=== PATIENT | male | born 1965 | race Caucasian/White ===

== ENCOUNTER 2016-05-10 03:57 | Observation (INO) | payer MEDICARE ==
--- NOTE | 2016-05-10 04:35 | ERPHSYRPT ---
- History of Present Illness Source: patient Exam Limitations: no limitations Patient Subjective Stated Complaint: pt was brought in by police after he called the ed stating he was drinking etoh and having thought of suicide and killing a lilli that has a history of harrassing him -he has a history of being hospitalized in [facility] 1 yr ago for anxiety and depression but has not been taking his meds recently -he cant sleep he is weak and tired depreased appetite recently -states a friend brought him alcohol to drink tonight Triage Nursing Assessment: pt is awaken and alert and able to answer questions - he is talking and talking but able to maintain his thoughts and is clear and consise Hx Tetanus, Diphtheria Vaccination/Date Given: Yes Hx Influenza Vaccination/Date Given: No Hx Pneumococcal Vaccination/Date Given: No <PATRICIA GALVAN - Last Filed: 05/10/16 07:05> <CASSIDY BARNES - Last Filed: 05/10/16 08:30> - History of Present Illness Time Seen by Provider: 05/10/16 04:18 Physician History: FOR THE PAST 6 MONTHS PT HAS BEEN ANXIOUS, HOMICIDAL TOWARD A PERSON WHO HAS BEEN HARASSING HIM AND HAD INSOMNIA; FOR THE PAST 3 MONTHS PT HAS HAD SUICIDAL THOUGHTS AND HAS A SUICIDAL PLAN HE WILL NOT DISCUSS WITH ME. PT ALSO STATES HE HAS HAD MIGRAINE HEADACHES FOR THE PAST YEAR, HAS DECREASED APPETITE AND HAS BEEN HEARING VOICES HIS WHOLE LIFE INTERMITTENTLY. (PATRICIA GALVAN) Allergies/Adverse Reactions: carisoprodol [From Soma] Allergy (Verified 02/10/16 06:28) Hives diphenhydramine [From Benadryl] Allergy (Verified 02/10/16 06:28) Hives quetiapine [From Seroquel] Allergy (Verified 05/10/16 06:10) Home Medications: Acetaminophen 325 mg [Tylenol 325 mg] 500 mg PO DAILY 02/07/16 [History] Meloxicam [Mobic] 15 mg PO DAILY 02/07/16 [History] - Past Medical History Pertinent Past Medical History: Yes Neurological History: Migraines ENT History: Other Cardiac History: No Pertinent History Respiratory History: Asthma Endocrine Medical History: No Pertinent History Musculoskeletal History: Arthritis, Other GI Medical History: Other History: Other Psycho-Social History: Anxiety Male Reproductive Disorders: Other Other Medical History: seasonal allegies, blood in stools, change in bowel habits, abdominal pain, urgency w. difficulty emptying bladder, pt states he has bone spurs, states hx anxiety but no problems with it for a while, pt states uretha entrance on bottom side of penis. - Past Surgical History Past Surgical History: No Neuro Surgical History: No Pertinent History Cardiac: No Pertinent History Respiratory: No Pertinent History Gastrointestinal: No Pertinent History Genitourinary: No Pertinent History Musculoskeletal: No Pertinent History Male Surgical History: No Pertinent History - Social History Smoking Status: Current every day smoker How long have you smoked: 35 years Exposure to second hand smoke: Yes Drug Use: marijuana Patient Lives Alone: No (girlfriend) <PATRICIA GALVAN - Last Filed: 05/10/16 07:05> - Review of Systems Constitutional: No Fever Respiratory: No Dyspnea Cardiac: No Chest Pain Abdominal/Gastrointestinal: Appetite Changes (DECREASED) Neurological: Headache Psychological: Anxiety, Suicidal Ideations, Homicidal Ideations, Other (INSOMNIA ) All Other Systems: Reviewed and Negative <PATRICIA GALVAN - Last Filed: 05/10/16 07:05> - Physical Exam General Appearance: alert, anxiety Eyes, Ears, Nose, Throat Exam: pharynx normal, other (CERUMEN OCCLUSION OF BOTH EARS.) Neck Exam: normal inspection Respiratory Exam: lungs clear Cardiovascular Exam: normal heart sounds Gastrointestinal/Abdominal Exam: soft, normal bowel sounds Extremities Exam: normal inspection, No edema Peripheral Pulses: dorsalis-pedis (R): 2+, dorsalis-pedis (L): 2+ Current Suicidality: has suicide plan Neurological Exam: alert, anxious, depressed affect Behavior/Eye Contact/Speech: alert & cooperative Skin Exam: warm, dry SpO2 Interpretation: normal SpO2: 95 Oxygen Delivery: Room Air <PATRICIA GALVAN - Last Filed: 05/10/16 07:05> <CASSIDY BARNES - Last Filed: 05/10/16 08:30> - Nursing Vital Signs Nursing Vital Signs: Initial Vital Signs Temperature 98 F Temperature Source Oral Pulse Rate 80 Respiratory Rate 16 Blood Pressure [Left Arm] 130/76 Pain Intensity 0 - Course Nursing assessment & vital signs reviewed: Yes <PATRICIA GALVAN - Last Filed: 05/10/16 07:05> <PATRICIA GALVAN - Last Filed: 05/10/16 07:05> - Progress Progress: unchanged Discussed with : Wily Will see patient in: hospital (observation) Counseled pt/family regarding: lab results, diagnosis, rad results <CASSIDY BARNES - Last Filed: 05/10/16 08:30> - Progress Progress Note: 05/10/16 07:35 waiting for psych inpatient placement (CASSIDY BARNES) <PATRICIA GALVAN - Last Filed: 05/10/16 07:05> - Departure Time of Disposition: 08:30 Departure Disposition: Observation Critical Care Time: Yes Critical Care Time(excluding separately billable procedures): 30-74 minutes <CASSIDY BARNES - Last Filed: 05/10/16 08:30> - Departure Clinical Impression: Psycho organic syndrome Condition: Fair Referrals: DOCTOR,NO FAMILY [Primary Care Provider] - Instructions: Bipolar Disorder
[2016-05-10 04:41] LABS: BASOPHIL % 0.3 % (0.0-0.4); Eosinophil % 2.5 % (0.00-5.0); Granulocytes % 46.8 % (36.0-66.0); Lymphocytes % 44.2 % (24.0-44.0); Mean Cell Volume 98.1 fl (78-100); Mean Corpuscular Hemoglobin 33.8 pg (26-32); Mean Platelet Volume 10.8 fl (6-9.5); Monocytes % 6.2 % (0.0-12.0); Platelet Count 223 K/mm3 (150-450); Red Blood Count 5.21 M/mm3 (4.1-5.6); Red Cell Distribution Width 13.2 % (11.5-14.0); White Blood Count 7.2 K/mm3 (4.0-10.5)
[2016-05-10 04:43] LABS: COMPLETE URINE MICROSCOPIC? NO; Collection Type CLEAN CATCH; Ph 6.5 (5-6)
[2016-05-10 04:55] LABS: ALBUMIN 4.2 g/dL (3.4-5.0); ALKALINE PHOSPHATASE 89 U/L (46-116); ANION GAP 13.6 MEQ/L (5-15); BILIRUBIN,TOTAL 0.4 mg/dL (0.2-1.0); BLOOD UREA NITROGEN 8 mg/dL (9-20); CHLORIDE 103 mEq/L (98-107); Carbon Dioxide 27.4 mEq/L (21-32); Glucose 109 MG/DL (70-110); Potassium 3.7 mEq/L (3.5-5.1); SGOT/AST 3 U/L (15-37); SGPT/ALT 18 U/L (12-78); SODIUM 140 mEq/L (136-145); Total Protein 7.7 gm/dL (6.4-8.2)
[2016-05-10 04:56] LABS: ACETAMINOPHEN < 2.0 ug/ml (10-30)
[2016-05-10] MEDS ORDERED: TYLENOL 325 MG PO STA (06:32)
[2016-05-10] MEDS ORDERED: TYLENOL 325 MG ONE (06:33)
[2016-05-10] MEDS ORDERED: Sodium Chloride 0.9% 1000 ML 1,000 ML IV SCH (09:29)
[2016-05-10] MEDS ORDERED: Ativan 2 MG/1 ML VIAL IV PRN (09:29)
[2016-05-10] MEDS ORDERED: Tums EX 750 MG PO PRN (21:52)
[2016-05-10] MEDS ORDERED: TUMS EX TABLETS PO ONE (21:55)
[2016-05-10] MEDS: TYLENOL 325 MG PO PRN (22:02)
--- NOTE | 2016-05-11 08:06 | PCM.HP ---
History of Present Illness - Chief Complaint Chief Complaint: acute psychosis, alcohol intoxication History of Present Illness: is a 50 year old male who was brought to the ER by law enforcement, apparently he had been making suicidal and homicidal comments to his family, he had also been drinking before arrival. He states he has been hospitalized approximately a year ago at [facility] for a similar incident. He was following at the [facility] in [place] but never got things arranged to be seen in the [place] office since he moved locally. Initially he was uncooperative with any intervention with our staff, he explains to me that he wanted to be left alone. He is well oriented, coopeartive and appropriate with me today. He regrets making comments to his family and states that he wasn't serious about harming himself or anyone else. He thinks drinking alcohol played a role in this, he also has not been sleeping well, apparently has not been on any medications for several months. - Review of Systems Constitutional: No Fever, No Chills Respiratory: No Cough, No Short Of Breath Cardiac: No Chest Pain, No Edema, No Syncope Abdominal/Gastrointestinal: No Abdominal Pain, No Nausea, No Vomiting, No Diarrhea Skin: No Rash Psychological: Alcohol Abuse, No Drug Abuse, No Suicidal Ideations, No Homicidal Ideations Medications & Allergies Home Medications: Home Medication List No Reportable Medications [No Reported Medications] 05/10/16 [History Confirmed 05/10/16] Allergies/Adverse Reactions: Allergies Allergy/AdvReac Type Severity Reaction Status Date / Time quetiapine [From Seroquel] Allergy Severe Verified 05/10/16 09:47 carisoprodol [From Soma] Allergy Hives Verified 02/10/16 06:28 diphenhydramine Allergy Hives Verified 02/10/16 06:28 [From Benadryl] - Past Medical History Past Medical History: Yes Neurological History: Migraines ENT History: Other Cardiac History: No Pertinent History Respiratory History: Asthma Endocrine Medical History: No Pertinent History Musculoskelatal History: Arthritis, Other GI Medical History: Other History: Other Pyscho-Social History: Anxiety Male Reproductive Disorders: Other Comment: prior suicide attempts by over dose. Cutting, anxiety, schizophrenia. Insomnia. Bendge drinking. - Past Surgical History Past Surgical History: No Neuro Surgical History: No Pertinent History Cardiac History: No Pertinent History Respiratory Surgery: No Pertinent History GI Surgical History: No Pertinent History Genitourinary Surgical Hx: No Pertinent History Musculskeletal Surgical Hx: No Pertinent History Male Surgical History: No Pertinent History - Social History Smoking Status: Current every day smoker How long have you smoked: 35 years Exposure to second hand smoke: Yes Alcohol: Weekly Drug Use: marijuana - Physical Exam Vital Signs: Vital Signs - 24 hr Temp Pulse Resp BP Pulse Ox 05/11/16 04:00 18 05/11/16 00:00 18 05/10/16 16:00 16 05/10/16 12:00 16 05/10/16 10:00 98 F 91 H 16 131/72 96 General Appearance: no apparent distress, alert Eye Exam: PERRL/EOMI, eyes nml inspection Respiratory Exam: normal breath sounds, lungs clear, No respiratory distress Cardiovascular Exam: regular rate/rhythm, normal heart sounds, normal peripheral pulses Gastrointestinal/Abdomen Exam: soft, normal bowel sounds, No tenderness, No mass Extremity Exam: normal inspection, normal range of motion, pelvis stable Skin Exam: normal color, warm, dry, No rash Assessment/Plan (1) Acute psychosis Current Visit: Yes Status: Acute Assessment & Plan: patient is stable at this time, he is appropriate and well oriented. will repeat urine alcohol this am, when negative will pursue telemental evaluation. patient is cooperative and I explained to his the process and he is agreeable, if nothing else will certainly need outpatient followup arranged with the local [facility] office. he feels safe, denies any homicidal or suicidal thoughts and wants to go home, discussed need to clear him with psych evaluation first and he agrees. Code(s): F23 - BRIEF PSYCHOTIC DISORDER (2) Alcohol intoxication Current Visit: Yes Status: Acute
[2016-05-11] MEDS: TYLENOL 325 MG PO PRN (08:24)
[2016-05-11 08:56] VITALS: O2SAT 98
[2016-05-11 15:06] VITALS: PULSE 94
[2016-05-11 15:41] VITALS: BP 120/78
--- NOTE | 2016-05-11 16:44 | PCM.DS ---
Discharge Summary Date of Admission: 05/10/16 09:23 Admitting Physician: HERNANDEZ HEBERT Primary Care Provider: NO FAMILY DOCTOR Allergies Allergies quetiapine [From Seroquel] Allergy (Severe, Verified 05/10/16 09:47) seizures carisoprodol [From Soma] Allergy (Verified 02/10/16 06:28) Hives diphenhydramine [From Benadryl] Allergy (Verified 02/10/16 06:28) [facility] Summary - Hospital Course Hospital Course: patient had telemental evaluation and was recommended outpatient f/u - Vitals & Intake/Output Vital Signs: Vital Signs Temperature 98.2 F 05/11/16 15:39 Pulse Rate 94 H 05/11/16 15:39 Respiratory Rate 18 05/11/16 15:39 Blood Pressure 120/78 05/11/16 15:39 O2 Sat by Pulse Oximetry 98 05/11/16 12:00 Intake & Output: Intake & Output 05/09/16 05/10/16 05/11/16 05/12/16 11:59 11:59 11:59 11:59 Intake Total 540 Balance 540 Weight 72.575 kg - Lab Result Diagrams: 05/10/16 04:35 05/10/16 04:35 Lab Results-Last 24 Hrs: Lab Results-Last 24 Hours 05/11/16 Range/Units 08:40 Urine pH 6.0 (3-8.5) Urine Ethyl Alcohol 1 (0.00-20) mg/dl - Procedures and Test Procedures and Tests throughout Hospitalization: Therapy Orders & Screens 05/10/16 11:00 Smoking Cessation Education ONCE Comment: Diagnosis: acute psychosis, alcohol intoxication Smoking Status: Current every day smoker How long have you smoked: 35 years Have you smoked in the past 12 months: Yes Approximately how many cigarettes per day: 2PPD cigars Do you dip or chew tobacco: No Discharge Exam General Appearance: no apparent distress, alert Respiratory Exam: normal breath sounds, lungs clear, No respiratory distress Cardiovascular Exam: regular rate/rhythm, normal heart sounds Gastrointestinal/Abdomen Exam: soft, No tenderness, No mass Extremity Exam: normal inspection, normal range of motion Final Diagnosis/Problem List - Final Discharge Diagnosis/Problem (1) Acute psychosis Current Visit: Yes Status: Acute (2) Alcohol intoxication Current Visit: Yes Status: Acute - Discharge Disposition: Home, Self-Care Condition: Stable Prescriptions: No Action No Reportable Medications [No Reported Medications] Instructions: Bipolar Disorder Follow up with: CELIA LONG [ACTIVE STAFF] - 1 Week
== END 2016-05-11 18:30 | disposition home or self-care (01) ==
LOC: ED 03:57 → ICU 09:23
PROVIDERS: ADMIT Family Medicine; ATTEND Family Medicine
DX: F23 Brief psychotic disorder (principal); F10.129 Alcohol abuse with intoxication, unspecified; J45.909 Unspecified asthma, uncomplicated; F41.9 Anxiety disorder, unspecified; M19.90 Unspecified osteoarthritis, unspecified site; Z72.0 Tobacco use; Z79.899 Other long term (current) drug therapy
CPT/HCPCS: 99284; 81002; 36415; 80307; 80320 ×2; 83986 ×2; 85025; 80053; G0479; G0481; 90791; G0378; Q3014

== ENCOUNTER 2017-02-24 23:33 | Observation (INO) | payer MEDICARE ==
[2017-02-25] MEDS ORDERED: Sodium Chloride 0.9% 1000 ML 1,000 ML IV STA (00:02)
[2017-02-25] MEDS ORDERED: THIAMINE 200 MG/2 ML IV ONE (00:02)
[2017-02-25] MEDS ORDERED: THIAMINE 200 MG/2 ML ONE (00:07)
[2017-02-25] MEDS ORDERED: Sodium Chloride 0.9% 1000 ML 1,000 ML ONE (00:07)
--- NOTE | 2017-02-25 00:09 | ERPHSYRPT ---
- History of Present Illness Time Seen by Provider: 02/25/17 00:04 Source: patient Exam Limitations: no limitations Patient Subjective Stated Complaint: pt states he has been depressed and was going to take heroin tonight. states he wants to kill himself. Triage Nursing Assessment: pt alert and oriented. speech slurred. cooperative. strong smell of etoh from pt. pt sttes he has been haivng thoughts of harming himself. Physician History: This is a 51-year-old white male with history of migraines, asthma, arthritis, anxiety Patient is brought by the police patient states that he has been hearing voices in his head for 2 weeks he states he's been drinking vodka he has been considering taking insulin to harm himself. 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 Patient states he has a history of schizophrenia Social history includes tobacco use alcohol use Timing/Duration: week(s) (hearing voices for 2 weeks, tells police he wants to harm himself tonight) Severity: moderate Modifying Factors: Improves With: nothing Allergies/Adverse Reactions: quetiapine [From Seroquel] Allergy (Severe, Verified 02/25/17 00:03) seizures carisoprodol [From Soma] Allergy (Verified 02/25/17 00:03) Hives diphenhydramine [From Benadryl] Allergy (Verified 02/25/17 00:03) Hives Home Medications: No Reportable Medications [No Reported Medications] 05/10/16 [History] Hx Tetanus, Diphtheria Vaccination/Date Given: Yes Hx Influenza Vaccination/Date Given: No Hx Pneumococcal Vaccination/Date Given: No Immunizations Up to Date: Yes - Review of Systems Constitutional: No Fever, No Chills Eyes: No Symptoms Ears, Nose, & Throat: No Symptoms Respiratory: No Cough, No Dyspnea Cardiac: No Chest Pain, No Edema, No Syncope Abdominal/Gastrointestinal: No Abdominal Pain, No Nausea, No Vomiting, No Diarrhea Genitourinary Symptoms: No Dysuria Musculoskeletal: No Back Pain, No Neck Pain Skin: No Rash Neurological: No Dizziness, No Focal Weakness, No Sensory Changes Psychological: Alcohol Abuse, Suicidal Ideations Endocrine: No Symptoms All Other Systems: Reviewed and Negative - Past Medical History Pertinent Past Medical History: Yes Neurological History: Migraines ENT History: Other Cardiac History: No Pertinent History Respiratory History: Asthma Endocrine Medical History: No Pertinent History Musculoskeletal History: Arthritis, Other GI Medical History: Other History: Other Psycho-Social History: Anxiety Male Reproductive Disorders: Other Other Medical History: prior suicide attempts by over dose. Cutting, anxiety, schizophrenia. Insomnia. Binge drinking. - Past Surgical History Past Surgical History: No Neuro Surgical History: No Pertinent History Cardiac: No Pertinent History Respiratory: No Pertinent History Gastrointestinal: No Pertinent History Genitourinary: No Pertinent History Musculoskeletal: No Pertinent History Male Surgical History: No Pertinent History - Social History Smoking Status: Current every day smoker How long have you smoked: 35 years Exposure to second hand smoke: Yes Drug Use: marijuana Patient Lives Alone: No - Nursing Vital Signs Nursing Vital Signs: Initial Vital Signs Temperature 97.6 F 02/24/17 23:45 Pulse Rate 100 H 02/24/17 23:45 Respiratory Rate 18 02/24/17 23:45 Blood Pressure 117/95 02/24/17 23:45 O2 Sat by Pulse Oximetry 97 02/24/17 23:45 - Physical Exam General Appearance: other (well-developed white male, slurry speech, oriented to person and place) Eye Exam: PERRL/EOMI, eyes nml inspection Ears, Nose, Throat Exam: normal ENT inspection, TMs normal, pharynx normal, moist mucous membranes Neck Exam: normal inspection, non-tender, supple, full range of motion Respiratory Exam: normal breath sounds, lungs clear, No respiratory distress Cardiovascular Exam: regular rate/rhythm, normal heart sounds, normal peripheral pulses Gastrointestinal/Abdomen Exam: soft, normal bowel sounds, No tenderness, No mass Back Exam: normal inspection, normal range of motion, No CVA tenderness, No vertebral tenderness Extremity Exam: normal inspection, normal range of motion, pelvis stable Neurologic Exam: alert, oriented x 3, cooperative, normal mood/affect, nml cerebellar function, nml station & gait, sensation nml, No motor deficits Skin Exam: normal color, warm, dry, No rash Lymphatic Exam: No adenopathy SpO2 Interpretation: normal (97%) SpO2: 97 Oxygen Delivery: Room Air - Course Nursing assessment & vital signs reviewed: Yes EKG Interpreted by Me: RATE (96 bpm), Sinus Rhythm, NORMAL AXIS, Other (EKG sinus bpm normal axis no acute ST or T wave changes noted) Ordered Tests: Active Orders 24 hr Category Date Time Status Bedrest with BRP/BSC ROUTINE Activity 02/25/17 03:13 Active Accucheck STAT Care 02/25/17 00:02 Completed Admission/Status Order ROUTINE Care 02/25/17 03:13 Active Call Admit Doctor for Orders ON ADMISSION Care 02/25/17 03:13 Active Code Status Order ROUTINE Care 02/25/17 03:13 Active EKG-ER Only STAT Care 02/25/17 00:02 Completed Muniz [Catheter-Susan Muniz] STAT Care 02/25/17 02:27 Inactive IV Care Q6H Care 02/25/17 03:13 Active IV Insertion STAT Care 02/25/17 00:02 Completed Clear Liquid Diet 02/25/17 Breakfast Active ACETAMINOPHEN AM.LAB Lab 02/25/17 04:00 Ordered ACETAMINOPHEN Stat Lab 02/25/17 00:13 Completed AMYLASE Stat Lab 02/25/17 00:13 Completed CBC W DIFF Stat Lab 02/25/17 00:13 Completed CBC W DIFF Urgent Lab 02/25/17 03:13 Ordered CMP AM.LAB Lab 02/25/17 04:00 Ordered CMP Stat Lab 02/25/17 00:13 Completed ETHYL ALCOHOL AM.LAB Lab 02/25/17 04:00 Ordered ETHYL ALCOHOL Stat Lab 02/25/17 00:13 Completed SALICYLATE Stat Lab 02/25/17 00:13 Completed UA W/RFX UR CULTURE Stat Lab 02/25/17 00:13 Completed Urine Triage Profile Stat Lab 02/25/17 00:13 Completed Transfer Order Routine Transfer 02/25/17 Completed Medication Summary Generic Name Dose Route Start Last Admin Trade Name Freq PRN Reason Stop Dose Admin Sodium Chloride 1,000 mls @ 100 mls/hr 02/25/17 03:13 Sodium Chloride 0.9% 1000 Ml IV 03/27/17 03:12 .Q10H ZENON Lorazepam 1 mg 02/25/17 03:13 02/25/17 03:20 Ativan 2 Mg/1 Ml Vial IV 03/27/17 03:12 1 mg PRN PRN Administration CIWA SCORE Thiamine HCl 100 mg 02/25/17 10:00 Vitamin B-1 100 Mg PO 03/27/17 09:59 DAILY ZENON Discontinued Medications Generic Name Dose Route Start Last Admin Trade Name Maxx PRN Reason Stop Dose Admin Sodium Chloride 1,000 mls @ 999 mls/hr 02/25/17 00:02 02/25/17 00:11 Sodium Chloride 0.9% 1000 Ml IV 02/25/17 01:02 999 mls/hr .Q1H1M STA Administration Sodium Chloride Confirm 02/25/17 00:07 Sodium Chloride 0.9% 1000 Ml Administered 02/25/17 00:08 Dose 1,000 mls @ ud .ROUTE .STK-MED ONE Thiamine HCl 100 mg 02/25/17 00:02 02/25/17 00:11 Thiamine 200 Mg/2 Ml IV 02/25/17 00:03 100 mg STAT ONE Administration Thiamine HCl Confirm 02/25/17 00:07 Thiamine 200 Mg/2 Ml Administered 02/25/17 00:08 Dose 200 mg .ROUTE .STK-MED ONE Lab/Rad Data: Laboratory Result Diagrams 02/25/17 00:13 02/25/17 00:13 Laboratory Results 02/25/17 02/25/17 02/25/17 Range/Units 00:13 00:13 00:13 WBC 10.0 (4.0-10.5) K/mm3 RBC 5.00 (4.1-5.6) M/mm3 Hgb 16.6 (12.5-18.0) gm/dl Hct 48.0 (42-50) % MCV 96.0 (78-100) fl MCH 33.2 H (26-32) pg MCHC 34.6 (32-36) g/dl RDW 13.3 (11.5-14.0) % Plt Count 226 (150-450) K/mm3 MPV 11.0 H (6-9.5) fl Gran % 51.3 (36.0-66.0) % Lymphocytes % 38.2 (24.0-44.0) % Monocytes % 7.7 (0.0-12.0) % Eosinophils % 2.7 (0.00-5.0) % Basophils % 0.1 (0.0-0.4) % Basophils # 0.01 (0-0.4) Sodium 142 (136-145) mEq/L Potassium 3.7 (3.5-5.1) mEq/L Chloride 105 (98-107) mEq/L Carbon Dioxide 25.8 (21-32) mEq/L Anion Gap 14.5 (5-15) MEQ/L BUN 9 (9-20) mg/dL Creatinine 0.87 (0.55-1.30) mg/dl Estimated GFR > 60 ML/MIN Glucose 109 (70-110) MG/DL Calcium 9.1 (8.5-10.1) mg/dL Total Bilirubin 0.30 (0.2-1.0) mg/dL AST 21 (15-37) U/L ALT 27 (12-78) U/L Alkaline Phosphatase 81 (46-116) U/L Serum Total Protein 7.4 (6.4-8.2) gm/dL Albumin 3.9 (3.4-5.0) g/dL Amylase 47 (25-115) U/L Ur Collection Type Urine Color (YELLOW) Urine Appearance (CLEAR) Urine pH (5-6) Ur Specific Parsons (1.005-1.025) Urine Protein (Negative) Urine Ketones (NEGATIVE) Urine Blood (0-5) Andrei/ul Urine Nitrite (NEGATIVE) Urine Bilirubin (NEGATIVE) Urine Urobilinogen (0-1) mg/dL Ur Leukocyte Esterase (NEGATIVE) Urine Culture Reflexed (NO) Urine Glucose (NEGATIVE) mg/dL Salicylates 9.0 (2.8-20.0) mg/dl Urine Opiates Level NEG. (NEGATIVE) Ur Methadone NEG. (NEGATIVE) Acetaminophen < 2.0 L (10-30) ug/ml Urine Barbiturates NEG. (NEGATIVE) Ur Phencyclidine (PCP) NEG. (NEGATIVE) Urine Amphetamine NEG. (NEGATIVE) U Benzodiazepine Level NEG. (NEGATIVE) Urine Cocaine NEG. (NEGATIVE) Urine Marijuana (THC) NEG. (NEGATIVE) Ethyl Alcohol 0.258 H* (0.00-0.01) % Specimen Received 02/25/17 Range/Units 00:13 WBC (4.0-10.5) K/mm3 RBC (4.1-5.6) M/mm3 Hgb (12.5-18.0) gm/dl Hct (42-50) % MCV (78-100) fl MCH (26-32) pg MCHC (32-36) g/dl RDW (11.5-14.0) % Plt Count (150-450) K/mm3 MPV (6-9.5) fl Gran % (36.0-66.0) % Lymphocytes % (24.0-44.0) % Monocytes % (0.0-12.0) % Eosinophils % (0.00-5.0) % Basophils % (0.0-0.4) % Basophils # (0-0.4) Sodium (136-145) mEq/L Potassium (3.5-5.1) mEq/L Chloride (98-107) mEq/L Carbon Dioxide (21-32) mEq/L Anion Gap (5-15) MEQ/L BUN (9-20) mg/dL Creatinine (0.55-1.30) mg/dl Estimated GFR ML/MIN Glucose (70-110) MG/DL Calcium (8.5-10.1) mg/dL Total Bilirubin (0.2-1.0) mg/dL AST (15-37) U/L ALT (12-78) U/L Alkaline Phosphatase (46-116) U/L Serum Total Protein (6.4-8.2) gm/dL Albumin (3.4-5.0) g/dL Amylase (25-115) U/L Ur Collection Type VOID Urine Color LT.YELLOW (YELLOW) Urine Appearance CLEAR (CLEAR) Urine pH 7.0 (5-6) Ur Specific Parsons 1.005 (1.005-1.025) Urine Protein NEGATIVE (Negative) Urine Ketones NEGATIVE (NEGATIVE) Urine Blood NEGATIVE (0-5) Andrei/ul Urine Nitrite NEGATIVE (NEGATIVE) Urine Bilirubin NEGATIVE (NEGATIVE) Urine Urobilinogen NORMAL (0-1) mg/dL Ur Leukocyte Esterase NEGATIVE (NEGATIVE) Urine Culture Reflexed NO (NO) Urine Glucose NEGATIVE (NEGATIVE) mg/dL Salicylates (2.8-20.0) mg/dl Urine Opiates Level (NEGATIVE) Ur Methadone (NEGATIVE) Acetaminophen (10-30) ug/ml Urine Barbiturates (NEGATIVE) Ur Phencyclidine (PCP) (NEGATIVE) Urine Amphetamine (NEGATIVE) U Benzodiazepine Level (NEGATIVE) Urine Cocaine (NEGATIVE) Urine Marijuana (THC) (NEGATIVE) Ethyl Alcohol (0.00-0.01) % Specimen Received 02/25/17 0015 - Progress Progress: improved Progress Note: 02/25/17 00:08 51-year-old white male who is brought in by the police he complains of hearing voices for 2 weeks he really does not elaborate what these are saying he states he has been drinking vodka today. He told the police that he wanted to harm himself by injecting insulin however the patient has a history of borderline diabetes and is unsure whether he has insulin available. Patient does state he has a history of schizophrenia. Will go ahead and provide IV fluids thiamine obtain appropriate laboratory studies. 02/25/17 01:27 Patient's blood alcohol level is 0.258 patient is somewhat obstinate with the nurses and seems to enjoy doing this. I have discussed the case with Dr. Lewis Eugene who is talent acquisition partner for Dr. Chauhan. Will place patient on observation. Diagnosis alcohol intoxication. Suicidal ideation - Departure Time of Disposition: 03:30 Departure Disposition: Observation Clinical Impression: Suicidal ideation Alcohol intoxication Qualifiers: Complication of substance-induced condition: uncomplicated Qualified Code(s): F10.920 - Alcohol use, unspecified with intoxication, uncomplicated Condition: Fair Critical Care Time: No
[2017-02-25 00:18] LABS: ADD URINE CULTURE? NO (NO); Bilirubin NEGATIVE (NEGATIVE); Blood NEGATIVE Ery/ul (0-5); COMPLETE URINE MICROSCOPIC? NO; Collection Type VOID; Glucose NEGATIVE (NEGATIVE); Leukocyte Esterase NEGATIVE (NEGATIVE)
[2017-02-25 00:19] LABS: BASOPHIL % 0.1 % (0.0-0.4); Eosinophil % 2.7 % (0.00-5.0); Granulocytes % 51.3 % (36.0-66.0); Lymphocytes % 38.2 % (24.0-44.0); Mean Corpuscular Hemoglobin 33.2 pg (26-32); Monocytes % 7.7 % (0.0-12.0); Platelet Count 226 K/mm3 (150-450); Red Cell Distribution Width 13.3 % (11.5-14.0)
[2017-02-25 00:37] LABS: ALBUMIN 3.9 g/dL (3.4-5.0); ALKALINE PHOSPHATASE 81 U/L (46-116); ANION GAP 14.5 MEQ/L (5-15); BLOOD UREA NITROGEN 9 mg/dL (9-20); CHLORIDE 105 mEq/L (98-107); Carbon Dioxide 25.8 mEq/L (21-32); ETHYL ALCOHOL 0.258 % (0.00-0.01); Glucose 109 MG/DL (70-110); Potassium 3.7 mEq/L (3.5-5.1); SGPT/ALT 27 U/L (12-78); SODIUM 142 mEq/L (136-145); Total Protein 7.4 gm/dL (6.4-8.2)
[2017-02-25 00:50] LABS: SGOT/AST 21 U/L (15-37)
[2017-02-25 00:52] LABS: ACETAMINOPHEN < 2.0 ug/ml (10-30)
[2017-02-25] MEDS ORDERED: Sodium Chloride 0.9% 1000 ML 1,000 ML IV SCH (03:13)
[2017-02-25] MEDS ORDERED: Ativan 2 MG/1 ML VIAL IV PRN (03:13)
[2017-02-25 05:57] LABS: BASOPHIL % 0.1 % (0.0-0.4); Eosinophil % 3.4 % (0.00-5.0); Granulocytes % 43.7 % (36.0-66.0); Lymphocytes % 45.6 % (24.0-44.0); Mean Corpuscular Hemoglobin 32.7 pg (26-32); Mean Platelet Volume 11.2 fl (6-9.5); Monocytes % 7.2 % (0.0-12.0); Platelet Count 215 K/mm3 (150-450); Red Blood Count 5.08 M/mm3 (4.1-5.6); Red Cell Distribution Width 13.4 % (11.5-14.0); White Blood Count 8.3 K/mm3 (4.0-10.5)
[2017-02-25 06:24] LABS: ALBUMIN 3.7 g/dL (3.4-5.0); ALKALINE PHOSPHATASE 77 U/L (46-116); ANION GAP 12.3 MEQ/L (5-15); BLOOD UREA NITROGEN 9 mg/dL (9-20); CHLORIDE 108 mEq/L (98-107); Carbon Dioxide 27.1 mEq/L (21-32); ETHYL ALCOHOL 0.191 % (0.00-0.01); Glucose 94 MG/DL (70-110); Potassium 3.8 mEq/L (3.5-5.1); SGOT/AST 18 U/L (15-37); SGPT/ALT 24 U/L (12-78); SODIUM 144 mEq/L (136-145); Total Protein 7.2 gm/dL (6.4-8.2)
[2017-02-25 06:31] LABS: ACETAMINOPHEN < 2.0 ug/ml (10-30)
--- NOTE | 2017-02-25 09:15 | SSS ---
DISCHARGE DIAGNOSES: 1) SUICIDAL IDEATION. 2) INTOXICATION. 3) BIPOLAR DISORDER. HISTORY: The patient is a 51 year-old white male patient who reports that last evening he was chugging alcohol just as hard and as quick as he could. He was having arguments with his girlfriend and just wanted to get away from the house. He reported to the authorities that he wanted to kill himself. He was brought to the emergency room for further evaluation and management. PAST MEDICAL/SURGICAL HISTORY: Significant for bipolar and schizophrenia. He has a long history of treatments at mental health facilities. This is a patient that I am not familiar with otherwise and do not believe I have ever seen in the office. The patient's medical history otherwise is essentially remarkable for arthritis, chronic obstructive pulmonary disease, migraines. He is unsure about his medications presently except he reports that he does take Seroquel and Klonopin. He is unsure about any other medications presently. HOME MEDICATIONS: ALLERGIES: SOMA, BENADRYL. PHYSICAL EXAMINATION: He is a disheveled 51 year-old white male patient who is edentulous and mumbling somewhat and asking for his dentures. HEENT: Normocephalic, atraumatic. Pupils equal round reactive to light. Extraocular movements intact. NECK: Supple without lymphadenopathy, thyromegaly or JVD. CHEST: Clear to auscultation with good air movement bilaterally. HEART: Regular rate and rhythm without murmurs, rubs or gallops. ABDOMEN: Soft, nontender, nondistended without hepatosplenomegaly or masses. EXTREMITIES: Without clubbing, cyanosis or edema. NEUROLOGIC: The patient is alert and oriented x3. No focal deficits were noted. LAB DATA AND TESTS: Revealed urine drug screen which was negative. UA showed specific gravity 1.005 and was otherwise normal. CBC normal. Hemoglobin 16.6, white blood cell count 10,000. PLT count 226,000. His metabolic panel was normal as well. Acetaminophen less than 2. Salicylate 9.0. ETOH was initially 0.258 and is now down to 0.191. HOSPITAL COURSE: The patient this morning after hospitalization and waking up reports he does not feel like harming himself. He just wanted to scare his girlfriend. He is currently under a 24 hour hold but currently medically stable for discharge to whatever facility that the [facility] suggests versus home with outpatient follow up. The patient reports that he has tried to get into [facility] for the past three months but their appointments are three to four months out for evaluation and he got tired of waiting. The patient otherwise is cleared for discharge from the medical standpoint.
[2017-02-25] MEDS ORDERED: VITAMIN B-1 100 MG PO SCH (10:00)
[2017-02-25 16:27] VITALS: BP 106/78; PULSE 98; O2SAT 95
== END 2017-02-25 20:00 | disposition home or self-care (01) ==
LOC: ED 23:33 → EEVIPCON 23:33 → ICU 02-25 03:12
PROVIDERS: ADMIT Family Medicine; ATTEND Family Medicine
DX: R45.851 Suicidal ideations (principal); F10.129 Alcohol abuse with intoxication, unspecified; F31.9 Bipolar disorder, unspecified; F20.9 Schizophrenia, unspecified; J44.9 Chronic obstructive pulmonary disease, unspecified; M19.90 Unspecified osteoarthritis, unspecified site
CPT/HCPCS: 90791; 99285; 36000; 82962; 96360; 93005; 82150; 81002; 36415; 80307 ×2; 85025; 80053; P9612; G0481 ×2; 96374; G0378; J2060; Q3014; A9270-GY

== ENCOUNTER 2017-06-23 20:31 | Emergency (ER) | payer MEDICARE ==
--- NOTE | 2017-06-23 20:40 | ERPHSYRPT ---
- History of Present Illness Time Seen by Provider: 06/23/17 20:31 Source: patient Exam Limitations: no limitations Physician History: ABOUT 2 HOURS AGO PT TOOK AN UNKNOWN QUANTITY OF VARIOUS MEDICATIONS IN A SUICIDE ATTEMPT. PT STATES HE HAS HAD SUICIDAL THOUGHTS FOR THE PAST 6 MONTHS AND HAS A THERAPIST NAMED YAMILA AT [facility]. PT ALSO C/O URINARY HESITATION FOR OVER 1 YEAR, INTERMITTENT DIARRHEA FOR THE PAST 6 MONTHS, COUGH FOR YEARS AND 3 DAYS AGO VOMITING X1 WITHOUT BLOOD WITH DECREASED APPETITE. Allergies/Adverse Reactions: quetiapine [From Seroquel] Allergy (Severe, Verified 02/25/17 00:03) seizures carisoprodol [From Soma] Allergy (Verified 02/25/17 00:03) Hives diphenhydramine [From Benadryl] Allergy (Verified 02/25/17 00:03) Hives Home Medications: Meloxicam 1 tab PO DAILY 02/25/17 [History] Hx Tetanus, Diphtheria Vaccination/Date Given: Yes Hx Influenza Vaccination/Date Given: No Hx Pneumococcal Vaccination/Date Given: No - Review of Systems Constitutional: No Fever Respiratory: Cough Cardiac: No Chest Pain Abdominal/Gastrointestinal: Vomiting, Diarrhea, Appetite Changes (DECREASED APPETITE), No Abdominal Pain Genitourinary Symptoms: Hesitancy Neurological: Headache (MIGRAINES) Psychological: Suicidal Ideations All Other Systems: Reviewed and Negative - Past Medical History Pertinent Past Medical History: Yes Neurological History: Migraines ENT History: Other Cardiac History: No Pertinent History Respiratory History: Asthma Endocrine Medical History: No Pertinent History Musculoskeletal History: Arthritis, Other GI Medical History: Other History: Other Psycho-Social History: Anxiety Male Reproductive Disorders: Other Other Medical History: prior suicide attempts by over dose. Cutting, anxiety, schizophrenia. Insomnia. Binge drinking. - Past Surgical History Past Surgical History: No Neuro Surgical History: No Pertinent History Cardiac: No Pertinent History Respiratory: No Pertinent History Gastrointestinal: No Pertinent History Genitourinary: No Pertinent History Musculoskeletal: No Pertinent History Male Surgical History: No Pertinent History - Social History Smoking Status: Current every day smoker How long have you smoked: 35 years Exposure to second hand smoke: Yes Drug Use: marijuana Patient Lives Alone: No - Nursing Vital Signs Nursing Vital Signs: Initial Vital Signs Pulse Rate 68 06/23/17 20:32 Respiratory Rate 14 06/23/17 20:32 Blood Pressure 103/75 06/23/17 20:32 O2 Sat by Pulse Oximetry 97 06/23/17 20:32 Pain Scale Pain Intensity 0 - Physical Exam General Appearance: alert Eye Exam: PERRL/EOMI Ears, Nose, Throat Exam: pharynx normal, moist mucous membranes Neck Exam: normal inspection Respiratory Exam: wheezing (MINIMAL EXPIRATORY WHEEZING) Cardiovascular Exam: normal heart sounds Gastrointestinal/Abdomen Exam: soft, normal bowel sounds Back Exam: normal range of motion Extremity Exam: normal inspection, No pedal edema Neurologic Exam: alert, cooperative, depressed mood/affect Skin Exam: warm, dry - Course Nursing assessment & vital signs reviewed: Yes EKG Interpreted by Me: RATE ([id number]), Sinus Rhythm, NORMAL AXIS, NORMAL INTERVALS - Radiology Exams Chest X-ray Interpretation: Interpreted by me, No Pneumonia Ordered Tests: Active Orders 24 hr Category Date Time Status Accucheck STAT Care 06/23/17 20:32 Active Chief Yeoman STAT Care 06/23/17 20:33 Active Clean Catch Urine Specimen STAT Care 06/23/17 20:32 Active EKG-ER Only STAT Care 06/23/17 20:32 Active IV Insertion STAT Care 06/23/17 20:32 Active Psychiatric Evaluation STAT Care 06/23/17 20:32 Active Pulse Oximetry (ED) STAT Care 06/23/17 20:32 Active CHEST 1 VIEW (PORTABLE) Stat Exams 06/23/17 20:33 Taken ACETAMINOPHEN Stat Lab 06/23/17 21:00 Completed CBC W DIFF Stat Lab 06/23/17 21:00 Completed CMP Stat Lab 06/23/17 21:00 Completed ETHYL ALCOHOL Stat Lab 06/23/17 21:00 Completed MAGNESIUM Stat Lab 06/23/17 21:00 Completed PROTIME WITH INR Stat Lab 06/23/17 21:00 Completed PTT Stat Lab 06/23/17 21:00 Completed SALICYLATE Stat Lab 06/23/17 21:00 Completed TROPONIN Q3H Lab 06/23/17 21:00 Completed TROPONIN Q3H Lab 06/23/17 23:45 Completed UA W/ MICROSCOPIC Stat Lab 06/23/17 23:14 Completed Urine Triage Profile Stat Lab 06/23/17 23:14 Completed Respiratory Nebulizer STAT RT 06/23/17 20:45 Completed Medication Summary Generic Name Dose Route Start Last Admin Trade Name Freq PRN Reason Stop Dose Admin Sodium Chloride 1,000 mls @ 100 mls/hr 06/23/17 20:45 06/23/17 20:58 Sodium Chloride 0.9% 1000 Ml IV 07/23/17 20:44 100 mls/hr .Q10H ZENON Administration Discontinued Medications Generic Name Dose Route Start Last Admin Trade Name Maxx PRN Reason Stop Dose Admin Albuterol Sulfate 2.5 mg 06/23/17 20:45 06/23/17 21:01 Proventil 2.5 Mg/3 Ml Neb IH 06/23/17 20:46 2.5 mg STAT ONE Administration Albuterol Sulfate Confirm 06/23/17 20:59 Proventil 2.5 Mg/3 Ml Neb Administered 06/23/17 21:00 Dose 2.5 mg IH .STK-MED ONE Albuterol/Ipratropium Confirm 06/23/17 20:58 Duoneb 0.5-3 Mg/3 Ml Neb Administered 06/23/17 20:59 Dose 3 ml IH .STK-MED ONE Sodium Chloride Confirm 06/23/17 20:58 Sodium Chloride 0.9% 1000 Ml Administered 06/23/17 20:59 Dose 1,000 mls @ ud .ROUTE .STK-MED ONE Lab/Rad Data: Laboratory Result Diagrams 06/23/17 21:00 06/23/17 21:00 Laboratory Results 06/23/17 06/23/17 06/23/17 Range/Units 23:45 23:14 23:14 WBC (4.0-10.5) K/mm3 RBC (4.1-5.6) M/mm3 Hgb (12.5-18.0) gm/dl Hct (42-50) % MCV (78-100) fl MCH (26-32) pg MCHC (32-36) g/dl RDW (11.5-14.0) % Plt Count (150-450) K/mm3 MPV (6-9.5) fl Gran % (36.0-66.0) % Lymphocytes % (24.0-44.0) % Monocytes % (0.0-12.0) % Eosinophils % (0.00-5.0) % Basophils % (0.0-0.4) % Basophils # (0-0.4) INR (0.8-3.0) APTT (24.1-36.1) SECONDS Sodium (137-145) mmol/L Potassium (3.5-5.1) mmol/L Chloride (98-107) mEq/L Carbon Dioxide (22-30) mmol/L Anion Gap (5-15) MEQ/L BUN (9-20) mg/dl Creatinine (0.66-1.25) mg/dl Estimated GFR ML/MIN Glucose (74-106) mg/dL Calcium (8.4-10.2) mg/dL Magnesium (1.6-2.3) mg/dL Total Bilirubin (0.2-1.3) mg/d? AST (17-59) U/L ALT (0-50) U/L Alkaline Phosphatase (38-126) U/L Troponin I < 0.012 (0.000-0.034) ng/ml Serum Total Protein (6.3-8.2) mg/dl Albumin (3.5-5.0) g/dl Ur Collection Type CCMS Urine Color YELLOW (YELLOW) Urine Appearance CLEAR (CLEAR) Urine pH 7.0 (5-6) Ur Specific [place] 1.010 (1.005-1.025) Urine Protein NEGATIVE (Negative) Urine Ketones NEGATIVE (NEGATIVE) Urine Blood NEGATIVE (0-5) Andrei/ul Urine Nitrite NEGATIVE (NEGATIVE) Urine Bilirubin NEGATIVE (NEGATIVE) Urine Urobilinogen NORMAL (0-1) mg/dL Ur Leukocyte Esterase TRACE (NEGATIVE) Urine Microscopic WBC 2-5 (0-5) /HPF Hyaline Casts 2-5 (0-2) /LPF Urine Mucus SLIGHT (NEGATIVE) /HPF Urine Culture Reflexed NO (NO) Urine Glucose NEGATIVE (NEGATIVE) mg/dL Salicylates (2-20) mg/dL Urine Opiates Level NEGATIVE (NEGATIVE) Ur Methadone NEGATIVE (NEGATIVE) Acetaminophen (10-30) ug/ml Urine Barbiturates NEGATIVE (NEGATIVE) Ur Phencyclidine (PCP) NEGATIVE (NEGATIVE) Urine Amphetamine NEGATIVE (NEGATIVE) U Benzodiazepine Level NEGATIVE (NEGATIVE) Urine Cocaine NEGATIVE (NEGATIVE) Urine Marijuana (THC) NEGATIVE (NEGATIVE) Ethyl Alcohol (10-50) MG/DL Specimen Received 06-23-17 [id number] 06/23/17 06/23/17 06/23/17 Range/Units 21:00 21:00 21:00 WBC (4.0-10.5) K/mm3 RBC (4.1-5.6) M/mm3 Hgb (12.5-18.0) gm/dl Hct (42-50) % MCV (78-100) fl MCH (26-32) pg MCHC (32-36) g/dl RDW (11.5-14.0) % Plt Count (150-450) K/mm3 MPV (6-9.5) fl Gran % (36.0-66.0) % Lymphocytes % (24.0-44.0) % Monocytes % (0.0-12.0) % Eosinophils % (0.00-5.0) % Basophils % (0.0-0.4) % Basophils # (0-0.4) INR 0.96 (0.8-3.0) APTT 31.1 (24.1-36.1) SECONDS Sodium (137-145) mmol/L Potassium (3.5-5.1) mmol/L Chloride (98-107) mEq/L Carbon Dioxide (22-30) mmol/L Anion Gap (5-15) MEQ/L BUN (9-20) mg/dl Creatinine (0.66-1.25) mg/dl Estimated GFR ML/MIN Glucose (74-106) mg/dL Calcium (8.4-10.2) mg/dL Magnesium 2.0 (1.6-2.3) mg/dL Total Bilirubin (0.2-1.3) mg/d? AST (17-59) U/L ALT (0-50) U/L Alkaline Phosphatase (38-126) U/L Troponin I < 0.012 (0.000-0.034) ng/ml Serum Total Protein (6.3-8.2) mg/dl Albumin (3.5-5.0) g/dl Ur Collection Type Urine Color (YELLOW) Urine Appearance (CLEAR) Urine pH (5-6) Ur Specific [place] (1.005-1.025) Urine Protein (Negative) Urine Ketones (NEGATIVE) Urine Blood (0-5) Andrei/ul Urine Nitrite (NEGATIVE) Urine Bilirubin (NEGATIVE) Urine Urobilinogen (0-1) mg/dL Ur Leukocyte Esterase (NEGATIVE) Urine Microscopic WBC (0-5) /HPF Hyaline Casts (0-2) /LPF Urine Mucus (NEGATIVE) /HPF Urine Culture Reflexed (NO) Urine Glucose (NEGATIVE) mg/dL Salicylates (2-20) mg/dL Urine Opiates Level (NEGATIVE) Ur Methadone (NEGATIVE) Acetaminophen (10-30) ug/ml Urine Barbiturates (NEGATIVE) Ur Phencyclidine (PCP) (NEGATIVE) Urine Amphetamine (NEGATIVE) U Benzodiazepine Level (NEGATIVE) Urine Cocaine (NEGATIVE) Urine Marijuana (THC) (NEGATIVE) Ethyl Alcohol (10-50) MG/DL Specimen Received 06/23/17 06/23/17 Range/Units 21:00 21:00 WBC 9.2 (4.0-10.5) K/mm3 RBC 4.90 (4.1-5.6) M/mm3 Hgb 16.1 (12.5-18.0) gm/dl Hct 45.9 (42-50) % MCV 93.7 (78-100) fl MCH 32.9 H (26-32) pg MCHC 35.1 (32-36) g/dl RDW 13.0 (11.5-14.0) % Plt Count 226 (150-450) K/mm3 MPV 10.6 H (6-9.5) fl Gran % 63.9 (36.0-66.0) % Lymphocytes % 26.6 (24.0-44.0) % Monocytes % 7.1 (0.0-12.0) % Eosinophils % 2.3 (0.00-5.0) % Basophils % 0.1 (0.0-0.4) % Basophils # 0.01 (0-0.4) INR (0.8-3.0) APTT (24.1-36.1) SECONDS Sodium 140 (137-145) mmol/L Potassium 3.7 (3.5-5.1) mmol/L Chloride 106 (98-107) mEq/L Carbon Dioxide 21 L (22-30) mmol/L Anion Gap 16.7 H (5-15) MEQ/L BUN 10 (9-20) mg/dl Creatinine 0.87 (0.66-1.25) mg/dl Estimated GFR > 60 ML/MIN Glucose 121 H (74-106) mg/dL Calcium 9.5 (8.4-10.2) mg/dL Magnesium (1.6-2.3) mg/dL Total Bilirubin 1.00 (0.2-1.3) mg/d? AST 32 (17-59) U/L ALT 36 (0-50) U/L Alkaline Phosphatase 70 (38-126) U/L Troponin I (0.000-0.034) ng/ml Serum Total Protein 7.4 (6.3-8.2) mg/dl Albumin 4.4 (3.5-5.0) g/dl Ur Collection Type Urine Color (YELLOW) Urine Appearance (CLEAR) Urine pH (5-6) Ur Specific [place] (1.005-1.025) Urine Protein (Negative) Urine Ketones (NEGATIVE) Urine Blood (0-5) Andrei/ul Urine Nitrite (NEGATIVE) Urine Bilirubin (NEGATIVE) Urine Urobilinogen (0-1) mg/dL Ur Leukocyte Esterase (NEGATIVE) Urine Microscopic WBC (0-5) /HPF Hyaline Casts (0-2) /LPF Urine Mucus (NEGATIVE) /HPF Urine Culture Reflexed (NO) Urine Glucose (NEGATIVE) mg/dL Salicylates 3.3 (2-20) mg/dL Urine Opiates Level (NEGATIVE) Ur Methadone (NEGATIVE) Acetaminophen < 10 L (10-30) ug/ml Urine Barbiturates (NEGATIVE) Ur Phencyclidine (PCP) (NEGATIVE) Urine Amphetamine (NEGATIVE) U Benzodiazepine Level (NEGATIVE) Urine Cocaine (NEGATIVE) Urine Marijuana (THC) (NEGATIVE) Ethyl Alcohol 69 H (10-50) MG/DL Specimen Received - Progress Discussed with : Other (PT ACCEPTED FOR ADMISSION TO [facility] BY DR GOMEZ( PSYCHIATRIST)([id number]).) - Departure Time of Disposition: 06:46 Departure Disposition: Transfer ([facility]) Clinical Impression: SUICIDE ATTEMPT Condition: Stable Critical Care Time: No Referrals: CELIA LONG [Primary Care Provider] -
[2017-06-23] MEDS ORDERED: PROVENTIL 2.5 MG/3 ML NEB IH ONE ×2 (20:45→20:59)
[2017-06-23] MEDS ORDERED: Sodium Chloride 0.9% 1000 ML 1,000 ML IV SCH (20:45)
[2017-06-23] MEDS ORDERED: DUONEB 0.5-3 MG/3 ml Neb IH ONE (20:58)
[2017-06-23] MEDS ORDERED: Sodium Chloride 0.9% 1000 ML 1,000 ML ONE (20:58)
[2017-06-23 21:06] LABS: BASOPHIL % 0.1 % (0.0-0.4); Basophil (Absolute #) 0.01 (0-0.4); Eosinophil % 2.3 % (0.00-5.0); Eosinophil (Absolute #) 0.21 (0-0.5); Granulocyte Absolute (ANC) 5.86 (1.4-6.9); Granulocytes % 63.9 % (36.0-66.0); Hematocrit 45.9 % (42-50); Hemoglobin 16.1 gm/dl (12.5-18.0); Lymphocyte (Absolute #) 2.44 (1.0-4.6); Lymphocytes % 26.6 % (24.0-44.0); Mean Cell Volume 93.7 fl (78-100); Mean Corpuscular Hemoglobin 32.9 pg (26-32); Mean Corpuscular Hgb Concent. 35.1 g/dl (32-36); Mean Platelet Volume 10.6 fl (6-9.5); Monocyte (Absolute #) 0.65 (0.0-1.3); Monocytes % 7.1 % (0.0-12.0); Platelet Count 226 K/mm3 (150-450); White Blood Count 9.2 K/mm3 (4.0-10.5)
[2017-06-23 21:26] LABS: INR 0.96 (0.8-3.0)
[2017-06-23 21:29] LABS: PTT 31.1 SECONDS (24.1-36.1)
[2017-06-23 21:34] LABS: SALICYLATE 3.3 mg/dL (2-20)
[2017-06-23 21:36] LABS: ALBUMIN 4.4 g/dl (3.5-5.0); ALKALINE PHOSPHATASE 70 U/L (38-126); ANION GAP 16.7 MEQ/L (5-15); BLOOD UREA NITROGEN 10 mg/dl (9-20); CHLORIDE 106 mEq/L (98-107); Calcium 9.5 mg/dL (8.4-10.2); Carbon Dioxide 21 mmol/L (22-30); Creatinine 1 0.87 mg/dl (0.66-1.25); Glucose 121 mg/dL (74-106); Potassium 3.7 mmol/L (3.5-5.1); SGOT/AST 32 U/L (17-59); SGPT/ALT 36 U/L (0-50); SODIUM 140 mmol/L (137-145); Total Protein 7.4 mg/dl (6.3-8.2)
[2017-06-23 21:50] LABS: ACETAMINOPHEN < 10 ug/ml (10-30)
[2017-06-23 21:54] LABS: ETHYL ALCOHOL 69 MG/DL (10-50)
[2017-06-23 23:36] LABS: Amphetamine,Urine NEGATIVE (NEGATIVE); Barbiturate,Urine NEGATIVE (NEGATIVE); Benzodiazepine,Urine NEGATIVE (NEGATIVE); Cocaine,Urine NEGATIVE (NEGATIVE); Methadone,Urine NEGATIVE (NEGATIVE); Opiate,Urine NEGATIVE (NEGATIVE); PCP,Urine NEGATIVE (NEGATIVE); THC,Urine NEGATIVE (NEGATIVE)
[2017-06-24 00:03] LABS: Appearance CLEAR (CLEAR); Bilirubin NEGATIVE (NEGATIVE); Blood NEGATIVE Ery/ul (0-5); Glucose NEGATIVE (NEGATIVE); Ketones NEGATIVE (NEGATIVE); Leukocyte Esterase TRACE (NEGATIVE); Mucus SLIGHT /HPF (NEGATIVE); Nitrite NEGATIVE (NEGATIVE); Protein,Urine Dip NEGATIVE (Negative); Urobilinogen NORMAL mg/dL (0-1)
[2017-06-24 06:34] VITALS: BP 108/80; PULSE 65; O2SAT 95
--- NOTE | 2017-06-24 08:37 | XRAY ---
Indication: Wheezing. Comparison: None Portable chest is clear. Heart and mediastinal structures within normal limits. Bony thorax intact with minimal scoliosis. Impression: Nonacute chest.
== END 2017-06-24 06:46 | disposition short-term general hospital (02) ==
LOC: ED 20:31
DX: T50.902A Poisoning by unspecified drugs, medicaments and biological substances, intentional self-harm, initial encounter (principal)
CPT/HCPCS: 93041; 99285; 82962; 93005; 81000; 85610; 85730; 36415; 83735; 80307 ×2; 85025; 80053; 84484; 71045; 94640; G0480; G0481; 81002; A9270-GY

== ENCOUNTER 2017-10-15 10:04 | Emergency (ER) | payer MEDICARE ==
[2017-10-15 10:16] VITALS: BP 113/93; PULSE 112; O2SAT 96
[2017-10-15] MEDS ORDERED: Adacel Vial IM ONE ×2 (10:23→10:36)
[2017-10-15] MEDS ORDERED: BACIGUENT PACKET TP ONE (10:23)
--- NOTE | 2017-10-15 10:29 | ERPHSYRPT ---
- History of Present Illness Time Seen by Provider: 10/15/17 10:19 Source: patient Exam Limitations: no limitations Patient Subjective Stated Complaint: fell 2 days ago and states put hes hands out and landed on concrete, has abrasion 4x2 cm in length and abrasion to left side of face Triage Nursing Assessment: pt alert, resp easy, walked in, pt has large round abrasion to palm of left hand,and scabed abrasion to left cheeck Physician History: 51-year-old white male arrives with complaint abrasion to his left hand volar surface symptoms for 2 days. Patient states that he fell 2 days ago he scraped the left side of his face, also received an abrasion to his left home. He denies any loss of consciousness he has no neck pain he does have a rather large approximately 3 cm circular area which resembles eschar on the base of his left home just distal to his wrist at the ulnar aspect volar surface. He has full range of motion to all extremities he is alert oriented 3 he denies any other complaints. Patient states he does need a tetanus shot. Past medical history includes migraines, asthma, arthritis, anxiety, prior suicide attempt by overdose, history of cutting behavior, anxiety, schizophrenia , insomnia, binge drinking. Timing/Duration: day(s) (2 days ago) Severity: moderate Modifying Factors: Improves With: nothing Associated Symptoms: other (abrasion left palm), No nausea, No vomiting, No abdominal pain, No shortness of breath, No heartburn, No diaphoresis, No cough, No chills, No chest pain, No fever, No headaches, No loss of appetite, No malaise, No rash, No syncope, No seizure, No weakness Allergies/Adverse Reactions: quetiapine [From Seroquel] Allergy (Severe, Verified 10/15/17 10:15) seizures carisoprodol [From Soma] Allergy (Verified 10/15/17 10:15) Hives diphenhydramine [From Benadryl] Allergy (Verified 10/15/17 10:15) Hives Home Medications: Aripiprazole Lauroxil [Aristada] 1 ea DAILY 10/15/17 [History] Aripiprazole Lauroxil [Aristada] 1 ea UD 10/15/17 [History] Benazepril HCl 10 mg [Lotensin 10 MG] 10 mg DAILY 10/15/17 [History] Clonazepam 1 ea DAILY 10/15/17 [History] Divalproex Sodium 250 mg DAILY 10/15/17 [History] Gabapentin 400 mg TID 10/15/17 [History] Simvastatin 40 mg DAILY 10/15/17 [History] Hx Tetanus, Diphtheria Vaccination/Date Given: No Hx Influenza Vaccination/Date Given: No Hx Pneumococcal Vaccination/Date Given: No Immunizations Up to Date: Yes - Review of Systems Constitutional: No Fever, No Chills Eyes: No Symptoms Ears, Nose, & Throat: No Symptoms Respiratory: No Cough, No Dyspnea Cardiac: No Chest Pain, No Edema, No Syncope Abdominal/Gastrointestinal: No Abdominal Pain, No Nausea, No Vomiting, No Diarrhea Genitourinary Symptoms: No Dysuria Musculoskeletal: Other (abrasion left palm) Skin: Other (Abrasion left palm 3 cm, 1.5 cm abrasion left cheek) Neurological: No Dizziness, No Focal Weakness, No Sensory Changes Psychological: No Symptoms Endocrine: No Symptoms All Other Systems: Reviewed and Negative - Past Medical History Pertinent Past Medical History: No Neurological History: Migraines ENT History: Other Cardiac History: No Pertinent History Respiratory History: Asthma Endocrine Medical History: No Pertinent History Musculoskeletal History: Arthritis, Other GI Medical History: Other History: Other Psycho-Social History: Anxiety Male Reproductive Disorders: Other Other Medical History: prior suicide attempts by over dose. Cutting, anxiety, schizophrenia. Insomnia. Binge drinking. - Past Surgical History Past Surgical History: No Neuro Surgical History: No Pertinent History Cardiac: No Pertinent History Respiratory: No Pertinent History Gastrointestinal: No Pertinent History Genitourinary: No Pertinent History Musculoskeletal: No Pertinent History Male Surgical History: No Pertinent History - Social History Smoking Status: Current every day smoker How long have you smoked: 35 years Exposure to second hand smoke: Yes Drug Use: none Patient Lives Alone: No - Nursing Vital Signs Nursing Vital Signs: Initial Vital Signs Temperature 98.1 F 10/15/17 10:09 Pulse Rate 112 H 10/15/17 10:09 Respiratory Rate 16 10/15/17 10:09 Blood Pressure 113/93 10/15/17 10:09 O2 Sat by Pulse Oximetry 96 10/15/17 10:09 Pain Scale Pain Intensity 9 - Physical Exam General Appearance: no apparent distress, alert Eye Exam: PERRL/EOMI, eyes nml inspection Ears, Nose, Throat Exam: normal ENT inspection, TMs normal, pharynx normal, moist mucous membranes Neck Exam: normal inspection, non-tender, supple, full range of motion Respiratory Exam: normal breath sounds, lungs clear, No respiratory distress Cardiovascular Exam: regular rate/rhythm, normal heart sounds, normal peripheral pulses Gastrointestinal/Abdomen Exam: soft, normal bowel sounds, No tenderness, No mass Back Exam: normal inspection, normal range of motion, No CVA tenderness, No vertebral tenderness Extremity Exam: other (3 cm abrasion left palm just distal to wrist volar aspec ulnar side, full rom all fingers sensation intact to all extremities.) Neurologic Exam: alert, oriented x 3, cooperative, normal mood/affect, nml cerebellar function, nml station & gait, sensation nml, No motor deficits Skin Exam: other (3 cm what appears to be eschcar left hand volar surface just distal to wrist ulnar side. 1.5 cm eschar left cheek) Lymphatic Exam: No adenopathy SpO2 Interpretation: normal (96%) SpO2: 96 Oxygen Delivery: Room Air - Course Nursing assessment & vital signs reviewed: Yes Ordered Tests: Active Orders 24 hr Category Date Time Status Wound Care STAT Care 10/15/17 10:23 Ordered - Progress Progress: improved Progress Note: 10/15/17 10:29 This is a 51-year-old white male with history of migraines, asthma, arthritis, anxiety, prior suicide attempt, history of cutting, anxiety and schizophrenia He states he fell approximately 2 days ago landing on outstretched palm he also struck the left side of his face he has a 3 cm area of abrasion which appears to be eschar overlying the left hand volar surface just distal to the wrist and on the ulnar side. He also has a small 1.5 cm eschar on his left cheek. On exam patient left zygoma is intact. HEENT otherwise negative Jaws stable neck is nontender. Patient's left hand is remarkable for a 3 cm what appears to be eschar. Volar surface. 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 Patient does need a tetanus shot. Will have nurse is soak the patient's left hand and Hibiclens. Apply bacitracin also apply bacitracin to the patient's left cheek. Patient can take Tylenol for pain. - Departure Time of Disposition: 10:31 Departure Disposition: Home Clinical Impression: Contusion of left hand Accidental fall Qualifiers: Encounter type: initial encounter Qualified Code(s): W19.XXXA - Unspecified fall, initial encounter Abrasion of face Qualifiers: Encounter type: initial encounter Qualified Code(s): S00.81XA - Abrasion of other part of head, initial encounter Abrasion of left hand Qualifiers: Encounter type: initial encounter Qualified Code(s): S60.512A - Abrasion of left hand, initial encounter Condition: Fair Critical Care Time: No Referrals: CELIA LONG [Primary Care Provider] - Additional Instructions: Return home. Clean abrasions and apply bacitracin several times daily. Tylenol every 4 hours as needed for pain. Follow-up with your family Dr. symptoms are worse, no better in 48 hours, or persist longer than one week. Return for acute distress or for severe symptoms.
[2017-10-15] MEDS ORDERED: BACIGUENT PACKET ONE (10:37)
== END 2017-10-15 10:56 | disposition home or self-care (01) ==
LOC: ED 10:04
DX: S60.222A Contusion of left hand, initial encounter (principal); S00.81XA Abrasion of other part of head, initial encounter; W18.30XA Fall on same level, unspecified, initial encounter; Z79.899 Other long term (current) drug therapy
CPT/HCPCS: 90471; 90715; 99283; A9270-GY

== ENCOUNTER 2017-11-16 10:08 | Observation (INO) | payer MEDICARE ==
[2017-11-16] MEDS ORDERED: Sodium Chloride 0.9% 1000 ML 1,000 ML IV STA (10:12)
[2017-11-16] MEDS ORDERED: THIAMINE 200 MG/2 ML IV ONE (10:14)
--- NOTE | 2017-11-16 10:24 | ERPHSYRPT ---
- History of Present Illness Time Seen by Provider: 11/16/17 10:15 Source: patient Exam Limitations: no limitations Physician History: 52-year-old white male with history of migraines, asthma, arthritis, anxiety, suicide attempt by overdose, cutting behavior, schizophrenia Patient brought by medics with complaint that the patient became unresponsive at home. Medics state that the patient had told them that he had taken some methamphetamine at home and passed out he apparently hit his head. Patient tells the nurse that he was not taking any drugs When I talk to the patient he states he was taking some drugs with his breakfast Patient is alert he has somewhat strange speech he thinks he is 31 years old. Past medical history includes migraines, asthma, anxiety, arthritis, suicide attempt with an overdose, cutting behavior, anxiety, schizophrenia Past surgical history is negative Timing/Duration: today (this prior to arrival) Severity: moderate Modifying Factors: Improves With: other (possibly taking methamphamines) Associated Symptoms: other (Syncope at home), No nausea, No vomiting, No abdominal pain, No shortness of breath, No heartburn, No diaphoresis, No cough, No chills, No chest pain, No fever, No headaches, No loss of appetite, No malaise, No rash, No syncope, No seizure, No weakness Allergies/Adverse Reactions: quetiapine [From Seroquel] Allergy (Severe, Verified 10/15/17 10:15) seizures carisoprodol [From Soma] Allergy (Verified 10/15/17 10:15) Hives diphenhydramine [From Benadryl] Allergy (Verified 10/15/17 10:15) Hives Home Medications: Aripiprazole Lauroxil [Aristada] 15 mg PO DAILY 10/15/17 [History] Aripiprazole Lauroxil [Aristada] 662 mg IM UD 10/15/17 [History] Benazepril HCl 10 mg [Lotensin 10 MG] 10 mg DAILY 10/15/17 [History] Clonazepam 1 mg PO DAILY 10/15/17 [History] Divalproex Sodium 500 mg PO DAILY 10/15/17 [History] Gabapentin 400 mg PO QID 10/15/17 [History] Simvastatin 10 mg PO HS 10/15/17 [History] Amitriptyline HCl 150 mg PO HS 11/16/17 [History] Buspirone HCl [Buspar] 10 mg PO QID 11/16/17 [History] Divalproex Sodium [Depakote] 1,000 mg PO 11/16/17 [History] Ergocalciferol (Vitamin D2) [Vitamin D] 50,000 unit PO UD 11/16/17 [History] Meloxicam 15 mg [Meloxicam 15 MG] 15 mg PO DAILY 11/16/17 [History] Tamsulosin HCl 0.4 mg [Flomax 0.4 MG] 0.4 mg PO HS 11/16/17 [History] Trazodone HCl [Desyrel] 100 mg PO 11/16/17 [History] Hx Tetanus, Diphtheria Vaccination/Date Given: No Hx Influenza Vaccination/Date Given: No Hx Pneumococcal Vaccination/Date Given: No - Review of Systems Constitutional: No Fever, No Chills Eyes: No Symptoms Ears, Nose, & Throat: No Symptoms Respiratory: No Cough, No Dyspnea Cardiac: No Chest Pain, No Edema, No Syncope Abdominal/Gastrointestinal: No Abdominal Pain, No Nausea, No Vomiting, No Diarrhea Genitourinary Symptoms: No Dysuria Musculoskeletal: No Back Pain, No Neck Pain Skin: Other (patient with abrasions right side of head) Neurological: No Dizziness, No Focal Weakness, No Sensory Changes Psychological: No Symptoms Endocrine: No Symptoms All Other Systems: Reviewed and Negative - Past Medical History Pertinent Past Medical History: No Neurological History: Migraines ENT History: Other Cardiac History: No Pertinent History Respiratory History: Asthma Endocrine Medical History: No Pertinent History Musculoskeletal History: Arthritis, Other GI Medical History: Other History: Other Psycho-Social History: Anxiety Male Reproductive Disorders: Other Other Medical History: prior suicide attempts by over dose. Cutting, anxiety, schizophrenia. Insomnia. Binge drinking. - Past Surgical History Past Surgical History: No Neuro Surgical History: No Pertinent History Cardiac: No Pertinent History Respiratory: No Pertinent History Gastrointestinal: No Pertinent History Genitourinary: No Pertinent History Musculoskeletal: No Pertinent History Male Surgical History: No Pertinent History - Social History Smoking Status: Current every day smoker How long have you smoked: 35 years Exposure to second hand smoke: Yes Drug Use: none Patient Lives Alone: No - Nursing Vital Signs Nursing Vital Signs: Initial Vital Signs Pulse Rate 101 H 07/31/18 10:18 Respiratory Rate 18 11/16/17 10:18 Blood Pressure 124/82 11/16/17 10:18 O2 Sat by Pulse Oximetry 98 11/16/17 10:18 Pain Scale Pain Intensity 0 - Physical Exam General Appearance: other (well-developed white male oriented to person and place several small abrasions right scalp) Eye Exam: PERRL/EOMI, other (defect in the right cornea chronic, fundi are unremarkable) Ears, Nose, Throat Exam: normal ENT inspection, TMs normal, pharynx normal, moist mucous membranes Neck Exam: normal inspection, non-tender, supple, full range of motion Respiratory Exam: normal breath sounds, lungs clear, No respiratory distress Cardiovascular Exam: regular rate/rhythm, normal heart sounds, normal peripheral pulses Gastrointestinal/Abdomen Exam: soft, normal bowel sounds, No tenderness, No mass Back Exam: normal inspection, normal range of motion, No CVA tenderness, No vertebral tenderness Extremity Exam: normal inspection, normal range of motion, pelvis stable Neurologic Exam: alert, cooperative, 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, normal mood/ affect, nml cerebellar function, nml station & gait, sensation nml, No oriented x 3 (oriented to person and place), No motor deficits Skin Exam: normal color, warm, dry, No rash SpO2 Interpretation: normal (98%) - Course Nursing assessment & vital signs reviewed: Yes EKG Interpreted by Me: RATE (114 bpm), Sinus Tach, NORMAL AXIS, Other (EKG sinus tachycardia 114 beats per minute normal axis complete right bundle branch block no acute ST or T wave changes noted) - Radiology Exams Chest X-ray Interpretation: Discussed w/ radiologist (cxr normal heart and lungs , mild degenerative changes bony thorax with minimal scoliosis, no new/ acute findings) - CT Exams Head CT Interpretation: Discussed w/radiologist (normal head ct) Ordered Tests: Active Orders 24 hr Category Date Time Status Bedrest with BRP/BSC ROUTINE Activity 11/16/17 11:57 Active Up With Assistance ROUTINE Activity 11/16/17 11:57 Active Accucheck STAT Care 11/16/17 10:12 Completed Call Admit Doctor for Orders ON ADMISSION Care 11/16/17 11:57 Active Pneumatic Tool Repairer STAT Care 11/16/17 10:13 Completed Code Status Order ROUTINE Care 11/16/17 11:57 Active EKG-ER Only STAT Care 11/16/17 10:12 Completed IV Care Q6H Care 11/16/17 11:57 Active IV Insertion STAT Care 11/16/17 10:12 Completed Neuro Checks Q4H Care 11/16/17 11:[address] in Observation ROUTINE Care 11/16/17 11:57 Active Pulse Oximetry (ED) STAT Care 11/16/17 10:12 Completed Seizure Precautions -SCCHED STAT Care 11/16/17 11:57 Active Telemetry ROUTINE Care 11/16/17 11:57 Active Clear Liquid Diet 11/16/17 Dinner Active CHEST 1 VIEW (PORTABLE) Stat Exams 11/16/17 10:30 Completed HEAD WITHOUT CONTRAST [CT] Stat Exams 11/16/17 10:18 Completed ACETAMINOPHEN Stat Lab 11/16/17 10:25 Completed CBC W DIFF AM.LAB Lab 11/17/17 04:00 Ordered CBC W DIFF Stat Lab 11/16/17 10:25 Completed CMP AM.LAB Lab 11/17/17 04:00 Ordered CMP Stat Lab 11/16/17 10:25 Completed ETHYL ALCOHOL Stat Lab 11/16/17 10:25 Completed SALICYLATE Stat Lab 11/16/17 10:25 Completed TROPONIN Q3H Lab 11/16/17 10:25 Completed TROPONIN Q3H Lab 11/16/17 13:15 Ordered TROPONIN Q3H Lab 11/16/17 16:15 Ordered TROPONIN Q3H Lab 11/16/17 19:15 Ordered TROPONIN Q3H Lab 11/16/17 22:15 Ordered UA W/RFX UR CULTURE Stat Lab 11/16/17 10:13 Uncollected Urine Triage Profile Stat Lab 11/16/17 10:13 Uncollected Pulse Oximetry CONTINUOUS RT 11/16/17 11:57 Active Transfer Order Routine Transfer 11/16/17 Completed Medication Summary Generic Name Dose Route Start Last Admin Trade Name Freq PRN Reason Stop Dose Admin Sodium Chloride 1,000 mls @ 100 mls/hr 11/16/17 11:57 Sodium Chloride 0.9% 1000 Ml IV 12/16/17 11:56 .Q10H ZENON Discontinued Medications Generic Name Dose Route Start Last Admin Trade Name Freq PRN Reason Stop Dose Admin Sodium Chloride 1,000 mls @ 999 mls/hr 11/16/17 10:12 11/16/17 10:36 Sodium Chloride 0.9% 1000 Ml IV 11/16/17 11:12 999 mls/hr .Q1H1M STA Administration Sodium Chloride Confirm 11/16/17 10:35 Sodium Chloride 0.9% 1000 Ml Administered 11/16/17 10:36 Dose 1,000 mls @ ud .ROUTE .STK-MED ONE Thiamine HCl 100 mg 11/16/17 10:14 11/16/17 10:37 Thiamine 200 Mg/2 Ml IV 11/16/17 10:15 100 mg STAT ONE Administration Thiamine HCl Confirm 11/16/17 10:35 Thiamine 200 Mg/2 Ml Administered 11/16/17 10:36 Dose 200 mg .ROUTE .STK-MED ONE Lab/Rad Data: Laboratory Result Diagrams 11/16/17 10:25 11/16/17 10:25 Laboratory Results 11/16/17 11/16/17 11/16/17 Range/Units 10:45 10:25 10:25 WBC (4.0-10.5) K/mm3 RBC (4.1-5.6) M/mm3 Hgb (12.5-18.0) gm/dl Hct (42-50) % MCV (78-100) fl MCH (26-32) pg MCHC (32-36) g/dl RDW (11.5-14.0) % Plt Count (150-450) K/mm3 MPV (6-9.5) fl Gran % (36.0-66.0) % Eos # (Auto) (0-0.5) Absolute Lymphs (auto) (1.0-4.6) Absolute Monos (auto) (0.0-1.3) Lymphocytes % (24.0-44.0) % Monocytes % (0.0-12.0) % Eosinophils % (0.00-5.0) % Basophils % (0.0-0.4) % Absolute Granulocytes (1.4-6.9) Basophils # (0-0.4) Sodium 141 (137-145) mmol/L Potassium 4.4 (3.5-5.1) mmol/L Chloride 102 (98-107) mmol/L Carbon Dioxide 26 (22-30) mmol/L Anion Gap 17.8 H (5-15) MEQ/L BUN 14 (9-20) mg/dL Creatinine 0.86 (0.66-1.25) mg/dL Estimated GFR > 60.0 ML/MIN Glucose 106 (74-106) mg/dL Calcium 10.4 H (8.4-10.2) mg/dL Total Bilirubin 0.60 (0.2-1.3) mg/dL AST 18 (17-59) U/L ALT 22 (0-50) U/L Alkaline Phosphatase 75 (38-126) U/L Troponin I < 0.012 (0.000-0.034) ng/mL Serum Total Protein 7.4 (6.3-8.2) g/dL Albumin 4.5 (3.5-5.0) g/dL Salicylates < 1.0 L (2-20) mg/dL Acetaminophen < 10 L (10-30) ug/ml Valproic Acid 72.4 (50-100) ug/mL Ethyl Alcohol < 10 (0-10) mg/dL 11/16/17 Range/Units 10:25 WBC 13.3 H (4.0-10.5) K/mm3 RBC 4.99 (4.1-5.6) M/mm3 Hgb 15.9 (12.5-18.0) gm/dl Hct 48.0 (42-50) % MCV 96.2 (78-100) fl MCH 31.9 (26-32) pg MCHC 33.1 (32-36) g/dl RDW 15.0 H (11.5-14.0) % Plt Count 259 (150-450) K/mm3 MPV 11.2 H (6-9.5) fl Gran % 77.4 H (36.0-66.0) % Eos # (Auto) 0.13 (0-0.5) Absolute Lymphs (auto) 1.96 (1.0-4.6) Absolute Monos (auto) 0.91 (0.0-1.3) Lymphocytes % 14.7 L (24.0-44.0) % Monocytes % 6.8 (0.0-12.0) % Eosinophils % 1.0 (0.00-5.0) % Basophils % 0.1 (0.0-0.4) % Absolute Granulocytes 10.32 H (1.4-6.9) Basophils # 0.01 (0-0.4) Sodium (137-145) mmol/L Potassium (3.5-5.1) mmol/L Chloride (98-107) mmol/L Carbon Dioxide (22-30) mmol/L Anion Gap (5-15) MEQ/L BUN (9-20) mg/dL Creatinine (0.66-1.25) mg/dL Estimated GFR ML/MIN Glucose (74-106) mg/dL Calcium (8.4-10.2) mg/dL Total Bilirubin (0.2-1.3) mg/dL AST (17-59) U/L ALT (0-50) U/L Alkaline Phosphatase (38-126) U/L Troponin I (0.000-0.034) ng/mL Serum Total Protein (6.3-8.2) g/dL Albumin (3.5-5.0) g/dL Salicylates (2-20) mg/dL Acetaminophen (10-30) ug/ml Valproic Acid (50-100) ug/mL Ethyl Alcohol (0-10) mg/dL - Progress Progress: improved Progress Note: 11/16/17 11:16 52-year-old white male with history of migraines, asthma, arthritis, anxiety, schizophrenia He is brought by medics with complaint that the patient became unresponsive at home. Upon arrival of the medics patient was answering questions patient arrives here he is answering questions he does have a very strange affect. He believes that he is 31 years old. He is able to state his name he also is able to recount history pertaining to his past medical history. He apparently had told the medics that he had done methamphetamines before he has is a syncopal episode however he told the nurse he did not take any illicit substances. When I asked him if he is taking any drugs he states he took them with breakfast. Patient is afebrile head CT is unremarkable EKG remarkable for right bundle branch block no acute ST or T wave changes 1 14 bpm. Patient's white count is elevated at 13.3 hemoglobin 15.9 hematocrit 48.0. Chemistry is essentially normal with the exception of an anion gap of 17.8. Troponin is within normal limits Salicylate less than 1.0 acetaminophen level less than 10 alcohol less than 10. Patient has not provided a urine yet. Patient has been given 1 L of normal saline also thiamine 100 mg IV. I discussed the case with Dr. Chauhan will place patient on observation telemetry. Place patient on seizure Precautions, obtain serial troponins. And neuro checks. - Departure Time of Disposition: 11:19 Departure Disposition: Observation Clinical Impression: Syncope Qualifiers: Syncope type: unspecified Qualified Code(s): R55 - Syncope and collapse Change in mental status Qualifiers: Altered mental status type: unspecified Qualified Code(s): R41.82 - Altered mental status, unspecified Condition: Fair Critical Care Time: No
[2017-11-16 10:34] LABS: BASOPHIL % 0.1 % (0.0-0.4); Basophil (Absolute #) 0.01 (0-0.4); Eosinophil (Absolute #) 0.13 (0-0.5); Granulocyte Absolute (ANC) 10.32 (1.4-6.9); Granulocytes % 77.4 % (36.0-66.0); Hemoglobin 15.9 gm/dl (12.5-18.0); Lymphocyte (Absolute #) 1.96 (1.0-4.6); Lymphocytes % 14.7 % (24.0-44.0); Mean Cell Volume 96.2 fl (78-100); Mean Corpuscular Hemoglobin 31.9 pg (26-32); Mean Corpuscular Hgb Concent. 33.1 g/dl (32-36); Mean Platelet Volume 11.2 fl (6-9.5); Monocyte (Absolute #) 0.91 (0.0-1.3); Monocytes % 6.8 % (0.0-12.0); Platelet Count 259 K/mm3 (150-450); Red Blood Count 4.99 M/mm3 (4.1-5.6); White Blood Count 13.3 K/mm3 (4.0-10.5)
[2017-11-16] MEDS ORDERED: Sodium Chloride 0.9% 1000 ML 1,000 ML ONE (10:35)
[2017-11-16] MEDS ORDERED: THIAMINE 200 MG/2 ML ONE (10:35)
--- NOTE | 2017-11-16 10:51 | XRAY ---
Indication: Chest pain. Comparison: July 27, 2017. Portable chest again demonstrates normal heart and lungs. Bony thorax intact again with mild degenerative changes, minimal scoliosis, and old right 9 rib fracture. No new/acute findings.
[2017-11-16 10:52] LABS: ALBUMIN 4.5 g/dL (3.5-5.0); ALKALINE PHOSPHATASE 75 U/L (38-126); ANION GAP 17.8 MEQ/L (5-15); BLOOD UREA NITROGEN 14 mg/dL (9-20); CHLORIDE 102 mmol/L (98-107); Calcium 10.4 mg/dL (8.4-10.2); Carbon Dioxide 26 mmol/L (22-30); Creatinine 1 0.86 mg/dL (0.66-1.25); Glucose 106 mg/dL (74-106); Potassium 4.4 mmol/L (3.5-5.1); SGOT/AST 18 U/L (17-59); SGPT/ALT 22 U/L (0-50); SODIUM 141 mmol/L (137-145); Total Protein 7.4 g/dL (6.3-8.2)
[2017-11-16 10:55] LABS: ACETAMINOPHEN < 10 ug/ml (10-30); ETHYL ALCOHOL < 10 mg/dL (0-10); SALICYLATE < 1.0 mg/dL (2-20)
--- NOTE | 2017-11-16 11:07 | XRAY ---
Indication: Superior head injury following syncope. Multiple contiguous axial images obtained through the head without contrast. Comparison: None Normal appearing brain parenchyma, ventricles, and bony calvarium. Visualized paranasal sinuses and mastoid air cells are clear. Impression: Normal CT head without contrast exam. CTDI 50.38
[2017-11-16] MEDS ORDERED: Sodium Chloride 0.9% 1000 ML 1,000 ML IV SCH (11:57)
[2017-11-16 12:33] LABS: Appearance CLEAR (CLEAR); Bilirubin NEGATIVE (NEGATIVE); Blood NEGATIVE Ery/ul (0-5); Glucose NEGATIVE (NEGATIVE); Ketones NEGATIVE (NEGATIVE); Leukocyte Esterase NEGATIVE (NEGATIVE); Nitrite NEGATIVE (NEGATIVE); Protein,Urine Dip NEGATIVE (Negative); Specific Gravity 1.005 (1.005-1.025); Urobilinogen NORMAL mg/dL (0-1)
[2017-11-16 12:46] LABS: Amphetamine,Urine NEGATIVE (NEGATIVE); Barbiturate,Urine NEGATIVE (NEGATIVE); Benzodiazepine,Urine NEGATIVE (NEGATIVE); Cocaine,Urine NEGATIVE (NEGATIVE); Methadone,Urine NEGATIVE (NEGATIVE); Opiate,Urine NEGATIVE (NEGATIVE); PCP,Urine NEGATIVE (NEGATIVE); THC,Urine NEGATIVE (NEGATIVE)
[2017-11-16] MEDS: Neurontin 400 MG PO SCH ×2 (16:53→21:28)
[2017-11-16] MEDS: Sodium Chloride 0.9% 10 ML FLUSH Syringe IV SCH (21:28)
[2017-11-16] MEDS ORDERED: NON-FORMULARY ITEM (Divalproex Sodium [Depakote] 1,000 MG) PO SCH (22:00)
[2017-11-16] MEDS ORDERED: Flomax 0.4 MG PO SCH (22:00)
[2017-11-17 05:59] LABS: ALKALINE PHOSPHATASE 66 U/L (38-126); ANION GAP 13.9 MEQ/L (5-15); BLOOD UREA NITROGEN 12 mg/dL (9-20); CHLORIDE 104 mmol/L (98-107); Calcium 9.4 mg/dL (8.4-10.2); Carbon Dioxide 27 mmol/L (22-30); Creatinine 1 0.81 mg/dL (0.66-1.25); Glucose 130 mg/dL (74-106); Potassium 3.9 mmol/L (3.5-5.1); SGOT/AST 18 U/L (17-59); SGPT/ALT 19 U/L (0-50); SODIUM 141 mmol/L (137-145); Total Protein 6.9 g/dL (6.3-8.2)
[2017-11-17 06:02] LABS: BASOPHIL % 0.1 % (0.0-0.4); Basophil (Absolute #) 0.01 (0-0.4); Eosinophil (Absolute #) 0.18 (0-0.5); Granulocyte Absolute (ANC) 5.16 (1.4-6.9); Granulocytes % 58.4 % (36.0-66.0); Lymphocyte (Absolute #) 2.87 (1.0-4.6); Lymphocytes % 32.5 % (24.0-44.0); Mean Cell Volume 98.7 fl (78-100); Mean Corpuscular Hemoglobin 32.2 pg (26-32); Mean Corpuscular Hgb Concent. 32.6 g/dl (32-36); Mean Platelet Volume 11.7 fl (6-9.5); Monocyte (Absolute #) 0.62 (0.0-1.3); Platelet Count 251 K/mm3 (150-450); Red Blood Count 4.66 M/mm3 (4.1-5.6); Red Cell Distribution Width 15.2 % (11.5-14.0); White Blood Count 8.8 K/mm3 (4.0-10.5)
[2017-11-17 07:04] VITALS: O2SAT 93
--- NOTE | 2017-11-17 07:53 | HP ---
CHIEF COMPLAINT: Syncopal episode. HISTORY OF PRESENT ILLNESS: The patient is a 52 year-old white male patient who apparently was found down at home. EMS was summoned and the patient was brought to the emergency room for evaluation and management. The nurse tells me that apparently the patient's girlfriend has been arrested and taken off to penitentiary. The patient denies having use of any drugs specifically denying the use of methamphetamine. The patient does have a previous history of schizophrenia and seizure disorder. PAST MEDICAL/SURGICAL HISTORY: HOME MEDICATIONS: Currently include aripiprazole 15 mg daily and injectable 662 mg monthly. He is on Benazepril 10 mg daily, clonazepam 1 mg daily, divalproex 500 mg daily, gabapentin 400 mg four times a day, Simvastatin 10 mg a day, amitriptyline 150 mg at night, Buspar 10 mg four times a day, Depakote 1,000 mg at night, Meloxicam 15 mg a day, Flomax 0.4 mg a day, trazodone 100 mg at night. ALLERGIES: SEROQUEL, SOMA, BENADRYL. PHYSICAL EXAMINATION: Revealed a somewhat thin, 52 year-old white male patient currently in no obvious distress. He is laying in bed, awoken from sleep laying in a padded bed. Upon awakening he awakened easily to verbal stimuli and apparently he is now conversant but appears to be somewhat confused about the day's events. VITAL SIGNS: Revealed a pulse 101, respiratory rate 18, blood pressure 124/82. O2 saturation was noted to be 98%. HEENT: Normocephalic, atraumatic. Pupils equal round reactive to light. Extraocular movements intact. Oropharynx is pink and moist. NECK: Supple without lymphadenopathy, thyromegaly or JVD. CHEST: Clear to auscultation. HEART: Regular rate and rhythm. ABDOMEN: Soft. No palpable masses were felt. EXTREMITIES: Without clubbing, cyanosis or edema. NEUROLOGIC: The patient is somewhat confused and, I believe, confabulating about the history. He is otherwise oriented to person, place and time. No focal deficits were noted on examination. LAB DATA AND TESTS: Showed an EKG that shows sinus tachycardia with a right bundle branch block pattern. Chest x-ray showed no acute findings. CT scan of the head likewise revealed no acute findings. He had a troponin of less than 0.012. Urine drug screen was entirely negative. UA was normal. Valproic acid level was therapeutic at 72.4. He had a metabolic panel which showed a normal glucose at 106, BUN 14, creatinine 0.86. Electrolytes are normal. His liver enzymes are normal. Acetaminophen, salicylate and ETOH where all essentially negative. His white blood cell count was slightly elevated at 13,300. His hemoglobin was 15.9, PLT count 259,000. ASSESSMENT: A patient with a syncopal episode of unclear etiology possibly secondary to seizure. The patient will have an EEG performed and tele-neurology consult. We will continue to monitor him on telemetry as well. We will allow him to get up with ambulation only with assist. The patient has received thiamine and IV fluids from the emergency room. The patient will be kept on seizure precautions with railings up and padded while evaluation is in process.
[2017-11-17] MEDS ORDERED: Lotensin 10 MG PO SCH (10:00)
[2017-11-17] MEDS: Sodium Chloride 0.9% 10 ML FLUSH Syringe IV SCH ×2 (10:15→14:12)
[2017-11-17] MEDS: Neurontin 400 MG PO SCH ×2 (10:15→12:19)
[2017-11-17 11:39] VITALS: BP 134/52; PULSE 96
--- NOTE | 2017-11-19 09:25 | DS ---
DISCHARGE DIAGNOSES: 1) CHANGE IN LEVEL OF CONSCIOUSNESS. 2) HISTORY OF SCHIZOPHRENIA. 3) HISTORY OF SEIZURE DISORDER. HOSPITAL COURSE: The patient is a 52 year-old white male patient who presented to the emergency room after having had some decreased level of consciousness at home. He apparently was unable to be aroused by his girlfriend. He was brought to the emergency room by EMS. There is some confusion about the turn of events. His girlfriend was not available for evaluation during the patient's stay as apparently, according to the nurses, she had been incarcerated for some unknown problem possibly intoxication versus possible domestic abuse. The patient when he first came in was quite confused and unable to follow a logical train of thought. He was confused to his age and his history. The patient by the next morning was doing much better. At that time he appeared to be more back to his baseline status. Upon questioning him on the morning of 11/17/2017, he felt that it was likely that he had taken an extra dose of Seroquel and was drowsy. He denied any use of illicit drugs and his urine drug screen was negative. He was negative on ETOH, aspirin and acetaminophen. The patient had EEG performed which was essentially normal. He had CT scans which were normal. We did a tele-neurology consult which thought the patient did not require any additional work up at this time. He appeared to be back to his usual baseline. The patient was discharged home on the afternoon of 11/17/2017 with instructions to follow up in the office in one week. He is to call if he has any further problems in the interim. He will continue to take his usual home medications. He will have follow up with home visiting nurses to keep an eye on him in the home situation.
== END 2017-11-17 15:30 | disposition home or self-care (01) ==
LOC: ED 10:08 → MED SURG 11:44
PROVIDERS: ADMIT Family Medicine; ATTEND Family Medicine
DX: R41.82 Altered mental status, unspecified (principal); R55 Syncope and collapse; F20.9 Schizophrenia, unspecified; G40.909 Epilepsy, unspecified, not intractable, without status epilepticus; R41.0 Disorientation, unspecified
CPT/HCPCS: 36415; 70450; 71045; 80053; 80164; 80307; 81002; 82962; 84484; 85025; 93005; 93041; 93268; 94762; 95812; 96374; 99285; G0481; Q3014; A9270-GY; G0378; G0480

== ENCOUNTER 2018-11-10 11:25 | Emergency (ER) | payer MEDICARE ==
[2018-11-10] MEDS ORDERED: ANTIVERT 25 MG PO ONE (12:07)
--- NOTE | 2018-11-10 12:07 | ERPHSYRPT ---
- History of Present Illness Time Seen by Provider: 11/10/18 11:50 Source: patient Exam Limitations: clinical condition Patient Subjective Stated Complaint: dizziness for two months. Triage Nursing Assessment: ambulated to room per self. steady gait. skin w/d, color normal, resp easy. jo ann. a/o times four. Physician History: PATIENT WITH A HISTORY OF BIPOLAR DISORDER, METHAMPHETAMINE ABUSE COMPLAINS OF CHRONIC DIZZINESS X 2-3 MONTHS, PROGRESSIVELY WORSE. ON OCCASION HAS UNSTEADY GAIT. DENIES HEADACHE, BLURRED VISION, NAUSEA OR EMESIS. Timing/Duration: week(s) (12) Severity: moderate Character of Deficits: impaired speech Deficits: off balance Baseline/Normal Cognition: alert oriented x 3 Current Cognition: alert oriented x 3 Baseline Gait: walks w/o assistance Associated Symptoms: other (UNSTEADY GAIT ON OCCASION) Allergies/Adverse Reactions: quetiapine [From Seroquel] Allergy (Severe, Verified 11/10/18 11:55) seizures carisoprodol [From Soma] Allergy (Verified 11/10/18 11:55) Hives diphenhydramine [From Benadryl] Allergy (Verified 11/10/18 11:55) Hives Home Medications: Aripiprazole Lauroxil [Aristada] 15 mg PO DAILY 10/15/17 [History] Aripiprazole Lauroxil [Aristada] 662 mg IM UD 10/15/17 [History] Benazepril HCl 10 mg [Lotensin 10 MG] 10 mg DAILY 10/15/17 [History] Divalproex Sodium 500 mg PO DAILY 10/15/17 [History] Gabapentin 400 mg PO QID 10/15/17 [History] Amitriptyline HCl 150 mg PO HS 11/16/17 [History] Buspirone HCl [Buspar] 10 mg PO QID 11/16/17 [History] Divalproex Sodium [Depakote] 1,000 mg PO HS 11/16/17 [History] Tamsulosin HCl 0.4 mg [Flomax 0.4 MG] 0.4 mg PO HS 11/16/17 [History] clonazePAM [Klonopin] 1 tab PO HS 11/16/17 [History] Hx Tetanus, Diphtheria Vaccination/Date Given: No Hx Influenza Vaccination/Date Given: No Hx Pneumococcal Vaccination/Date Given: No - Review of Systems Constitutional: No Fever, No Chills Eyes: No Symptoms Ears, Nose, & Throat: No Symptoms Respiratory: No Symptoms, No Cough, No Dyspnea Cardiac: No Symptoms, No Chest Pain, No Edema, No Syncope Abdominal/Gastrointestinal: No Symptoms, No Abdominal Pain, No Nausea, No Vomiting, No Diarrhea Genitourinary Symptoms: Penile Discharge, No Dysuria Musculoskeletal: No Back Pain, No Neck Pain Skin: No Symptoms, No Rash Neurological: Dizziness, No Focal Weakness, No Sensory Changes Psychological: No Symptoms Endocrine: No Symptoms All Other Systems: Reviewed and Negative - Past Medical History Pertinent Past Medical History: Yes Neurological History: Migraines ENT History: Other Cardiac History: High Cholesterol, Hypertension Respiratory History: Asthma Endocrine Medical History: No Pertinent History Musculoskeletal History: Arthritis, Other GI Medical History: Other History: Other Psycho-Social History: Anxiety, Bipolar, Depression Male Reproductive Disorders: Other Other Medical History: prior suicide attempts by over dose. Cutting, anxiety, schizophrenia. Insomnia. Binge drinking. - Past Surgical History Past Surgical History: No Neuro Surgical History: No Pertinent History Cardiac: No Pertinent History Respiratory: No Pertinent History Gastrointestinal: No Pertinent History Genitourinary: No Pertinent History Musculoskeletal: No Pertinent History Male Surgical History: No Pertinent History - Social History Smoking Status: Current every day smoker How long have you smoked: 35 years Exposure to second hand smoke: No Drug Use: marijuana, methamphetamines Patient Lives Alone: No - Nursing Vital Signs Nursing Vital Signs: Initial Vital Signs Temperature 98.6 F 11/10/18 11:30 Pulse Rate 85 11/10/18 11:30 Respiratory Rate 16 11/10/18 11:30 Blood Pressure 134/90 11/10/18 11:30 O2 Sat by Pulse Oximetry 97 11/10/18 11:30 Pain Scale Pain Intensity 0 - Physical Exam General Appearance: no apparent distress, alert Eye Exam: bilateral eye: normal inspection, PERRL, EOMI Ears, Nose, Throat Exam: normal ENT inspection, moist mucous membranes Neck Exam: normal inspection, non-tender, supple Respiratory: normal breath sounds, lungs clear, airway intact, No respiratory distress Cardiovascular: regular rate/rhythm, No edema Gastrointestinal: soft, No tenderness, No distention Back Exam: normal inspection Extremity Exam: normal inspection, No pedal edema Peripheral Pulses: carotid (R): 2+, carotid (L): 2+, femoral (R): 2+, femoral (L ): 2+, dorsalis-pedis (R): 2+, dorsalis-pedis (L): 2+ 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, 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: normal hearing, tongue midline Coordination/Gait: normal finger to nose, normal gait DTR: bicep (R): 2+, bicep (L): 2+, tricep (R): 2+, tricep (L): 2+, knee (R): 2+ , knee (L): 2+, ankle (R): 2+, ankle (L): 2+ Skin Exam: normal color, warm, dry, No rash SpO2 Interpretation: normal SpO2: 97 O2 Delivery: Room Air - CT Exams Head CT Interpretation: Discussed w/radiologist, No/Intracranial Hemorrhag Ordered Tests: Active Orders 24 hr Category Date Time Status HEAD WITHOUT CONTRAST [CT] Stat Exams 11/10/18 12:08 Completed BMP Stat Lab 11/10/18 12:30 Completed CBC W DIFF Stat Lab 11/10/18 12:30 Completed MAGNESIUM Stat Lab 11/10/18 12:30 Completed UA W/RFX UR CULTURE Stat Lab 11/10/18 12:08 Completed Urine Triage Profile Stat Lab 11/10/18 12:08 Completed Medication Summary Discontinued Medications Generic Name Dose Route Start Last Admin Trade Name Maxx PRN Reason Stop Dose Admin Meclizine HCl 25 mg 11/10/18 12:07 11/10/18 12:25 Antivert 25 Mg PO 11/10/18 12:08 25 mg STAT ONE Administration Meclizine HCl Confirm 11/10/18 12:16 Antivert 25 Mg Administered 11/10/18 12:17 Dose 25 mg .ROUTE .STK-MED ONE Lab/Rad Data: Laboratory Result Diagrams 11/10/18 12:30 11/10/18 12:30 Laboratory Results 11/10/18 11/10/18 11/10/18 Range/Units 12:30 12:30 12:08 WBC 6.9 (4.0-10.5) K/mm3 RBC 4.73 (4.1-5.6) M/mm3 Hgb 16.0 (12.5-18.0) gm/dl Hct 47.2 (42-50) % MCV 99.8 (78-100) fl MCH 33.8 H (26-32) pg MCHC 33.9 (32-36) g/dl RDW 13.1 (11.5-14.0) % Plt Count 176 (150-450) K/mm3 MPV 11.2 H (6-9.5) fl Gran % 54.9 (36.0-66.0) % Eos # (Auto) 0.09 (0-0.5) Absolute Lymphs (auto) 2.47 (1.0-4.6) Absolute Monos (auto) 0.53 (0.0-1.3) Lymphocytes % 35.8 (24.0-44.0) % Monocytes % 7.7 (0.0-12.0) % Eosinophils % 1.3 (0.00-5.0) % Basophils % 0.3 (0.0-0.4) % Absolute Granulocytes 3.79 (1.4-6.9) Basophils # 0.02 (0-0.4) Sodium 141 (137-145) mmol/L Potassium 4.1 (3.5-5.1) mmol/L Chloride 106 (98-107) mmol/L Carbon Dioxide 27 (22-30) mmol/L Anion Gap 12.2 (5-15) MEQ/L BUN 5 L (9-20) mg/dL Creatinine 0.70 (0.66-1.25) mg/dL Estimated GFR > 60.0 ML/MIN Glucose 91 (74-106) mg/dL Calcium 10.1 (8.4-10.2) mg/dL Magnesium 2.1 (1.6-2.3) mg/dL Urine Color (YELLOW) Urine Appearance (CLEAR) Urine pH (5-6) Ur Specific [place] (1.005-1.025) Urine Protein (Negative) Urine Ketones (NEGATIVE) Urine Blood (0-5) Andrei/ul Urine Nitrite (NEGATIVE) Urine Bilirubin (NEGATIVE) Urine Urobilinogen (0-1) mg/dL Ur Leukocyte Esterase (NEGATIVE) Urine WBC (Auto) (0-5) /HPF Urine RBC (Auto) (0-2) /HPF U Epithel Cells (Auto) (FEW) /HPF Urine Bacteria (Auto) (NEGATIVE) /HPF Urine Mucus (Auto) (NEGATIVE) /HPF Urine Culture Reflexed (NO) Urine Glucose (NEGATIVE) mg/dL Urine Opiates Level NEGATIVE (NEGATIVE) Ur Methadone NEGATIVE (NEGATIVE) Urine Barbiturates NEGATIVE (NEGATIVE) Ur Phencyclidine (PCP) NEGATIVE (NEGATIVE) Urine Amphetamine NEGATIVE (NEGATIVE) U Benzodiazepine Level NEGATIVE (NEGATIVE) Urine Cocaine NEGATIVE (NEGATIVE) Urine Marijuana (THC) POSITIVE (NEGATIVE) 11/10/18 Range/Units 12:08 WBC (4.0-10.5) K/mm3 RBC (4.1-5.6) M/mm3 Hgb (12.5-18.0) gm/dl Hct (42-50) % MCV (78-100) fl MCH (26-32) pg MCHC (32-36) g/dl RDW (11.5-14.0) % Plt Count (150-450) K/mm3 MPV (6-9.5) fl Gran % (36.0-66.0) % Eos # (Auto) (0-0.5) Absolute Lymphs (auto) (1.0-4.6) Absolute Monos (auto) (0.0-1.3) Lymphocytes % (24.0-44.0) % Monocytes % (0.0-12.0) % Eosinophils % (0.00-5.0) % Basophils % (0.0-0.4) % Absolute Granulocytes (1.4-6.9) Basophils # (0-0.4) Sodium (137-145) mmol/L Potassium (3.5-5.1) mmol/L Chloride (98-107) mmol/L Carbon Dioxide (22-30) mmol/L Anion Gap (5-15) MEQ/L BUN (9-20) mg/dL Creatinine (0.66-1.25) mg/dL Estimated GFR ML/MIN Glucose (74-106) mg/dL Calcium (8.4-10.2) mg/dL Magnesium (1.6-2.3) mg/dL Urine Color STRAW (YELLOW) Urine Appearance CLEAR (CLEAR) Urine pH 7.0 (5-6) Ur Specific [place] 1.003 (1.005-1.025) Urine Protein NEGATIVE (Negative) Urine Ketones NEGATIVE (NEGATIVE) Urine Blood NEGATIVE (0-5) Andrei/ul Urine Nitrite NEGATIVE (NEGATIVE) Urine Bilirubin NEGATIVE (NEGATIVE) Urine Urobilinogen NEGATIVE (0-1) mg/dL Ur Leukocyte Esterase NEGATIVE (NEGATIVE) Urine WBC (Auto) NONE (0-5) /HPF Urine RBC (Auto) NONE (0-2) /HPF U Epithel Cells (Auto) NONE (FEW) /HPF Urine Bacteria (Auto) NONE (NEGATIVE) /HPF Urine Mucus (Auto) SLIGHT (NEGATIVE) /HPF Urine Culture Reflexed NO (NO) Urine Glucose NEGATIVE (NEGATIVE) mg/dL Urine Opiates Level (NEGATIVE) Ur Methadone (NEGATIVE) Urine Barbiturates (NEGATIVE) Ur Phencyclidine (PCP) (NEGATIVE) Urine Amphetamine (NEGATIVE) U Benzodiazepine Level (NEGATIVE) Urine Cocaine (NEGATIVE) Urine Marijuana (THC) (NEGATIVE) - Progress Progress Note: 11/10/18 13:45 ADMINISTERED ANTIVERT 25MG ORALLY Counseled pt/family regarding: diagnosis, need for follow-up, rad results - Departure Departure Disposition: Home Clinical Impression: CHRONIC VERTIGO Condition: Stable Critical Care Time: No Referrals: DANITA MONTAGUE NP [Primary Care Provider] - Additional Instructions: FOLLOWUP WITH A PRIMARY CARE PROVIDER FOR REFERRAL TO A NEUROLOGIST. ANTIVERT 25MG EVERY 8 HOURS FOR 7 DAYS. Prescriptions: Meclizine HCl 25 mg [Antivert 25 mg] 25 mg PO TID PRN #20 tablet
[2018-11-10] MEDS ORDERED: ANTIVERT 25 MG ONE (12:16)
[2018-11-10 12:34] LABS: BASOPHIL % 0.3 % (0.0-0.4); Basophil (Absolute #) 0.02 (0-0.4); Eosinophil % 1.3 % (0.00-5.0); Eosinophil (Absolute #) 0.09 (0-0.5); Granulocyte Absolute (ANC) 3.79 (1.4-6.9); Granulocytes % 54.9 % (36.0-66.0); Hematocrit 47.2 % (42-50); Lymphocyte (Absolute #) 2.47 (1.0-4.6); Lymphocytes % 35.8 % (24.0-44.0); Mean Cell Volume 99.8 fl (78-100); Mean Corpuscular Hemoglobin 33.8 pg (26-32); Mean Corpuscular Hgb Concent. 33.9 g/dl (32-36); Mean Platelet Volume 11.2 fl (6-9.5); Monocyte (Absolute #) 0.53 (0.0-1.3); Monocytes % 7.7 % (0.0-12.0); Platelet Count 176 K/mm3 (150-450); Red Blood Count 4.73 M/mm3 (4.1-5.6); Red Cell Distribution Width 13.1 % (11.5-14.0); White Blood Count 6.9 K/mm3 (4.0-10.5)
[2018-11-10 12:45] LABS: ANION GAP 12.2 MEQ/L (5-15); BLOOD UREA NITROGEN 5 mg/dL (9-20); CHLORIDE 106 mmol/L (98-107); Calcium 10.1 mg/dL (8.4-10.2); Carbon Dioxide 27 mmol/L (22-30); Glucose 91 mg/dL (74-106); MAGNESIUM 2.1 mg/dL (1.6-2.3); Potassium 4.1 mmol/L (3.5-5.1); SODIUM 141 mmol/L (137-145)
--- NOTE | 2018-11-10 12:55 | XRAY ---
Indication: Dizziness. Multiple contiguous axial images obtained through the head without contrast. Comparison: November 16, 2017. Again normal appearing brain parenchyma, ventricles, and bony calvarium. Visualized paranasal sinuses and mastoid air cells are clear. Impression: Continued normal CT head without contrast exam. CTDI 69.11
[2018-11-10 12:59] LABS: Appearance CLEAR (CLEAR); Bilirubin NEGATIVE (NEGATIVE); Blood NEGATIVE Ery/ul (0-5); Glucose NEGATIVE (NEGATIVE); Ketones NEGATIVE (NEGATIVE); Leukocyte Esterase NEGATIVE (NEGATIVE); Mucus SLIGHT /HPF (NEGATIVE); Nitrite NEGATIVE (NEGATIVE); Protein,Urine Dip NEGATIVE (Negative); Specific Gravity 1.003 (1.005-1.025); Urobilinogen NEGATIVE mg/dL (0-1)
[2018-11-10 13:13] LABS: Amphetamine,Urine NEGATIVE (NEGATIVE); Barbiturate,Urine NEGATIVE (NEGATIVE); Benzodiazepine,Urine NEGATIVE (NEGATIVE); Cocaine,Urine NEGATIVE (NEGATIVE); Methadone,Urine NEGATIVE (NEGATIVE); Opiate,Urine NEGATIVE (NEGATIVE); PCP,Urine NEGATIVE (NEGATIVE); THC,Urine POSITIVE (NEGATIVE)
[2018-11-10 13:37] VITALS: BP 127/89; PULSE 62
[2018-11-10 13:48] VITALS: O2SAT 97
== END 2018-11-10 14:10 | disposition home or self-care (01) ==
LOC: ED 11:25
DX: R42 Dizziness and giddiness (principal)
CPT/HCPCS: 36415; 70450; 80048; 80307; 81001; 83735; 85025; 99284; A9270-GY

== ENCOUNTER 2020-04-27 17:30 | Emergency (ER) | payer MEDICARE ==
--- NOTE | 2020-04-27 18:11 | ERPHSYRPT ---
- History of Present Illness Source: patient, police Exam Limitations: no limitations Patient Subjective Stated Complaint: Pt brought to the ER by law enforcement due to Gisel from [facility] calling police to go check on him, pt had been talking to her and states that he has been confused and thinks that his ammonia is elevated due to he was told that his liver is messed up but was never told anything else about it, pt had texted Gisel and asked if it would be bad if he killed himself Triage Nursing Assessment: Pt brought to the ER by law enforcement, pt is in good spirits and laughing and answering questions, hypertensive, unable to answer what year it is, pulses normal, denies pain, talks to a therapist at [facility], Gisel, pt states that he is not suicidal and does not want to hurt anyone, pt states that he has been feeling confused for about 3 days Timing/Duration: today Severity of Symptoms-Max: moderate Severity of Symptoms-Current: moderate Context related to: living circumstances Suicidal thoughts: other (Discussion of suicidal issues with a counselor today) Associated Symptoms: depressed, suicidal ideation Previous symptoms: same symptoms as today Hx Tetanus, Diphtheria Vaccination/Date Given: No Hx Influenza Vaccination/Date Given: No Hx Pneumococcal Vaccination/Date Given: No - History of Present Illness Time Seen by Provider: 04/27/20 17:45 Physician History: This is a 54-year-old white male who has a history of schizophrenia and is noncompliant with his medications. He has had other psychiatric issues including psychoorganic syndrome, acute psychosis, alcohol intoxication and suicidal ideation in the past. Today, he was texting with a counselor at [facility] and and asked the question if killing himself would be a bad thing. The counselor then tried to call the patient back several times but it was unable to do so. She then called the police who then secured the patient and brought him to the emergency department for evaluation and work-up. Patient also has a history of hypertension. Patient states that he has a history of liver issues and is concerned that possibly his ammonia is elevated because he is confused. He denies chest pain. He denies abdominal pain. He did admit to drinking a few beers today. Patient arrives to the emergency department denying suicidal ideation. Patient currently is being very cooperative. Patient does take Depakote medication but is noncompliant. (OLIVER GONZALEZ) Allergies/Adverse Reactions: quetiapine [From Seroquel] Allergy (Severe, Verified 04/27/20 17:45) seizures carisoprodol [From Soma] Allergy (Verified 04/27/20 17:45) Hives diphenhydramine [From Benadryl] Allergy (Verified 04/27/20 17:45) Hives Home Medications: Aripiprazole Lauroxil [Aristada] 15 mg PO DAILY 10/15/17 [History] Aripiprazole Lauroxil [Aristada] 662 mg IM UD 10/15/17 [History] Benazepril HCl 10 mg [Lotensin 10 MG] 10 mg DAILY 10/15/17 [History] Divalproex Sodium 500 mg PO DAILY 10/15/17 [History] Gabapentin 400 mg PO QID 10/15/17 [History] Amitriptyline HCl 150 mg PO HS 11/16/17 [History] Buspirone HCl [Buspar] 10 mg PO QID 11/16/17 [History] Divalproex Sodium [Depakote] 1,000 mg PO HS 11/16/17 [History] Tamsulosin HCl 0.4 mg [Flomax 0.4 MG] 0.4 mg PO HS 11/16/17 [History] clonazePAM [Klonopin] 1 tab PO HS 11/16/17 [History] Travel Risk - International Travel Have you traveled outside of the country in past 3 weeks: No - Coronavirus Screening Are you exhibiting any of the following symptoms?: No Close contact with a COVID-19 positive Pt in past 14-21 Days: No - Past Medical History Pertinent Past Medical History: Yes Neurological History: Migraines ENT History: Other Cardiac History: High Cholesterol, Hypertension Respiratory History: Asthma Endocrine Medical History: No Pertinent History Musculoskeletal History: Arthritis, Other GI Medical History: Other History: Other Psycho-Social History: Anxiety, Bipolar, Depression Male Reproductive Disorders: Other Other Medical History: prior suicide attempts by over dose. Cutting, anxiety, schizophrenia. Insomnia. Binge drinking. - Past Surgical History Past Surgical History: No Neuro Surgical History: No Pertinent History Cardiac: No Pertinent History Respiratory: No Pertinent History Gastrointestinal: No Pertinent History Genitourinary: No Pertinent History Musculoskeletal: No Pertinent History Male Surgical History: No Pertinent History - Social History Smoking Status: Current every day smoker How long have you smoked: 35 years Exposure to second hand smoke: Yes Drug Use: marijuana, methamphetamines, narcotics Patient Lives Alone: Yes - Review of Systems Constitutional: No Symptoms Eyes: No Symptoms Ears, Nose, & Throat: No Symptoms Respiratory: No Symptoms Cardiac: No Symptoms Abdominal/Gastrointestinal: No Symptoms Genitourinary Symptoms: No Symptoms Musculoskeletal: No Symptoms Skin: No Symptoms Neurological: Headache Psychological: Anxiety, Depression, Suicidal Ideations Endocrine: No Symptoms Hematologic/Lymphatic: No Symptoms Immunological/Allergic: No Symptoms All Other Systems: Reviewed and Negative - Physical Exam General Appearance: no apparent distress, alert, anxiety Eyes, Ears, Nose, Throat Exam: normal ENT inspection, moist mucous membranes Neck Exam: normal inspection, non-tender, supple, full range of motion Respiratory Exam: normal breath sounds, lungs clear, airway intact, No chest tenderness, No respiratory distress Cardiovascular Exam: regular rate/rhythm, normal heart sounds, normal peripheral pulses Gastrointestinal/Abdominal Exam: soft, normal bowel sounds, No tenderness Extremities Exam: normal inspection, normal range of motion, No evidence of injury Current Suicidality: denies suicide plan Neurological Exam: alert, normal mood/affect, calm, aspnet developer II-XII nml as tested, oriented x 3, anxious, depressed affect Appearance: appropriate appearance, appropriate insight Behavior/Eye Contact/Speech: alert & cooperative, cooperative, good eye contact, normal speech Thoughts/Hallucinations: normal thought pattern, no apparent hallucination Skin Exam: normal color, warm, dry SpO2 Interpretation: normal SpO2: 99 O2 Delivery: Room Air - Nursing Vital Signs Nursing Vital Signs: Initial Vital Signs Temperature 97.7 F 04/27/20 17:31 Pulse Rate 82 04/27/20 17:31 Respiratory Rate 18 04/27/20 17:31 Blood Pressure 171/91 04/27/20 17:31 O2 Sat by Pulse Oximetry 99 04/27/20 17:31 Pain Scale Pain Intensity 0 - Course Nursing assessment & vital signs reviewed: Yes EKG Interpreted by Me: RATE (82), Sinus Rhythm, NORMAL AXIS, NORMAL INTERVALS, NORMAL QRS, NORMAL ST-T, Other (There are no acute ischemic changes on today's EKG. There are no changes from the EKG that is dated) Ordered Tests: Active Orders 24 hr Category Date Time Status Clean Catch Urine Specimen STAT Care 04/27/20 18:13 Active EKG-ER Only STAT Care 04/27/20 18:13 Active Psychiatric Consult STAT Cons 04/27/20 18:13 Active HEAD WITHOUT CONTRAST [CT] Stat Exams 04/27/20 18:14 Completed CBC W DIFF Stat Lab 04/27/20 18:17 Completed CMP Stat Lab 04/27/20 18:17 Completed ETHYL ALCOHOL Stat Lab 04/27/20 18:17 Completed SALICYLATE Stat Lab 04/27/20 18:17 Completed UA W/RFX UR CULTURE Stat Lab 04/27/20 18:16 Completed Urine Triage Profile Stat Lab 04/27/20 18:16 Completed Lab/Rad Data: Laboratory Result Diagrams 04/27/20 18:17 04/27/20 18:17 Laboratory Results 04/27/20 04/27/20 04/27/20 Range/Units 18:17 18:17 18:17 WBC (4.0-10.5) K/mm3 RBC (4.1-5.6) M/mm3 Hgb (12.5-18.0) gm/dl Hct (42-50) % MCV (78-100) fl MCH (26-32) pg MCHC (32-36) g/dl RDW (11.5-14.0) % Plt Count (150-450) K/mm3 MPV (7.5-11.0) fl Gran % (36.0-66.0) % Eos # (Auto) (0-0.5) Absolute Lymphs (auto) (1.0-4.6) Absolute Monos (auto) (0.0-1.3) Lymphocytes % (24.0-44.0) % Monocytes % (0.0-12.0) % Eosinophils % (0.00-5.0) % Basophils % (0.0-0.4) % Absolute Granulocytes (1.4-6.9) Basophils # (0-0.4) Sodium 141 (137-145) mmol/L Potassium 4.5 (3.5-5.1) mmol/L Chloride 106 (98-107) mmol/L Carbon Dioxide 28 (22-30) mmol/L Anion Gap 11.9 (5-15) MEQ/L BUN 8 L (9-20) mg/dL Creatinine 0.82 (0.66-1.25) mg/dL Estimated GFR > 60.0 ML/MIN Glucose 89 (74-106) mg/dL Calcium 10.0 (8.4-10.2) mg/dL Total Bilirubin 0.60 (0.2-1.3) mg/dL AST 28 (17-59) U/L ALT 17 (0-50) U/L Alkaline Phosphatase 70 (38-126) U/L Ammonia < 9 L (9-30) umol/L Serum Total Protein 8.5 H (6.3-8.2) g/dL Albumin 5.0 (3.5-5.0) g/dL Urine Color (YELLOW) Urine Appearance (CLEAR) Urine pH (5-6) Ur Specific [place] (1.005-1.025) Urine Protein (Negative) Urine Ketones (NEGATIVE) Urine Blood (0-5) Andrei/ul Urine Nitrite (NEGATIVE) Urine Bilirubin (NEGATIVE) Urine Urobilinogen (0-1) mg/dL Ur Leukocyte Esterase (NEGATIVE) Urine WBC (Auto) (0-5) /HPF Urine RBC (Auto) (0-2) /HPF U Epithel Cells (Auto) (FEW) /HPF Urine Bacteria (Auto) (NEGATIVE) /HPF Urine Culture Reflexed (NO) Urine Glucose (NEGATIVE) mg/dL Salicylates < 1.0 L (2-20) mg/dL Urine Opiates Level (NEGATIVE) Ur Methadone (NEGATIVE) Urine Barbiturates (NEGATIVE) Valproic Acid < 10.0 L (50-100) ug/mL Ur Phencyclidine (PCP) (NEGATIVE) Urine Amphetamine (NEGATIVE) U Benzodiazepine Level (NEGATIVE) Urine Cocaine (NEGATIVE) Urine Marijuana (THC) (NEGATIVE) Ethyl Alcohol 135 H (0-10) mg/dL 04/27/20 04/27/20 04/27/20 Range/Units 18:17 18:16 18:16 WBC 8.7 (4.0-10.5) K/mm3 RBC 5.28 (4.1-5.6) M/mm3 Hgb 17.9 (12.5-18.0) gm/dl Hct 52.4 H (42-50) % MCV 99.2 (78-100) fl MCH 33.9 H (26-32) pg MCHC 34.2 (32-36) g/dl RDW 13.1 (11.5-14.0) % Plt Count 224 (150-450) K/mm3 MPV 11.2 H (7.5-11.0) fl Gran % 52.4 (36.0-66.0) % Eos # (Auto) 0.28 (0-0.5) Absolute Lymphs (auto) 3.17 (1.0-4.6) Absolute Monos (auto) 0.68 (0.0-1.3) Lymphocytes % 36.5 (24.0-44.0) % Monocytes % 7.8 (0.0-12.0) % Eosinophils % 3.2 (0.00-5.0) % Basophils % 0.1 (0.0-0.4) % Absolute Granulocytes 4.54 (1.4-6.9) Basophils # 0.01 (0-0.4) Sodium (137-145) mmol/L Potassium (3.5-5.1) mmol/L Chloride (98-107) mmol/L Carbon Dioxide (22-30) mmol/L Anion Gap (5-15) MEQ/L BUN (9-20) mg/dL Creatinine (0.66-1.25) mg/dL Estimated GFR ML/MIN Glucose (74-106) mg/dL Calcium (8.4-10.2) mg/dL Total Bilirubin (0.2-1.3) mg/dL AST (17-59) U/L ALT (0-50) U/L Alkaline Phosphatase (38-126) U/L Ammonia (9-30) umol/L Serum Total Protein (6.3-8.2) g/dL Albumin (3.5-5.0) g/dL Urine Color STRAW (YELLOW) Urine Appearance CLEAR (CLEAR) Urine pH 6.0 (5-6) Ur Specific [place] 1.002 (1.005-1.025) Urine Protein NEGATIVE (Negative) Urine Ketones NEGATIVE (NEGATIVE) Urine Blood SMALL (0-5) Andrei/ul Urine Nitrite NEGATIVE (NEGATIVE) Urine Bilirubin NEGATIVE (NEGATIVE) Urine Urobilinogen NEGATIVE (0-1) mg/dL Ur Leukocyte Esterase NEGATIVE (NEGATIVE) Urine WBC (Auto) NONE (0-5) /HPF Urine RBC (Auto) NONE (0-2) /HPF U Epithel Cells (Auto) NONE (FEW) /HPF Urine Bacteria (Auto) NONE SEEN (NEGATIVE) /HPF Urine Culture Reflexed NO (NO) Urine Glucose NEGATIVE (NEGATIVE) mg/dL Salicylates (2-20) mg/dL Urine Opiates Level NEGATIVE (NEGATIVE) Ur Methadone NEGATIVE (NEGATIVE) Urine Barbiturates NEGATIVE (NEGATIVE) Valproic Acid (50-100) ug/mL Ur Phencyclidine (PCP) NEGATIVE (NEGATIVE) Urine Amphetamine NEGATIVE (NEGATIVE) U Benzodiazepine Level NEGATIVE (NEGATIVE) Urine Cocaine NEGATIVE (NEGATIVE) Urine Marijuana (THC) NEGATIVE (NEGATIVE) Ethyl Alcohol (0-10) mg/dL - Progress Counseled pt/family regarding: lab results, diagnosis - Progress Progress Note: 04/27/20 18:57 Transfer of care to Dr. Jeronimo at shift change. I reviewed the pending test to be followed up on. He accepts the patient and assumes care of this patient and will make final disposition. (OLIVER GONZALEZ) 04/27/20 19:05 Patient care was transitioned to tn by Dr. Gonzalez pending laboratory work-up completion and transfer to a psychiatric facility for suicidal ideations. Labs are reviewed and relatively benign and it appears his Depakote level is nondetectable meaning he has not taken his medication as prescribed. His ethanol level is 135 and will need to be below 80 before his case can be staffed with the [facility]. At this time, the patient will be transferred to a inpatient psychiatric facility on a voluntary basis for suicidal ideations. If he does to try to leave he will require a pyschiatric hold per Dr. Gonzalez's instructions. (LAY JERONIMO) - Departure Departure Disposition: Transfer Critical Care Time: No - Departure Clinical Impression: Suicidal ideation, Confusion Condition: Stable Referrals: DANITA MONTAGUE NP [Primary Care Provider] -
[2020-04-27 18:21] LABS: Absolute Neutrophil Ct (ANC) 4.54 (1.4-6.9); BASOPHIL % 0.1 % (0.0-0.4); Basophil (Absolute #) 0.01 (0-0.4); Eosinophil % 3.2 % (0.00-5.0); Eosinophil (Absolute #) 0.28 (0-0.5); Hematocrit 52.4 % (42-50); Hemoglobin 17.9 gm/dl (12.5-18.0); Lymphocyte (Absolute #) 3.17 (1.0-4.6); Lymphocytes % 36.5 % (24.0-44.0); Mean Cell Volume 99.2 fl (78-100); Mean Corpuscular Hemoglobin 33.9 pg (26-32); Mean Corpuscular Hgb Concent. 34.2 g/dl (32-36); Mean Platelet Volume 11.2 fl (7.5-11.0); Monocyte (Absolute #) 0.68 (0.0-1.3); Monocytes % 7.8 % (0.0-12.0); Neutrophil % 52.4 % (36.0-66.0); Platelet Count 224 K/mm3 (150-450); Red Blood Count 5.28 M/mm3 (4.1-5.6); Red Cell Distribution Width 13.1 % (11.5-14.0); White Blood Count 8.7 K/mm3 (4.0-10.5)
[2020-04-27 18:25] LABS: Appearance CLEAR (CLEAR); Bilirubin NEGATIVE (NEGATIVE); Blood SMALL Ery/ul (0-5); Glucose NEGATIVE (NEGATIVE); Ketones NEGATIVE (NEGATIVE); Leukocyte Esterase NEGATIVE (NEGATIVE); Nitrite NEGATIVE (NEGATIVE); Protein,Urine Dip NEGATIVE (Negative); Specific Gravity 1.002 (1.005-1.025); Urobilinogen NEGATIVE mg/dL (0-1)
[2020-04-27 18:27] LABS: ALKALINE PHOSPHATASE 70 U/L (38-126); ANION GAP 11.9 MEQ/L (5-15); BLOOD UREA NITROGEN 8 mg/dL (9-20); CHLORIDE 106 mmol/L (98-107); Carbon Dioxide 28 mmol/L (22-30); Creatinine 1 0.82 mg/dL (0.66-1.25); EST GLOMERULAR FILTRATION RATE > 60.0 ML/MIN; ETHYL ALCOHOL 135 mg/dL (0-10); Glucose 89 mg/dL (74-106); Potassium 4.5 mmol/L (3.5-5.1); SALICYLATE < 1.0 mg/dL (2-20); SGOT/AST 28 U/L (17-59); SGPT/ALT 17 U/L (0-50); SODIUM 141 mmol/L (137-145); Total Protein 8.5 g/dL (6.3-8.2)
[2020-04-27 18:33] LABS: Bacteria NONE SEEN /HPF (NEGATIVE)
[2020-04-27 18:39] LABS: Amphetamine,Urine NEGATIVE (NEGATIVE); Barbiturate,Urine NEGATIVE (NEGATIVE); Benzodiazepine,Urine NEGATIVE (NEGATIVE); Cocaine,Urine NEGATIVE (NEGATIVE); Methadone,Urine NEGATIVE (NEGATIVE); Opiate,Urine NEGATIVE (NEGATIVE); PCP,Urine NEGATIVE (NEGATIVE); THC,Urine NEGATIVE (NEGATIVE)
--- NOTE | 2020-04-27 19:17 | XRAY ---
Indication: Confusion. Multiple contiguous axial images obtained through the head without contrast. Comparison: November 10, 2018. Normal appearing brain parenchyma, ventricles, and bony calvarium. Visualized paranasal sinuses and mastoid air cells are clear. Impression: Continued normal CT head without contrast exam. Comment: Preliminary interpretation was made by [facility]. No critical discrepancy.
[2020-04-28 04:17] VITALS: BP 132/82; PULSE 97; O2SAT 99
== END 2020-04-28 04:50 | disposition home or self-care (01) ==
LOC: ED 17:30
DX: R45.851 Suicidal ideations (principal); R41.0 Disorientation, unspecified; I10 Essential (primary) hypertension; E78.00 Pure hypercholesterolemia, unspecified; Z79.899 Other long term (current) drug therapy
CPT/HCPCS: 36415; 70450; 80053; 80164; 80307; 81001; 82140; 85025; 90791; 93005; 99284; G0480; Q3014

== ENCOUNTER 2020-08-19 14:14 | Observation (INO) | payer MEDICARE ==
[2020-08-19 16:50] LABS: Amphetamine,Urine NEGATIVE (NEGATIVE); Barbiturate,Urine NEGATIVE (NEGATIVE); Benzodiazepine,Urine NEGATIVE (NEGATIVE); Cocaine,Urine NEGATIVE (NEGATIVE); Methadone,Urine NEGATIVE (NEGATIVE); Opiate,Urine NEGATIVE (NEGATIVE); PCP,Urine NEGATIVE (NEGATIVE); THC,Urine NEGATIVE (NEGATIVE)
[2020-08-19 16:53] LABS: Absolute Neutrophil Ct (ANC) 6.98 (1.4-6.9); BASOPHIL % 0.1 % (0.0-0.4); Basophil (Absolute #) 0.01 (0-0.4); Eosinophil % 0.3 % (0.00-5.0); Eosinophil (Absolute #) 0.03 (0-0.5); Hematocrit 45.5 % (42-50); Hemoglobin 14.8 gm/dl (12.5-18.0); Lymphocyte (Absolute #) 1.31 (1.0-4.6); Lymphocytes % 13.6 % (24.0-44.0); Mean Cell Volume 104.1 fl (78-100); Mean Corpuscular Hemoglobin 33.9 pg (26-32); Mean Corpuscular Hgb Concent. 32.5 g/dl (32-36); Mean Platelet Volume 11.6 fl (7.5-11.0); Monocyte (Absolute #) 1.28 (0.0-1.3); Monocytes % 13.3 % (0.0-12.0); Neutrophil % 72.7 % (36.0-66.0); Platelet Count 174 K/mm3 (150-450); Red Blood Count 4.37 M/mm3 (4.1-5.6); Red Cell Distribution Width 13.4 % (11.5-14.0); White Blood Count 9.6 K/mm3 (4.0-10.5)
[2020-08-19 17:01] LABS: ALBUMIN 4.3 g/dL (3.5-5.0); ALKALINE PHOSPHATASE 64 U/L (38-126); ANION GAP 9.5 MEQ/L (5-15); BLOOD UREA NITROGEN 8 mg/dL (9-20); CHLORIDE 102 mmol/L (98-107); Calcium 9.7 mg/dL (8.4-10.2); Carbon Dioxide 28 mmol/L (22-30); Creatinine 1 0.65 mg/dL (0.66-1.25); EST GLOMERULAR FILTRATION RATE > 60.0 ML/MIN; ETHYL ALCOHOL < 10 mg/dL (0-10); Glucose 96 mg/dL (74-106); MAGNESIUM 2.4 mg/dL (1.6-2.3); Potassium 4.1 mmol/L (3.5-5.1); SGOT/AST 24 U/L (17-59); SGPT/ALT 21 U/L (0-50); SODIUM 136 mmol/L (137-145)
--- NOTE | 2020-08-19 19:02 | ERPHSYRPT ---
- History of Present Illness Time Seen by Provider: 08/19/20 14:30 Source: patient Exam Limitations: no limitations Patient Subjective Stated Complaint: " I just feel very confused lately, my bipolar is up and down and I take medications but then I feel better so I quit taking them. I start to drink some but then sometimes I'll go a couple days without drinking ". Triage Nursing Assessment: Pt presents to ER with complaints of confusion for 3-4 days. Pt states his bipolar has been up and down. Pt is alert and oriented but sometimes slower to respond. Pt has history of bipolar depression and schizophernia. Pt denies dizziness, headache, nausea, vomiting, or any other complaints other than intermittent confusion. Pupils are PERRL. Denies any recent changes other than non-compliance with at home psych meds. Pt states his appetite comes and goes too. On occasion, he doesn't eat much. States he drinks often but sometimes takes a couple days off of drinking when he feels okay. Pt lives at home alone and states unsure why he "feels like this". Physician History: Patient is a 54-year-old male presents to our ED with complaints of confusion. Symptoms started approximately 3 to 4 days ago. Patient thinks that his confusion may be related to his medication administration. Patient states he has a history of bipolar schizophrenia and depression. Patient states he takes his medication feels better then stop taking this medication. He also admits that he has a history of alcohol use. Patient denies focal or lateralizing symptoms. No head trauma. No fever. No neck pain. No photophobia. Symptoms are constant. Symptoms are mild to moderate in intensity. No specific worsening improving factors. Patient otherwise voices no other complaints or concerns at this time. Patient denies associated chest pain shortness of breath. Timing/Duration: day(s) (3 days ago.) Severity: moderate Modifying Factors: Improves With: nothing Associated Symptoms: denies symptoms Allergies/Adverse Reactions: quetiapine [From Seroquel] Allergy (Severe, Verified 08/19/20 14:21) seizures carisoprodol [From Soma] Allergy (Verified 08/19/20 14:21) Hives diphenhydramine [From Benadryl] Allergy (Verified 08/19/20 14:21) Hives Hx Tetanus, Diphtheria Vaccination/Date Given: Yes Hx Influenza Vaccination/Date Given: Yes Hx Pneumococcal Vaccination/Date Given: No Immunizations Up to Date: Yes Travel Risk - International Travel Have you traveled outside of the country in past 3 weeks: No - Coronavirus Screening Are you exhibiting any of the following symptoms?: No Close contact with a COVID-19 positive Pt in past 14-21 Days: No - Vaccine Status Have you recieved a Covid-19 vaccination: Yes 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 - Vaccination Dates Date of 2cond Vaccination (if applicable): not done yet Dates if Unknown: unknown - Review of Systems Constitutional: No Symptoms, No Fever, No Chills Eyes: No Symptoms Ears, Nose, & Throat: No Symptoms Respiratory: No Symptoms, No Cough, No Dyspnea Cardiac: No Symptoms, No Chest Pain, No Edema, No Syncope Abdominal/Gastrointestinal: No Symptoms, No Abdominal Pain, No Nausea, No Vomiting, No Diarrhea Genitourinary Symptoms: No Symptoms, No Dysuria Musculoskeletal: No Symptoms, No Back Pain, No Neck Pain Skin: No Symptoms, No Rash Neurological: No Symptoms, No Dizziness, No Focal Weakness, No Sensory Changes Psychological: No Symptoms Endocrine: No Symptoms Hematologic/Lymphatic: No Symptoms Immunological/Allergic: No Symptoms All Other Systems: Reviewed and Negative - Past Medical History Pertinent Past Medical History: Yes Neurological History: Migraines ENT History: Other Cardiac History: High Cholesterol, Hypertension Respiratory History: Asthma Endocrine Medical History: No Pertinent History Musculoskeletal History: Arthritis, Other GI Medical History: Other History: Other Psycho-Social History: Anxiety, Bipolar, Depression Male Reproductive Disorders: Other Other Medical History: prior suicide attempts by over dose. Cutting, anxiety, schizophrenia. Insomnia. Binge drinking. - Past Surgical History Past Surgical History: No Neuro Surgical History: No Pertinent History Cardiac: No Pertinent History Respiratory: No Pertinent History Gastrointestinal: No Pertinent History Genitourinary: No Pertinent History Musculoskeletal: No Pertinent History Male Surgical History: No Pertinent History - Social History Smoking Status: Current every day smoker How long have you smoked: 35 years Exposure to second hand smoke: No Drug Use: none Patient Lives Alone: Yes - Nursing Vital Signs Nursing Vital Signs: Initial Vital Signs Temperature 98.5 F 08/19/20 14:16 Pulse Rate 97 H 08/19/20 14:16 Respiratory Rate 16 08/19/20 14:16 Blood Pressure 134/61 08/19/20 14:16 O2 Sat by Pulse Oximetry 94 L 08/19/20 14:16 Pain Scale Pain Intensity 0 - Physical Exam General Appearance: no apparent distress, alert Eye Exam: PERRL/EOMI, eyes nml inspection Ears, Nose, Throat Exam: normal ENT inspection, TMs normal, pharynx normal, moist mucous membranes Neck Exam: normal inspection, non-tender, supple, full range of motion Respiratory Exam: normal breath sounds, lungs clear, No respiratory distress Cardiovascular Exam: regular rate/rhythm, normal heart sounds, normal peripheral pulses Gastrointestinal/Abdomen Exam: soft, normal bowel sounds, No tenderness, No mass Back Exam: normal inspection, normal range of motion, No CVA tenderness, No vertebral tenderness Extremity Exam: normal inspection, normal range of motion, pelvis stable Neurologic Exam: alert, oriented x 3, cooperative, normal mood/affect, nml cerebellar function, sensation nml, No motor deficits Skin Exam: normal color, warm, dry, No rash Lymphatic Exam: No adenopathy SpO2 Interpretation: normal SpO2: 98 O2 Delivery: Room Air - Course Nursing assessment & vital signs reviewed: Yes EKG Interpreted by Me: RATE (74), Sinus Rhythm, NORMAL AXIS, NORMAL INTERVALS - CT Exams Head CT Interpretation: Tele-radiologist Report (New left occipital lobe cortical subcortical hypoattenuation concerning for acute ischemia. MRI may yield further information. No acute intracranial hemorrhage or mass-effect. Pansinusitis.) Ordered Tests: Medication Summary Discontinued Medications Generic Name Dose Route Start Last Admin Trade Name Freq PRN Reason Stop Dose Admin Aspirin 324 mg 08/19/20 21:01 08/19/20 21:22 Baby Aspirin 81 Mg Chew PO 08/19/20 21:02 324 mg STAT ONE Administration Aspirin Confirm 08/19/20 21:19 Baby Aspirin 81 Mg Chew Administered 08/19/20 21:20 Dose 324 mg .ROUTE .STK-MED ONE Aspirin 81 mg 08/20/20 11:00 08/21/20 09:54 Ecotrin 81 Mg PO 09/19/20 10:59 81 mg DAILY ZENON Administration Sodium Chloride 1,000 mls @ 75 mls/hr 08/19/20 21:15 08/19/20 21:22 Sodium Chloride 0.9% 1000 Ml IV 09/18/20 21:14 75 mls/hr .[id number] ZENON Administration Sodium Chloride Confirm 08/19/20 21:19 Sodium Chloride 0.9% 1000 Ml Administered 08/19/20 21:20 Dose 1,000 mls @ ud .ROUTE .STK-MED ONE Sodium Chloride 1,000 mls @ 75 mls/hr 08/19/20 21:40 08/20/20 22:46 Sodium Chloride 0.9% 1000 Ml IV 09/18/20 21:39 75 mls/hr .[id number] ZENON Administration Lorazepam 0 mg 08/20/20 10:43 Ativan 2 Mg/1 Ml Vial IV 09/19/20 10:42 Q2H PRN PRN CIWA SCORE Protocol Morphine Sulfate 2 mg 08/19/20 21:40 Morphine Sulfate 2 Mg Inj IV 08/24/20 21:39 Q4H PRN PRN PAIN Ondansetron HCl 4 mg 08/19/20 21:40 Zofran 4 Mg/2 Ml Vial IV 09/18/20 21:39 Q6H PRN PRN NAUSEA/VOMITING Thiamine HCl 100 mg 08/20/20 11:00 08/21/20 09:54 Vitamin B-1 100 Mg PO 09/19/20 10:59 100 mg DAILY ZENON Administration Lab/Rad Data: Laboratory Result Diagrams 08/19/20 16:30 08/19/20 16:30 Laboratory Results 08/19/20 08/19/20 08/19/20 Range/Units 19:38 19:25 16:40 WBC (4.0-10.5) K/mm3 RBC (4.1-5.6) M/mm3 Hgb (12.5-18.0) gm/dl Hct (42-50) % MCV (78-100) fl MCH (26-32) pg MCHC (32-36) g/dl RDW (11.5-14.0) % Plt Count (150-450) K/mm3 MPV (7.5-11.0) fl Gran % (36.0-66.0) % Eos # (Auto) (0-0.5) Absolute Lymphs (auto) (1.0-4.6) Absolute Monos (auto) (0.0-1.3) Lymphocytes % (24.0-44.0) % Monocytes % (0.0-12.0) % Eosinophils % (0.00-5.0) % Basophils % (0.0-0.4) % Absolute Granulocytes (1.4-6.9) Basophils # (0-0.4) Sodium (137-145) mmol/L Potassium (3.5-5.1) mmol/L Chloride (98-107) mmol/L Carbon Dioxide (22-30) mmol/L Anion Gap (5-15) MEQ/L BUN (9-20) mg/dL Creatinine (0.66-1.25) mg/dL Estimated GFR ML/MIN Glucose (74-106) mg/dL Calcium (8.4-10.2) mg/dL Magnesium (1.6-2.3) mg/dL Total Bilirubin (0.2-1.3) mg/dL AST (17-59) U/L ALT (0-50) U/L Alkaline Phosphatase (38-126) U/L Troponin I < 0.012 (0.000-0.034) ng/mL Serum Total Protein (6.3-8.2) g/dL Albumin (3.5-5.0) g/dL Urine Opiates Level NEGATIVE (NEGATIVE) Ur Methadone NEGATIVE (NEGATIVE) Urine Barbiturates NEGATIVE (NEGATIVE) Ur Phencyclidine (PCP) NEGATIVE (NEGATIVE) Urine Amphetamine NEGATIVE (NEGATIVE) U Benzodiazepine Level NEGATIVE (NEGATIVE) Urine Cocaine NEGATIVE (NEGATIVE) Urine Marijuana (THC) NEGATIVE (NEGATIVE) Ethyl Alcohol (0-10) mg/dL Influenza Type A Ag NEGATIVE (NEGATIVE) Influenza Type B Ag NEGATIVE (NEGATIVE) RSV (PCR) NEGATIVE (Negative) SARS-CoV-2 (PCR) NEGATIVE (NEGATIVE) 08/19/20 08/19/20 08/19/20 Range/Units 16:30 16:30 16:30 WBC 9.6 (4.0-10.5) K/mm3 RBC 4.37 (4.1-5.6) M/mm3 Hgb 14.8 (12.5-18.0) gm/dl Hct 45.5 (42-50) % MCV 104.1 H (78-100) fl MCH 33.9 H (26-32) pg MCHC 32.5 (32-36) g/dl RDW 13.4 (11.5-14.0) % Plt Count 174 (150-450) K/mm3 MPV 11.6 H (7.5-11.0) fl Gran % 72.7 H (36.0-66.0) % Eos # (Auto) 0.03 (0-0.5) Absolute Lymphs (auto) 1.31 (1.0-4.6) Absolute Monos (auto) 1.28 (0.0-1.3) Lymphocytes % 13.6 L (24.0-44.0) % Monocytes % 13.3 H (0.0-12.0) % Eosinophils % 0.3 (0.00-5.0) % Basophils % 0.1 (0.0-0.4) % Absolute Granulocytes 6.98 H (1.4-6.9) Basophils # 0.01 (0-0.4) Sodium 136 L (137-145) mmol/L Potassium 4.1 (3.5-5.1) mmol/L Chloride 102 (98-107) mmol/L Carbon Dioxide 28 (22-30) mmol/L Anion Gap 9.5 (5-15) MEQ/L BUN 8 L (9-20) mg/dL Creatinine 0.65 L (0.66-1.25) mg/dL Estimated GFR > 60.0 ML/MIN Glucose 96 (74-106) mg/dL Calcium 9.7 (8.4-10.2) mg/dL Magnesium 2.4 H (1.6-2.3) mg/dL Total Bilirubin 0.50 (0.2-1.3) mg/dL AST 24 (17-59) U/L ALT 21 (0-50) U/L Alkaline Phosphatase 64 (38-126) U/L Troponin I < 0.012 (0.000-0.034) ng/mL Serum Total Protein 7.0 (6.3-8.2) g/dL Albumin 4.3 (3.5-5.0) g/dL Urine Opiates Level (NEGATIVE) Ur Methadone (NEGATIVE) Urine Barbiturates (NEGATIVE) Ur Phencyclidine (PCP) (NEGATIVE) Urine Amphetamine (NEGATIVE) U Benzodiazepine Level (NEGATIVE) Urine Cocaine (NEGATIVE) Urine Marijuana (THC) (NEGATIVE) Ethyl Alcohol < 10 (0-10) mg/dL Influenza Type A Ag (NEGATIVE) Influenza Type B Ag (NEGATIVE) RSV (PCR) (Negative) SARS-CoV-2 (PCR) (NEGATIVE) - Progress Progress: improved Progress Note: 08/19/20 20:57 Patient is a 54-year-old male presents to our ED with complaints of confusion. CT head shows an area of ischemia. NIH score was 0. Teleneuro consulted. Teleneuro recommendations include MRI/MRA brain MRA neck, coagulation profile lipid profile CBC and chemistry profile hemoglobin A1c, cardiac telemetry, echocardiogram with bubble study, 30-day continuous cardiac monitoring for loop recorder. Admit to stroke unit. Antiplatelet therapy p.o. or [place] if unable to take p.o. Statins per [place] [employer] guidelines. Target LDL was 70-100. Blood pressure target 1 40-1 80 for 24 to 48 hours unless other contraindicating factors, DVT prophylaxis per attending physician preference, glycemic management target fasting blood sugar under 110, sliding scale if needed. Maintain normothermia smoking cessation. In-house neurology and physical therapy if available. TPA not given as patient was on the outside of therapeutic window. Discussed with Dr.: Carla Will see patient in: hospital (observation) Counseled pt/family regarding: lab results, diagnosis, rad results - Departure Departure Disposition: Observation Clinical Impression: Stroke, Pansinusitis Condition: Stable Critical Care Time: No
[2020-08-19 20:16] LABS: INFLUENZA A NEGATIVE (NEGATIVE); INFLUENZA B NEGATIVE (NEGATIVE); RESPIRATORY SYNCTIAL VIRUS NEGATIVE (Negative)
[2020-08-19] MEDS ORDERED: BABY ASPIRIN 81 MG CHEW PO ONE (21:01)
[2020-08-19] MEDS ORDERED: Sodium Chloride 0.9% 1000 ML 1,000 ML IV SCH (21:15)
[2020-08-19] MEDS ORDERED: BABY ASPIRIN 81 MG CHEW ONE (21:19)
[2020-08-19] MEDS ORDERED: Sodium Chloride 0.9% 1000 ML 1,000 ML ONE (21:19)
[2020-08-19] MEDS ORDERED: Zofran 4 MG/2 ML VIAL IV PRN (21:40)
[2020-08-19] MEDS ORDERED: MORPHINE SULFATE 2 MG INJ IV PRN (21:40)
[2020-08-20 04:09] LABS: Absolute Neutrophil Ct (ANC) 5.08 (1.4-6.9); BASOPHIL % 0.2 % (0.0-0.4); Basophil (Absolute #) 0.02 (0-0.4); Eosinophil (Absolute #) 0.08 (0-0.5); Hematocrit 43.7 % (42-50); Hemoglobin 15.1 gm/dl (12.5-18.0); Lymphocyte (Absolute #) 1.81 (1.0-4.6); Lymphocytes % 22.4 % (24.0-44.0); Mean Cell Volume 101.2 fl (78-100); Mean Corpuscular Hgb Concent. 34.6 g/dl (32-36); Mean Platelet Volume 11.3 fl (7.5-11.0); Monocytes % 13.6 % (0.0-12.0); Neutrophil % 62.8 % (36.0-66.0); Platelet Count 189 K/mm3 (150-450); Red Blood Count 4.32 M/mm3 (4.1-5.6); Red Cell Distribution Width 13.3 % (11.5-14.0); White Blood Count 8.1 K/mm3 (4.0-10.5)
[2020-08-20 04:23] LABS: ALKALINE PHOSPHATASE 50 U/L (38-126); ANION GAP 9.4 MEQ/L (5-15); BLOOD UREA NITROGEN 9 mg/dL (9-20); CHLORIDE 103 mmol/L (98-107); Calcium 9.4 mg/dL (8.4-10.2); Carbon Dioxide 26 mmol/L (22-30); Creatinine 1 0.57 mg/dL (0.66-1.25); EST GLOMERULAR FILTRATION RATE > 60.0 ML/MIN; Glucose 100 mg/dL (74-106); Potassium 4.1 mmol/L (3.5-5.1); SGOT/AST 19 U/L (17-59); SGPT/ALT 18 U/L (0-50); SODIUM 135 mmol/L (137-145); Total Protein 6.7 g/dL (6.3-8.2)
[2020-08-20] MEDS: Sodium Chloride 0.9% 1000 ML 1,000 ML IV SCH ×3 (09:21→22:46)
--- NOTE | 2020-08-20 10:40 | PCM.HP ---
History of Present Illness - Chief Complaint Chief Complaint: CVA History of Present Illness: is a 54 year old male who reported to the ER yesterday with complaints of feeling "fuzzy", states he has been unable to get things done or remember things for the past several days, also complains of some trouble speaking and finding words, no numbness or weakness in arms or legs, no trouble walking. feels hot in his extremities. he lives alone, has no transportation and does not drive. states he has bipolar and schizophrenia, has been seen by [facility] and given meds but admits he has not taken any meds or followed up, he does report someone recently came from the [facility] and took him out for a walk. - Review of Systems Constitutional: No Fever, No Chills Respiratory: No Cough, No Short Of Breath Cardiac: No Chest Pain, No Edema, No Syncope Abdominal/Gastrointestinal: No Abdominal Pain, No Nausea, No Vomiting, No Diarrhea Genitourinary Symptoms: No Dysuria Neurological: No Focal Weakness, No Headache Psychological: Memory Loss, No Suicidal Ideations All Other Systems: Reviewed and Negative Medications & Allergies Home Medications: Home Medication List No Reportable Medications [No Reported Medications] 08/13/20 [History Confirmed 08/19/20] Allergies/Adverse Reactions: Allergies Allergy/AdvReac Type Severity Reaction Status Date / Time quetiapine [From Seroquel] Allergy Severe Verified 08/19/20 14:21 carisoprodol [From Soma] Allergy Hives Verified 08/19/20 14:21 diphenhydramine Allergy Hives Verified 08/19/20 14:21 [From Benadryl] - Past Medical History Past Medical History: Yes Neurological History: Migraines ENT History: Other Cardiac History: High Cholesterol, Hypertension Respiratory History: Asthma Endocrine Medical History: No Pertinent History Musculoskelatal History: Arthritis, Other GI Medical History: No Pertinent History, Other History: Other Pyscho-Social History: Anxiety, Bipolar, Depression Male Reproductive Disorders: Other Comment: prior suicide attempts by over dose. Cutting, anxiety, schizophrenia. Insomnia. Binge drinking. - Past Surgical History Past Surgical History: No Neuro Surgical History: No Pertinent History Cardiac History: No Pertinent History Respiratory Surgery: No Pertinent History GI Surgical History: No Pertinent History Genitourinary Surgical Hx: No Pertinent History Musculskeletal Surgical Hx: No Pertinent History Male Surgical History: No Pertinent History - Social History Smoking Status: Current every day smoker How long have you smoked: 35 years Exposure to second hand smoke: No Alcohol: Weekly Drug Use: none - Physical Exam Vital Signs: Vital Signs - 24 hr Temp Pulse Resp BP Pulse Ox 08/20/20 07:26 98.1 F 68 20 140/70 96 08/20/20 04:00 98.2 F 64 17 118/63 96 08/19/20 23:09 97 08/19/20 22:55 97.6 F 65 16 136/74 98 08/19/20 21:01 98 08/19/20 21:00 62 18 140/68 95 08/19/20 20:00 65 18 122/61 96 08/19/20 19:00 64 18 139/81 95 08/19/20 18:51 98.2 F 68 20 136/68 98 08/19/20 17:27 98.2 F 68 20 120/60 98 08/19/20 16:40 74 18 128/66 94 L 08/19/20 15:37 98.4 F 96 H 20 130/48 98 08/19/20 14:16 98.5 F 97 H 16 134/61 94 L General Appearance: no apparent distress Neurologic Exam: alert, cooperative, 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, No motor deficits, No sensory deficit Respiratory Exam: normal breath sounds, lungs clear, No respiratory distress Cardiovascular Exam: regular rate/rhythm, normal heart sounds, normal peripheral pulses Gastrointestinal/Abdomen Exam: soft, normal bowel sounds, No tenderness, No mass Extremity Exam: normal inspection, normal range of motion, pelvis stable Skin Exam: normal color, warm, dry, No rash Results - Labs Lab/Micro Results: Lab Results-Last 24 Hours 08/19/20 08/19/20 08/19/20 Range/Units 16:30 16:30 16:30 WBC 9.6 (4.0-10.5) K/mm3 RBC 4.37 (4.1-5.6) M/mm3 Hgb 14.8 (12.5-18.0) gm/dl Hct 45.5 (42-50) % MCV 104.1 H (78-100) fl MCH 33.9 H (26-32) pg MCHC 32.5 (32-36) g/dl RDW 13.4 (11.5-14.0) % Plt Count 174 (150-450) K/mm3 MPV 11.6 H (7.5-11.0) fl Gran % 72.7 H (36.0-66.0) % Eos # (Auto) 0.03 (0-0.5) Absolute Lymphs (auto) 1.31 (1.0-4.6) Absolute Monos (auto) 1.28 (0.0-1.3) Lymphocytes % 13.6 L (24.0-44.0) % Monocytes % 13.3 H (0.0-12.0) % Eosinophils % 0.3 (0.00-5.0) % Basophils % 0.1 (0.0-0.4) % Absolute Granulocytes 6.98 H (1.4-6.9) Basophils # 0.01 (0-0.4) Sodium 136 L (137-145) mmol/L Potassium 4.1 (3.5-5.1) mmol/L Chloride 102 (98-107) mmol/L Carbon Dioxide 28 (22-30) mmol/L Anion Gap 9.5 (5-15) MEQ/L BUN 8 L (9-20) mg/dL Creatinine 0.65 L (0.66-1.25) mg/dL Estimated GFR > 60.0 ML/MIN Glucose 96 (74-106) mg/dL Calcium 9.7 (8.4-10.2) mg/dL Magnesium 2.4 H (1.6-2.3) mg/dL Total Bilirubin 0.50 (0.2-1.3) mg/dL AST 24 (17-59) U/L ALT 21 (0-50) U/L Alkaline Phosphatase 64 (38-126) U/L Troponin I < 0.012 (0.000-0.034) ng/mL Serum Total Protein 7.0 (6.3-8.2) g/dL Albumin 4.3 (3.5-5.0) g/dL Urine Opiates Level (NEGATIVE) Ur Methadone (NEGATIVE) Urine Barbiturates (NEGATIVE) Ur Phencyclidine (PCP) (NEGATIVE) Urine Amphetamine (NEGATIVE) U Benzodiazepine Level (NEGATIVE) Urine Cocaine (NEGATIVE) Urine Marijuana (THC) (NEGATIVE) Ethyl Alcohol < 10 (0-10) mg/dL Influenza Type A Ag (NEGATIVE) Influenza Type B Ag (NEGATIVE) RSV (PCR) (Negative) SARS-CoV-2 (PCR) (NEGATIVE) 08/19/20 08/19/20 08/19/20 Range/Units 16:40 19:25 19:38 WBC (4.0-10.5) K/mm3 RBC (4.1-5.6) M/mm3 Hgb (12.5-18.0) gm/dl Hct (42-50) % MCV (78-100) fl MCH (26-32) pg MCHC (32-36) g/dl RDW (11.5-14.0) % Plt Count (150-450) K/mm3 MPV (7.5-11.0) fl Gran % (36.0-66.0) % Eos # (Auto) (0-0.5) Absolute Lymphs (auto) (1.0-4.6) Absolute Monos (auto) (0.0-1.3) Lymphocytes % (24.0-44.0) % Monocytes % (0.0-12.0) % Eosinophils % (0.00-5.0) % Basophils % (0.0-0.4) % Absolute Granulocytes (1.4-6.9) Basophils # (0-0.4) Sodium (137-145) mmol/L Potassium (3.5-5.1) mmol/L Chloride (98-107) mmol/L Carbon Dioxide (22-30) mmol/L Anion Gap (5-15) MEQ/L BUN (9-20) mg/dL Creatinine (0.66-1.25) mg/dL Estimated GFR ML/MIN Glucose (74-106) mg/dL Calcium (8.4-10.2) mg/dL Magnesium (1.6-2.3) mg/dL Total Bilirubin (0.2-1.3) mg/dL AST (17-59) U/L ALT (0-50) U/L Alkaline Phosphatase (38-126) U/L Troponin I < 0.012 (0.000-0.034) ng/mL Serum Total Protein (6.3-8.2) g/dL Albumin (3.5-5.0) g/dL Urine Opiates Level NEGATIVE (NEGATIVE) Ur Methadone NEGATIVE (NEGATIVE) Urine Barbiturates NEGATIVE (NEGATIVE) Ur Phencyclidine (PCP) NEGATIVE (NEGATIVE) Urine Amphetamine NEGATIVE (NEGATIVE) U Benzodiazepine Level NEGATIVE (NEGATIVE) Urine Cocaine NEGATIVE (NEGATIVE) Urine Marijuana (THC) NEGATIVE (NEGATIVE) Ethyl Alcohol (0-10) mg/dL Influenza Type A Ag NEGATIVE (NEGATIVE) Influenza Type B Ag NEGATIVE (NEGATIVE) RSV (PCR) NEGATIVE (Negative) SARS-CoV-2 (PCR) NEGATIVE (NEGATIVE) 08/19/20 08/20/20 08/20/20 Range/Units 22:15 01:55 04:00 WBC (4.0-10.5) K/mm3 RBC (4.1-5.6) M/mm3 Hgb (12.5-18.0) gm/dl Hct (42-50) % MCV (78-100) fl MCH (26-32) pg MCHC (32-36) g/dl RDW (11.5-14.0) % Plt Count (150-450) K/mm3 MPV (7.5-11.0) fl Gran % (36.0-66.0) % Eos # (Auto) (0-0.5) Absolute Lymphs (auto) (1.0-4.6) Absolute Monos (auto) (0.0-1.3) Lymphocytes % (24.0-44.0) % Monocytes % (0.0-12.0) % Eosinophils % (0.00-5.0) % Basophils % (0.0-0.4) % Absolute Granulocytes (1.4-6.9) Basophils # (0-0.4) Sodium (137-145) mmol/L Potassium (3.5-5.1) mmol/L Chloride (98-107) mmol/L Carbon Dioxide (22-30) mmol/L Anion Gap (5-15) MEQ/L BUN (9-20) mg/dL Creatinine (0.66-1.25) mg/dL Estimated GFR ML/MIN Glucose (74-106) mg/dL Calcium (8.4-10.2) mg/dL Magnesium (1.6-2.3) mg/dL Total Bilirubin (0.2-1.3) mg/dL AST (17-59) U/L ALT (0-50) U/L Alkaline Phosphatase (38-126) U/L Troponin I < 0.012 < 0.012 < 0.012 (0.000-0.034) ng/mL Serum Total Protein (6.3-8.2) g/dL Albumin (3.5-5.0) g/dL Urine Opiates Level (NEGATIVE) Ur Methadone (NEGATIVE) Urine Barbiturates (NEGATIVE) Ur Phencyclidine (PCP) (NEGATIVE) Urine Amphetamine (NEGATIVE) U Benzodiazepine Level (NEGATIVE) Urine Cocaine (NEGATIVE) Urine Marijuana (THC) (NEGATIVE) Ethyl Alcohol (0-10) mg/dL Influenza Type A Ag (NEGATIVE) Influenza Type B Ag (NEGATIVE) RSV (PCR) (Negative) SARS-CoV-2 (PCR) (NEGATIVE) 08/20/20 08/20/20 Range/Units 04:00 04:00 WBC 8.1 (4.0-10.5) K/mm3 RBC 4.32 (4.1-5.6) M/mm3 Hgb 15.1 (12.5-18.0) gm/dl Hct 43.7 (42-50) % MCV 101.2 H (78-100) fl MCH 35.0 H (26-32) pg MCHC 34.6 (32-36) g/dl RDW 13.3 (11.5-14.0) % Plt Count 189 (150-450) K/mm3 MPV 11.3 H (7.5-11.0) fl Gran % 62.8 (36.0-66.0) % Eos # (Auto) 0.08 (0-0.5) Absolute Lymphs (auto) 1.81 (1.0-4.6) Absolute Monos (auto) 1.10 (0.0-1.3) Lymphocytes % 22.4 L (24.0-44.0) % Monocytes % 13.6 H (0.0-12.0) % Eosinophils % 1.0 (0.00-5.0) % Basophils % 0.2 (0.0-0.4) % Absolute Granulocytes 5.08 (1.4-6.9) Basophils # 0.02 (0-0.4) Sodium 135 L (137-145) mmol/L Potassium 4.1 (3.5-5.1) mmol/L Chloride 103 (98-107) mmol/L Carbon Dioxide 26 (22-30) mmol/L Anion Gap 9.4 (5-15) MEQ/L BUN 9 (9-20) mg/dL Creatinine 0.57 L (0.66-1.25) mg/dL Estimated GFR > 60.0 ML/MIN Glucose 100 (74-106) mg/dL Calcium 9.4 (8.4-10.2) mg/dL Magnesium (1.6-2.3) mg/dL Total Bilirubin 0.60 (0.2-1.3) mg/dL AST 19 (17-59) U/L ALT 18 (0-50) U/L Alkaline Phosphatase 50 (38-126) U/L Troponin I (0.000-0.034) ng/mL Serum Total Protein 6.7 (6.3-8.2) g/dL Albumin 4.0 (3.5-5.0) g/dL Urine Opiates Level (NEGATIVE) Ur Methadone (NEGATIVE) Urine Barbiturates (NEGATIVE) Ur Phencyclidine (PCP) (NEGATIVE) Urine Amphetamine (NEGATIVE) U Benzodiazepine Level (NEGATIVE) Urine Cocaine (NEGATIVE) Urine Marijuana (THC) (NEGATIVE) Ethyl Alcohol (0-10) mg/dL Influenza Type A Ag (NEGATIVE) Influenza Type B Ag (NEGATIVE) RSV (PCR) (Negative) SARS-CoV-2 (PCR) (NEGATIVE) - Radiology Impressions Radiology Exams & Impressions: Radiology Procedures Category Date Time Status ECHO W/2D AND DOPPLER [US] Routine Exams 08/20/20 Ordered HEAD WITHOUT CONTRAST [CT] Stat Exams 08/19/20 15:54 Taken MRA BRAIN WITH CONTRAST [MRI] Routine Exams 08/20/20 10:32 Ordered MRA NECK WITH CONTRAST [MRI] Routine Exams 08/20/20 10:32 Ordered Assessment/Plan (1) Stroke Current Visit: Yes Status: Acute Assessment & Plan: I believe this is an incidental finding on CT scan, will pursue MRA brain and neck to r/o stenosis and obtain echo, start on aspirin 81mg therapy. I believe his presenting symptoms are related to his psychiatric diagnoses that are currently not being managed, question his ability to live independently and care for his meds and f/u. will consult psych and geriatric social worker regarding resources and f/u Code(s): I63.9 - CEREBRAL INFARCTION, UNSPECIFIED (2) Bipolar disorder Current Visit: Yes Status: Acute Code(s): F31.9 - BIPOLAR DISORDER, UNSPECIFIED (3) Schizophrenia Current Visit: Yes Status: Acute Code(s): F20.9 - SCHIZOPHRENIA, UNSPECIFIED (4) Change in mental status Current Visit: No Status: Acute Code(s): R41.82 - ALTERED MENTAL STATUS, UNSPECIFIED
[2020-08-20] MEDS ORDERED: Ativan 2 MG/1 ML VIAL IV PRN (10:43)
[2020-08-20] MEDS: ECOTRIN 81 MG PO SCH (10:44)
--- NOTE | 2020-08-20 11:24 | XRAY ---
Indication: Confusion. Multiple contiguous axial images obtained through the head without contrast. Comparison: April 27, 2020 Age-appropriate global atrophy. Medial left occipital lobe demonstrates new moderate sized focus of cortical/subcortical hypoattenuation, possible acute ischemia in the right clinical setting. No acute intracranial hemorrhage, abnormal extra-axial fluid collection, or mass effect. Fourth ventricle is midline without hydrocephalus. Bony calvarium intact. There is mild/moderate mucosal thickening of all paranasal sinuses bilaterally, greatest involving ethmoid sinuses. Moderate fluid level in both maxillary sinuses. Mastoid air cells are clear. Impression: 1. New left occipital lobe cortical/subcortical hypoattenuation concerning for acute ischemia. MRI may yield further information. 2. No acute intracranial hemorrhage or mass effect. 3. New pansinusitis. Comment: Telephone report given to Dr. Logan in the ER at 1725 hrs on August 19, 2020.
[2020-08-20] MEDS: VITAMIN B-1 100 MG PO SCH (11:52)
[2020-08-20 12:29] LABS: Folate (Folic Acid) 11.8 ng/mL (2.76 - >20)
--- NOTE | 2020-08-20 16:33 | XRAY ---
Indication: Confusion and headache. Possible CVA. Conventional contrast enhanced CTA neck performed using 100 cc Isovue 370 contrast. Two-dimensional sagittal and coronal reformatted images obtained. Additional 3-dimensional reformatted images obtained using a separate workstation. Comparison: None Visualized left and right carotid circulation demonstrates widely patent common carotid artery, carotid bulb, internal carotid, and external carotid arteries. Vertebral arteries are bilaterally symmetric without critical stenosis, obstruction, or AV malformation. Visualized soft tissues demonstrates a few centimeter/subcentimeter cervical and submandibular lymph nodes bilaterally. No pathologic lymphadenopathy. Parotid and submandibular glands are bilaterally symmetric. Thyroid gland enhances homogeneously. Supra and infraglottic airway widely patent. Normal epiglottis. Patient is edentulous. Cervical spine intact with mild/moderate C4-C7 degenerative endplate spurring. Lung apices are unremarkable. CT and CTA head reported separately. Impression: 1. Negative CTA neck. 2. Incidental C4-C7 degenerative changes.
--- NOTE | 2020-08-20 16:39 | XRAY ---
Indication: Confusion and headache. Possible CVA. Conventional contrast enhanced CTA head performed using 100 cc Isovue 370 contrast. Two-dimensional sagittal and coronal reformatted images obtained. Additional 3-dimensional reformatted images obtained using a separate workstation. Comparison: None CT head and CTA neck reported separately. Distal internal carotid arteries are bilaterally symmetric with very minimal arteriosclerotic calcifications involving the parasellar segments bilaterally. No critical stenosis, obstruction, or AV malformation. Normal carotid terminus with normal branching A1 and M1 segments bilaterally. More distal anterior cerebral, middle cerebral, anterior communicating, and posterior communicating arteries are normal in CTA appearance bilaterally. Basilar artery is normal in course and caliber. Normal branching posterior cerebral and superior cerebellar arteries bilaterally. Venous drainage/sinuses are unremarkable. There is no abnormal enhancing intra or extra-axial mass. Impression: 1. Very minimal arteriosclerotic calcifications involving both parasellar internal carotid arteries without critical stenosis/obstruction. 2. Remaining CTA head is negative.
[2020-08-21 06:10] LABS: ALBUMIN 3.9 g/dL (3.5-5.0); ALKALINE PHOSPHATASE 53 U/L (38-126); ANION GAP 10.5 MEQ/L (5-15); BLOOD UREA NITROGEN 7 mg/dL (9-20); CHLORIDE 104 mmol/L (98-107); Calcium 9.5 mg/dL (8.4-10.2); Carbon Dioxide 26 mmol/L (22-30); Creatinine 1 0.56 mg/dL (0.66-1.25); EST GLOMERULAR FILTRATION RATE > 60.0 ML/MIN; Glucose 96 mg/dL (74-106); Potassium 3.9 mmol/L (3.5-5.1); SGOT/AST 17 U/L (17-59); SGPT/ALT 17 U/L (0-50); SODIUM 137 mmol/L (137-145); Total Protein 6.6 g/dL (6.3-8.2)
--- NOTE | 2020-08-21 09:20 | PCM.DS ---
Discharge Summary Date of Admission: 08/19/20 21:30 Admitting Physician: HERNANDEZ HEBERT Consults: Consults on Case 08/20/20 10:33 Consult,Shelley [Psychiatric Consult] STAT Primary Care Provider: NO FAMILY DOCTOR Allergies Allergies quetiapine [From Seroquel] Allergy (Severe, Verified 08/19/20 14:21) seizures carisoprodol [From Soma] Allergy (Verified 08/19/20 14:21) Hives diphenhydramine [From Benadryl] Allergy (Verified 08/19/20 14:21) [facility] Summary - Hospital Course Hospital Course: patient arrived c/o altered mental status and confusion, hx of bipolar and schizophrenia but noncompliant with meds. he follows with [facility], they consulted and recommend outpatient f/u and comp field case manager will help him with transportation. he has a new left occipital lobe infarct on ct, cta showed no significant stenosis, echo is pending. he has a nonfocal neuro exam. no complaints and would like to return to home - Vitals & Intake/Output Vital Signs: Vital Signs Temperature 97.9 F 08/21/20 07:52 Pulse Rate 60 08/21/20 07:52 Respiratory Rate 20 08/21/20 07:52 Blood Pressure 150/74 08/21/20 07:52 O2 Sat by Pulse Oximetry 94 L 08/21/20 07:52 Intake & Output: Intake & Output 08/18/20 08/19/20 08/20/20 08/21/20 11:59 11:59 11:59 11:59 Intake Total 1233 2326 Output Total 300 400 Balance 933 1926 Weight 68.9 kg - Lab Result Diagrams: 08/20/20 04:00 08/21/20 04:40 Lab Results-Last 24 Hrs: Lab Results-Last 24 Hours 08/20/20 08/21/20 Range/Units 05:30 04:40 Sodium 137 (137-145) mmol/L Potassium 3.9 (3.5-5.1) mmol/L Chloride 104 (98-107) mmol/L Carbon Dioxide 26 (22-30) mmol/L Anion Gap 10.5 (5-15) MEQ/L BUN 7 L (9-20) mg/dL Creatinine 0.56 L (0.66-1.25) mg/dL Estimated GFR > 60.0 ML/MIN Glucose 96 (74-106) mg/dL Calcium 9.5 (8.4-10.2) mg/dL Total Bilirubin 0.60 (0.2-1.3) mg/dL AST 17 (17-59) U/L ALT 17 (0-50) U/L Alkaline Phosphatase 53 (38-126) U/L Serum Total Protein 6.6 (6.3-8.2) g/dL Albumin 3.9 (3.5-5.0) g/dL Vitamin B12 414 (239-931) pg/mL Folic Acid 11.8 (2.76 - >20) ng/mL - Radiology Exams Ordered Rad Exams-Entire Visit: Radiology Procedures Category Date Time Status CT ANGIOGRAPHY NECK [CT] Routine Exams 08/20/20 14:06 Completed CTA HEAD W AND/OR WO CONTRAST [CT] Routine Exams 08/20/20 14:19 Completed ECHO W/2D AND DOPPLER [US] Routine Exams 08/20/20 12:02 Taken HEAD WITHOUT CONTRAST [CT] Stat Exams 08/19/20 15:54 Completed - Procedures and Test Procedures and Tests throughout Hospitalization: Therapy Orders & Screens 08/19/20 23:09 Smoking Cessation Education ONCE Comment: Diagnosis: CVA Smoking Status: Current every day smoker How long have you smoked: 35 years Have you smoked in the past 12 months: Yes Approximately how many cigarettes per day: 35 Do you dip or chew tobacco: No ST Screen per Nursing Assess ONCE Comment: Protocol Order Physician Instructions: Greater than [address] Admission Screening Reason For Exam: Triggered on Admission Diagnosis: CVA CVA/Dyshpagia/Aphasia: Yes Cognitive Deficits: Yes Dehydration/Nutrition Deficit: No Reflux: No Oral-Motor Difficulties: No Pneumonia: No Senior Care Resident: No Total Points: 8 Discharge Exam General Appearance: no apparent distress, alert Neurologic Exam: alert, oriented x 3, cooperative, 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 will f/u in office Code(s): I63.9 - CEREBRAL INFARCTION, UNSPECIFIED (2) Bipolar disorder Current Visit: Yes Status: Acute Assessment & Plan: advised to see [facility] as outpatient per their recommendation from consult. Code(s): F31.9 - BIPOLAR DISORDER, UNSPECIFIED (3) Schizophrenia Current Visit: Yes Status: Acute Code(s): F20.9 - SCHIZOPHRENIA, UNSPECIFIED (4) Change in mental status Current Visit: No Status: Acute Code(s): R41.82 - ALTERED MENTAL STATUS, UNSPECIFIED - Discharge Disposition: Home, Self-Care Condition: Stable Prescriptions: New Aspirin EC 81 mg [Ecotrin 81 mg] 81 mg PO DAILY #30 tablet.ec Clopidogrel Bisulfate 75 mg [PLAVIX 75 MG Tablet] 75 mg PO DAILY #30 tablet Simvastatin 20Mg [Zocor 20Mg] 20 mg PO DAILY #30 tablet Additional Instructions: f/u with [facility] in 1 week, take meds as directed. Follow up with: HERNANDEZ HEBERT MD [ACTIVE STAFF] - 1 Week
[2020-08-21] MEDS: ECOTRIN 81 MG PO SCH (09:54)
[2020-08-21] MEDS: VITAMIN B-1 100 MG PO SCH (09:54)
[2020-08-21 11:48] VITALS: BP 120/71; PULSE 76
[2020-08-21 12:19] LABS: Absolute Neutrophil Ct (ANC) 4.74 (1.4-6.9); BASOPHIL % 0.1 % (0.0-0.4); Basophil (Absolute #) 0.01 (0-0.4); Eosinophil % 1.3 % (0.00-5.0); Hematocrit 44.9 % (42-50); Lymphocyte (Absolute #) 2.08 (1.0-4.6); Lymphocytes % 27.4 % (24.0-44.0); Mean Corpuscular Hemoglobin 34.4 pg (26-32); Mean Corpuscular Hgb Concent. 33.4 g/dl (32-36); Mean Platelet Volume 12.5 fl (7.5-11.0); Monocyte (Absolute #) 0.66 (0.0-1.3); Monocytes % 8.7 % (0.0-12.0); Neutrophil % 62.5 % (36.0-66.0); Platelet Count 201 K/mm3 (150-450); Red Blood Count 4.36 M/mm3 (4.1-5.6); Red Cell Distribution Width 13.3 % (11.5-14.0); White Blood Count 7.6 K/mm3 (4.0-10.5)
[2020-08-22 07:03] VITALS: O2SAT 98
--- NOTE | 2020-08-23 15:26 | ECHO ---
DATE OF PROCEDURE: 08/20/2020 CLINICAL INFORMATION: CVA. The M-mode 2D, and Doppler echocardiogram including color flow Doppler shows the left ventricle is normal in size at 5.0 cm. There is no thrombus present. The septal wall thickness is normal at 0.8 cm. The left ventricular posterior wall thickness is normal at 0.7 cm. The left ventricular systolic function is at the lower limits of normal. The ejection fraction is calculated to be 53%. The right ventricle is grossly normal. The left atrium is normal in size at 3.7 cm. The interatrial septum is intact. The right atrium is normal. The aortic valve opens well. It is trileaflet. There is no aortic regurgitation. There is mitral valve leaflet thickening but no stenosis or regurgitation. The tricuspid valve is normal. The pulmonic valve is not well visualized. The aortic root is normal at 3.0 cm. There is no pericardial effusion present. IMPRESSION: 1) LOW NORMAL LEFT VENTRICULAR SYSTOLIC FUNCTION. 2) NO LEFT ATRIAL THROMBUS IS NOTED.
== END 2020-08-21 13:25 | disposition home or self-care (01) ==
LOC: ED 14:14 → MED SURG 21:30
PROVIDERS: ADMIT Family Medicine; ATTEND Family Medicine
DX: I63.9 Cerebral infarction, unspecified (principal); R41.82 Altered mental status, unspecified; Z91.14 Patient's other noncompliance with medication regimen; F31.9 Bipolar disorder, unspecified; F20.9 Schizophrenia, unspecified; Z79.899 Other long term (current) drug therapy; I10 Essential (primary) hypertension; E78.00 Pure hypercholesterolemia, unspecified; Z20.828 Contact with and (suspected) exposure to other viral communicable diseases
CPT/HCPCS: 0241U; 36000; 36415; 70450; 70496; 70498; 80053; 80307; 82607; 82746; 83735; 83921; 84484; 85025; 93005; 93268; 93306; 94760; 94762; 99285; G0378; G0480; Q3014; A9270-GY

== ENCOUNTER 2020-12-09 09:49 | Emergency (ER) | payer MEDICARE ==
--- NOTE | 2020-12-09 09:54 | ERPHSYRPT ---
- History of Present Illness Time Seen by Provider: 12/09/20 09:54 Source: patient Exam Limitations: no limitations Physician History: This is a 55-year-old white male patient of Dr. Hebert who presents with worsening confusion and weakness per his report over the last several days. He has had similar evaluations in this emergency department in April 2020 and again in August 2020. Patient has been diagnosed in the past with schizophrenia, anxiety disorder, bipolar disorder, depression, noncompliance with medication, psycho organic disorder, acute psychosis, suicidal ideation with prior suicide attempts. Today he denies suicidal ideations or homicidal ideations. Patient states that the confusion weakness is been present over a year. Patient lives alone. Patient denies head trauma. Patient also states that he has liver disease. Patient denies chest pain. He denies shortness of breath. He denies abdominal pain. He denies fevers and chills. He said no nausea vomiting or diarrhea. Patient denies any new medications. Timing/Duration: day(s), worse (Symptoms over several days) Baseline/Normal Cognition: alert oriented x 3 Current Cognition: alert oriented x 3 Baseline Gait: walks w/o assistance Associated Symptoms: confusion, weakness, No fever, No chills, No nausea, No vomiting, No chest pain, No headache Allergies/Adverse Reactions: quetiapine [From Seroquel] Allergy (Severe, Verified 12/09/20 10:14) seizures carisoprodol [From Soma] Allergy (Verified 12/09/20 10:14) Hives diphenhydramine [From Benadryl] Allergy (Verified 12/09/20 10:14) Hives Home Medications: No Reportable Medications [No Reported Medications] 12/09/20 [History] Hx Tetanus, Diphtheria Vaccination/Date Given: Yes Hx Influenza Vaccination/Date Given: Yes Hx Pneumococcal Vaccination/Date Given: No Travel Risk - International Travel Have you traveled outside of the country in past 3 weeks: No - Coronavirus Screening Are you exhibiting any of the following symptoms?: No Close contact with a COVID-19 positive Pt in past 14-21 Days: No - Vaccine Status Have you recieved a Covid-19 vaccination: Yes 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 - Vaccination Dates Date of 2cond Vaccination (if applicable): not done yet Dates if Unknown: unknown - Review of Systems Constitutional: Weakness Eyes: No Symptoms Ears, Nose, & Throat: No Symptoms Respiratory: No Symptoms Cardiac: No Symptoms Abdominal/Gastrointestinal: No Symptoms Genitourinary Symptoms: No Symptoms Musculoskeletal: No Symptoms Skin: No Symptoms Neurological: Other (Worsening confusion) Psychological: No Symptoms Endocrine: No Symptoms Hematologic/Lymphatic: No Symptoms Immunological/Allergic: No Symptoms All Other Systems: Reviewed and Negative - Past Medical History Pertinent Past Medical History: Yes Neurological History: Migraines ENT History: Other Cardiac History: High Cholesterol, Hypertension Respiratory History: Asthma Endocrine Medical History: No Pertinent History Musculoskeletal History: Arthritis, Other GI Medical History: Other History: Other Psycho-Social History: Anxiety, Bipolar, Depression Male Reproductive Disorders: Other Other Medical History: prior suicide attempts by over dose. Cutting, anxiety, schizophrenia. Insomnia. Binge drinking. - Past Surgical History Past Surgical History: No Neuro Surgical History: No Pertinent History Cardiac: No Pertinent History Respiratory: No Pertinent History Gastrointestinal: No Pertinent History Genitourinary: No Pertinent History Musculoskeletal: No Pertinent History Male Surgical History: No Pertinent History - Social History Smoking Status: Current every day smoker How long have you smoked: 35 years Exposure to second hand smoke: No Drug Use: none Patient Lives Alone: Yes - Nursing Vital Signs Nursing Vital Signs: Initial Vital Signs Temperature 98.5 F 12/09/20 10:07 Pulse Rate 100 H 12/09/20 10:07 Respiratory Rate 18 12/09/20 10:07 Blood Pressure 138/95 12/09/20 10:07 O2 Sat by Pulse Oximetry 96 12/09/20 10:07 Pain Scale Pain Intensity 0 - Sharan Coma Scale Best Eye Response (Sharan): (4) open spontaneously Best Verbal Response ([place]): (5) oriented Best Motor Response ([place]): (6) obeys commands [place] Total: 15 - Physical Exam General Appearance: no apparent distress, alert, anxiety Eye Exam: bilateral eye: normal inspection, PERRL, EOMI Ears, Nose, Throat Exam: normal ENT inspection, pharynx normal, moist mucous membranes Neck Exam: normal inspection, non-tender, supple, full range of motion Respiratory: normal breath sounds, lungs clear, airway intact, No chest tenderness, No respiratory distress Cardiovascular: regular rate/rhythm, normal heart sounds, normal peripheral pulses Gastrointestinal: soft, normal bowel sounds, No tenderness Rectal Exam: not done Back Exam: normal inspection, normal range of motion, No CVA tenderness, No vert ebral tenderness Extremity Exam: normal inspection, normal range of motion, pelvis stable 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, oriented x 3, 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 There is no significant changes when compared to EKG dated 08/19/2020.) Ordered Tests: Active Orders 24 hr Category Date Time Status Clean Catch Urine Specimen STAT Care 12/09/20 10:43 Active EKG-ER Only STAT Care 12/09/20 10:43 Active IV Insertion STAT Care 12/09/20 10:43 Active NPO (ED) STAT Care 12/09/20 10:44 Active HEAD WITHOUT CONTRAST [CT] Stat Exams 12/09/20 10:44 Completed ACETAMINOPHEN Stat Lab 12/09/20 11:35 Completed CBC W DIFF Stat Lab 12/09/20 11:35 Completed CMP Stat Lab 12/09/20 11:35 Completed ETHYL ALCOHOL Stat Lab 12/09/20 11:35 Completed SALICYLATE Stat Lab 12/09/20 11:35 Completed T4 (Thyroxine) Stat Lab 12/09/20 11:35 Received TROPONIN Q3H Lab 12/09/20 12:00 Completed TROPONIN Q3H Lab 12/09/20 15:00 Ordered TROPONIN Q3H Lab 12/09/20 18:00 Ordered TROPONIN Q3H Lab 12/09/20 21:00 Ordered TSH, 3RD Generation Stat Lab 12/09/20 11:35 Received UA W/RFX UR CULTURE Stat Lab 12/09/20 11:22 Completed Urine Triage Profile Stat Lab 12/09/20 11:22 Completed Lab/Rad Data: Laboratory Result Diagrams 12/09/20 11:35 12/09/20 11:35 Laboratory Results 12/09/20 12/09/20 12/09/20 Range/Units 12:00 11:35 11:35 WBC (4.0-10.5) K/mm3 RBC (4.1-5.6) M/mm3 Hgb (12.5-18.0) gm/dl Hct (42-50) % MCV (78-100) fl MCH (26-32) pg MCHC (32-36) g/dl RDW (11.5-14.0) % Plt Count (150-450) K/mm3 MPV (7.5-11.0) fl Gran % (36.0-66.0) % Eos # (Auto) (0-0.5) Absolute Lymphs (auto) (1.0-4.6) Absolute Monos (auto) (0.0-1.3) Lymphocytes % (24.0-44.0) % Monocytes % (0.0-12.0) % Eosinophils % (0.00-5.0) % Basophils % (0.0-0.4) % Absolute Granulocytes (1.4-6.9) Basophils # (0-0.4) Sodium (137-145) mmol/L Potassium (3.5-5.1) mmol/L Chloride (98-107) mmol/L Carbon Dioxide (22-30) mmol/L Anion Gap (5-15) MEQ/L BUN (9-20) mg/dL Creatinine (0.66-1.25) mg/dL Estimated GFR ML/MIN Glucose (74-106) mg/dL Calcium (8.4-10.2) mg/dL Total Bilirubin (0.2-1.3) mg/dL AST (17-59) U/L ALT (0-50) U/L Alkaline Phosphatase (38-126) U/L Ammonia < 9 L (9-30) umol/L Troponin I < 0.012 (0.000-0.034) ng/mL Serum Total Protein (6.3-8.2) g/dL Albumin (3.5-5.0) g/dL Urine Color (YELLOW) Urine Appearance (CLEAR) Urine pH (5-6) Ur Specific [place] (1.005-1.025) Urine Protein (Negative) Urine Ketones (NEGATIVE) Urine Blood (0-5) Andrei/ul Urine Nitrite (NEGATIVE) Urine Bilirubin (NEGATIVE) Urine Urobilinogen (0-1) mg/dL Ur Leukocyte Esterase (NEGATIVE) Urine WBC (Auto) (0-5) /HPF Urine RBC (Auto) (0-2) /HPF U Epithel Cells (Auto) (FEW) /HPF Urine Bacteria (Auto) (NEGATIVE) /HPF Urine Mucus (Auto) (NEGATIVE) /HPF Urine Culture Reflexed (NO) Urine Glucose (NEGATIVE) mg/dL Salicylates (2-20) mg/dL Urine Opiates Level (NEGATIVE) Ur Methadone (NEGATIVE) Acetaminophen (10-30) ug/ml Urine Barbiturates (NEGATIVE) Valproic Acid < 10.0 L (50-100) ug/mL Ur Phencyclidine (PCP) (NEGATIVE) Urine Amphetamine (NEGATIVE) U Benzodiazepine Level (NEGATIVE) Urine Cocaine (NEGATIVE) Urine Marijuana (THC) (NEGATIVE) Ethyl Alcohol (0-10) mg/dL 12/09/20 12/09/20 12/09/20 Range/Units 11:35 11:35 11:22 WBC 7.6 (4.0-10.5) K/mm3 RBC 4.90 (4.1-5.6) M/mm3 Hgb 16.2 (12.5-18.0) gm/dl Hct 49.3 (42-50) % MCV 100.6 H (78-100) fl MCH 33.1 H (26-32) pg MCHC 32.9 (32-36) g/dl RDW 13.8 (11.5-14.0) % Plt Count 175 (150-450) K/mm3 MPV 12.4 H (7.5-11.0) fl Gran % 67.3 H (36.0-66.0) % Eos # (Auto) 0.05 (0-0.5) Absolute Lymphs (auto) 1.90 (1.0-4.6) Absolute Monos (auto) 0.52 (0.0-1.3) Lymphocytes % 24.9 (24.0-44.0) % Monocytes % 6.8 (0.0-12.0) % Eosinophils % 0.7 (0.00-5.0) % Basophils % 0.3 (0.0-0.4) % Absolute Granulocytes 5.13 (1.4-6.9) Basophils # 0.02 (0-0.4) Sodium 140 (137-145) mmol/L Potassium 3.9 (3.5-5.1) mmol/L Chloride 106 (98-107) mmol/L Carbon Dioxide 25 (22-30) mmol/L Anion Gap 13.0 (5-15) MEQ/L BUN 6 L (9-20) mg/dL Creatinine 0.86 (0.66-1.25) mg/dL Estimated GFR > 60.0 ML/MIN Glucose 89 (74-106) mg/dL Calcium 9.8 (8.4-10.2) mg/dL Total Bilirubin 0.90 (0.2-1.3) mg/dL AST 27 (17-59) U/L ALT 14 (0-50) U/L Alkaline Phosphatase 54 (38-126) U/L Ammonia (9-30) umol/L Troponin I (0.000-0.034) ng/mL Serum Total Protein 7.1 (6.3-8.2) g/dL Albumin 4.5 (3.5-5.0) g/dL Urine Color (YELLOW) Urine Appearance (CLEAR) Urine pH (5-6) Ur Specific [place] (1.005-1.025) Urine Protein (Negative) Urine Ketones (NEGATIVE) Urine Blood (0-5) Andrei/ul Urine Nitrite (NEGATIVE) Urine Bilirubin (NEGATIVE) Urine Urobilinogen (0-1) mg/dL Ur Leukocyte Esterase (NEGATIVE) Urine WBC (Auto) (0-5) /HPF Urine RBC (Auto) (0-2) /HPF U Epithel Cells (Auto) (FEW) /HPF Urine Bacteria (Auto) (NEGATIVE) /HPF Urine Mucus (Auto) (NEGATIVE) /HPF Urine Culture Reflexed (NO) Urine Glucose (NEGATIVE) mg/dL Salicylates < 1.0 L (2-20) mg/dL Urine Opiates Level NEGATIVE (NEGATIVE) Ur Methadone NEGATIVE (NEGATIVE) Acetaminophen < 10 L (10-30) ug/ml Urine Barbiturates NEGATIVE (NEGATIVE) Valproic Acid (50-100) ug/mL Ur Phencyclidine (PCP) NEGATIVE (NEGATIVE) Urine Amphetamine NEGATIVE (NEGATIVE) U Benzodiazepine Level NEGATIVE (NEGATIVE) Urine Cocaine NEGATIVE (NEGATIVE) Urine Marijuana (THC) NEGATIVE (NEGATIVE) Ethyl Alcohol < 10 (0-10) mg/dL 12/09/20 Range/Units 11:22 WBC (4.0-10.5) K/mm3 RBC (4.1-5.6) M/mm3 Hgb (12.5-18.0) gm/dl Hct (42-50) % MCV (78-100) fl MCH (26-32) pg MCHC (32-36) g/dl RDW (11.5-14.0) % Plt Count (150-450) K/mm3 MPV (7.5-11.0) fl Gran % (36.0-66.0) % Eos # (Auto) (0-0.5) Absolute Lymphs (auto) (1.0-4.6) Absolute Monos (auto) (0.0-1.3) Lymphocytes % (24.0-44.0) % Monocytes % (0.0-12.0) % Eosinophils % (0.00-5.0) % Basophils % (0.0-0.4) % Absolute Granulocytes (1.4-6.9) Basophils # (0-0.4) Sodium (137-145) mmol/L Potassium (3.5-5.1) mmol/L Chloride (98-107) mmol/L Carbon Dioxide (22-30) mmol/L Anion Gap (5-15) MEQ/L BUN (9-20) mg/dL Creatinine (0.66-1.25) mg/dL Estimated GFR ML/MIN Glucose (74-106) mg/dL Calcium (8.4-10.2) mg/dL Total Bilirubin (0.2-1.3) mg/dL AST (17-59) U/L ALT (0-50) U/L Alkaline Phosphatase (38-126) U/L Ammonia (9-30) umol/L Troponin I (0.000-0.034) ng/mL Serum Total Protein (6.3-8.2) g/dL Albumin (3.5-5.0) g/dL Urine Color YELLOW (YELLOW) Urine Appearance CLEAR (CLEAR) Urine pH 6.0 (5-6) Ur Specific [place] 1.009 (1.005-1.025) Urine Protein NEGATIVE (Negative) Urine Ketones TRACE (NEGATIVE) Urine Blood SMALL (0-5) Andrei/ul Urine Nitrite NEGATIVE (NEGATIVE) Urine Bilirubin NEGATIVE (NEGATIVE) Urine Urobilinogen NEGATIVE (0-1) mg/dL Ur Leukocyte Esterase NEGATIVE (NEGATIVE) Urine WBC (Auto) 0-2 (0-5) /HPF Urine RBC (Auto) 0-2 (0-2) /HPF U Epithel Cells (Auto) FEW (FEW) /HPF Urine Bacteria (Auto) FEW (NEGATIVE) /HPF Urine Mucus (Auto) SLIGHT (NEGATIVE) /HPF Urine Culture Reflexed NO (NO) Urine Glucose NEGATIVE (NEGATIVE) mg/dL Salicylates (2-20) mg/dL Urine Opiates Level (NEGATIVE) Ur Methadone (NEGATIVE) Acetaminophen (10-30) ug/ml Urine Barbiturates (NEGATIVE) Valproic Acid (50-100) ug/mL Ur Phencyclidine (PCP) (NEGATIVE) Urine Amphetamine (NEGATIVE) U Benzodiazepine Level (NEGATIVE) Urine Cocaine (NEGATIVE) Urine Marijuana (THC) (NEGATIVE) Ethyl Alcohol (0-10) mg/dL - Progress Progress: unchanged, re-examined Progress Note: 12/09/20 11:52 CAT scan of the head without contrast shows cerebral atrophy but no acute intracranial abnormality. Counseled pt/family regarding: lab results, diagnosis, need for follow-up, rad results - Departure Departure Disposition: Home Clinical Impression: Confusion, Weakness Condition: Stable Critical Care Time: No Referrals: HERNANDEZ HEBERT MD [Primary Care Provider] - Additional Instructions: Drink plenty of fluids. Take your medications as prescribed. Follow-up with your primary care physician for further management and to discuss possible assisted living situation.
--- NOTE | 2020-12-09 11:16 | XRAY ---
Indication: Worsening confusion and headache one year. Multiple contiguous axial images obtained through the head without contrast. Comparison: August 19, 2020. Again age-appropriate global atrophy. No acute intracranial hemorrhage, abnormal extra-axial fluid collection, or mass effect. Fourth ventricle is midline without hydrocephalus. Rios-white matter differentiation preserved. Bony calvarium intact. Visualized paranasal sinuses and mastoid air cells are clear. Impression: Atrophy within normal limits for patient's age. No new or acute intracranial abnormalities.
[2020-12-09 11:37] LABS: Absolute Neutrophil Ct (ANC) 5.13 (1.4-6.9); BASOPHIL % 0.3 % (0.0-0.4); Basophil (Absolute #) 0.02 (0-0.4); Eosinophil % 0.7 % (0.00-5.0); Eosinophil (Absolute #) 0.05 (0-0.5); Hematocrit 49.3 % (42-50); Hemoglobin 16.2 gm/dl (12.5-18.0); Lymphocytes % 24.9 % (24.0-44.0); Mean Cell Volume 100.6 fl (78-100); Mean Corpuscular Hemoglobin 33.1 pg (26-32); Mean Corpuscular Hgb Concent. 32.9 g/dl (32-36); Mean Platelet Volume 12.4 fl (7.5-11.0); Monocyte (Absolute #) 0.52 (0.0-1.3); Monocytes % 6.8 % (0.0-12.0); Neutrophil % 67.3 % (36.0-66.0); Platelet Count 175 K/mm3 (150-450); Red Cell Distribution Width 13.8 % (11.5-14.0); White Blood Count 7.6 K/mm3 (4.0-10.5)
[2020-12-09 11:42] LABS: Appearance CLEAR (CLEAR); Bilirubin NEGATIVE (NEGATIVE); Blood SMALL Ery/ul (0-5); Glucose NEGATIVE (NEGATIVE); Ketones TRACE (NEGATIVE); Leukocyte Esterase NEGATIVE (NEGATIVE); Mucus SLIGHT /HPF (NEGATIVE); Nitrite NEGATIVE (NEGATIVE); Protein,Urine Dip NEGATIVE (Negative); Specific Gravity 1.009 (1.005-1.025); Urobilinogen NEGATIVE mg/dL (0-1)
[2020-12-09 11:47] LABS: Bacteria FEW /HPF (NEGATIVE); Epithelial Cells FEW /HPF (FEW); RBC 0-2 /HPF (0-2); WBC 0-2 /HPF (0-5)
[2020-12-09 11:48] LABS: ACETAMINOPHEN < 10 ug/ml (10-30); ALBUMIN 4.5 g/dL (3.5-5.0); ALKALINE PHOSPHATASE 54 U/L (38-126); BLOOD UREA NITROGEN 6 mg/dL (9-20); CHLORIDE 106 mmol/L (98-107); Calcium 9.8 mg/dL (8.4-10.2); Carbon Dioxide 25 mmol/L (22-30); Creatinine 1 0.86 mg/dL (0.66-1.25); EST GLOMERULAR FILTRATION RATE > 60.0 ML/MIN; ETHYL ALCOHOL < 10 mg/dL (0-10); Glucose 89 mg/dL (74-106); Potassium 3.9 mmol/L (3.5-5.1); SALICYLATE < 1.0 mg/dL (2-20); SGOT/AST 27 U/L (17-59); SGPT/ALT 14 U/L (0-50); SODIUM 140 mmol/L (137-145); Total Protein 7.1 g/dL (6.3-8.2)
[2020-12-09 11:57] LABS: Amphetamine,Urine NEGATIVE (NEGATIVE); Barbiturate,Urine NEGATIVE (NEGATIVE); Benzodiazepine,Urine NEGATIVE (NEGATIVE); Cocaine,Urine NEGATIVE (NEGATIVE); Methadone,Urine NEGATIVE (NEGATIVE); Opiate,Urine NEGATIVE (NEGATIVE); PCP,Urine NEGATIVE (NEGATIVE); THC,Urine NEGATIVE (NEGATIVE)
[2020-12-09 12:10] VITALS: BP 122/82
[2020-12-09 12:24] LABS: T4 (Thyroxine) 10.7 ug/dL (5.53-10.96); TSH, 3RD Generation 1.71 mIU/L (0.47-4.68)
[2020-12-09 12:41] VITALS: PULSE 71; O2SAT 96
== END 2020-12-09 12:47 | disposition home or self-care (01) ==
LOC: ED 09:49
DX: R41.0 Disorientation, unspecified (principal); R53.1 Weakness
CPT/HCPCS: 36415; 70450; 80053; 80164; 80307; 81001; 82140; 84436; 84443; 84484; 85025; 93005; 99284; G0480

== ENCOUNTER 2021-03-31 06:29 | Emergency (ER) | payer MEDICARE ==
--- NOTE | 2021-03-31 07:31 | ERPHSYRPT ---
- History of Present Illness Source: patient Exam Limitations: other (Poor historian) Patient Subjective Stated Complaint: pt states "I think I am having a reaction to this new medication." Triage Nursing Assessment: pt came into the er via ambulance; pt is axo x4; c/o medication reaction; pt denies pain; pt states that he woke up on the floor; pt states "I think I passed out."; pt states that he has been dizzy and lightheaded after starting medication; pt states that he has intermitten confusion; pt states that he has increase in stuttering; new medication is aripiprazolem injection; pt states is stuttering when answering questions; pupils 2 mm and PERRL; strong nancy principal investigator; strong nancy pushes; clear heart tone; orthostatic are lying 149/85, sitting 154/88; standing 131/85; expiratory wheezes and crackles in nancy lower lobes; vitals wnl Physician History: 55 yo psychiatric pt brought in by EMS for increasing confusion for 1-2 months. Pt states that he has been waking up on his floor. He is a poor historian. Pt recently got his depot antipsychotic changed in Feb and stopped drinking several months ago. He denies focal weakness/fever/chest pain/N/V/D/dysuria/cough/coryza/melena/hematochezia. Timing/Duration: other (1-2 months) Severity: mild Character of Deficits: none Current Cognition: alert/disoriented to time Baseline Gait: walks w/o assistance Associated Symptoms: confusion, No fatigue, No fever, No chills, No loss of consciousness, No nausea, No vomiting, No weakness, No insomnia, No muscle spasms, No numbness/tingling in legs/feet, No paresthesia, No ringing in ears, N o seizures, No slurred speech, No trouble walking, No vision changes, No chest pain, No headache Allergies/Adverse Reactions: quetiapine [From Seroquel] Allergy (Severe, Verified 12/09/20 10:14) seizures carisoprodol [From Soma] Allergy (Verified 12/09/20 10:14) Hives diphenhydramine [From Benadryl] Allergy (Verified 12/09/20 10:14) Hives Home Medications: No Reportable Medications [No Reported Medications] 12/09/20 [History] Hx Tetanus, Diphtheria Vaccination/Date Given: No (unsure) Hx Influenza Vaccination/Date Given: Yes Hx Pneumococcal Vaccination/Date Given: No Travel Risk - International Travel Have you traveled outside of the country in past 3 weeks: No - Coronavirus Screening Are you exhibiting any of the following symptoms?: No Close contact with a COVID-19 positive Pt in past 14-21 Days: No - Vaccine Status Have you recieved a Covid-19 vaccination: Yes (unsure) Transverse Abdominal Muscle Nurse: Moderna - Vaccination Dates Date of 2cond Vaccination (if applicable): 08/22/20 - Review of Systems Constitutional: No Symptoms Eyes: No Symptoms Ears, Nose, & Throat: No Symptoms Respiratory: No Symptoms Cardiac: No Symptoms Abdominal/Gastrointestinal: No Symptoms Genitourinary Symptoms: No Symptoms Musculoskeletal: No Symptoms Skin: No Symptoms Neurological: No Symptoms, Headache Psychological: Alcohol Abuse Endocrine: No Symptoms Hematologic/Lymphatic: No Symptoms Immunological/Allergic: No Symptoms - Past Medical History Pertinent Past Medical History: Yes Neurological History: Migraines ENT History: Other Cardiac History: High Cholesterol, Hypertension Respiratory History: Asthma Endocrine Medical History: No Pertinent History Musculoskeletal History: Arthritis, Other GI Medical History: Other History: Other Psycho-Social History: Anxiety, Bipolar, Depression Male Reproductive Disorders: Other Other Medical History: prior suicide attempts by over dose. Cutting, anxiety, schizophrenia. Insomnia. Binge drinking. - Past Surgical History Past Surgical History: No Neuro Surgical History: No Pertinent History Cardiac: No Pertinent History Respiratory: No Pertinent History Gastrointestinal: No Pertinent History Genitourinary: No Pertinent History Musculoskeletal: No Pertinent History Male Surgical History: No Pertinent History - Social History Smoking Status: Current every day smoker How long have you smoked: 35 years Exposure to second hand smoke: No Drug Use: marijuana Patient Lives Alone: Yes Significant Family History: no pertinent family hx - Nursing Vital Signs Nursing Vital Signs: Initial Vital Signs Temperature 98.2 F 03/31/21 06:37 Pulse Rate 80 03/31/21 06:37 Respiratory Rate 16 03/31/21 06:37 Blood Pressure 141/90 03/31/21 06:37 O2 Sat by Pulse Oximetry 97 03/31/21 06:37 Pain Scale Pain Intensity 0 Hypertensive - [place] Coma Scale Best Eye Response ([place]): (4) open spontaneously Best Verbal Response ([place]aran): (5) oriented Best Motor Response ([place]): (6) obeys commands [place] Total: 15 - Physical Exam General Appearance: no apparent distress Eye Exam: bilateral eye: normal inspection, PERRL, EOMI Ears, Nose, Throat Exam: normal ENT inspection, TMs normal, pharynx normal, moist mucous membranes Neck Exam: normal inspection, non-tender, supple, full range of motion, No meningismus, No mass, No Brudzinski, No Kernig's, No carotid bruit Respiratory: lungs clear, airway intact, rhonchi (Occasional), wheezing (Occasional) Cardiovascular: regular rate/rhythm, normal heart sounds, normal peripheral puls es, No murmur Gastrointestinal: soft, normal bowel sounds, No tenderness Back Exam: normal inspection, normal range of motion, No CVA tenderness Extremity Exam: normal inspection, normal range of motion Peripheral Pulses: carotid (R): 2+, carotid (L): 2+ 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, cooperative, 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 Exam: normal hearing, normal speech, PERRL Coordination/Gait: normal finger to nose, normal gait, normal cerebellar function, negative Romberg's sign Motor/Sensory: no motor deficit, no sensory deficit, no pronator drift, negative Babinski's sign DTR: bicep (R): 2+, bicep (L): 2+ Skin Exam: normal color, warm, dry SpO2 Interpretation: normal SpO2: 97 O2 Delivery: Room Air - Course Nursing assessment & vital signs reviewed: Yes EKG Interpreted by Me: RATE (NSR/R82/Normal QT-QTc/No acute ST segment changes) - CT Exams Head CT Interpretation: Discussed w/radiologist (NAD) Ordered Tests: Active Orders 24 hr Category Date Time Status EKG-ER Only STAT Care 03/31/21 07:25 Active HEAD WITHOUT CONTRAST [CT] Stat Exams 03/31/21 07:23 Completed ACETAMINOPHEN Stat Lab 03/31/21 07:20 Completed CBC W DIFF Stat Lab 03/31/21 07:20 Completed CMP Stat Lab 03/31/21 07:20 Completed ETHYL ALCOHOL Stat Lab 03/31/21 07:20 Completed SALICYLATE Stat Lab 03/31/21 07:20 Completed TROPONIN Q3H Lab 03/31/21 07:20 Completed TROPONIN Q3H Lab 03/31/21 10:30 Ordered TROPONIN Q3H Lab 03/31/21 13:30 Ordered TROPONIN Q3H Lab 03/31/21 16:30 Ordered TROPONIN Q3H Lab 03/31/21 19:30 Ordered UA W/RFX UR CULTURE Stat Lab 03/31/21 07:31 Completed Urine Triage Profile Stat Lab 03/31/21 07:31 Completed Lab/Rad Data: Laboratory Result Diagrams 03/31/21 07:20 03/31/21 07:20 Laboratory Results 03/31/21 03/31/21 03/31/21 Range/Units 07:31 07:31 07:20 WBC (4.0-10.5) K/mm3 RBC (4.1-5.6) M/mm3 Hgb (12.5-18.0) gm/dl Hct (42-50) % MCV (78-100) fl MCH (26-32) pg MCHC (32-36) g/dl RDW (11.5-14.0) % Plt Count (150-450) K/mm3 MPV (7.5-11.0) fl Gran % (36.0-66.0) % Eos # (Auto) (0-0.5) Absolute Lymphs (auto) (1.0-4.6) Absolute Monos (auto) (0.0-1.3) Lymphocytes % (24.0-44.0) % Monocytes % (0.0-12.0) % Eosinophils % (0.00-5.0) % Basophils % (0.0-0.4) % Absolute Granulocytes (1.4-6.9) Basophils # (0-0.4) Sodium (137-145) mmol/L Potassium (3.5-5.1) mmol/L Chloride (98-107) mmol/L Carbon Dioxide (22-30) mmol/L Anion Gap (5-15) MEQ/L BUN (9-20) mg/dL Creatinine (0.66-1.25) mg/dL Estimated GFR ML/MIN Glucose (74-106) mg/dL Calcium (8.4-10.2) mg/dL Total Bilirubin (0.2-1.3) mg/dL AST (17-59) U/L ALT (0-50) U/L Alkaline Phosphatase (38-126) U/L Troponin I < 0.012 (0.000-0.034) ng/mL Serum Total Protein (6.3-8.2) g/dL Albumin (3.5-5.0) g/dL Urine Color YELLOW (YELLOW) Urine Appearance CLEAR (CLEAR) Urine pH 7.0 (5-6) Ur Specific [place] 1.005 (1.005-1.025) Urine Protein NEGATIVE (Negative) Urine Ketones NEGATIVE (NEGATIVE) Urine Blood NEGATIVE (0-5) Andrei/ul Urine Nitrite NEGATIVE (NEGATIVE) Urine Bilirubin NEGATIVE (NEGATIVE) Urine Urobilinogen NEGATIVE (0-1) mg/dL Ur Leukocyte Esterase NEGATIVE (NEGATIVE) Urine WBC (Auto) NONE (0-5) /HPF Urine RBC (Auto) 0-2 (0-2) /HPF U Epithel Cells (Auto) NONE (FEW) /HPF Urine Bacteria (Auto) NONE (NEGATIVE) /HPF Urine Culture Reflexed NO (NO) Urine Glucose NEGATIVE (NEGATIVE) mg/dL Salicylates (2-20) mg/dL Urine Opiates Level NEGATIVE (NEGATIVE) Ur Methadone NEGATIVE (NEGATIVE) Acetaminophen (10-30) ug/ml Urine Barbiturates NEGATIVE (NEGATIVE) Ur Phencyclidine (PCP) NEGATIVE (NEGATIVE) Urine Amphetamine NEGATIVE (NEGATIVE) U Benzodiazepine Level NEGATIVE (NEGATIVE) Urine Cocaine NEGATIVE (NEGATIVE) Urine Marijuana (THC) NEGATIVE (NEGATIVE) Ethyl Alcohol (0-10) mg/dL 03/31/21 03/31/21 Range/Units 07:20 07:20 WBC 7.8 (4.0-10.5) K/mm3 RBC 4.65 (4.1-5.6) M/mm3 Hgb 15.2 (12.5-18.0) gm/dl Hct 46.5 (42-50) % MCV 100.0 (78-100) fl MCH 32.7 H (26-32) pg MCHC 32.7 (32-36) g/dl RDW 13.1 (11.5-14.0) % Plt Count 203 (150-450) K/mm3 MPV 11.1 H (7.5-11.0) fl Gran % 65.9 (36.0-66.0) % Eos # (Auto) 0.15 (0-0.5) Absolute Lymphs (auto) 1.81 (1.0-4.6) Absolute Monos (auto) 0.70 (0.0-1.3) Lymphocytes % 23.1 L (24.0-44.0) % Monocytes % 9.0 (0.0-12.0) % Eosinophils % 1.9 (0.00-5.0) % Basophils % 0.1 (0.0-0.4) % Absolute Granulocytes 5.15 (1.4-6.9) Basophils # 0.01 (0-0.4) Sodium 134 L (137-145) mmol/L Potassium 4.0 (3.5-5.1) mmol/L Chloride 98 (98-107) mmol/L Carbon Dioxide 29 (22-30) mmol/L Anion Gap 10.5 (5-15) MEQ/L BUN 8 L (9-20) mg/dL Creatinine 0.83 (0.66-1.25) mg/dL Estimated GFR > 60.0 ML/MIN Glucose 97 (74-106) mg/dL Calcium 9.7 (8.4-10.2) mg/dL Total Bilirubin 0.70 (0.2-1.3) mg/dL AST 27 (17-59) U/L ALT 20 (0-50) U/L Alkaline Phosphatase 60 (38-126) U/L Troponin I (0.000-0.034) ng/mL Serum Total Protein 6.6 (6.3-8.2) g/dL Albumin 4.3 (3.5-5.0) g/dL Urine Color (YELLOW) Urine Appearance (CLEAR) Urine pH (5-6) Ur Specific [place] (1.005-1.025) Urine Protein (Negative) Urine Ketones (NEGATIVE) Urine Blood (0-5) Andrei/ul Urine Nitrite (NEGATIVE) Urine Bilirubin (NEGATIVE) Urine Urobilinogen (0-1) mg/dL Ur Leukocyte Esterase (NEGATIVE) Urine WBC (Auto) (0-5) /HPF Urine RBC (Auto) (0-2) /HPF U Epithel Cells (Auto) (FEW) /HPF Urine Bacteria (Auto) (NEGATIVE) /HPF Urine Culture Reflexed (NO) Urine Glucose (NEGATIVE) mg/dL Salicylates < 1.0 L (2-20) mg/dL Urine Opiates Level (NEGATIVE) Ur Methadone (NEGATIVE) Acetaminophen < 10 L (10-30) ug/ml Urine Barbiturates (NEGATIVE) Ur Phencyclidine (PCP) (NEGATIVE) Urine Amphetamine (NEGATIVE) U Benzodiazepine Level (NEGATIVE) Urine Cocaine (NEGATIVE) Urine Marijuana (THC) (NEGATIVE) Ethyl Alcohol < 10 (0-10) mg/dL - Progress Progress Note: 03/31/21 08:45 Confusion most likely due to meds or psychiatric disease. Pt wo focal weak ness/suicidal behavior in ER. Pt states that he does not know year but was alert and oriented x3 for nursing. He has a place to go, so will DC w [facility] follow up. Counseled pt/family regarding: lab results, diagnosis, need for follow-up, rad results - Departure Departure Disposition: Home Clinical Impression: Confusion Condition: Stable Critical Care Time: No Referrals: HERNANDEZ HEBERT MD [Primary Care Provider] - Follow up/PCP as directed Instructions: Adverse Drug Reactions, Adult (DC), Delirium (Confusion) (DC) Additional Instructions: Follow up with [facility] and/or family MD Return to ER as needed
[2021-03-31 07:36] LABS: Absolute Neutrophil Ct (ANC) 5.15 (1.4-6.9); BASOPHIL % 0.1 % (0.0-0.4); Basophil (Absolute #) 0.01 (0-0.4); Eosinophil % 1.9 % (0.00-5.0); Eosinophil (Absolute #) 0.15 (0-0.5); Hematocrit 46.5 % (42-50); Hemoglobin 15.2 gm/dl (12.5-18.0); Lymphocyte (Absolute #) 1.81 (1.0-4.6); Lymphocytes % 23.1 % (24.0-44.0); Mean Corpuscular Hemoglobin 32.7 pg (26-32); Mean Corpuscular Hgb Concent. 32.7 g/dl (32-36); Mean Platelet Volume 11.1 fl (7.5-11.0); Neutrophil % 65.9 % (36.0-66.0); Platelet Count 203 K/mm3 (150-450); Red Blood Count 4.65 M/mm3 (4.1-5.6); Red Cell Distribution Width 13.1 % (11.5-14.0); White Blood Count 7.8 K/mm3 (4.0-10.5)
[2021-03-31 07:39] LABS: Appearance CLEAR (CLEAR); Bilirubin NEGATIVE (NEGATIVE); Blood NEGATIVE Ery/ul (0-5); Glucose NEGATIVE (NEGATIVE); Ketones NEGATIVE (NEGATIVE); Leukocyte Esterase NEGATIVE (NEGATIVE); Nitrite NEGATIVE (NEGATIVE); Protein,Urine Dip NEGATIVE (Negative); RBC 0-2 /HPF (0-2); Specific Gravity 1.005 (1.005-1.025); Urobilinogen NEGATIVE mg/dL (0-1)
[2021-03-31 07:52] LABS: Amphetamine,Urine NEGATIVE (NEGATIVE); Barbiturate,Urine NEGATIVE (NEGATIVE); Benzodiazepine,Urine NEGATIVE (NEGATIVE); Cocaine,Urine NEGATIVE (NEGATIVE); Methadone,Urine NEGATIVE (NEGATIVE); Opiate,Urine NEGATIVE (NEGATIVE); PCP,Urine NEGATIVE (NEGATIVE)
[2021-03-31 07:54] LABS: ACETAMINOPHEN < 10 ug/ml (10-30); ALBUMIN 4.3 g/dL (3.5-5.0); ALKALINE PHOSPHATASE 60 U/L (38-126); ANION GAP 10.5 MEQ/L (5-15); BLOOD UREA NITROGEN 8 mg/dL (9-20); CHLORIDE 98 mmol/L (98-107); Calcium 9.7 mg/dL (8.4-10.2); Carbon Dioxide 29 mmol/L (22-30); Creatinine 1 0.83 mg/dL (0.66-1.25); EST GLOMERULAR FILTRATION RATE > 60.0 ML/MIN; ETHYL ALCOHOL < 10 mg/dL (0-10); Glucose 97 mg/dL (74-106); SALICYLATE < 1.0 mg/dL (2-20); SGOT/AST 27 U/L (17-59); SGPT/ALT 20 U/L (0-50); SODIUM 134 mmol/L (137-145); Total Protein 6.6 g/dL (6.3-8.2)
[2021-03-31 07:58] LABS: THC,Urine NEGATIVE (NEGATIVE)
[2021-03-31 08:12] VITALS: BP 140/81; PULSE 78
--- NOTE | 2021-03-31 08:44 | XRAY ---
Indication: Confusion. Multiple contiguous axial images obtained through the head without contrast. Comparison: December 09, 2020. Again age-appropriate global atrophy. No acute intracranial hemorrhage, abnormal extra-axial fluid collection, or mass effect. Fourth ventricle is midline without hydrocephalus. Rios-white matter differentiation preserved. Bony calvarium intact. Visualized paranasal sinuses and mastoid air cells are clear. Impression: Continued negative CT head without contrast exam.
[2021-03-31 08:51] VITALS: O2SAT 97
== END 2021-03-31 08:58 | disposition home or self-care (01) ==
LOC: ED 06:29
DX: R41.0 Disorientation, unspecified (principal); E78.5 Hyperlipidemia, unspecified; I10 Essential (primary) hypertension; F20.9 Schizophrenia, unspecified; Z72.0 Tobacco use
CPT/HCPCS: 36000; 36415; 70450; 80053; 80307; 81001; 84484; 85025; 93005; 99284; G0480

== ENCOUNTER 2021-06-26 07:38 | Emergency (ER) | payer MEDICARE ==
--- NOTE | 2021-06-26 07:42 | ERPHSYRPT ---
- History of Present Illness Time Seen by Provider: 06/26/21 07:42 Source: patient, EMS Exam Limitations: clinical condition Physician History: This is a 55-year-old white male patient of Dr. Hebert who was brought in to the emergency department by EMS services secondary to confusion. Patient arrives alert and oriented x3 but states at times he is confused and does not recall where he is. He states he does not know for certain but thinks he has been taking his medication as prescribed. Patient denies head injury. He denies headache. He denies chest pain. He denies abdominal pain. He denies shortness of breath. Patient has been seen in this emergency department several times for the same issue. He has a history of schizophrenia, bipolar disorder, depress ion, noncompliance with medication, psycho organic disorder, acute psychosis, suicidal ideations with suicide attempt in the past. He also has a history of migraine headaches, hypertension and elevated cholesterol. Other than his confusion, he has no other specific complaints. His symptoms have been intermittent for several years. Patient is not suicidal, he is not homicidal, he denies any visual or auditory hallucinations. Timing/Duration: intermittent, other (Intermittently present for several years) Severity: moderate Deficits: no difficulties Baseline/Normal Cognition: alert oriented x 3 Current Cognition: alert oriented x 3 Baseline Gait: walks w/o assistance Associated Symptoms: confusion Allergies/Adverse Reactions: quetiapine [From Seroquel] Allergy (Severe, Verified 06/26/21 08:13) seizures carisoprodol [From Soma] Allergy (Verified 06/26/21 08:13) Hives diphenhydramine [From Benadryl] Allergy (Verified 06/26/21 08:13) Hives Home Medications: Aspirin [Low Dose Aspirin EC] 81 mg PO DAILY 06/26/21 [History] Clopidogrel Bisulfate [Clopidogrel] 75 mg PO DAILY 06/26/21 [History] PANTOPRAZOLE 40 mg Tablet [Protonix 40MG Tablet] 40 mg PO DAILY 06/26/21 [History] Simvastatin 20Mg [Zocor 20Mg] 20 mg PO DAILY 06/26/21 [History] Hx Tetanus, Diphtheria Vaccination/Date Given: No (unsure) Hx Influenza Vaccination/Date Given: Yes Hx Pneumococcal Vaccination/Date Given: No Travel Risk - International Travel Have you traveled outside of the country in past 3 weeks: No - Coronavirus Screening Are you exhibiting any of the following symptoms?: No Close contact with a COVID-19 positive Pt in past 14-21 Days: No - Vaccine Status Have you recieved a Covid-19 vaccination: Yes (unsure) Master At Arms: Moderna - Vaccination Dates Date of 2cond Vaccination (if applicable): 08/22/20 - Review of Systems Constitutional: No Symptoms Eyes: No Symptoms Ears, Nose, & Throat: No Symptoms Respiratory: No Symptoms Cardiac: No Symptoms Abdominal/Gastrointestinal: No Symptoms Genitourinary Symptoms: No Symptoms Musculoskeletal: No Symptoms Skin: No Symptoms Neurological: Other (Confusion) Psychological: No Symptoms, No Suicidal Ideations, No Homicidal Ideations, No Hallucinations Endocrine: No Symptoms Hematologic/Lymphatic: No Symptoms Immunological/Allergic: No Symptoms All Other Systems: Reviewed and Negative - Past Medical History Pertinent Past Medical History: Yes Neurological History: Migraines ENT History: Other Cardiac History: High Cholesterol, Hypertension Respiratory History: Asthma Endocrine Medical History: No Pertinent History Musculoskeletal History: Arthritis, Other GI Medical History: Other History: Other Psycho-Social History: Anxiety, Bipolar, Depression Male Reproductive Disorders: Other Other Medical History: prior suicide attempts by over dose. Cutting, anxiety, schizophrenia. Insomnia. Binge drinking. - Past Surgical History Past Surgical History: No Neuro Surgical History: No Pertinent History Cardiac: No Pertinent History Respiratory: No Pertinent History Gastrointestinal: No Pertinent History Genitourinary: No Pertinent History Musculoskeletal: No Pertinent History Male Surgical History: No Pertinent History - Social History Smoking Status: Current every day smoker How long have you smoked: 35 years Exposure to second hand smoke: No Drug Use: marijuana Patient Lives Alone: Yes Significant Family History: no pertinent family hx - Nursing Vital Signs Nursing Vital Signs: Initial Vital Signs Temperature 98.4 F 06/26/21 07:40 Pulse Rate 90 06/26/21 07:40 Respiratory Rate 18 06/26/21 07:40 Blood Pressure 157/99 06/26/21 07:40 O2 Sat by Pulse Oximetry 96 06/26/21 07:40 Pain Scale Pain Intensity 0 - [place] Coma Scale Best Eye Response ([place]aran): (4) open spontaneously Best Verbal Response ([place]): (5) oriented Best Motor Response ([place]): (6) obeys commands [place] Total: 15 - Physical Exam General Appearance: no apparent distress, alert, anxiety Eye Exam: bilateral eye: normal inspection, PERRL, EOMI Ears, Nose, Throat Exam: normal ENT inspection, moist mucous membranes Neck Exam: normal inspection, non-tender, supple, full range of motion Respiratory: normal breath sounds, lungs clear, airway intact, No chest tenderness, No respiratory distress Cardiovascular: regular rate/rhythm, normal heart sounds, normal peripheral pulses Gastrointestinal: soft, normal bowel sounds, No tenderness Rectal Exam: not done Back Exam: normal inspection, normal range of motion, No CVA tenderness, No vertebral tenderness Extremity Exam: normal inspection, normal range of motion, pelvis stable 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, oriented x 3, 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 Exam: normal hearing, normal speech, PERRL, tongue midline Coordination/Gait: normal finger to nose, normal gait, normal cerebellar function Motor/Sensory: no motor deficit, no sensory deficit, no pronator drift Skin Exam: normal color, warm, dry SpO2 Interpretation: normal O2 Delivery: Room Air - Course Nursing assessment & vital signs reviewed: Yes Ordered Tests: Active Orders 24 hr Category Date Time Status Talent Acquisition Sourcer STAT Care 06/26/21 07:53 Active Clean Catch Urine Specimen STAT Care 06/26/21 07:52 Active EKG-ER Only STAT Care 06/26/21 07:52 Active IV Insertion STAT Care 06/26/21 07:52 Active HEAD WITHOUT CONTRAST [CT] Stat Exams 06/26/21 07:53 Completed ACETAMINOPHEN Stat Lab 06/26/21 07:58 Completed CBC W DIFF Stat Lab 06/26/21 07:58 Completed CMP Stat Lab 06/26/21 07:58 Completed COVID AG-BINAX NOW RAPID TEST Stat Lab 06/26/21 08:25 Completed ETHYL ALCOHOL Stat Lab 06/26/21 07:58 Completed SALICYLATE Stat Lab 06/26/21 07:58 Completed UA W/RFX UR CULTURE Stat Lab 06/26/21 08:41 Completed Urine Triage Profile Stat Lab 06/26/21 08:41 Ordered Lab/Rad Data: Laboratory Result Diagrams 06/26/21 07:58 06/26/21 07:58 Laboratory Results 06/26/21 06/26/21 06/26/21 Range/Units 08:41 08:25 07:58 WBC (4.0-10.5) K/mm3 RBC (4.1-5.6) M/mm3 Hgb (12.5-18.0) gm/dl Hct (42-50) % MCV (78-100) fl MCH (26-32) pg MCHC (32-36) g/dl RDW (11.5-14.0) % Plt Count (150-450) K/mm3 MPV (7.5-11.0) fl Gran % (36.0-66.0) % Eos # (Auto) (0-0.5) Absolute Lymphs (auto) (1.0-4.6) Absolute Monos (auto) (0.0-1.3) Lymphocytes % (24.0-44.0) % Monocytes % (0.0-12.0) % Eosinophils % (0.00-5.0) % Basophils % (0.0-0.4) % Absolute Granulocytes (1.4-6.9) Basophils # (0-0.4) Sodium 138 (137-145) mmol/L Potassium 3.9 (3.5-5.1) mmol/L Chloride 104 (98-107) mmol/L Carbon Dioxide 24 (22-30) mmol/L Anion Gap 14.3 (5-15) MEQ/L BUN 14 (9-20) mg/dL Creatinine 0.88 (0.66-1.25) mg/dL Estimated GFR > 60.0 ML/MIN Glucose 119 H (74-106) mg/dL Calcium 9.8 (8.4-10.2) mg/dL Total Bilirubin 0.90 (0.2-1.3) mg/dL AST 34 (17-59) U/L ALT 28 (0-50) U/L Alkaline Phosphatase 72 (38-126) U/L Serum Total Protein 7.8 (6.3-8.2) g/dL Albumin 4.8 (3.5-5.0) g/dL Urine Color YELLOW (YELLOW) Urine Appearance CLEAR (CLEAR) Urine pH 8.0 (5-6) Ur Specific [place] 1.006 (1.005-1.025) Urine Protein NEGATIVE (Negative) Urine Ketones NEGATIVE (NEGATIVE) Urine Blood NEGATIVE (0-5) Andrei/ul Urine Nitrite NEGATIVE (NEGATIVE) Urine Bilirubin NEGATIVE (NEGATIVE) Urine Urobilinogen NEGATIVE (0-1) mg/dL Ur Leukocyte Esterase NEGATIVE (NEGATIVE) Urine WBC (Auto) NONE (0-5) /HPF Urine RBC (Auto) 3-5 (0-2) /HPF Urine Bacteria (Auto) NONE (NEGATIVE) /HPF Urine Culture Reflexed NO (NO) Urine Glucose NEGATIVE (NEGATIVE) mg/dL Salicylates < 1.0 L (2-20) mg/dL Acetaminophen < 10 L (10-30) ug/ml Ethyl Alcohol < 10 (0-10) mg/dL SARS-CoV-2 Ag (Rapid) NEGATIVE (NEGATIVE) 06/26/21 Range/Units 07:58 WBC 9.9 (4.0-10.5) K/mm3 RBC 5.21 (4.1-5.6) M/mm3 Hgb 17.5 (12.5-18.0) gm/dl Hct 51.9 H (42-50) % MCV 99.6 (78-100) fl MCH 33.6 H (26-32) pg MCHC 33.7 (32-36) g/dl RDW 13.6 (11.5-14.0) % Plt Count 198 (150-450) K/mm3 MPV 12.1 H (7.5-11.0) fl Gran % 76.1 H (36.0-66.0) % Eos # (Auto) 0.11 (0-0.5) Absolute Lymphs (auto) 1.52 (1.0-4.6) Absolute Monos (auto) 0.72 (0.0-1.3) Lymphocytes % 15.4 L (24.0-44.0) % Monocytes % 7.3 (0.0-12.0) % Eosinophils % 1.1 (0.00-5.0) % Basophils % 0.1 (0.0-0.4) % Absolute Granulocytes 7.49 H (1.4-6.9) Basophils # 0.01 (0-0.4) Sodium (137-145) mmol/L Potassium (3.5-5.1) mmol/L Chloride (98-107) mmol/L Carbon Dioxide (22-30) mmol/L Anion Gap (5-15) MEQ/L BUN (9-20) mg/dL Creatinine (0.66-1.25) mg/dL Estimated GFR ML/MIN Glucose (74-106) mg/dL Calcium (8.4-10.2) mg/dL Total Bilirubin (0.2-1.3) mg/dL AST (17-59) U/L ALT (0-50) U/L Alkaline Phosphatase (38-126) U/L Serum Total Protein (6.3-8.2) g/dL Albumin (3.5-5.0) g/dL Urine Color (YELLOW) Urine Appearance (CLEAR) Urine pH (5-6) Ur Specific [place] (1.005-1.025) Urine Protein (Negative) Urine Ketones (NEGATIVE) Urine Blood (0-5) Andrei/ul Urine Nitrite (NEGATIVE) Urine Bilirubin (NEGATIVE) Urine Urobilinogen (0-1) mg/dL Ur Leukocyte Esterase (NEGATIVE) Urine WBC (Auto) (0-5) /HPF Urine RBC (Auto) (0-2) /HPF Urine Bacteria (Auto) (NEGATIVE) /HPF Urine Culture Reflexed (NO) Urine Glucose (NEGATIVE) mg/dL Salicylates (2-20) mg/dL Acetaminophen (10-30) ug/ml Ethyl Alcohol (0-10) mg/dL SARS-CoV-2 Ag (Rapid) (NEGATIVE) - Progress Progress: unchanged Progress Note: 06/26/21 09:02 CAT scan of the head without contrast is a normal study without evidence of any acute intracranial abnormality. 06/26/21 09:02 Medical decision making: This patient, every few months, appears in the emergency department with similar complaint of confusion. Patient has been seen by neurology and the patient has a care worker who keeps pretty close tabs on this patient. The neurologist told the case monitor that this patient's confusion issue is not a psychiatric 1 but more of an organic 1. This patient's case monitor says that the patient's presentation is similar to the other presentations to the emergency department. We will evaluate him for the medical standpoint. If he is stable medically, we will discharge him to home. She will follow up with him to determine placement in either a correction or assisted living environment. Counseled pt/family regarding: lab results, diagnosis, need for follow-up, rad results - Departure Departure Disposition: Home Clinical Impression: Chronic confusion, Anxiety Condition: Stable Critical Care Time: No Referrals: HERNANDEZ HEBERT MD [Primary Care Provider] - Follow up/PCP as directed Additional Instructions: Take all your medications as prescribed. Follow-up with your case monitor for further evaluation and arranging either placement in a correction or assisted living environment.
[2021-06-26 08:28] LABS: ACETAMINOPHEN < 10 ug/ml (10-30); ALBUMIN 4.8 g/dL (3.5-5.0); ALKALINE PHOSPHATASE 72 U/L (38-126); ANION GAP 14.3 MEQ/L (5-15); BLOOD UREA NITROGEN 14 mg/dL (9-20); CHLORIDE 104 mmol/L (98-107); Calcium 9.8 mg/dL (8.4-10.2); Carbon Dioxide 24 mmol/L (22-30); Creatinine 1 0.88 mg/dL (0.66-1.25); EST GLOMERULAR FILTRATION RATE > 60.0 ML/MIN; ETHYL ALCOHOL < 10 mg/dL (0-10); Glucose 119 mg/dL (74-106); Potassium 3.9 mmol/L (3.5-5.1); SALICYLATE < 1.0 mg/dL (2-20); SGOT/AST 34 U/L (17-59); SGPT/ALT 28 U/L (0-50); SODIUM 138 mmol/L (137-145); Total Protein 7.8 g/dL (6.3-8.2)
[2021-06-26 08:33] LABS: Absolute Neutrophil Ct (ANC) 7.49 (1.4-6.9); Basophil (Absolute #) 0.01 (0-0.4); Eosinophil % 1.1 % (0.00-5.0); Eosinophil (Absolute #) 0.11 (0-0.5); Hematocrit 51.9 % (42-50); Hemoglobin 17.5 gm/dl (12.5-18.0); Lymphocyte (Absolute #) 1.52 (1.0-4.6); Lymphocytes % 15.4 % (24.0-44.0); Mean Cell Volume 99.6 fl (78-100); Mean Corpuscular Hemoglobin 33.6 pg (26-32); Mean Corpuscular Hgb Concent. 33.7 g/dl (32-36); Mean Platelet Volume 12.1 fl (7.5-11.0); Monocyte (Absolute #) 0.72 (0.0-1.3); Monocytes % 7.3 % (0.0-12.0); Neutrophil % 76.1 % (36.0-66.0); Platelet Count 198 K/mm3 (150-450); Red Blood Count 5.21 M/mm3 (4.1-5.6); Red Cell Distribution Width 13.6 % (11.5-14.0); White Blood Count 9.9 K/mm3 (4.0-10.5)
--- NOTE | 2021-06-26 08:33 | XRAY ---
Indication: Confusion. Multiple contiguous axial images obtained through the head without contrast. Comparison: March 31, 2021. Normal appearing brain parenchyma, ventricles, and bony calvarium for patient's age. Visualized paranasal sinuses and mastoid air cells are clear. Impression: Continued normal CT head without contrast exam.
[2021-06-26 08:48] LABS: COVID AG -BINAX NOW RAPID TEST NEGATIVE (NEGATIVE)
[2021-06-26 09:57] LABS: Appearance CLEAR (CLEAR); Bilirubin NEGATIVE (NEGATIVE); Blood NEGATIVE Ery/ul (0-5); Glucose NEGATIVE (NEGATIVE); Ketones NEGATIVE (NEGATIVE); Leukocyte Esterase NEGATIVE (NEGATIVE); Nitrite NEGATIVE (NEGATIVE); Protein,Urine Dip NEGATIVE (Negative); Specific Gravity 1.006 (1.005-1.025); Urobilinogen NEGATIVE mg/dL (0-1)
[2021-06-26 10:20] LABS: Amphetamine,Urine NEGATIVE (NEGATIVE); Barbiturate,Urine NEGATIVE (NEGATIVE); Benzodiazepine,Urine NEGATIVE (NEGATIVE); Cocaine,Urine NEGATIVE (NEGATIVE); Methadone,Urine NEGATIVE (NEGATIVE); Opiate,Urine NEGATIVE (NEGATIVE); PCP,Urine NEGATIVE (NEGATIVE); THC,Urine POSITIVE (NEGATIVE)
[2021-06-26 11:25] VITALS: BP 138/88; PULSE 85; O2SAT 97
== END 2021-06-26 11:20 | disposition home or self-care (01) ==
LOC: ED 07:38
DX: R41.0 Disorientation, unspecified (principal); F41.9 Anxiety disorder, unspecified; E78.5 Hyperlipidemia, unspecified; I10 Essential (primary) hypertension; Z72.0 Tobacco use; Z79.899 Other long term (current) drug therapy
CPT/HCPCS: 36000; 36415; 70450; 80053; 80307; 81001; 85025; 93005; 93041; 99000; 99284; G0480

== ENCOUNTER 2021-12-08 13:43 | Emergency (ER) | payer MEDICARE ==
[2021-12-08 14:10] LABS: Absolute Neutrophil Ct (ANC) 5.63 x10^3/uL (1.4-6.9); Basophil (Absolute #) 0.04 x10^3/uL (0-0.4); Eosinophil % 1.8 % (0.00-5.0); Eosinophil (Absolute #) 0.17 x10^3/uL (0-0.5); Hematocrit 44.9 % (42-50); Hemoglobin 15.3 g/dL (12.5-18.0); Lymphocyte (Absolute #) 2.58 x10^3/uL (1.0-4.6); Lymphocytes % 27.8 % (24.0-44.0); Mean Cell Volume 96.8 fL (78-100); Mean Corpuscular Hgb Concent. 34.1 g/dL (32-36); Mean Platelet Volume 10.9 fL (7.5-11.0); Monocyte (Absolute #) 0.83 x10^3/uL (0.0-1.3); Monocytes % 8.9 % (0.0-12.0); Neutrophil % 60.8 % (36.0-66.0); Platelet Count 202 x10^3/uL (150-450); Red Blood Count 4.64 x10^6/uL (4.1-5.6); Red Cell Distribution Width 12.5 % (11.5-14.0); White Blood Count 9.3 x10^3/uL (4.0-10.5)
[2021-12-08 14:24] LABS: ANION GAP 11.4 MEQ/L (5-15); BLOOD UREA NITROGEN 9 mg/dL (9-20); CHLORIDE 105 mmol/L (98-107); Calcium 9.8 mg/dL (8.4-10.2); Carbon Dioxide 27 mmol/L (22-30); Creatinine 1 0.83 mg/dL (0.66-1.25); EST GLOMERULAR FILTRATION RATE > 60.0 ML/MIN; ETHYL ALCOHOL < 10 mg/dL (0-10); Glucose 103 mg/dL (74-106); SODIUM 139 mmol/L (137-145)
--- NOTE | 2021-12-08 14:38 | XRAY ---
Exam: CT of the head without IV contrast from 12/08/2021. CTDI: 53.92 mGy Comparison: CT of the head without IV contrast from 06/26/2021 Indication: 56-year-old male with confusion; disoriented; rule out stroke Technique: Non-IV contrast axial images were obtained through the brain. Reconstructed coronal and sagittal images were created and reviewed. Findings: The ventricles appear of normal size and configuration. No focal mass effect or midline shift is seen. No acute intracranial bleed or abnormal extra-axial fluid collection is seen. The periventricular and subcortical white matter appears within normal limits. No low attenuation infarct is evident. The cortical sulci appear unremarkable. The calvarium of the skull appears intact. The paranasal sinuses appear clear, except for a partially imaged retention cyst/polyp at the inferior posterior lateral aspect of left maxillary sinus on the first image only. The mastoid air cells are clear without effusion. The middle ear cavities appear unremarkable. There appears to be some cerumen within both external auditory canals. The orbits appear grossly unremarkable. Impression: 1. No acute intracranial bleed or other acute intracranial process is seen. A definite low attenuation infarct is not evident. I called this report to the emergency Department personnel at approximately 2:30 PM on 12/08/2021.
[2021-12-08 15:11] VITALS: O2SAT 98
--- NOTE | 2021-12-08 15:19 | ERPHSYRPT ---
- History of Present Illness Time Seen by Provider: 12/08/21 13:47 Source: patient Exam Limitations: no limitations Patient Subjective Stated Complaint: PT states "A couple of hours ago I was just fine and then all of a sudden I just got confused." Triage Nursing Assessment: Pt presented alert and oriented X 2. Pt knows who he is and knows where he is but does not know what month it is. PT in no apparent respiratory distress. pt resting comfortably on the bed. Physician History: This is a 56-year-old gentleman presenting with intermittent confusion ongoing for the past few days. -Patient is confused during history taking, he did inform me that he has been confused for the past 2 hours. -He states that now he feels fine, that he is able to think. -Denies any headache/changes in vision/dizziness/ h/o seizures -States that has not used alcohol for the past 8 months -Denies drug abuse -Patient has a history of migraine, hypertension, arthritis, bipolar, schizophrenia, binge drink and anxiety- reports compliance with psych meds although unable to name them. -Has been seen in the ED in June with similar symptoms. -Chart review shows prior episodes of confusion- when questioned pt. reported prior ED visits for confusion, reports he was supposed to f/u with neurrology for work up, but has not. Denies barriers to f/u with neurology, states that he will get to it soon. Timing/Duration: today Severity: mild Character of Deficits: none Deficits: no difficulties Baseline/Normal Cognition: alert oriented x 3 Current Cognition: alert oriented x 3 Baseline Gait: walks w/o assistance Associated Symptoms: confusion, No fatigue, No fever Allergies/Adverse Reactions: quetiapine [From Seroquel] Allergy (Severe, Verified 06/26/21 08:13) seizures carisoprodol [From Soma] Allergy (Verified 06/26/21 08:13) Hives diphenhydramine [From Benadryl] Allergy (Verified 06/26/21 08:13) Hives Home Medications: Aspirin [Low Dose Aspirin EC] 81 mg PO DAILY 06/26/21 [History] Clopidogrel Bisulfate [Clopidogrel] 75 mg PO DAILY 06/26/21 [History] PANTOPRAZOLE 40 mg Tablet [Protonix 40MG Tablet] 40 mg PO DAILY 06/26/21 [History] Simvastatin 20Mg [Zocor 20Mg] 20 mg PO DAILY 06/26/21 [History] Aripiprazole Lauroxil [Aristada] 1 tab PO DAILY 12/08/21 [History] Bupropion HCl 150 mg Sr [Wellbutrin SR 150 MG] 150 mg PO BID 12/08/21 [History] Temazepam 30 mg PO 12/08/21 [History] Hx Tetanus, Diphtheria Vaccination/Date Given: No (unsure) Hx Influenza Vaccination/Date Given: Yes Hx Pneumococcal Vaccination/Date Given: No Immunizations Up to Date: Yes Travel Risk - International Travel Have you traveled outside of the country in past 3 weeks: No - Coronavirus Screening Are you exhibiting any of the following symptoms?: No Close contact with a COVID-19 positive Pt in past 14-21 Days: No - Vaccine Status Have you recieved a Covid-19 vaccination: Yes (unsure) 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 - Vaccination Dates Date of 2cond Vaccination (if applicable): 08/22/20 - Review of Systems Constitutional: No Symptoms, No Fever, No Chills, No Fatigue, No Weakness Eyes: No Symptoms, No Eye Pain, No Vision Changes, No Double Vision Ears, Nose, & Throat: No Symptoms, No Ear Pain, No Hearing Changes, No Sinus Drainage, No Throat Pain Respiratory: No Symptoms, No Cough, No Dyspnea, No Dyspnea on Exertion (BARNARD) Cardiac: No Symptoms, No Chest Pain, No Edema, No Palpitations Abdominal/Gastrointestinal: No Symptoms, No Abdominal Pain, No Vomiting, No Dysphagia Genitourinary Symptoms: No Symptoms, No Frequency, No Urinary Retention Musculoskeletal: No Symptoms, No Arthralgias, No Back Pain Skin: No Symptoms, No Cellulitis, No Rash Neurological: No Symptoms, No Dizziness, No Focal Weakness, No Headache, No Paralysis, No Seizure, No Speech Changes, No Vertigo Psychological: No Symptoms, Anxiety, Depression, No Alcohol Abuse, No Drug Abuse Endocrine: No Symptoms Hematologic/Lymphatic: No Symptoms Immunological/Allergic: No Symptoms All Other Systems: Reviewed and Negative - Past Medical History Pertinent Past Medical History: Yes Neurological History: Migraines ENT History: Other Cardiac History: High Cholesterol, Hypertension Respiratory History: Asthma Endocrine Medical History: No Pertinent History Musculoskeletal History: Arthritis, Other GI Medical History: Other History: Other Psycho-Social History: Anxiety, Bipolar, Depression Male Reproductive Disorders: Other Other Medical History: prior suicide attempts by over dose. Cutting, anxiety, schizophrenia. Insomnia. Binge drinking. - Past Surgical History Past Surgical History: No Neuro Surgical History: No Pertinent History Cardiac: No Pertinent History Respiratory: No Pertinent History Gastrointestinal: No Pertinent History Genitourinary: No Pertinent History Musculoskeletal: No Pertinent History Male Surgical History: No Pertinent History - Social History Smoking Status: Current every day smoker How long have you smoked: 35 years Exposure to second hand smoke: No Drug Use: marijuana Patient Lives Alone: Yes Significant Family History: no pertinent family hx - Nursing Vital Signs Nursing Vital Signs: Initial Vital Signs Temperature 98.8 F 12/08/21 13:50 Pulse Rate 92 H 12/08/21 13:50 Respiratory Rate 20 12/08/21 13:50 Blood Pressure 162/94 12/08/21 13:50 O2 Sat by Pulse Oximetry 94 L 12/08/21 13:50 Pain Scale Pain Intensity 0 - Humble Coma Scale Best Eye Response (Humble): (4) open spontaneously Best Verbal Response (Sharan): (5) oriented Best Motor Response (Humble): (6) obeys commands Humble Total: 15 - Physical Exam General Appearance: no apparent distress Eye Exam: bilateral eye: normal inspection, PERRL, EOMI Ears, Nose, Throat Exam: normal ENT inspection, TMs normal, pharynx normal Neck Exam: normal inspection, non-tender, supple, full range of motion Respiratory: normal breath sounds, lungs clear, No chest tenderness, No respiratory distress Cardiovascular: regular rate/rhythm, normal heart sounds, normal peripheral pulses Gastrointestinal: soft, normal bowel sounds, No tenderness, No distention Rectal Exam: deferred Back Exam: normal inspection, No CVA tenderness Extremity Exam: normal inspection, normal range of motion Peripheral Pulses: carotid (R): 4+, carotid (L): 4+, femoral (R): 4+, femoral (L): 4+, dorsalis-pedis (R): 4+, dorsalis-pedis (L): 4+ 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, oriented x 3, 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 Exam: normal hearing, normal speech, PERRL, tongue midline, No abnormal speech, No facial asymmetry, No facial droop, No facial weakness Coordination/Gait: normal finger to nose, normal gait, normal cerebellar function, negative Romberg's sign, No abnormal gait Motor/Sensory: no motor deficit, no sensory deficit, no pronator drift DTR: bicep (R): 4+, bicep (L): 4+, tricep (R): 4+, tricep (L): 4+, knee (R): 4+, knee (L): 0, 4+, ankle (R): 4+, ankle (L): 4+ Skin Exam: normal color SpO2 Interpretation: normal SpO2: 98 O2 Delivery: Room Air Lab/Rad Data: Laboratory Result Diagrams 12/08/21 14:01 12/08/21 14:21 Laboratory Results 12/08/21 12/08/21 12/08/21 Range/Units 15:35 15:35 14:21 WBC (4.0-10.5) x10^3/uL RBC (4.1-5.6) x10^6/uL Hgb (12.5-18.0) g/dL Hct (42-50) % MCV (78-100) fL MCH (26-32) pg MCHC (32-36) g/dL RDW (11.5-14.0) % Plt Count (150-450) x10^3/uL MPV (7.5-11.0) fL Gran % (36.0-66.0) % Immature Gran % (Auto) (0.00-0.4) % Nucleat RBC Rel Count (0.00-0.1) % Eos # (Auto) (0-0.5) x10^3/uL Immature Gran # (Auto) (0.00-0.03) x10^3u/L Absolute Lymphs (auto) (1.0-4.6) x10^3/uL Absolute Monos (auto) (0.0-1.3) x10^3/uL Absolute Nucleated RBC (0.00-0.01) x10^3u/L Lymphocytes % (24.0-44.0) % Monocytes % (0.0-12.0) % Eosinophils % (0.00-5.0) % Basophils % (0.0-0.4) % Absolute Granulocytes (1.4-6.9) x10^3/uL Basophils # (0-0.4) x10^3/uL Sodium 139 (137-145) mmol/L Potassium 4.0 (3.5-5.1) mmol/L Chloride 105 (98-107) mmol/L Carbon Dioxide 27 (22-30) mmol/L Anion Gap 11.4 (5-15) MEQ/L BUN 9 (9-20) mg/dL Creatinine 0.83 (0.66-1.25) mg/dL Estimated GFR > 60.0 ML/MIN Glucose 103 (74-106) mg/dL Calcium 9.8 (8.4-10.2) mg/dL Urinalys Dipstick Clnc MAIN LAB Urine Color YELLOW (YELLOW) Urine Appearance CLEAR (CLEAR) Urine pH 6.5 (5-6) Ur Specific Guthrie 1.010 (1.005-1.025) POC Urine Protein Conf NEGATIVE (Negative) Urine Ketones NEGATIVE (NEGATIVE) Urine Nitrite NEGATIVE (NEGATIVE) Urine Bilirubin NEGATIVE (NEGATIVE) Urine Urobilinogen 0.2 (0-1) mg/dL Urine Leukocytes TRACE (NEGATIVE) Urine WBC (Auto) 3-5 (0-5) /HPF Urine RBC (Auto) 0-2 (0-2) /HPF U Epithel Cells (Auto) NONE (FEW) /HPF Urine Bacteria (Auto) RARE (NEGATIVE) /HPF Urine RBC TRACE-LYSED (0-5) Andrei/ul Urine Mucus (Auto) SLIGHT (NEGATIVE) /HPF Ur Culture Indicated? YES Urine Glucose NEGATIVE (NEGATIVE) mg/dL Urine Opiates Level POSITIVE (NEGATIVE) Ur Methadone NEGATIVE (NEGATIVE) Urine Barbiturates NEGATIVE (NEGATIVE) Ur Phencyclidine (PCP) NEGATIVE (NEGATIVE) Urine Amphetamine NEGATIVE (NEGATIVE) U Benzodiazepine Level NEGATIVE (NEGATIVE) Urine Cocaine NEGATIVE (NEGATIVE) Urine Marijuana (THC) POSITIVE (NEGATIVE) Ethyl Alcohol < 10 (0-10) mg/dL 12/08/21 Range/Units 14:01 WBC 9.3 (4.0-10.5) x10^3/uL RBC 4.64 (4.1-5.6) x10^6/uL Hgb 15.3 (12.5-18.0) g/dL Hct 44.9 (42-50) % MCV 96.8 (78-100) fL MCH 33.0 H (26-32) pg MCHC 34.1 (32-36) g/dL RDW 12.5 (11.5-14.0) % Plt Count 202 (150-450) x10^3/uL MPV 10.9 (7.5-11.0) fL Gran % 60.8 (36.0-66.0) % Immature Gran % (Auto) 0.3 (0.00-0.4) % Nucleat RBC Rel Count 0.0 (0.00-0.1) % Eos # (Auto) 0.17 (0-0.5) x10^3/uL Immature Gran # (Auto) 0.03 (0.00-0.03) x10^3u/L Absolute Lymphs (auto) 2.58 (1.0-4.6) x10^3/uL Absolute Monos (auto) 0.83 (0.0-1.3) x10^3/uL Absolute Nucleated RBC 0.00 (0.00-0.01) x10^3u/L Lymphocytes % 27.8 (24.0-44.0) % Monocytes % 8.9 (0.0-12.0) % Eosinophils % 1.8 (0.00-5.0) % Basophils % 0.4 (0.0-0.4) % Absolute Granulocytes 5.63 (1.4-6.9) x10^3/uL Basophils # 0.04 (0-0.4) x10^3/uL Sodium (137-145) mmol/L Potassium (3.5-5.1) mmol/L Chloride (98-107) mmol/L Carbon Dioxide (22-30) mmol/L Anion Gap (5-15) MEQ/L BUN (9-20) mg/dL Creatinine (0.66-1.25) mg/dL Estimated GFR ML/MIN Glucose (74-106) mg/dL Calcium (8.4-10.2) mg/dL Urinalys Dipstick Clnc Urine Color (YELLOW) Urine Appearance (CLEAR) Urine pH (5-6) Ur Specific Guthrie (1.005-1.025) POC Urine Protein Conf (Negative) Urine Ketones (NEGATIVE) Urine Nitrite (NEGATIVE) Urine Bilirubin (NEGATIVE) Urine Urobilinogen (0-1) mg/dL Urine Leukocytes (NEGATIVE) Urine WBC (Auto) (0-5) /HPF Urine RBC (Auto) (0-2) /HPF U Epithel Cells (Auto) (FEW) /HPF Urine Bacteria (Auto) (NEGATIVE) /HPF Urine RBC (0-5) Andrei/ul Urine Mucus (Auto) (NEGATIVE) /HPF Ur Culture Indicated? Urine Glucose (NEGATIVE) mg/dL Urine Opiates Level (NEGATIVE) Ur Methadone (NEGATIVE) Urine Barbiturates (NEGATIVE) Ur Phencyclidine (PCP) (NEGATIVE) Urine Amphetamine (NEGATIVE) U Benzodiazepine Level (NEGATIVE) Urine Cocaine (NEGATIVE) Urine Marijuana (THC) (NEGATIVE) Ethyl Alcohol (0-10) mg/dL - Progress Progress: improved, re-examined (pt. alert and oriented, wnats to go home) Progress Note: 12/08/21 15:21 . -This is a 56-year-old gentleman senting to the ED for evaluation of confusion ongoing x few days - Chart review shoes 4 prior ED visit with same complaint. CT head without contrast showed no acute abnormalities CBC, cmp, alcohol - WNL Chest x-ray shows no acute finding UDS + opiates - Unknown if pt. is having seizure given episodic periods of confusion, hence d/w neurologist at [facility] in [place]- who advised that as these s/s have been ongoing x 1 yr episodically pt. can have an MRI brain and EEG done as an outpatient, although she was agreeable to transfer if hospitalist agrees. Transfer center did say that pt. was seen by neurologist on 06/12/2021 as an outpatient in [place]. - Hospitalist , reviewed history, given pt's current normal mental status without confusiona nd s/s ongoing x 1 yr, there is no acute need for transfer of pt., he advised outpt. follow up. - Discussed all of above with pt, reports he or his buddies have not noticed any seizure like activity, states he will f/u with his neurologist in [place] whom he had seen in may of this year. - Advised f/u with pcp in am - - Pt. advised to return for any new or worsening s/s or any concern at all. - Has no further questions.. - - Departure Clinical Impression: Confusion, Change in mental status Condition: Stable Critical Care Time: No Referrals: HERNANDEZ HEBERT MD [Primary Care Provider] - Follow up/PCP as directed Instructions: Rib Fractures in Adults, Rib Fracture or Bruised Rib ED Additional Instructions: Discharge/Care Plan DIEGO MCLAIN was seen on 12/08/21 in the Emergency Room. The patient was counseled regarding Diagnosis,Lab results, Imaging studies, need for follow up and when to return to the Emergency Room. Prescriptions given: Discharge Note I have spoken with the patient and/or caregivers. I have explained the patient's condition, diagnosis and treatment plan based on the information available to me at this time. I have answered the patient's and/or caregiver's questions and addressed any concerns. The patient and/or caregivers have as good understanding of the patient's diagnosis, condition and treatment plan as can be expected at this point. The vital signs have been stable. The patient's condition is stable and appropriate for discharge from the emergency department. The patient will pursue further outpatient evaluation with the primary care physician or other designated or consulting physician as outlined in the discharge instructions. The patient and/or caregivers are agreeable to this plan of care and follow-up instructions have been explained in detail. The patient and/or caregivers have received these instruction. The patient/and or caregivers are aware that any significant change in condition or worsening of symptoms should prompt an immediate return to this or the closest emergency department or call 911.
--- NOTE | 2021-12-08 15:20 | XRAY ---
Exam: AP upright portable chest film from 12/08/2021. Comparison: Two-view chest series from 02/19/2021. Indication: 56-year-old male with confusion; disorientation. Findings: The heart size is normal. The sulema and mediastinal structures appear unremarkable. The lungs are adequately inflated. No air space infiltrates, vascular congestion, pneumothorax, or pleural fluid is seen. EKG leads are seen in place. There appears to be an old rib fracture deformity of a lower right rib laterally representing no change. Some lateral osteophyte formation is seen within the lower thoracic spine. Impression: 1. No acute cardiopulmonary disease is seen, no change from 02/19/2021.
[2021-12-08 15:46] LABS: Appearance CLEAR (CLEAR); Bacteria RARE /HPF (NEGATIVE); Bilirubin NEGATIVE (NEGATIVE); Dipstick done @ ? MAIN LAB; Glucose NEGATIVE (NEGATIVE); Ketones NEGATIVE (NEGATIVE); Mucus SLIGHT /HPF (NEGATIVE); Nitrite NEGATIVE (NEGATIVE); Ph 6.5 (5-6); Protein,Urine Dip NEGATIVE (Negative); RBC 0-2 /HPF (0-2); RBC TRACE-LYSED Ery/ul (0-5); Urobilinogen 0.2 mg/dL (0-1)
[2021-12-08 15:47] LABS: Urine Cultured Indicated? YES
[2021-12-08 15:57] LABS: Amphetamine,Urine NEGATIVE (NEGATIVE); Barbiturate,Urine NEGATIVE (NEGATIVE); Benzodiazepine,Urine NEGATIVE (NEGATIVE); Cocaine,Urine NEGATIVE (NEGATIVE); Methadone,Urine NEGATIVE (NEGATIVE); Opiate,Urine POSITIVE (NEGATIVE); PCP,Urine NEGATIVE (NEGATIVE); THC,Urine POSITIVE (NEGATIVE)
[2021-12-08 17:02] VITALS: PULSE 77
[2021-12-08 17:17] VITALS: BP 149/89
== END 2021-12-08 17:38 | disposition home or self-care (01) ==
LOC: ED 13:43
DX: R41.0 Disorientation, unspecified (principal); I10 Essential (primary) hypertension; E78.5 Hyperlipidemia, unspecified; Z72.0 Tobacco use; Z79.02 Long term (current) use of antithrombotics/antiplatelets; Z79.899 Other long term (current) drug therapy
CPT/HCPCS: 36000; 36415; 70450; 71045; 80048; 80307; 81015; 85025; 87086; 93005; 99284; G0480

== ENCOUNTER 2022-03-07 13:21 | Observation (INO) | payer MEDICARE ==
[2022-03-07] MEDS ORDERED: Sodium Chloride 0.9% 1000 ML 1,000 ML IV STA ×2 (13:37→15:14)
[2022-03-07] MEDS ORDERED: Keppra 500 MG/5 ML*** 1,000 MG in D5w 100ML Mini Bag 100 ML 100 ML IV ONE (13:39)
[2022-03-07] MEDS ORDERED: Sodium Chloride 0.9% 1000 ML 1,000 ML ONE ×2 (13:45→15:15)
[2022-03-07] MEDS ORDERED: Keppra 500 MG/5 ML ONE (13:50)
[2022-03-07] MEDS ORDERED: D5w 100ML Mini Bag 100 ML 100 ML IV ONE (13:50)
[2022-03-07 14:08] LABS: Absolute Neutrophil Ct (ANC) 5.18 x10^3/uL (1.4-6.9); Basophil (Absolute #) 0.02 x10^3/uL (0-0.4); Eosinophil % 0.8 % (0.00-5.0); Eosinophil (Absolute #) 0.06 x10^3/uL (0-0.5); Hematocrit 38.1 % (42-50); Hemoglobin 11.5 g/dL (12.5-18.0); Lymphocyte (Absolute #) 1.69 x10^3/uL (1.0-4.6); Lymphocytes % 22.8 % (24.0-44.0); Mean Cell Volume 89.9 fL (78-100); Mean Corpuscular Hemoglobin 27.1 pg (26-32); Mean Corpuscular Hgb Concent. 30.2 g/dL (32-36); Mean Platelet Volume 11.5 fL (7.5-11.0); Monocyte (Absolute #) 0.44 x10^3/uL (0.0-1.3); Monocytes % 5.9 % (0.0-12.0); Neutrophil % 69.9 % (36.0-66.0); Platelet Count 264 x10^3/uL (150-450); Red Blood Count 4.24 x10^6/uL (4.1-5.6); White Blood Count 7.4 x10^3/uL (4.0-10.5)
[2022-03-07 14:26] LABS: SGPT/ALT 32 U/L (0-50)
[2022-03-07 14:28] LABS: ALBUMIN 4.6 g/dL (3.5-5.0); ALKALINE PHOSPHATASE 58 U/L (38-126); ANION GAP 19.2 MEQ/L (5-15); BLOOD UREA NITROGEN 9 mg/dL (9-20); CHLORIDE 104 mmol/L (98-107); Calcium 9.3 mg/dL (8.4-10.2); Carbon Dioxide 18 mmol/L (22-30); Creatinine 1 0.98 mg/dL (0.66-1.25); EST GLOMERULAR FILTRATION RATE > 60.0 ML/MIN; ETHYL ALCOHOL < 10 mg/dL (0-10); Glucose 130 mg/dL (74-106); MAGNESIUM 2.2 mg/dL (1.6-2.3); NT PRO BNP 110 pg/mL (0-900); Potassium 4.1 mmol/L (3.5-5.1); SGOT/AST 41 U/L (17-59); SODIUM 137 mmol/L (137-145); Total Protein 7.7 g/dL (6.3-8.2)
[2022-03-07 15:24] LABS: INFLUENZA A NEGATIVE (NEGATIVE); INFLUENZA B NEGATIVE (NEGATIVE); RESPIRATORY SYNCTIAL VIRUS NEGATIVE (Negative); SARS-CoV-2 Xpert Express NEGATIVE (NEGATIVE)
[2022-03-07 15:43] LABS: Appearance CLEAR (CLEAR); Bilirubin NEGATIVE (NEGATIVE); Dipstick done @ ? MAIN LAB; Glucose NEGATIVE (NEGATIVE); Ketones NEGATIVE (NEGATIVE); Nitrite NEGATIVE (NEGATIVE); Ph 6.5 (5-6); Protein,Urine Dip 30 (Negative); RBC NEGATIVE Ery/ul (0-5); Specific Gravity >=1.030 (1.005-1.025); Urobilinogen 0.2 mg/dL (0-1)
--- NOTE | 2022-03-07 15:49 | ERPHSYRPT ---
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 pt neighbors called ED while pt was in route and stated pt was "convulsing on the ground, started breathing heavy and then just laid there." neighbor also states that pt has been having "mini strokes" lately but unsure if he was evaluated. EMS states pt was snoring respirations on their arrival. pt denies hx, but is only A&O to self at this time. 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 denies pain at this time. Physician History: 56-year-old male with a history of anxiety, depression, schizophrenia is brought in the ER with chief complaint of seizure. Patient has no history of seizure before. Apparently patient was seizing when neighbor saw him. On EMS arrival patient was postictal, confused on presentation in the ER, following most of the commands. Denies any alcohol or drug use. Moving all 4 extremities. No difficulty speech. Not a good historian and history is limited. Timing/Duration: hour(s) (0.5), resolved prior to arrival, improved Severity: moderate Character of Deficits: none Deficits: no difficulties Baseline/Normal Cognition: alert oriented x 3 Current Cognition: alert but confused Baseline Gait: walks w/o assistance Associated Symptoms: confusion, seizures Allergies/Adverse Reactions: quetiapine [From Seroquel] Allergy (Severe, Verified 03/07/22 13:24) seizures carisoprodol [From Soma] Allergy (Verified 03/07/22 13:24) Hives diphenhydramine [From Benadryl] Allergy (Verified 03/07/22 13:24) Hives Home Medications: Aspirin [Low Dose Aspirin EC] 81 mg PO DAILY 06/26/21 [History] Clopidogrel Bisulfate [Clopidogrel] 75 mg PO DAILY 06/26/21 [History] PANTOPRAZOLE 40 mg Tablet [Protonix 40MG Tablet] 40 mg PO DAILY 06/26/21 [History] Simvastatin 20Mg [Zocor 20Mg] 20 mg PO DAILY 06/26/21 [History] Aripiprazole Lauroxil [Aristada] 1 tab PO DAILY 08/22/22 [History] Bupropion HCl 150 mg Sr [Wellbutrin SR 150 MG] 150 mg PO BID 12/08/21 [History] Temazepam 30 mg PO DAILY 12/08/21 [History] Hx Tetanus, Diphtheria Vaccination/Date Given: No (unsure) Hx Influenza Vaccination/Date Given: Yes Hx Pneumococcal Vaccination/Date Given: No Travel Risk - International Travel Have you traveled outside of the country in past 3 weeks: No - Coronavirus Screening Are you exhibiting any of the following symptoms?: No Close contact with a COVID-19 positive Pt in past 14-21 Days: No - Vaccine Status Have you recieved a Covid-19 vaccination: Yes (unsure) 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 Cutting, anxiety, schizophrenia. Insomnia. Binge drinking. - Past Surgical History Past Surgical History: No Neuro Surgical History: No Pertinent History Cardiac: No Pertinent History Respiratory: No Pertinent History Gastrointestinal: No Pertinent History Genitourinary: No Pertinent History Musculoskeletal: No Pertinent History Male Surgical History: No Pertinent History - Social History Smoking Status: Current every day smoker How long have you smoked: 35 years Exposure to second hand smoke: No Drug Use: marijuana Patient Lives Alone: Yes Significant Family History: no pertinent family hx - Nursing Vital Signs Nursing Vital Signs: Initial Vital Signs Temperature 98.9 F 03/07/22 13:24 Pulse Rate 107 H 03/07/22 13:24 Respiratory Rate 20 03/07/22 13:24 Blood Pressure 129/84 03/07/22 13:24 O2 Sat by Pulse Oximetry 95 03/07/22 13:24 Pain Scale Pain Intensity 0 - Boston Coma Scale Best Eye Response (Boston): (4) open spontaneously Best Verbal Response (Sharan): (4) confused conversation Best Motor Response (Sharan): (6) obeys commands Sharan Total: 14 - Physical Exam General Appearance: no apparent distress, alert Eye Exam: right eye: normal inspection, PERRL, bilateral eye: EOMI Ears, Nose, Throat Exam: normal ENT inspection, TMs normal, pharynx normal, moist mucous membranes Neck Exam: normal inspection, non-tender, supple, full range of motion Respiratory: normal breath sounds, lungs clear Cardiovascular: regular rate/rhythm, normal heart sounds Gastrointestinal: soft, normal bowel sounds, No tenderness Back Exam: normal inspection, normal range of motion Extremity Exam: normal inspection, normal range of motion 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, 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, normal speech Coordination/Gait: normal finger to nose Motor/Sensory: no motor deficit, no sensory deficit, no pronator drift, negative Babinski's sign DTR: bicep (R): 2+, bicep (L): 2+, knee (R): 2+, knee (L): 2+ Skin Exam: normal color SpO2 Interpretation: normal SpO2: 96 O2 Delivery: Room Air - Course EKG Interpreted by Me: RATE ([id number]), Sinus Tach, NORMAL AXIS, NORMAL INTERVALS, NORMAL QRS Ordered Tests: Active Orders 24 hr Category Date Time Status Bedrest ROUTINE Activity 03/07/22 16:46 Active Up With Assistance ROUTINE Activity 03/07/22 16:46 Active Manager Practice STAT Care 03/07/22 13:38 Completed Code Status Order ROUTINE Care 03/07/22 16:46 Active EKG-ER Only STAT Care 03/07/22 13:37 Completed Fall Protocol ROUTINE Care 03/07/22 16:46 Active IV Care Q6H Care 03/07/22 16:46 Active IV Insertion STAT Care 03/07/22 13:41 Completed Neuro Checks Q2H Care 03/07/22 16:46 Active POCT Glucose Check STAT Care 03/07/22 13:[address] in Observation ROUTINE Care 03/07/22 16:46 Completed Erin Augustine ROUTINE Care 03/07/22 16:46 Active Weight,Daily 0600 Care 03/07/22 16:46 Active House Regular Diet Diet 03/08/22 Breakfast Active CERVICAL SPINE WO CONTRAST [CT] Stat Exams 03/07/22 13:38 Taken CHEST 1 VIEW (PORTABLE) Stat Exams 03/07/22 13:38 Taken HEAD WITHOUT CONTRAST [CT] Stat Exams 03/07/22 13:38 Taken BLOOD CULTURE Stat Lab 03/07/22 13:59 Received BMP AM.LAB Lab 03/08/22 04:00 Ordered CBC W DIFF AM.LAB Lab 03/08/22 04:00 Ordered CBC W DIFF Stat Lab 03/07/22 13:53 Completed CMP Stat Lab 03/07/22 13:53 Completed ETHYL ALCOHOL Stat Lab 03/07/22 13:53 Completed Lactic Acid Stat Lab 03/07/22 13:55 Completed Lactic Acid Stat Lab 03/07/22 16:04 Completed MAGNESIUM Stat Lab 03/07/22 13:53 Completed NT PRO BNP Stat Lab 03/07/22 13:53 Completed POCT GLUCOSE Stat Lab 03/07/22 13:44 Completed TROPONIN Q3H Lab 03/07/22 13:53 Completed TROPONIN Q3H Lab 03/07/22 16:21 Received TROPONIN Q3H Lab 03/07/22 19:45 Ordered TROPONIN Q3H Lab 03/07/22 22:45 Ordered TSH [TSH, 3RD Generation] Stat Lab 03/07/22 16:46 Ordered UA W/RFX CULTURE Stat Lab 03/07/22 15:26 Completed Urine Triage Profile Stat Lab 03/07/22 15:26 Completed Vitamin B12 Stat Lab 03/07/22 16:46 Ordered Transfer Order Routine Transfer 03/07/22 Completed Medication Summary Generic Name Dose Route Start Last Admin Trade Name Freq PRN Reason Stop Dose Admin Acetaminophen 650 mg 03/07/22 16:46 Acetaminophen 325 Mg Tablet PO 04/06/22 16:45 Q4H PRN PRN PAIN AND/OR FEVER Albuterol/Ipratropium 3 ml 03/07/22 16:46 Ipratropium/Albuterol Sulfate 3 Ml Ampul.Neb IH 04/06/22 16:45 Q4HPRN PRN SHORTNESS OF BREATH/WHEEZING Potassium Chloride/Sodium Chloride 1,000 mls @ 100 mls/hr 03/07/22 16:46 Sodium Chloride 0.9% W/ 20 Meq Kcl/Liter IV 04/06/22 16:45 .Q10H ZENON Pantoprazole Sodium 40 mg 03/08/22 10:00 Pantoprazole 40 Mg Vial IV 04/07/22 09:59 Q24H10 ZENON Discontinued Medications Generic Name Dose Route Start Last Admin Trade Name Freq PRN Reason Stop Dose Admin Sodium Chloride 1,000 mls @ 999 mls/hr 03/07/22 13:37 03/07/22 14:55 Sodium Chloride 0.9% 1000 Ml IV 03/07/22 14:37 Infused .Q1H1M STA Infusion Levetiracetam 1,000 mg/ 110 mls @ 220 mls/hr 03/07/22 13:39 03/07/22 13:54 Dextrose IV 03/07/22 14:08 220 mls/hr STAT ONE Administration Sodium Chloride Confirm 03/07/22 13:45 Sodium Chloride 0.9% 1000 Ml Administered 03/07/22 13:46 Dose 1,000 mls @ ud .ROUTE .STK-MED ONE Dextrose Confirm 03/07/22 13:50 D5w 100ml Mini Bag 100 Ml Administered 03/07/22 13:51 Dose 100 mls @ ud IV .STK-MED ONE Sodium Chloride 1,000 mls @ 999 mls/hr 03/07/22 15:14 03/07/22 16:17 Sodium Chloride 0.9% 1000 Ml IV 03/07/22 16:14 Infused .Q1H1M STA Infusion Sodium Chloride Confirm 03/07/22 15:15 Sodium Chloride 0.9% 1000 Ml Administered 03/07/22 15:16 Dose 1,000 mls @ ud .ROUTE .STK-MED ONE Levetiracetam Confirm 03/07/22 13:50 Levetiracetam 500 Mg/5 Ml Vial Administered 03/07/22 13:51 Dose 1,000 mg .ROUTE .STK-MED ONE Lab/Rad Data: Laboratory Result Diagrams 03/07/22 13:53 03/07/22 13:53 Laboratory Results 03/07/22 03/07/22 03/07/22 Range/Units 16:21 16:04 15:26 WBC (4.0-10.5) x10^3/uL RBC (4.1-5.6) x10^6/uL Hgb (12.5-18.0) g/dL Hct (42-50) % MCV (78-100) fL MCH (26-32) pg MCHC (32-36) g/dL RDW (11.5-14.0) % Plt Count (150-450) x10^3/uL MPV (7.5-11.0) fL Gran % (36.0-66.0) % Immature Gran % (Auto) (0.00-0.4) % Nucleat RBC Rel Count (0.00-0.1) % Eos # (Auto) (0-0.5) x10^3/uL Immature Gran # (Auto) (0.00-0.03) x10^3u/L Absolute Lymphs (auto) (1.0-4.6) x10^3/uL Absolute Monos (auto) (0.0-1.3) x10^3/uL Absolute Nucleated RBC (0.00-0.01) x10^3u/L Lymphocytes % (24.0-44.0) % Monocytes % (0.0-12.0) % Eosinophils % (0.00-5.0) % Basophils % (0.0-0.4) % Absolute Granulocytes (1.4-6.9) x10^3/uL Basophils # (0-0.4) x10^3/uL Sodium (137-145) mmol/L Potassium (3.5-5.1) mmol/L Chloride (98-107) mmol/L Carbon Dioxide (22-30) mmol/L Anion Gap (5-15) MEQ/L BUN (9-20) mg/dL Creatinine (0.66-1.25) mg/dL Estimated GFR ML/MIN Glucose (74-106) mg/dL POC Glucometer (74 to 106) mg/dL Lactic Acid 2.4 H (0.4-2.0) Calcium (8.4-10.2) mg/dL Magnesium (1.6-2.3) mg/dL Total Bilirubin (0.2-1.3) mg/dL AST (17-59) U/L ALT (0-50) U/L Alkaline Phosphatase (38-126) U/L Ammonia < 9 L (9-30) umol/L Troponin I (0.000-0.034) ng/mL NT-Pro-B Natriuret Pep (0-900) pg/mL Serum Total Protein (6.3-8.2) g/dL Albumin (3.5-5.0) g/dL Urinalys Dipstick Clnc MAIN LAB Urine Color YELLOW (YELLOW) Urine Appearance CLEAR (CLEAR) Urine pH 6.5 (5-6) Ur Specific Prue >=1.030 A (1.005-1.025) POC Urine Protein Conf 30 A (Negative) Urine Ketones NEGATIVE (NEGATIVE) Urine Nitrite NEGATIVE (NEGATIVE) Urine Bilirubin NEGATIVE (NEGATIVE) Urine Urobilinogen 0.2 (0-1) mg/dL Urine Leukocytes NEGATIVE (NEGATIVE) Urine WBC (Auto) 0-2 (0-5) /HPF Urine RBC (Auto) 3-5 A (0-2) /HPF U Epithel Cells (Auto) NONE (FEW) /HPF Urine Bacteria (Auto) NONE SEEN (NEGATIVE) /HPF Urine RBC NEGATIVE (0-5) Andrei/ul Urine Mucus (Auto) SLIGHT A (NEGATIVE) /HPF Ur Culture Indicated? NO Urine Glucose NEGATIVE (NEGATIVE) mg/dL Urine Opiates Level (NEGATIVE) Ur Methadone (NEGATIVE) Urine Barbiturates (NEGATIVE) Ur Phencyclidine (PCP) (NEGATIVE) Urine Amphetamine (NEGATIVE) U Benzodiazepine Level (NEGATIVE) Urine Cocaine (NEGATIVE) Urine Marijuana (THC) (NEGATIVE) Ethyl Alcohol (0-10) mg/dL Influenza Type A Ag (NEGATIVE) Influenza Type B Ag (NEGATIVE) RSV (PCR) (Negative) SARS-CoV-2 (PCR) (NEGATIVE) 03/07/22 03/07/22 03/07/22 Range/Units 15:26 14:43 13:55 WBC (4.0-10.5) x10^3/uL RBC (4.1-5.6) x10^6/uL Hgb (12.5-18.0) g/dL Hct (42-50) % MCV (78-100) fL MCH (26-32) pg MCHC (32-36) g/dL RDW (11.5-14.0) % Plt Count (150-450) x10^3/uL MPV (7.5-11.0) fL Gran % (36.0-66.0) % Immature Gran % (Auto) (0.00-0.4) % Nucleat RBC Rel Count (0.00-0.1) % Eos # (Auto) (0-0.5) x10^3/uL Immature Gran # (Auto) (0.00-0.03) x10^3u/L Absolute Lymphs (auto) (1.0-4.6) x10^3/uL Absolute Monos (auto) (0.0-1.3) x10^3/uL Absolute Nucleated RBC (0.00-0.01) x10^3u/L Lymphocytes % (24.0-44.0) % Monocytes % (0.0-12.0) % Eosinophils % (0.00-5.0) % Basophils % (0.0-0.4) % Absolute Granulocytes (1.4-6.9) x10^3/uL Basophils # (0-0.4) x10^3/uL Sodium (137-145) mmol/L Potassium (3.5-5.1) mmol/L Chloride (98-107) mmol/L Carbon Dioxide (22-30) mmol/L Anion Gap (5-15) MEQ/L BUN (9-20) mg/dL Creatinine (0.66-1.25) mg/dL Estimated GFR ML/MIN Glucose (74-106) mg/dL POC Glucometer (74 to 106) mg/dL Lactic Acid 7.8 H (0.4-2.0) Calcium (8.4-10.2) mg/dL Magnesium (1.6-2.3) mg/dL Total Bilirubin (0.2-1.3) mg/dL AST (17-59) U/L ALT (0-50) U/L Alkaline Phosphatase (38-126) U/L Ammonia (9-30) umol/L Troponin I (0.000-0.034) ng/mL NT-Pro-B Natriuret Pep (0-900) pg/mL Serum Total Protein (6.3-8.2) g/dL Albumin (3.5-5.0) g/dL Urinalys Dipstick Clnc Urine Color (YELLOW) Urine Appearance (CLEAR) Urine pH (5-6) Ur Specific Prue (1.005-1.025) POC Urine Protein Conf (Negative) Urine Ketones (NEGATIVE) Urine Nitrite (NEGATIVE) Urine Bilirubin (NEGATIVE) Urine Urobilinogen (0-1) mg/dL Urine Leukocytes (NEGATIVE) Urine WBC (Auto) (0-5) /HPF Urine RBC (Auto) (0-2) /HPF U Epithel Cells (Auto) (FEW) /HPF Urine Bacteria (Auto) (NEGATIVE) /HPF Urine RBC (0-5) Andrei/ul Urine Mucus (Auto) (NEGATIVE) /HPF Ur Culture Indicated? Urine Glucose (NEGATIVE) mg/dL Urine Opiates Level NEGATIVE (NEGATIVE) Ur Methadone NEGATIVE (NEGATIVE) Urine Barbiturates NEGATIVE (NEGATIVE) Ur Phencyclidine (PCP) NEGATIVE (NEGATIVE) Urine Amphetamine NEGATIVE (NEGATIVE) U Benzodiazepine Level NEGATIVE (NEGATIVE) Urine Cocaine NEGATIVE (NEGATIVE) Urine Marijuana (THC) POSITIVE (NEGATIVE) Ethyl Alcohol (0-10) mg/dL Influenza Type A Ag NEGATIVE (NEGATIVE) Influenza Type B Ag NEGATIVE (NEGATIVE) RSV (PCR) NEGATIVE (Negative) SARS-CoV-2 (PCR) NEGATIVE (NEGATIVE) 03/07/22 03/07/22 03/07/22 Range/Units 13:53 13:53 13:53 WBC 7.4 (4.0-10.5) x10^3/uL RBC 4.24 (4.1-5.6) x10^6/uL Hgb 11.5 L (12.5-18.0) g/dL Hct 38.1 L (42-50) % MCV 89.9 (78-100) fL MCH 27.1 (26-32) pg MCHC 30.2 L (32-36) g/dL RDW 15.0 H (11.5-14.0) % Plt Count 264 (150-450) x10^3/uL MPV 11.5 H (7.5-11.0) fL Gran % 69.9 H (36.0-66.0) % Immature Gran % (Auto) 0.3 (0.00-0.4) % Nucleat RBC Rel Count 0.0 (0.00-0.1) % Eos # (Auto) 0.06 (0-0.5) x10^3/uL Immature Gran # (Auto) 0.02 (0.00-0.03) x10^3u/L Absolute Lymphs (auto) 1.69 (1.0-4.6) x10^3/uL Absolute Monos (auto) 0.44 (0.0-1.3) x10^3/uL Absolute Nucleated RBC 0.00 (0.00-0.01) x10^3u/L Lymphocytes % 22.8 L (24.0-44.0) % Monocytes % 5.9 (0.0-12.0) % Eosinophils % 0.8 (0.00-5.0) % Basophils % 0.3 (0.0-0.4) % Absolute Granulocytes 5.18 (1.4-6.9) x10^3/uL Basophils # 0.02 (0-0.4) x10^3/uL Sodium 137 (137-145) mmol/L Potassium 4.1 (3.5-5.1) mmol/L Chloride 104 (98-107) mmol/L Carbon Dioxide 18 L (22-30) mmol/L Anion Gap 19.2 H (5-15) MEQ/L BUN 9 (9-20) mg/dL Creatinine 0.98 (0.66-1.25) mg/dL Estimated GFR > 60.0 ML/MIN Glucose 130 H (74-106) mg/dL POC Glucometer (74 to 106) mg/dL Lactic Acid (0.4-2.0) Calcium 9.3 (8.4-10.2) mg/dL Magnesium 2.2 (1.6-2.3) mg/dL Total Bilirubin 0.70 (0.2-1.3) mg/dL AST 41 (17-59) U/L ALT 32 (0-50) U/L Alkaline Phosphatase 58 (38-126) U/L Ammonia (9-30) umol/L Troponin I < 0.012 (0.000-0.034) ng/mL NT-Pro-B Natriuret Pep 110 (0-900) pg/mL Serum Total Protein 7.7 (6.3-8.2) g/dL Albumin 4.6 (3.5-5.0) g/dL Urinalys Dipstick Clnc Urine Color (YELLOW) Urine Appearance (CLEAR) Urine pH (5-6) Ur Specific Prue (1.005-1.025) POC Urine Protein Conf (Negative) Urine Ketones (NEGATIVE) Urine Nitrite (NEGATIVE) Urine Bilirubin (NEGATIVE) Urine Urobilinogen (0-1) mg/dL Urine Leukocytes (NEGATIVE) Urine WBC (Auto) (0-5) /HPF Urine RBC (Auto) (0-2) /HPF U Epithel Cells (Auto) (FEW) /HPF Urine Bacteria (Auto) (NEGATIVE) /HPF Urine RBC (0-5) Andrei/ul Urine Mucus (Auto) (NEGATIVE) /HPF Ur Culture Indicated? Urine Glucose (NEGATIVE) mg/dL Urine Opiates Level (NEGATIVE) Ur Methadone (NEGATIVE) Urine Barbiturates (NEGATIVE) Ur Phencyclidine (PCP) (NEGATIVE) Urine Amphetamine (NEGATIVE) U Benzodiazepine Level (NEGATIVE) Urine Cocaine (NEGATIVE) Urine Marijuana (THC) (NEGATIVE) Ethyl Alcohol < 10 (0-10) mg/dL Influenza Type A Ag (NEGATIVE) Influenza Type B Ag (NEGATIVE) RSV (PCR) (Negative) SARS-CoV-2 (PCR) (NEGATIVE) 03/07/22 Range/Units 13:44 WBC (4.0-10.5) x10^3/uL RBC (4.1-5.6) x10^6/uL Hgb (12.5-18.0) g/dL Hct (42-50) % MCV (78-100) fL MCH (26-32) pg MCHC (32-36) g/dL RDW (11.5-14.0) % Plt Count (150-450) x10^3/uL MPV (7.5-11.0) fL Gran % (36.0-66.0) % Immature Gran % (Auto) (0.00-0.4) % Nucleat RBC Rel Count (0.00-0.1) % Eos # (Auto) (0-0.5) x10^3/uL Immature Gran # (Auto) (0.00-0.03) x10^3u/L Absolute Lymphs (auto) (1.0-4.6) x10^3/uL Absolute Monos (auto) (0.0-1.3) x10^3/uL Absolute Nucleated RBC (0.00-0.01) x10^3u/L Lymphocytes % (24.0-44.0) % Monocytes % (0.0-12.0) % Eosinophils % (0.00-5.0) % Basophils % (0.0-0.4) % Absolute Granulocytes (1.4-6.9) x10^3/uL Basophils # (0-0.4) x10^3/uL Sodium (137-145) mmol/L Potassium (3.5-5.1) mmol/L Chloride (98-107) mmol/L Carbon Dioxide (22-30) mmol/L Anion Gap (5-15) MEQ/L BUN (9-20) mg/dL Creatinine (0.66-1.25) mg/dL Estimated GFR ML/MIN Glucose (74-106) mg/dL POC Glucometer 127 H (74 to 106) mg/dL Lactic Acid (0.4-2.0) Calcium (8.4-10.2) mg/dL Magnesium (1.6-2.3) mg/dL Total Bilirubin (0.2-1.3) mg/dL AST (17-59) U/L ALT (0-50) U/L Alkaline Phosphatase (38-126) U/L Ammonia (9-30) umol/L Troponin I (0.000-0.034) ng/mL NT-Pro-B Natriuret Pep (0-900) pg/mL Serum Total Protein (6.3-8.2) g/dL Albumin (3.5-5.0) g/dL Urinalys Dipstick Clnc Urine Color (YELLOW) Urine Appearance (CLEAR) Urine pH (5-6) Ur Specific Prue (1.005-1.025) POC Urine Protein Conf (Negative) Urine Ketones (NEGATIVE) Urine Nitrite (NEGATIVE) Urine Bilirubin (NEGATIVE) Urine Urobilinogen (0-1) mg/dL Urine Leukocytes (NEGATIVE) Urine WBC (Auto) (0-5) /HPF Urine RBC (Auto) (0-2) /HPF U Epithel Cells (Auto) (FEW) /HPF Urine Bacteria (Auto) (NEGATIVE) /HPF Urine RBC (0-5) Andrei/ul Urine Mucus (Auto) (NEGATIVE) /HPF Ur Culture Indicated? Urine Glucose (NEGATIVE) mg/dL Urine Opiates Level (NEGATIVE) Ur Methadone (NEGATIVE) Urine Barbiturates (NEGATIVE) Ur Phencyclidine (PCP) (NEGATIVE) Urine Amphetamine (NEGATIVE) U Benzodiazepine Level (NEGATIVE) Urine Cocaine (NEGATIVE) Urine Marijuana (THC) (NEGATIVE) Ethyl Alcohol (0-10) mg/dL Influenza Type A Ag (NEGATIVE) Influenza Type B Ag (NEGATIVE) RSV (PCR) (Negative) SARS-CoV-2 (PCR) (NEGATIVE) - Progress Progress: improved Progress Note: 03/07/22 16:56 56-year-old is evaluated for new onset seizure. Patient is postictal on presentation. Moving all 4 extremity and grossly neuro intact. Baseline work- up grossly unremarkable, lactate of 7.8 with no obvious focus of infection and I believe it is probably secondary to seizure. Given fluids. Will recheck lactate. CT head and cervical spine negative for any acute findings. Discussed with Dr. Martinez and neuro consult is obtained. Patient is still not back to baseline, he lives alone. Patient is being admitted for observation and further work-up as per neuro recommendations. Discussed with : Teodoro Will see patient in: hospital (observation) Counseled pt/family regarding: lab results, diagnosis, rad results - Departure Departure Disposition: Observation Clinical Impression: New onset seizure, Lactic acidosis Condition: Stable Critical Care Time: No
[2022-03-07 15:54] LABS: Mucus SLIGHT /HPF (NEGATIVE); WBC 0-2 /HPF (0-5)
[2022-03-07 15:59] LABS: Bacteria NONE SEEN /HPF (NEGATIVE); Urine Cultured Indicated? NO
[2022-03-07 16:05] LABS: Amphetamine,Urine NEGATIVE (NEGATIVE); Barbiturate,Urine NEGATIVE (NEGATIVE); Benzodiazepine,Urine NEGATIVE (NEGATIVE); Cocaine,Urine NEGATIVE (NEGATIVE); Methadone,Urine NEGATIVE (NEGATIVE); Opiate,Urine NEGATIVE (NEGATIVE); PCP,Urine NEGATIVE (NEGATIVE); THC,Urine POSITIVE (NEGATIVE)
[2022-03-07] MEDS ORDERED: TYLENOL 325 MG PO PRN (16:46)
[2022-03-07] MEDS ORDERED: DUONEB 0.5-3 MG/3 ml Neb IH PRN (16:46)
[2022-03-07 17:51] LABS: TSH, 3RD Generation 3.36 mIU/L (0.47-4.68)
[2022-03-07] MEDS: Sodium Chloride 0.9% W/ 20 mEq KCl/LITER 1,000 ML IV SCH (19:00)
--- NOTE | 2022-03-07 19:47 | XRAY ---
Indication: Seizure. Comparison: December 08, 2021 Portable chest again demonstrates normal heart and lungs. Bony thorax intact with mild degenerative changes. No new/acute findings.
--- NOTE | 2022-03-07 19:47 | XRAY ---
Indication: Seizure. Confusion. Multiple contiguous images obtained through the cervical spine. Sagittal and coronal reformatted images obtained. Comparison: None Axial images negative for acute fracture, suspicious bony lesions, or spinal canal stenosis. Mild/moderate C4-C7 degenerative endplate spurring and moderate multilevel bilateral degenerative facet hypertrophy. Sagittal and coronal reformatted images demonstrates lordotic straightening, positional versus paraspinal spasm. C5-C7 degenerative disc space loss. No acute compression fracture, subluxation, or jumped facet. Normal appearing craniocervical junction. Visualized noncontrasted soft tissues including lung apices are unremarkable. Impression: 1. Lordotic straightening, positional versus paraspinal spasm. 2. Negative acute fracture/subluxation. 3. Multilevel degenerative changes. Comment: Preliminary interpretation made by [facility]. No critical discrepancy.
--- NOTE | 2022-03-07 19:47 | XRAY ---
Indication: Seizure. Confusion. Multiple contiguous axial images obtained through the head without contrast. Comparison: December 08, 2021 Again age-appropriate global atrophy. No acute intracranial hemorrhage, abnormal extra-axial fluid collection, or mass effect. Fourth ventricle is midline without hydrocephalus. Rios-white matter differentiation preserved. Bony calvarium intact. Visualized paranasal sinuses and mastoid air cells are clear. Impression: Continued negative CT head without contrast exam. Comment: Preliminary interpretation made by [facility]. No critical discrepancy.
[2022-03-07] MEDS: Nicoderm CQ 21 MG TOP SCH (21:22)
[2022-03-07] MEDS ORDERED: Restoril 15 MG PO ONE (22:00)
[2022-03-07] MEDS ORDERED: DESYREL 50 MG PO ONE (22:00)
[2022-03-07] MEDS ORDERED: Protonix 40MG Tablet PO ONE (22:00)
[2022-03-08] MEDS ORDERED: Sodium Chloride 0.9% W/ 20 mEq KCl/LITER 1,000 ML IV ONE (04:51)
[2022-03-08] MEDS: Sodium Chloride 0.9% W/ 20 mEq KCl/LITER 1,000 ML IV SCH ×3 (04:51→23:42)
[2022-03-08 05:54] LABS: Absolute Neutrophil Ct (ANC) 3.51 x10^3/uL (1.4-6.9); Basophil (Absolute #) 0.02 x10^3/uL (0-0.4); Eosinophil % 3.4 % (0.00-5.0); Eosinophil (Absolute #) 0.22 x10^3/uL (0-0.5); Hemoglobin 9.7 g/dL (12.5-18.0); Lymphocyte (Absolute #) 2.18 x10^3/uL (1.0-4.6); Lymphocytes % 33.2 % (24.0-44.0); Mean Cell Volume 89.6 fL (78-100); Mean Corpuscular Hemoglobin 27.2 pg (26-32); Mean Corpuscular Hgb Concent. 30.3 g/dL (32-36); Mean Platelet Volume 11.1 fL (7.5-11.0); Monocyte (Absolute #) 0.62 x10^3/uL (0.0-1.3); Monocytes % 9.5 % (0.0-12.0); Neutrophil % 53.4 % (36.0-66.0); Platelet Count 183 x10^3/uL (150-450); Red Blood Count 3.57 x10^6/uL (4.1-5.6); Red Cell Distribution Width 15.1 % (11.5-14.0); White Blood Count 6.6 x10^3/uL (4.0-10.5)
[2022-03-08 06:20] LABS: ANION GAP 6.4 MEQ/L (5-15); BLOOD UREA NITROGEN 7 mg/dL (9-20); CHLORIDE 111 mmol/L (98-107); Calcium 8.2 mg/dL (8.4-10.2); Carbon Dioxide 24 mmol/L (22-30); Creatinine 1 0.81 mg/dL (0.66-1.25); EST GLOMERULAR FILTRATION RATE > 60.0 ML/MIN; Glucose 100 mg/dL (74-106); Potassium 3.8 mmol/L (3.5-5.1); SODIUM 138 mmol/L (137-145)
[2022-03-08] MEDS ORDERED: PROTONIX 40 MG IV IV SCH (10:00)
[2022-03-08] MEDS: Wellbutrin SR 150 MG PO SCH (11:15)
[2022-03-08] MEDS: PLAVIX Tablet PO SCH (11:15)
[2022-03-08] MEDS: ZOCOR 20MG PO SCH (11:15)
[2022-03-08] MEDS: ECOTRIN 81 MG PO SCH (11:15)
--- NOTE | 2022-03-08 15:17 | PCM.HP ---
History of Present Illness - Chief Complaint Chief Complaint: New onset seizure History of Present Illness: is a 56 year old male patient of Dr Julien who presented to ER with apparent seizure,found by his neighbor friend. . Medications & Allergies Home Medications: Home Medication List Aspirin [Low Dose Aspirin EC] 81 mg PO DAILY 06/26/21 [History Confirmed 03/07/22] Clopidogrel Bisulfate [Clopidogrel] 75 mg PO DAILY 06/26/21 [History Confirmed 03/07/22] PANTOPRAZOLE 40 mg Tablet [Protonix 40MG Tablet] 40 mg PO HS 06/26/21 [History Confirmed 03/07/22] Simvastatin 20Mg [Zocor 20Mg] 20 mg PO DAILY 06/26/21 [History Confirmed 03/07/22] Bupropion HCl 150 mg Sr [Wellbutrin SR 150 MG] 150 mg PO DAILY 12/08/21 [History Confirmed 03/07/22] Temazepam 30 mg PO HS 12/08/21 [History Confirmed 03/07/22] Aripiprazole Lauroxil [Aristada] 662 mg IJ UD 03/07/22 [History Confirmed 03/07/22] Trazodone HCl 100 mg PO HS 03/07/22 [History Confirmed 03/07/22] Allergies/Adverse Reactions: Allergies Allergy/AdvReac Type Severity Reaction Status Date / Time quetiapine [From Seroquel] Allergy Severe Verified 03/07/22 13:24 carisoprodol [From Soma] Allergy Hives Verified 03/07/22 13:24 diphenhydramine Allergy Hives Verified 03/07/22 13:24 [From Benadryl] - Past Medical History Past Medical History: Yes Neurological History: Migraines, Seizures, TIA ENT History: Other Cardiac History: High Cholesterol, Hypertension Respiratory History: Asthma Endocrine Medical History: No Pertinent History Musculoskelatal History: Arthritis, Other GI Medical History: Other History: Other Pyscho-Social History: Anxiety, Bipolar, Depression Male Reproductive Disorders: Other Comment: prior suicide attempts by over dose. Cutting, anxiety, schizophrenia. Insomnia. Binge drinking. - Past Surgical History Past Surgical History: No Neuro Surgical History: No Pertinent History Cardiac History: No Pertinent History Respiratory Surgery: No Pertinent History GI Surgical History: No Pertinent History Genitourinary Surgical Hx: No Pertinent History Musculskeletal Surgical Hx: No Pertinent History Male Surgical History: No Pertinent History - Social History Smoking Status: Current every day smoker How long have you smoked: 35 years Exposure to second hand smoke: Yes Alcohol: None Drug Use: marijuana Significant Family History: no pertinent family hx - Physical Exam Vital Signs: Vital Signs - 24 hr Temp Pulse Resp BP BP Pulse Ox 03/08/22 15:05 97.6 F 69 16 144/76 97 03/08/22 11:40 98.2 F 60 16 128/78 93 L 03/08/22 07:31 98.7 F 71 16 114/67 95 03/08/22 04:00 97.5 F 68 20 116/63 97 03/08/22 00:00 97.5 F 66 16 123/72 96 03/07/22 20:00 97.8 F 73 16 126/69 96 03/07/22 17:38 98.7 F 75 18 133/76 133/79 96 03/07/22 17:28 75 18 96 03/07/22 17:10 96 03/07/22 16:00 72 16 133/79 97 Results - Labs Lab/Micro Results: Lab Results-Last 24 Hours 03/07/22 03/07/22 03/07/22 Range/Units 00:23 14:43 15:26 WBC (4.0-10.5) x10^3/uL RBC (4.1-5.6) x10^6/uL Hgb (12.5-18.0) g/dL Hct (42-50) % MCV (78-100) fL MCH (26-32) pg MCHC (32-36) g/dL RDW (11.5-14.0) % Plt Count (150-450) x10^3/uL MPV (7.5-11.0) fL Gran % (36.0-66.0) % Immature Gran % (Auto) (0.00-0.4) % Nucleat RBC Rel Count (0.00-0.1) % Eos # (Auto) (0-0.5) x10^3/uL Immature Gran # (Auto) (0.00-0.03) x10^3u/L Absolute Lymphs (auto) (1.0-4.6) x10^3/uL Absolute Monos (auto) (0.0-1.3) x10^3/uL Absolute Nucleated RBC (0.00-0.01) x10^3u/L Lymphocytes % (24.0-44.0) % Monocytes % (0.0-12.0) % Eosinophils % (0.00-5.0) % Basophils % (0.0-0.4) % Absolute Granulocytes (1.4-6.9) x10^3/uL Basophils # (0-0.4) x10^3/uL Sodium (137-145) mmol/L Potassium (3.5-5.1) mmol/L Chloride (98-107) mmol/L Carbon Dioxide (22-30) mmol/L Anion Gap (5-15) MEQ/L BUN (9-20) mg/dL Creatinine (0.66-1.25) mg/dL Estimated GFR ML/MIN Glucose (74-106) mg/dL Lactic Acid (0.4-2.0) Calcium (8.4-10.2) mg/dL Ammonia (9-30) umol/L Troponin I < 0.012 (0.000-0.034) ng/mL Vitamin B12 (239-931) pg/mL TSH 3rd Generation (0.47-4.68) mIU/L Urinalys Dipstick Clnc Urine Color (YELLOW) Urine Appearance (CLEAR) Urine pH (5-6) Ur Specific [place] (1.005-1.025) POC Urine Protein Conf (Negative) Urine Ketones (NEGATIVE) Urine Nitrite (NEGATIVE) Urine Bilirubin (NEGATIVE) Urine Urobilinogen (0-1) mg/dL Urine Leukocytes (NEGATIVE) Urine WBC (Auto) (0-5) /HPF Urine RBC (Auto) (0-2) /HPF U Epithel Cells (Auto) (FEW) /HPF Urine Bacteria (Auto) (NEGATIVE) /HPF Urine RBC (0-5) Andrei/ul Urine Mucus (Auto) (NEGATIVE) /HPF Ur Culture Indicated? Urine Glucose (NEGATIVE) mg/dL Urine Opiates Level NEGATIVE (NEGATIVE) Ur Methadone NEGATIVE (NEGATIVE) Urine Barbiturates NEGATIVE (NEGATIVE) Ur Phencyclidine (PCP) NEGATIVE (NEGATIVE) Urine Amphetamine NEGATIVE (NEGATIVE) U Benzodiazepine Level NEGATIVE (NEGATIVE) Urine Cocaine NEGATIVE (NEGATIVE) Urine Marijuana (THC) POSITIVE (NEGATIVE) Influenza Type A Ag NEGATIVE (NEGATIVE) Influenza Type B Ag NEGATIVE (NEGATIVE) RSV (PCR) NEGATIVE (Negative) SARS-CoV-2 (PCR) NEGATIVE (NEGATIVE) 03/07/22 03/07/22 03/07/22 Range/Units 15:26 16:04 16:21 WBC (4.0-10.5) x10^3/uL RBC (4.1-5.6) x10^6/uL Hgb (12.5-18.0) g/dL Hct (42-50) % MCV (78-100) fL MCH (26-32) pg MCHC (32-36) g/dL RDW (11.5-14.0) % Plt Count (150-450) x10^3/uL MPV (7.5-11.0) fL Gran % (36.0-66.0) % Immature Gran % (Auto) (0.00-0.4) % Nucleat RBC Rel Count (0.00-0.1) % Eos # (Auto) (0-0.5) x10^3/uL Immature Gran # (Auto) (0.00-0.03) x10^3u/L Absolute Lymphs (auto) (1.0-4.6) x10^3/uL Absolute Monos (auto) (0.0-1.3) x10^3/uL Absolute Nucleated RBC (0.00-0.01) x10^3u/L Lymphocytes % (24.0-44.0) % Monocytes % (0.0-12.0) % Eosinophils % (0.00-5.0) % Basophils % (0.0-0.4) % Absolute Granulocytes (1.4-6.9) x10^3/uL Basophils # (0-0.4) x10^3/uL Sodium (137-145) mmol/L Potassium (3.5-5.1) mmol/L Chloride (98-107) mmol/L Carbon Dioxide (22-30) mmol/L Anion Gap (5-15) MEQ/L BUN (9-20) mg/dL Creatinine (0.66-1.25) mg/dL Estimated GFR ML/MIN Glucose (74-106) mg/dL Lactic Acid 2.4 H (0.4-2.0) Calcium (8.4-10.2) mg/dL Ammonia (9-30) umol/L Troponin I < 0.012 (0.000-0.034) ng/mL Vitamin B12 (239-931) pg/mL TSH 3rd Generation (0.47-4.68) mIU/L Urinalys Dipstick Clnc MAIN LAB Urine Color YELLOW (YELLOW) Urine Appearance CLEAR (CLEAR) Urine pH 6.5 (5-6) Ur Specific [place] >=1.030 A (1.005-1.025) POC Urine Protein Conf 30 A (Negative) Urine Ketones NEGATIVE (NEGATIVE) Urine Nitrite NEGATIVE (NEGATIVE) Urine Bilirubin NEGATIVE (NEGATIVE) Urine Urobilinogen 0.2 (0-1) mg/dL Urine Leukocytes NEGATIVE (NEGATIVE) Urine WBC (Auto) 0-2 (0-5) /HPF Urine RBC (Auto) 3-5 A (0-2) /HPF U Epithel Cells (Auto) NONE (FEW) /HPF Urine Bacteria (Auto) NONE SEEN (NEGATIVE) /HPF Urine RBC NEGATIVE (0-5) Andrei/ul Urine Mucus (Auto) SLIGHT A (NEGATIVE) /HPF Ur Culture Indicated? NO Urine Glucose NEGATIVE (NEGATIVE) mg/dL Urine Opiates Level (NEGATIVE) Ur Methadone (NEGATIVE) Urine Barbiturates (NEGATIVE) Ur Phencyclidine (PCP) (NEGATIVE) Urine Amphetamine (NEGATIVE) U Benzodiazepine Level (NEGATIVE) Urine Cocaine (NEGATIVE) Urine Marijuana (THC) (NEGATIVE) Influenza Type A Ag (NEGATIVE) Influenza Type B Ag (NEGATIVE) RSV (PCR) (Negative) SARS-CoV-2 (PCR) (NEGATIVE) 03/07/22 03/07/22 03/07/22 Range/Units 16:21 16:46 21:14 WBC (4.0-10.5) x10^3/uL RBC (4.1-5.6) x10^6/uL Hgb (12.5-18.0) g/dL Hct (42-50) % MCV (78-100) fL MCH (26-32) pg MCHC (32-36) g/dL RDW (11.5-14.0) % Plt Count (150-450) x10^3/uL MPV (7.5-11.0) fL Gran % (36.0-66.0) % Immature Gran % (Auto) (0.00-0.4) % Nucleat RBC Rel Count (0.00-0.1) % Eos # (Auto) (0-0.5) x10^3/uL Immature Gran # (Auto) (0.00-0.03) x10^3u/L Absolute Lymphs (auto) (1.0-4.6) x10^3/uL Absolute Monos (auto) (0.0-1.3) x10^3/uL Absolute Nucleated RBC (0.00-0.01) x10^3u/L Lymphocytes % (24.0-44.0) % Monocytes % (0.0-12.0) % Eosinophils % (0.00-5.0) % Basophils % (0.0-0.4) % Absolute Granulocytes (1.4-6.9) x10^3/uL Basophils # (0-0.4) x10^3/uL Sodium (137-145) mmol/L Potassium (3.5-5.1) mmol/L Chloride (98-107) mmol/L Carbon Dioxide (22-30) mmol/L Anion Gap (5-15) MEQ/L BUN (9-20) mg/dL Creatinine (0.66-1.25) mg/dL Estimated GFR ML/MIN Glucose (74-106) mg/dL Lactic Acid (0.4-2.0) Calcium (8.4-10.2) mg/dL Ammonia < 9 L (9-30) umol/L Troponin I < 0.012 (0.000-0.034) ng/mL Vitamin B12 427 (239-931) pg/mL TSH 3rd Generation 3.360 (0.47-4.68) mIU/L Urinalys Dipstick Clnc Urine Color (YELLOW) Urine Appearance (CLEAR) Urine pH (5-6) Ur Specific [place] (1.005-1.025) POC Urine Protein Conf (Negative) Urine Ketones (NEGATIVE) Urine Nitrite (NEGATIVE) Urine Bilirubin (NEGATIVE) Urine Urobilinogen (0-1) mg/dL Urine Leukocytes (NEGATIVE) Urine WBC (Auto) (0-5) /HPF Urine RBC (Auto) (0-2) /HPF U Epithel Cells (Auto) (FEW) /HPF Urine Bacteria (Auto) (NEGATIVE) /HPF Urine RBC (0-5) Andrei/ul Urine Mucus (Auto) (NEGATIVE) /HPF Ur Culture Indicated? Urine Glucose (NEGATIVE) mg/dL Urine Opiates Level (NEGATIVE) Ur Methadone (NEGATIVE) Urine Barbiturates (NEGATIVE) Ur Phencyclidine (PCP) (NEGATIVE) Urine Amphetamine (NEGATIVE) U Benzodiazepine Level (NEGATIVE) Urine Cocaine (NEGATIVE) Urine Marijuana (THC) (NEGATIVE) Influenza Type A Ag (NEGATIVE) Influenza Type B Ag (NEGATIVE) RSV (PCR) (Negative) SARS-CoV-2 (PCR) (NEGATIVE) 03/08/22 03/08/22 Range/Units 05:36 05:36 WBC 6.6 (4.0-10.5) x10^3/uL RBC 3.57 L (4.1-5.6) x10^6/uL Hgb 9.7 L (12.5-18.0) g/dL Hct 32.0 L (42-50) % MCV 89.6 (78-100) fL MCH 27.2 (26-32) pg MCHC 30.3 L (32-36) g/dL RDW 15.1 H (11.5-14.0) % Plt Count 183 (150-450) x10^3/uL MPV 11.1 H (7.5-11.0) fL Gran % 53.4 (36.0-66.0) % Immature Gran % (Auto) 0.2 (0.00-0.4) % Nucleat RBC Rel Count 0.0 (0.00-0.1) % Eos # (Auto) 0.22 (0-0.5) x10^3/uL Immature Gran # (Auto) 0.01 (0.00-0.03) x10^3u/L Absolute Lymphs (auto) 2.18 (1.0-4.6) x10^3/uL Absolute Monos (auto) 0.62 (0.0-1.3) x10^3/uL Absolute Nucleated RBC 0.00 (0.00-0.01) x10^3u/L Lymphocytes % 33.2 (24.0-44.0) % Monocytes % 9.5 (0.0-12.0) % Eosinophils % 3.4 (0.00-5.0) % Basophils % 0.3 (0.0-0.4) % Absolute Granulocytes 3.51 (1.4-6.9) x10^3/uL Basophils # 0.02 (0-0.4) x10^3/uL Sodium 138 (137-145) mmol/L Potassium 3.8 (3.5-5.1) mmol/L Chloride 111 H (98-107) mmol/L Carbon Dioxide 24 (22-30) mmol/L Anion Gap 6.4 (5-15) MEQ/L BUN 7 L (9-20) mg/dL Creatinine 0.81 (0.66-1.25) mg/dL Estimated GFR > 60.0 ML/MIN Glucose 100 (74-106) mg/dL Lactic Acid (0.4-2.0) Calcium 8.2 L (8.4-10.2) mg/dL Ammonia (9-30) umol/L Troponin I (0.000-0.034) ng/mL Vitamin B12 (239-931) pg/mL TSH 3rd Generation (0.47-4.68) mIU/L Urinalys Dipstick Clnc Urine Color (YELLOW) Urine Appearance (CLEAR) Urine pH (5-6) Ur Specific [place] (1.005-1.025) POC Urine Protein Conf (Negative) Urine Ketones (NEGATIVE) Urine Nitrite (NEGATIVE) Urine Bilirubin (NEGATIVE) Urine Urobilinogen (0-1) mg/dL Urine Leukocytes (NEGATIVE) Urine WBC (Auto) (0-5) /HPF Urine RBC (Auto) (0-2) /HPF U Epithel Cells (Auto) (FEW) /HPF Urine Bacteria (Auto) (NEGATIVE) /HPF Urine RBC (0-5) Andrei/ul Urine Mucus (Auto) (NEGATIVE) /HPF Ur Culture Indicated? Urine Glucose (NEGATIVE) mg/dL Urine Opiates Level (NEGATIVE) Ur Methadone (NEGATIVE) Urine Barbiturates (NEGATIVE) Ur Phencyclidine (PCP) (NEGATIVE) Urine Amphetamine (NEGATIVE) U Benzodiazepine Level (NEGATIVE) Urine Cocaine (NEGATIVE) Urine Marijuana (THC) (NEGATIVE) Influenza Type A Ag (NEGATIVE) Influenza Type B Ag (NEGATIVE) RSV (PCR) (Negative) SARS-CoV-2 (PCR) (NEGATIVE) - Radiology Impressions Radiology Exams & Impressions: Radiology Procedures Category Date Time Status CERVICAL SPINE WO CONTRAST [CT] Stat Exams 03/07/22 13:38 Completed CHEST 1 VIEW (PORTABLE) Stat Exams 03/07/22 13:38 Completed HEAD WITHOUT CONTRAST [CT] Stat Exams 03/07/22 13:38 Completed MRI BRAIN W & W/O CONTRAST [MRI] Routine Exams 03/08/22 14:14 Ordered - Other Procedures and Tests Respiratory Therapy 03/08/22 14:15 EEG 41-60 Minutes (Normal) ONCE
[2022-03-08] MEDS: Nicoderm CQ 21 MG TOP SCH (18:13)
[2022-03-08] MEDS ORDERED: DESYREL 50 MG PO SCH (22:00)
[2022-03-08] MEDS ORDERED: Protonix 40MG Tablet PO SCH (22:00)
[2022-03-08] MEDS ORDERED: NON-FORMULARY ITEM (Temazepam [Temazepam] 30 MG Capsule) PO SCH (22:00)
[2022-03-08] MEDS ORDERED: NON-FORMULARY ITEM (Trazodone Hcl [Trazodone Hcl] 100 MG Tablet) PO SCH (22:00)
[2022-03-08] MEDS ORDERED: Restoril 15 MG PO SCH (22:00)
[2022-03-09] MEDS: Wellbutrin SR 150 MG PO SCH (08:46)
[2022-03-09] MEDS: PLAVIX Tablet PO SCH (08:47)
[2022-03-09] MEDS: ZOCOR 20MG PO SCH (08:47)
[2022-03-09] MEDS: ECOTRIN 81 MG PO SCH (08:47)
[2022-03-09 11:44] VITALS: PULSE 65
[2022-03-09] MEDS ORDERED: Valium 5 MG PO ONE (13:00)
--- NOTE | 2022-03-09 15:26 | XRAY ---
Indication: New onset seizure. Sagittal, coronal, and axial MRI brain performed using pre and post T1, T2, FLAIR, diffusion, and ADC sequences. 15 cc Dotarem contrast used. Comparison: None Ventriculosulcal pattern appears symmetric. No acute intracranial hemorrhage, abnormal extra-axial fluid collection, or mass effect. Diffusion images are negative for restricted signal. Negative for mesial temporal sclerosis. Following gadolinium, there is no abnormal enhancing intra or extra-axial mass. Fourth ventricle is midline without hydrocephalus. 7/8 cranial nerve complex bilaterally symmetric. Normal flow void signal within the major intracerebral circulation. Normal appearing craniocervical junction and sella turcica. Paranasal sinuses are clear. Impression: Negative MRI brain with contrast exam.
[2022-03-09 16:25] LABS: Absolute Neutrophil Ct (ANC) 3.83 x10^3/uL (1.4-6.9); Basophil (Absolute #) 0.02 x10^3/uL (0-0.4); Eosinophil % 3.3 % (0.00-5.0); Eosinophil (Absolute #) 0.22 x10^3/uL (0-0.5); Hematocrit 35.3 % (42-50); Hemoglobin 10.8 g/dL (12.5-18.0); Lymphocyte (Absolute #) 2.05 x10^3/uL (1.0-4.6); Lymphocytes % 30.8 % (24.0-44.0); Mean Cell Volume 89.1 fL (78-100); Mean Corpuscular Hemoglobin 27.3 pg (26-32); Mean Corpuscular Hgb Concent. 30.6 g/dL (32-36); Mean Platelet Volume 11.2 fL (7.5-11.0); Monocyte (Absolute #) 0.53 x10^3/uL (0.0-1.3); Neutrophil % 57.4 % (36.0-66.0); Platelet Count 196 x10^3/uL (150-450); Red Blood Count 3.96 x10^6/uL (4.1-5.6); Red Cell Distribution Width 14.8 % (11.5-14.0); White Blood Count 6.7 x10^3/uL (4.0-10.5)
[2022-03-09] MEDS ORDERED: KEPPRA PO SCH (16:30)
[2022-03-09 16:56] VITALS: BP 139/74; O2SAT 98
[2022-03-09 16:57] LABS: ALBUMIN 4.1 g/dL (3.5-5.0); ALKALINE PHOSPHATASE 58 U/L (38-126); BLOOD UREA NITROGEN 7 mg/dL (9-20); CHLORIDE 107 mmol/L (98-107); Carbon Dioxide 28 mmol/L (22-30); Creatinine 1 0.82 mg/dL (0.66-1.25); EST GLOMERULAR FILTRATION RATE > 60.0 ML/MIN; Glucose 96 mg/dL (74-106); Potassium 3.9 mmol/L (3.5-5.1); SGOT/AST 31 U/L (17-59); SGPT/ALT 21 U/L (0-50); SODIUM 141 mmol/L (137-145); Total Protein 6.9 g/dL (6.3-8.2)
== END 2022-03-09 17:49 | disposition home or self-care (01) ==
LOC: ED 13:21 → MED SURG 16:45
PROVIDERS: ADMIT Family Medicine; ATTEND Family Medicine
DX: R56.9 Unspecified convulsions (principal); F20.9 Schizophrenia, unspecified; F32.A Depression, unspecified; Z72.0 Tobacco use; Z79.899 Other long term (current) drug therapy; Z20.828 Contact with and (suspected) exposure to other viral communicable diseases; Z86.73 Personal history of transient ischemic attack (TIA), and cerebral infarction without residual deficits; I10 Essential (primary) hypertension
CPT/HCPCS: 0241U; 36000; 36415; 70450; 70553; 71045; 72125; 80048; 80053; 80307; 81015; 82140; 82607; 82947; 83605; 83735; 83880; 84443; 84484; 85025; 87040; 93005; 93041; 93268; 94760; 95812; 96365; 99285; G0378; G0480; J1953; A9270-GY

== ENCOUNTER 2022-04-21 11:01 | Inpatient (IN) | payer MEDICARE ==
[2022-04-21] MEDS ORDERED: Sodium Chloride 0.9% 1000 ML 1,000 ML IV STA ×2 (11:19→14:13)
[2022-04-21 11:36] LABS: Absolute Neutrophil Ct (ANC) 3.91 x10^3/uL (1.4-6.9); Basophil (Absolute #) 0.02 x10^3/uL (0-0.4); Eosinophil % 1.6 % (0.00-5.0); Hematocrit 38.8 % (42-50); Hemoglobin 12.2 g/dL (12.5-18.0); Lymphocyte (Absolute #) 1.82 x10^3/uL (1.0-4.6); Mean Cell Volume 82.2 fL (78-100); Mean Corpuscular Hemoglobin 25.8 pg (26-32); Mean Corpuscular Hgb Concent. 31.4 g/dL (32-36); Monocyte (Absolute #) 0.42 x10^3/uL (0.0-1.3); Monocytes % 6.7 % (0.0-12.0); Neutrophil % 62.2 % (36.0-66.0); Platelet Count 225 x10^3/uL (150-450); Red Blood Count 4.72 x10^6/uL (4.1-5.6); Red Cell Distribution Width 17.9 % (11.5-14.0); White Blood Count 6.3 x10^3/uL (4.0-10.5)
[2022-04-21] MEDS ORDERED: Sodium Chloride 0.9% 1000 ML 1,000 ML ONE ×2 (11:44→14:12)
[2022-04-21 11:52] LABS: INR 1.05 (0.8-3.0); PROTIME 11.1 SECONDS (9.4-12.5); PTT 27.3 SECONDS (25.1-36.5)
--- NOTE | 2022-04-21 11:52 | XRAY ---
Indication: Right sided weakness, acute mental status change, difficulty communicating. Recent diagnosis seizures. Multiple contiguous axial images obtained through the head without contrast. Comparison: March 07, 2022 Again age-appropriate global atrophy. No acute intracranial hemorrhage, abnormal extra-axial fluid collection, or mass effect. Fourth ventricle is midline without hydrocephalus. Rios-white matter differentiation preserved. Bony calvarium intact. Visualized paranasal sinuses and mastoid air cells are clear. Impression: Continued negative CT head without contrast exam.
[2022-04-21 11:53] LABS: ALBUMIN 4.3 g/dL (3.5-5.0); ALKALINE PHOSPHATASE 59 U/L (38-126); ANION GAP 9.7 MEQ/L (5-15); BLOOD UREA NITROGEN 11 mg/dL (9-20); CHLORIDE 107 mmol/L (98-107); Calcium 9.1 mg/dL (8.4-10.2); Carbon Dioxide 26 mmol/L (22-30); Creatinine 1 0.81 mg/dL (0.66-1.25); EST GLOMERULAR FILTRATION RATE > 60.0 ML/MIN; Glucose 98 mg/dL (74-106); Potassium 3.8 mmol/L (3.5-5.1); SGOT/AST 33 U/L (17-59); SGPT/ALT 19 U/L (0-50); SODIUM 138 mmol/L (137-145); Total Protein 7.2 g/dL (6.3-8.2)
--- NOTE | 2022-04-21 11:53 | XRAY ---
Indication: Acute mental status change. Comparison: March 07, 2022 Portable chest again demonstrates normal heart and lungs. Bony thorax intact with mild degenerative changes. No new/acute findings.
[2022-04-21 15:08] LABS: INFLUENZA A NEGATIVE (NEGATIVE); INFLUENZA B NEGATIVE (NEGATIVE); RESPIRATORY SYNCTIAL VIRUS NEGATIVE (Negative); SARS-CoV-2 Xpert Express NEGATIVE (NEGATIVE)
--- NOTE | 2022-04-21 15:10 | ERPHSYRPT ---
- History of Present Illness Time Seen by Provider: 04/21/22 11:15 Source: patient, other ([facility] staff member Barbi) Exam Limitations: clinical condition Patient Subjective Stated Complaint: PT states "I am not sure what is going on, I am falling out.". [facility] staff stated "I work with him and something is wrong. He just started taking a seizure med in february and I am not sure if it is affecting his other meds or not. He also sometimes misses his meds." Triage Nursing Assessment: PT presented alert and confused. Pt eyes are fluttering, pt voice is quivering and he is difficult to understand. Pt in no apparent respiratory distress. Pt ambulates with no difficulty. Pt has intermittant cough. Physician History: Patient is a 56-year-old male who is followed by the [facility] who present s with a staff member with a complaint of being confused when and altered mentally. Staff member says that he has been on Keppra only for about 30 days and she wonders if this is not causing some of his confusion he also has concern constant blinking of the eyes. The staff member also says his speech is somewhat slurred. He knows where he is that he is in the hospital knows who he is but does not know the president and is confused otherwise. He was last known to be normal 2 weeks ago. Baseline/Normal Cognition: alert oriented x 3 Current Cognition: alert but confused Associated Symptoms: confusion Allergies/Adverse Reactions: quetiapine [From Seroquel] Allergy (Severe, Verified 03/07/22 13:24) seizures carisoprodol [From Soma] Allergy (Verified 03/07/22 13:24) Hives diphenhydramine [From Benadryl] Allergy (Verified 03/07/22 13:24) Hives Home Medications: Aspirin [Low Dose Aspirin EC] 81 mg PO DAILY 06/26/21 [History] Clopidogrel Bisulfate [Clopidogrel] 75 mg PO DAILY 06/26/21 [History] PANTOPRAZOLE 40 mg Tablet [Protonix 40MG Tablet] 40 mg PO HS 06/26/21 [History] Simvastatin 20Mg [Zocor 20Mg] 20 mg PO DAILY 06/26/21 [History] Bupropion HCl 150 mg Sr [Wellbutrin SR 150 MG] 150 mg PO DAILY 12/08/21 [History] Temazepam 30 mg PO HS 12/08/21 [History] Aripiprazole Lauroxil [Aristada] 662 mg IJ UD 03/07/22 [History] Trazodone HCl 100 mg PO HS 03/07/22 [History] Hx Tetanus, Diphtheria Vaccination/Date Given: No (unsure) Hx Influenza Vaccination/Date Given: Yes Hx Pneumococcal Vaccination/Date Given: No Travel Risk - International Travel Have you traveled outside of the country in past 3 weeks: No - Coronavirus Screening Are you exhibiting any of the following symptoms?: No Close contact with a COVID-19 positive Pt in past 14-21 Days: No - Vaccine Status Have you recieved a Covid-19 vaccination: Yes (unsure) [employer]: Moderna - Vaccination Dates Date of 2cond Vaccination (if applicable): 08/22/20 - Review of Systems All Other Systems: Unable due to condition - Past Medical History Pertinent Past Medical History: Yes Neurological History: Migraines, Seizures, TIA ENT History: Other Cardiac History: High Cholesterol, Hypertension Respiratory History: Asthma Endocrine Medical History: No Pertinent History Musculoskeletal History: Arthritis, Other GI Medical History: Other History: Other Psycho-Social History: Anxiety, Bipolar, Depression Male Reproductive Disorders: Other Other Medical History: prior suicide attempts by over dose. Cutting, anxiety, schizophrenia. Insomnia. Binge drinking. - Past Surgical History Past Surgical History: No Neuro Surgical History: No Pertinent History Cardiac: No Pertinent History Respiratory: No Pertinent History Gastrointestinal: No Pertinent History Genitourinary: No Pertinent History Musculoskeletal: No Pertinent History Male Surgical History: No Pertinent History - Social History Smoking Status: Current every day smoker How long have you smoked: 35 years Exposure to second hand smoke: Yes Drug Use: marijuana Patient Lives Alone: Yes Significant Family History: no pertinent family hx - Nursing Vital Signs Nursing Vital Signs: Initial Vital Signs Temperature 98.4 F 04/21/22 11:08 Pulse Rate 79 04/21/22 11:08 Respiratory Rate 20 04/21/22 11:08 Blood Pressure 163/84 04/21/22 11:08 O2 Sat by Pulse Oximetry 98 04/21/22 11:08 Pain Scale Pain Intensity 0 - Sharan Coma Scale Best Eye Response (Sharan): (4) open spontaneously Best Verbal Response ([place]): (4) confused conversation Best Motor Response (Sharan): (6) obeys commands [place] Total: 14 - Physical Exam Eye Exam: bilateral eye: other (But blinking of the eyes consistent with blepharospasm) Ears, Nose, Throat Exam: normal ENT inspection, moist mucous membranes Neck Exam: normal inspection, non-tender, supple Respiratory: normal breath sounds, lungs clear, airway intact, No respiratory distress Cardiovascular: regular rate/rhythm, No edema Gastrointestinal: soft, No tenderness, No distention Male Genitalia: other (Hypospadias) Back Exam: normal inspection, normal range of motion Extremity Exam: normal inspection, normal range of motion 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, 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 Exam: normal hearing, abnormal speech, tongue midline Coordination/Gait: normal gait Motor/Sensory: no motor deficit, no sensory deficit Skin Exam: normal color, warm, dry SpO2 Interpretation: normal SpO2: 96 O2 Delivery: Room Air - Course Nursing assessment & vital signs reviewed: Yes - Radiology Exams Chest X-ray Interpretation: Reviewed by me - CT Exams Head CT Interpretation: Negative Ordered Tests: Active Orders 24 hr Category Date Time Status EKG-ER Only STAT Care 04/21/22 11:19 Active NPO (ED) STAT Care 04/21/22 11:20 Active CHEST 1 VIEW (PORTABLE) Stat Exams 04/21/22 11:20 Completed HEAD WITHOUT CONTRAST [CT] Stat Exams 04/21/22 11:36 Completed CBC W DIFF Stat Lab 04/21/22 11:20 Completed CMP Stat Lab 04/21/22 11:20 Completed Lactic Acid Stat Lab 04/21/22 11:40 Completed PROTIME WITH INR Stat Lab 04/21/22 11:20 Completed PTT Stat Lab 04/21/22 11:20 Completed UA W/RFX CULTURE Stat Lab 04/21/22 Ordered Urine Triage Profile Stat Lab 04/21/22 Ordered Medication Summary Generic Name Dose Route Start Last Admin Trade Name Freq PRN Reason Stop Dose Admin Sodium Chloride 1,000 mls @ 999 mls/hr 04/21/22 14:13 04/21/22 14:14 Sodium Chloride 0.9% 1000 Ml IV 04/21/22 15:13 999 mls/hr .Q1H1M STA Administration Discontinued Medications Generic Name Dose Route Start Last Admin Trade Name Freq PRN Reason Stop Dose Admin Sodium Chloride 1,000 mls @ 999 mls/hr 04/21/22 11:19 04/21/22 12:47 Sodium Chloride 0.9% 1000 Ml IV 04/21/22 12:19 Infused .Q1H1M STA Infusion Sodium Chloride Confirm 04/21/22 11:44 Sodium Chloride 0.9% 1000 Ml Administered 04/21/22 11:45 Dose 1,000 mls @ ud .ROUTE .STK-MED ONE Sodium Chloride Confirm 04/21/22 14:12 Sodium Chloride 0.9% 1000 Ml Administered 04/21/22 14:13 Dose 1,000 mls @ ud .ROUTE .STK-MED ONE Lab/Rad Data: Laboratory Result Diagrams 04/21/22 11:20 04/21/22 11:20 Laboratory Results 04/21/22 04/21/22 04/21/22 Range/Units 11:40 11:20 11:20 WBC (4.0-10.5) x10^3/uL RBC (4.1-5.6) x10^6/uL Hgb (12.5-18.0) g/dL Hct (42-50) % MCV (78-100) fL MCH (26-32) pg MCHC (32-36) g/dL RDW (11.5-14.0) % Plt Count (150-450) x10^3/uL MPV (7.5-11.0) fL Gran % (36.0-66.0) % Immature Gran % (Auto) (0.00-0.4) % Nucleat RBC Rel Count (0.00-0.1) % Eos # (Auto) (0-0.5) x10^3/uL Immature Gran # (Auto) (0.00-0.03) x10^3u/L Absolute Lymphs (auto) (1.0-4.6) x10^3/uL Absolute Monos (auto) (0.0-1.3) x10^3/uL Absolute Nucleated RBC (0.00-0.01) x10^3u/L Lymphocytes % (24.0-44.0) % Monocytes % (0.0-12.0) % Eosinophils % (0.00-5.0) % Basophils % (0.0-0.4) % Absolute Granulocytes (1.4-6.9) x10^3/uL Basophils # (0-0.4) x10^3/uL PT 11.1 (9.4-12.5) SECONDS INR 1.05 (0.8-3.0) APTT 27.3 (25.1-36.5) SECONDS Sodium 138 (137-145) mmol/L Potassium 3.8 (3.5-5.1) mmol/L Chloride 107 (98-107) mmol/L Carbon Dioxide 26 (22-30) mmol/L Anion Gap 9.7 (5-15) MEQ/L BUN 11 (9-20) mg/dL Creatinine 0.81 (0.66-1.25) mg/dL Estimated GFR > 60.0 ML/MIN Glucose 98 (74-106) mg/dL Lactic Acid 0.9 (0.4-2.0) Calcium 9.1 (8.4-10.2) mg/dL Total Bilirubin 0.80 (0.2-1.3) mg/dL AST 33 (17-59) U/L ALT 19 (0-50) U/L Alkaline Phosphatase 59 (38-126) U/L Serum Total Protein 7.2 (6.3-8.2) g/dL Albumin 4.3 (3.5-5.0) g/dL 04/21/22 Range/Units 11:20 WBC 6.3 (4.0-10.5) x10^3/uL RBC 4.72 (4.1-5.6) x10^6/uL Hgb 12.2 L (12.5-18.0) g/dL Hct 38.8 L (42-50) % MCV 82.2 (78-100) fL MCH 25.8 L (26-32) pg MCHC 31.4 L (32-36) g/dL RDW 17.9 H (11.5-14.0) % Plt Count 225 (150-450) x10^3/uL MPV 11.0 (7.5-11.0) fL Gran % 62.2 (36.0-66.0) % Immature Gran % (Auto) 0.2 (0.00-0.4) % Nucleat RBC Rel Count 0.0 (0.00-0.1) % Eos # (Auto) 0.10 (0-0.5) x10^3/uL Immature Gran # (Auto) 0.01 (0.00-0.03) x10^3u/L Absolute Lymphs (auto) 1.82 (1.0-4.6) x10^3/uL Absolute Monos (auto) 0.42 (0.0-1.3) x10^3/uL Absolute Nucleated RBC 0.00 (0.00-0.01) x10^3u/L Lymphocytes % 29.0 (24.0-44.0) % Monocytes % 6.7 (0.0-12.0) % Eosinophils % 1.6 (0.00-5.0) % Basophils % 0.3 (0.0-0.4) % Absolute Granulocytes 3.91 (1.4-6.9) x10^3/uL Basophils # 0.02 (0-0.4) x10^3/uL PT (9.4-12.5) SECONDS INR (0.8-3.0) APTT (25.1-36.5) SECONDS Sodium (137-145) mmol/L Potassium (3.5-5.1) mmol/L Chloride (98-107) mmol/L Carbon Dioxide (22-30) mmol/L Anion Gap (5-15) MEQ/L BUN (9-20) mg/dL Creatinine (0.66-1.25) mg/dL Estimated GFR ML/MIN Glucose (74-106) mg/dL Lactic Acid (0.4-2.0) Calcium (8.4-10.2) mg/dL Total Bilirubin (0.2-1.3) mg/dL AST (17-59) U/L ALT (0-50) U/L Alkaline Phosphatase (38-126) U/L Serum Total Protein (6.3-8.2) g/dL Albumin (3.5-5.0) g/dL - Progress Progress: unchanged Discussed with : Heidi Will see patient in: hospital (observation) - Departure Departure Disposition: Home Clinical Impression: Altered mental status, Blepharospasm Condition: Fair Critical Care Time: No Referrals: HERNANDEZ HEBERT MD [Primary Care Provider] - Follow up/PCP as directed
[2022-04-21] MEDS ORDERED: Restoril 15 MG PO PRN ×2 (15:18→18:37)
[2022-04-21] MEDS: Sodium Chloride 0.9% 1000 ML 1,000 ML IV SCH (18:27)
[2022-04-21] MEDS ORDERED: KEPPRA PO ONE (22:00)
[2022-04-22] MEDS: Sodium Chloride 0.9% 1000 ML 1,000 ML IV SCH ×2 (03:08→21:03)
[2022-04-22 04:40] LABS: Hyaline Casts 0-2 /LPF (0-2); Mucus SLIGHT /HPF (NEGATIVE); RBC 0-2 /HPF (0-2); WBC 0-2 /HPF (0-5)
[2022-04-22 04:43] LABS: Appearance CLEAR (CLEAR); Bilirubin NEGATIVE (NEGATIVE); Dipstick done @ ? MAIN LAB; Glucose NEGATIVE (NEGATIVE); Ketones SMALL-15 (NEGATIVE); Nitrite NEGATIVE (NEGATIVE); Protein,Urine Dip NEGATIVE (Negative); RBC NEGATIVE Ery/ul (0-5); Specific Gravity >=1.030 (1.005-1.025); Urobilinogen 0.2 mg/dL (0-1)
[2022-04-22 04:55] LABS: Amphetamine,Urine NEGATIVE (NEGATIVE); Barbiturate,Urine NEGATIVE (NEGATIVE); Benzodiazepine,Urine NEGATIVE (NEGATIVE); Cocaine,Urine NEGATIVE (NEGATIVE); Methadone,Urine NEGATIVE (NEGATIVE); Opiate,Urine NEGATIVE (NEGATIVE); PCP,Urine NEGATIVE (NEGATIVE); THC,Urine POSITIVE (NEGATIVE); Urine Cultured Indicated? NO
[2022-04-22] MEDS: ECOTRIN 81 MG PO SCH (09:23)
[2022-04-22] MEDS: Wellbutrin SR 150 MG PO SCH (09:23)
[2022-04-22] MEDS: ZOCOR 20MG PO SCH (09:23)
[2022-04-22] MEDS: PLAVIX Tablet PO SCH (09:23)
[2022-04-22] MEDS: KEPPRA PO SCH ×2 (09:23→21:20)
[2022-04-22] MEDS ORDERED: ECOTRIN 81 MG PO SCH (10:00)
[2022-04-22] MEDS ORDERED: PROTONIX 40 MG IV IV SCH (10:00)
[2022-04-22] MEDS ORDERED: PLAVIX Tablet PO SCH (10:00)
--- NOTE | 2022-04-22 12:26 | PCM.HP ---
History of Present Illness - Chief Complaint Chief Complaint: confusion History of Present Illness: is a 56 year old male pt of Dr. Julien with PMHX migraine, sz, TIA, HLD, HTN, asthma, bipolar, depression, schizophrenia, insomnia, hx binge drinking, hx cutting, and hx prior ODs who was admitted through ER with AMS and blepherospasm. He does not remember coming in and cannot answer more than the most rudimentary question without embarking on a word salad type or at least very tangential remark. Apparently, per chart, [facility] staff found him to have AMS and continuously blinking eyes. Keppra is a relatively new med. His workup was basically negative. Lives alone, and last month was in hospital and per staff he was much more conversant last month. At his last admission, friend brought him in as he was unable to cut his food and having trouble with simple activities. A neighbor saw him having seizure like activity. Per friend last admission, pt is not good at taking his meds - skips some, but takes more than prescribed of other pills that he "likes." - Review of Systems All Other Systems: Unable due to condition Medications & Allergies Home Medications: Home Medication List Aspirin [Low Dose Aspirin EC] 81 mg PO DAILY 06/26/21 [History Confirmed 04/21/22] Clopidogrel Bisulfate [Clopidogrel] 75 mg PO DAILY 06/26/21 [History Confirmed 04/21/22] PANTOPRAZOLE 40 mg Tablet [Protonix 40MG Tablet] 40 mg PO HS 06/26/21 [History Confirmed 04/21/22] Simvastatin 20Mg [Zocor 20Mg] 20 mg PO DAILY 06/26/21 [History Confirmed 04/21/22] Bupropion HCl 150 mg Sr [Wellbutrin SR 150 MG] 150 mg PO DAILY 12/08/21 [History Confirmed 04/21/22] Temazepam 30 mg PO HS 12/08/21 [History Confirmed 04/21/22] Aripiprazole Lauroxil [Aristada] 662 mg IJ UD 03/07/22 [History Confirmed ] Trazodone HCl 100 mg PO HS 03/07/22 [History Confirmed 04/21/22] Levetiracetam [Keppra] 500 mg PO BID 30 Days #60 tablet 03/09/22 [Rx Confirmed 04/21/22] Allergies/Adverse Reactions: Allergies Allergy/AdvReac Type Severity Reaction Status Date / Time quetiapine [From Seroquel] Allergy Severe Verified 03/07/22 13:24 carisoprodol [From Soma] Allergy Hives Verified 03/07/22 13:24 diphenhydramine Allergy Hives Verified 03/07/22 13:24 [From Benadryl] - Past Medical History Past Medical History: Yes Neurological History: Migraines, Seizures, TIA ENT History: Other Cardiac History: High Cholesterol, Hypertension Respiratory History: Asthma Endocrine Medical History: No Pertinent History Musculoskelatal History: Arthritis, Other GI Medical History: Other History: Other Pyscho-Social History: Anxiety, Bipolar, Depression Male Reproductive Disorders: Other Comment: prior suicide attempts by over dose. Cutting, anxiety, schizophrenia. Insomnia. Binge drinking. - Past Surgical History Past Surgical History: No Neuro Surgical History: No Pertinent History Cardiac History: No Pertinent History Respiratory Surgery: No Pertinent History GI Surgical History: No Pertinent History Genitourinary Surgical Hx: No Pertinent History Musculskeletal Surgical Hx: No Pertinent History Male Surgical History: No Pertinent History - Social History Smoking Status: Current every day smoker How long have you smoked: 30 yrs Exposure to second hand smoke: Yes Alcohol: None Drug Use: marijuana Significant Family History: no pertinent family hx - Physical Exam Vital Signs: Vital Signs - 24 hr Temp Pulse Resp BP Pulse Ox 04/22/22 11:54 98.4 F 62 17 118/60 98 04/22/22 07:25 98.6 F 57 L 18 146/76 96 04/22/22 04:00 98.2 F 57 L 18 127/68 97 04/21/22 23:54 97.8 F 54 L 18 133/74 96 04/21/22 20:00 97.8 F 57 L 18 129/57 96 04/21/22 17:22 98.2 F 68 18 154/89 95 04/21/22 17:06 98.2 F 68 17 154/89 95 04/21/22 15:37 55 L 20 142/78 97 04/21/22 15:12 96 04/21/22 15:00 55 L 16 147/88 98 04/21/22 14:00 67 156/81 96 04/21/22 13:01 63 19 143/75 100 General Appearance: no apparent distress, alert (very pleasant) Neurologic Exam: cooperative (with simple commands), other (eyes blinking rapidly throughout interview.) Ears, Nose, Throat Exam: moist mucous membranes Neck Exam: normal inspection Respiratory Exam: normal breath sounds, lungs clear, No crackles/rales, No rhonchi, No wheezing Cardiovascular Exam: regular rate/rhythm, normal heart sounds, No murmur Gastrointestinal/Abdomen Exam: soft, normal bowel sounds, No tenderness, No distention, No mass, No guarding, No rebound Back Exam: normal inspection, No CVA tenderness, No rash Extremity Exam: normal inspection, No pedal edema, No swelling Skin Exam: normal color, warm, dry, No rash Results - Labs Lab/Micro Results: Lab Results-Last 24 Hours 04/21/22 04/21/22 04/21/22 Range/Units 04:37 04:37 11:20 WBC 5.6 6.3 (4.0-10.5) x10^3/uL RBC 4.27 4.72 (4.1-5.6) x10^6/uL Hgb 10.9 L 12.2 L (12.5-18.0) g/dL Hct 35.7 L 38.8 L (42-50) % MCV 83.6 82.2 (78-100) fL MCH 25.5 L 25.8 L (26-32) pg MCHC 30.5 L 31.4 L (32-36) g/dL RDW 17.4 H 17.9 H (11.5-14.0) % Plt Count 196 225 (150-450) x10^3/uL MPV 12.0 H 11.0 (7.5-11.0) fL Gran % 62.2 (36.0-66.0) % Immature Gran % (Auto) 0.2 (0.00-0.4) % Nucleat RBC Rel Count 0.0 (0.00-0.1) % Eos # (Auto) 0.10 (0-0.5) x10^3/uL Immature Gran # (Auto) 0.01 (0.00-0.03) x10^3u/L Absolute Lymphs (auto) 1.82 (1.0-4.6) x10^3/uL Absolute Monos (auto) 0.42 (0.0-1.3) x10^3/uL Absolute Nucleated RBC 0.00 (0.00-0.01) x10^3u/L Lymphocytes % 29.0 (24.0-44.0) % Monocytes % 6.7 (0.0-12.0) % Eosinophils % 1.6 (0.00-5.0) % Basophils % 0.3 (0.0-0.4) % Absolute Granulocytes 3.91 (1.4-6.9) x10^3/uL Basophils # 0.02 (0-0.4) x10^3/uL Sodium 137 (137-145) mmol/L Potassium 3.7 (3.5-5.1) mmol/L Chloride 110 H (98-107) mmol/L Carbon Dioxide 24 (22-30) mmol/L Anion Gap 6.3 (5-15) MEQ/L BUN 8 L (9-20) mg/dL Creatinine 0.69 (0.66-1.25) mg/dL Estimated GFR > 60.0 ML/MIN Glucose 84 (74-106) mg/dL Calcium 8.4 (8.4-10.2) mg/dL Total Bilirubin (0.2-1.3) mg/dL AST (17-59) U/L ALT (0-50) U/L Alkaline Phosphatase (38-126) U/L Serum Total Protein (6.3-8.2) g/dL Albumin (3.5-5.0) g/dL Prealbumin 16.43 L (17.6-36.0) mg/dL Urinalys Dipstick Clnc Urine Color (YELLOW) Urine Appearance (CLEAR) Urine pH (5-6) Ur Specific [place] (1.005-1.025) POC Urine Protein Conf (Negative) Urine Ketones (NEGATIVE) Urine Nitrite (NEGATIVE) Urine Bilirubin (NEGATIVE) Urine Urobilinogen (0-1) mg/dL Urine Leukocytes (NEGATIVE) Urine WBC (Auto) (0-5) /HPF Urine RBC (Auto) (0-2) /HPF U Hyaline Cast (Auto) (0-2) /LPF U Epithel Cells (Auto) (FEW) /HPF Urine Bacteria (Auto) (NEGATIVE) /HPF Urine RBC (0-5) Andrei/ul Urine Mucus (Auto) (NEGATIVE) /HPF Ur Culture Indicated? Urine Glucose (NEGATIVE) mg/dL Urine Opiates Level (NEGATIVE) Ur Methadone (NEGATIVE) Urine Barbiturates (NEGATIVE) Ur Phencyclidine (PCP) (NEGATIVE) Urine Amphetamine (NEGATIVE) U Benzodiazepine Level (NEGATIVE) Urine Cocaine (NEGATIVE) Urine Marijuana (THC) (NEGATIVE) Influenza Type A Ag (NEGATIVE) Influenza Type B Ag (NEGATIVE) RSV (PCR) (Negative) SARS-CoV-2 (PCR) (NEGATIVE) 04/21/22 04/21/22 04/22/22 Range/Units 11:20 14:30 04:17 WBC (4.0-10.5) x10^3/uL RBC (4.1-5.6) x10^6/uL Hgb (12.5-18.0) g/dL Hct (42-50) % MCV (78-100) fL MCH (26-32) pg MCHC (32-36) g/dL RDW (11.5-14.0) % Plt Count (150-450) x10^3/uL MPV (7.5-11.0) fL Gran % (36.0-66.0) % Immature Gran % (Auto) (0.00-0.4) % Nucleat RBC Rel Count (0.00-0.1) % Eos # (Auto) (0-0.5) x10^3/uL Immature Gran # (Auto) (0.00-0.03) x10^3u/L Absolute Lymphs (auto) (1.0-4.6) x10^3/uL Absolute Monos (auto) (0.0-1.3) x10^3/uL Absolute Nucleated RBC (0.00-0.01) x10^3u/L Lymphocytes % (24.0-44.0) % Monocytes % (0.0-12.0) % Eosinophils % (0.00-5.0) % Basophils % (0.0-0.4) % Absolute Granulocytes (1.4-6.9) x10^3/uL Basophils # (0-0.4) x10^3/uL Sodium 138 (137-145) mmol/L Potassium 3.8 (3.5-5.1) mmol/L Chloride 107 (98-107) mmol/L Carbon Dioxide 26 (22-30) mmol/L Anion Gap 9.7 (5-15) MEQ/L BUN 11 (9-20) mg/dL Creatinine 0.81 (0.66-1.25) mg/dL Estimated GFR > 60.0 ML/MIN Glucose 98 (74-106) mg/dL Calcium 9.1 (8.4-10.2) mg/dL Total Bilirubin 0.80 (0.2-1.3) mg/dL AST 33 (17-59) U/L ALT 19 (0-50) U/L Alkaline Phosphatase 59 (38-126) U/L Serum Total Protein 7.2 (6.3-8.2) g/dL Albumin 4.3 (3.5-5.0) g/dL Prealbumin (17.6-36.0) mg/dL Urinalys Dipstick Clnc MAIN LAB Urine Color YELLOW (YELLOW) Urine Appearance CLEAR (CLEAR) Urine pH 6.0 (5-6) Ur Specific [place] >=1.030 A (1.005-1.025) POC Urine Protein Conf NEGATIVE (Negative) Urine Ketones SMALL-15 A (NEGATIVE) Urine Nitrite NEGATIVE (NEGATIVE) Urine Bilirubin NEGATIVE (NEGATIVE) Urine Urobilinogen 0.2 (0-1) mg/dL Urine Leukocytes NEGATIVE (NEGATIVE) Urine WBC (Auto) 0-2 (0-5) /HPF Urine RBC (Auto) 0-2 (0-2) /HPF U Hyaline Cast (Auto) 0-2 (0-2) /LPF U Epithel Cells (Auto) NONE (FEW) /HPF Urine Bacteria (Auto) NONE (NEGATIVE) /HPF Urine RBC NEGATIVE (0-5) Andrei/ul Urine Mucus (Auto) SLIGHT A (NEGATIVE) /HPF Ur Culture Indicated? NO Urine Glucose NEGATIVE (NEGATIVE) mg/dL Urine Opiates Level (NEGATIVE) Ur Methadone (NEGATIVE) Urine Barbiturates (NEGATIVE) Ur Phencyclidine (PCP) (NEGATIVE) Urine Amphetamine (NEGATIVE) U Benzodiazepine Level (NEGATIVE) Urine Cocaine (NEGATIVE) Urine Marijuana (THC) (NEGATIVE) Influenza Type A Ag NEGATIVE (NEGATIVE) Influenza Type B Ag NEGATIVE (NEGATIVE) RSV (PCR) NEGATIVE (Negative) SARS-CoV-2 (PCR) NEGATIVE (NEGATIVE) 04/22/22 Range/Units 04:17 WBC (4.0-10.5) x10^3/uL RBC (4.1-5.6) x10^6/uL Hgb (12.5-18.0) g/dL Hct (42-50) % MCV (78-100) fL MCH (26-32) pg MCHC (32-36) g/dL RDW (11.5-14.0) % Plt Count (150-450) x10^3/uL MPV (7.5-11.0) fL Gran % (36.0-66.0) % Immature Gran % (Auto) (0.00-0.4) % Nucleat RBC Rel Count (0.00-0.1) % Eos # (Auto) (0-0.5) x10^3/uL Immature Gran # (Auto) (0.00-0.03) x10^3u/L Absolute Lymphs (auto) (1.0-4.6) x10^3/uL Absolute Monos (auto) (0.0-1.3) x10^3/uL Absolute Nucleated RBC (0.00-0.01) x10^3u/L Lymphocytes % (24.0-44.0) % Monocytes % (0.0-12.0) % Eosinophils % (0.00-5.0) % Basophils % (0.0-0.4) % Absolute Granulocytes (1.4-6.9) x10^3/uL Basophils # (0-0.4) x10^3/uL Sodium (137-145) mmol/L Potassium (3.5-5.1) mmol/L Chloride (98-107) mmol/L Carbon Dioxide (22-30) mmol/L Anion Gap (5-15) MEQ/L BUN (9-20) mg/dL Creatinine (0.66-1.25) mg/dL Estimated GFR ML/MIN Glucose (74-106) mg/dL Calcium (8.4-10.2) mg/dL Total Bilirubin (0.2-1.3) mg/dL AST (17-59) U/L ALT (0-50) U/L Alkaline Phosphatase (38-126) U/L Serum Total Protein (6.3-8.2) g/dL Albumin (3.5-5.0) g/dL Prealbumin (17.6-36.0) mg/dL Urinalys Dipstick Clnc Urine Color (YELLOW) Urine Appearance (CLEAR) Urine pH (5-6) Ur Specific [place] (1.005-1.025) POC Urine Protein Conf (Negative) Urine Ketones (NEGATIVE) Urine Nitrite (NEGATIVE) Urine Bilirubin (NEGATIVE) Urine Urobilinogen (0-1) mg/dL Urine Leukocytes (NEGATIVE) Urine WBC (Auto) (0-5) /HPF Urine RBC (Auto) (0-2) /HPF U Hyaline Cast (Auto) (0-2) /LPF U Epithel Cells (Auto) (FEW) /HPF Urine Bacteria (Auto) (NEGATIVE) /HPF Urine RBC (0-5) Andrei/ul Urine Mucus (Auto) (NEGATIVE) /HPF Ur Culture Indicated? Urine Glucose (NEGATIVE) mg/dL Urine Opiates Level NEGATIVE (NEGATIVE) Ur Methadone NEGATIVE (NEGATIVE) Urine Barbiturates NEGATIVE (NEGATIVE) Ur Phencyclidine (PCP) NEGATIVE (NEGATIVE) Urine Amphetamine NEGATIVE (NEGATIVE) U Benzodiazepine Level NEGATIVE (NEGATIVE) Urine Cocaine NEGATIVE (NEGATIVE) Urine Marijuana (THC) POSITIVE (NEGATIVE) Influenza Type A Ag (NEGATIVE) Influenza Type B Ag (NEGATIVE) RSV (PCR) (Negative) SARS-CoV-2 (PCR) (NEGATIVE) - Radiology Impressions Radiology Exams & Impressions: Radiology Procedures Category Date Time Status CHEST 1 VIEW (PORTABLE) Stat Exams 04/21/22 11:20 Completed HEAD WITHOUT CONTRAST [CT] Stat Exams 04/21/22 11:36 Completed MRI BRAIN W & W/O CONTRAST [MRI] Routine Exams 04/22/22 12:08 Ordered Assessment/Plan (1) Altered mental status Current Visit: Yes Status: Acute Qualifiers: Altered mental status type: disorientation Qualified Code(s): R41.0 - Disorientation, unspecified Assessment & Plan: Would like to do MRI brain but he will need to be sedated so want him to see teleneurology first. check ammonia, give banana bag. Code(s): R41.82 - ALTERED MENTAL STATUS, UNSPECIFIED (2) Seizure disorder Current Visit: Yes Status: Chronic Code(s): G40.909 - EPILEPSY, UNSP, NOT INTRACTABLE, WITHOUT STATUS EPILEPTICUS (3) Blepharospasm Current Visit: Yes Status: Acute Assessment & Plan: don't know etiology of this - consulting teleneurology. Code(s): G24.5 - BLEPHAROSPASM (4) HTN (hypertension) Current Visit: No Status: Chronic Code(s): I10 - ESSENTIAL (PRIMARY) HYPERTENSION (5) Schizophrenia Current Visit: No Status: Chronic Code(s): F20.9 - SCHIZOPHRENIA, UNSPECIFIED
[2022-04-22 12:57] LABS: ANION GAP 6.3 MEQ/L (5-15); BLOOD UREA NITROGEN 8 mg/dL (9-20); CHLORIDE 110 mmol/L (98-107); Calcium 8.4 mg/dL (8.4-10.2); Carbon Dioxide 24 mmol/L (22-30); Creatinine 1 0.69 mg/dL (0.66-1.25); EST GLOMERULAR FILTRATION RATE > 60.0 ML/MIN; Glucose 84 mg/dL (74-106); PREALBUMIN 16.43 mg/dL (17.6-36.0); Potassium 3.7 mmol/L (3.5-5.1); SODIUM 137 mmol/L (137-145)
[2022-04-22 13:02] LABS: Hematocrit 35.7 % (42-50); Hemoglobin 10.9 g/dL (12.5-18.0); Red Blood Count 4.27 x10^6/uL (4.1-5.6); White Blood Count 5.6 x10^3/uL (4.0-10.5)
[2022-04-22 13:03] LABS: Mean Cell Volume 83.6 fL (78-100); Mean Corpuscular Hemoglobin 25.5 pg (26-32); Mean Corpuscular Hgb Concent. 30.5 g/dL (32-36); Platelet Count 196 x10^3/uL (150-450); Red Cell Distribution Width 17.4 % (11.5-14.0)
[2022-04-22] MEDS ORDERED: THIAMINE 200 MG/2 ML*** 100 MG, Vitamins For Infusion 10 ML INJECTION*** 10 ML, FOLNATE... IV SCH ×8 (14:00)
[2022-04-22] MEDS: NICODERM CQ 14 MG TOP SCH (14:07)
[2022-04-22] MEDS: Protonix 40MG Tablet PO SCH (21:20)
[2022-04-22] MEDS ORDERED: NON-FORMULARY ITEM (Temazepam [Temazepam] 30 MG Capsule) PO SCH (22:00)
[2022-04-23] MEDS: Sodium Chloride 0.9% 1000 ML 1,000 ML IV SCH ×3 (00:30→20:53)
[2022-04-23 07:26] LABS: Absolute Neutrophil Ct (ANC) 4.17 x10^3/uL (1.4-6.9); Basophil (Absolute #) 0.02 x10^3/uL (0-0.4); Eosinophil (Absolute #) 0.12 x10^3/uL (0-0.5); Hemoglobin 11.3 g/dL (12.5-18.0); Lymphocytes % 22.8 % (24.0-44.0); Mean Cell Volume 84.5 fL (78-100); Mean Corpuscular Hemoglobin 25.8 pg (26-32); Mean Corpuscular Hgb Concent. 30.5 g/dL (32-36); Mean Platelet Volume 11.2 fL (7.5-11.0); Monocytes % 6.5 % (0.0-12.0); Neutrophil % 68.1 % (36.0-66.0); Platelet Count 191 x10^3/uL (150-450); Red Blood Count 4.38 x10^6/uL (4.1-5.6); Red Cell Distribution Width 17.5 % (11.5-14.0); White Blood Count 6.1 x10^3/uL (4.0-10.5)
[2022-04-23 08:25] LABS: ALBUMIN 3.6 g/dL (3.5-5.0); ALKALINE PHOSPHATASE 49 U/L (38-126); BLOOD UREA NITROGEN 7 mg/dL (9-20); CHLORIDE 111 mmol/L (98-107); Calcium 8.6 mg/dL (8.4-10.2); Carbon Dioxide 23 mmol/L (22-30); Creatinine 1 0.66 mg/dL (0.66-1.25); EST GLOMERULAR FILTRATION RATE > 60.0 ML/MIN; Glucose 94 mg/dL (74-106); Potassium 3.8 mmol/L (3.5-5.1); SGOT/AST 19 U/L (17-59); SGPT/ALT 13 U/L (0-50); SODIUM 137 mmol/L (137-145); Total Protein 6.2 g/dL (6.3-8.2)
[2022-04-23] MEDS: ZOCOR 20MG PO SCH (09:01)
[2022-04-23] MEDS: PLAVIX Tablet PO SCH (09:01)
[2022-04-23] MEDS: ECOTRIN 81 MG PO SCH (09:01)
[2022-04-23] MEDS: Wellbutrin SR 150 MG PO SCH (09:01)
[2022-04-23] MEDS: NICODERM CQ 14 MG TOP SCH ×2 (09:02→11:39)
[2022-04-23] MEDS: KEPPRA PO SCH ×2 (09:02→20:53)
[2022-04-23] MEDS: Ativan 0.5 MG PO SCH ×4 (09:13→20:53)
--- NOTE | 2022-04-23 11:18 | XRAY ---
Indication: Acute mental status change. Facial twitching. History seizures. Sagittal, coronal, and axial MRI brain performed using pre and post T1, T2, FLAIR, diffusion, and ADC sequences. 10 cc Dotarem contrast used. Comparison: March 09, 2022 Again age-appropriate global atrophy. Medial left temporal lobe demonstrates new moderate size focus of cortical/subcortical T2 signal spanning at least 5 x 3 cm in greatest axial dimension. No mass effect or abnormal enhancement.. In this patient with history of seizures, primary consideration is offered for status epilepticus versus mesial temporal sclerosis. Elsewhere no acute intracranial hemorrhage, abnormal extra-axial fluid collection, or mass effect. Diffusion images are negative for restricted signal. Following gadolinium, there is no abnormal enhancing intra-or extra-axial mass. Fourth ventricle is midline without hydrocephalus. 7/8 cranial nerve complex bilaterally symmetric. Normal flow void signal within the major intracerebral circulation. Normal appearing craniocervical junction and sella turcica. Visualized paranasal sinuses are clear. Impression: 1. New cortical/subcortical T2 signal in medial left temporal lobe as detailed. Given history of seizures, primary consideration is offered for status epilepticus versus mesial temporal sclerosis. 2. Remaining MRI brain with contrast exam is negative.
--- NOTE | 2022-04-23 11:51 | XRAY ---
Indication: Cough. Comparison: April 21, 2022 Portable chest continues to demonstrate normal heart and lungs. No new/acute findings.
--- NOTE | 2022-04-23 11:51 | XRAY ---
Indication: Pain. Comparison: None KUB nonacute and nonobstructed with mild diffuse scattered colonic fecal debris. Solid organs unremarkable. Osseous structures intact with moderate degenerative changes throughout the spine.
--- NOTE | 2022-04-23 13:22 | PCM.NOTE ---
Date and Time: 04/23/22 1318 Subjective Assessment: Pt had teleneuro consult yesterday, thank you. He is makoing more sense today. Spasms of face seem less in the dark or without stimulation. However today they are extending down toward R upper chest. Location is "[place]" and year is "2013." He can answer questions today. Says his stomach hurts some but not a lot. - Review of Systems Constitutional: No Fever Abdominal/Gastrointestinal: No Vomiting Objective Exam General Appearance: no apparent distress, alert Neurologic Exam: cooperative, disoriented Skin Exam: normal color, warm, dry, No rash Eye Exam: eyes nml inspection Ears, Nose, Throat Exam: moist mucous membranes Neck Exam: normal inspection Respiratory Exam: normal breath sounds, lungs clear, rhonchi (LLL), No crackles/rales, No wheezing Cardiovascular Exam: regular rate/rhythm, normal heart sounds, No murmur Gastrointestinal/Abdomen Exam: soft, normal bowel sounds, tenderness (mild diffuse ttp), No distention, No mass, No guarding, No rebound Extremity Exam: normal inspection, No pedal edema, No swelling OBJECTIVE DATA Vital Signs: Vital Signs - 24 hr Temp Pulse Resp BP Pulse Ox 04/23/22 11:44 96.6 F 67 18 127/72 96 04/23/22 07:05 97.6 F 63 18 126/72 98 04/23/22 04:00 98.2 F 78 20 126/73 97 04/22/22 23:38 98.0 F 65 19 152/76 98 04/22/22 20:00 98.2 F 68 18 114/61 97 04/22/22 16:00 99.5 F 66 18 129/74 96 Pain Assessment - Last Documented Pain Intensity 0 Intake and Output: Intake & Output 04/21/22 04/22/22 04/23/22 04/24/22 11:59 11:59 11:59 11:59 Intake Total 1715 3906 360 Output Total 400 1575 Balance 1315 2331 360 Weight 68.8 kg 67.6 kg Lab Results: Lab Results-Last 24 Hours 04/22/22 04/23/22 04/23/22 Range/Units 14:41 07:24 07:24 WBC 6.1 (4.0-10.5) x10^3/uL RBC 4.38 (4.1-5.6) x10^6/uL Hgb 11.3 L (12.5-18.0) g/dL Hct 37.0 L (42-50) % MCV 84.5 (78-100) fL MCH 25.8 L (26-32) pg MCHC 30.5 L (32-36) g/dL RDW 17.5 H (11.5-14.0) % Plt Count 191 (150-450) x10^3/uL MPV 11.2 H (7.5-11.0) fL Gran % 68.1 H (36.0-66.0) % Immature Gran % (Auto) 0.3 (0.00-0.4) % Nucleat RBC Rel Count 0.0 (0.00-0.1) % Eos # (Auto) 0.12 (0-0.5) x10^3/uL Immature Gran # (Auto) 0.02 (0.00-0.03) x10^3u/L Absolute Lymphs (auto) 1.40 (1.0-4.6) x10^3/uL Absolute Monos (auto) 0.40 (0.0-1.3) x10^3/uL Absolute Nucleated RBC 0.00 (0.00-0.01) x10^3u/L Lymphocytes % 22.8 L (24.0-44.0) % Monocytes % 6.5 (0.0-12.0) % Eosinophils % 2.0 (0.00-5.0) % Basophils % 0.3 (0.0-0.4) % Absolute Granulocytes 4.17 (1.4-6.9) x10^3/uL Basophils # 0.02 (0-0.4) x10^3/uL Sodium 137 (137-145) mmol/L Potassium 3.8 (3.5-5.1) mmol/L Chloride 111 H (98-107) mmol/L Carbon Dioxide 23 (22-30) mmol/L Anion Gap 7.0 (5-15) MEQ/L BUN 7 L (9-20) mg/dL Creatinine 0.66 (0.66-1.25) mg/dL Estimated GFR > 60.0 ML/MIN Glucose 94 (74-106) mg/dL Calcium 8.6 (8.4-10.2) mg/dL Phosphorus 3.3 (2.5-4.5) mg/dL Total Bilirubin 0.50 (0.2-1.3) mg/dL AST 19 (17-59) U/L ALT 13 (0-50) U/L Alkaline Phosphatase 49 (38-126) U/L Serum Total Protein 6.2 L (6.3-8.2) g/dL Albumin 3.6 (3.5-5.0) g/dL Radiology Exams: Radiology Procedures Category Date Time Status CHEST 1 VIEW (PORTABLE) Routine Exams 04/23/22 09:02 Completed KUB Routine Exams 04/23/22 09:02 Completed MRI BRAIN W & W/O CONTRAST [MRI] Routine Exams 04/23/22 12:08 Completed Multi-Disciplinary Progress Notes: Multi-Disciplinary Progress Notes 04/23/22 11:57 Case Management Note by Lazara Coker S/W PATIENT- PATIENT KNOWS HE IS IN [facility]. HE CANNOT TELL ME YEAR/SEASON IT IS OR WHAT HOLIDAY WE JUST HAD. HE DOES HOWEVER KNOW THAT HELENE IS HIS FRIEND AND THAT HE LIVES IN [place] IN AN APARTMENT. S/W PATIENT ABOUT A REHAB STAY- SHE WAS IMMEDIATELY AGREEABLE AND BUT STATED HE DIDN'T KNOW WHERE. HE STATED HE HAS NO PREFERENCE. S/W HIS FRIEND HELENE TO SEE IF PATIENT HAS ANY FAMILY TO CONTACT. HE REPORTS PATIENT HAS A SISTER BUT SHE HAS STOLEN FROM HIM. HE REPORTS HE TALKED TO PATIENT THIS AM AND HE SEEMED TO BE ABOUT HIS BASELINE. I NOTIFIED HIM THAT PATIENT CAN NOT TELL ME YEAR/DATE/SEASON. HE REPORTS THAT IS NORMAL FOR HIM. HE HAS VERY BAD SHORT TERM MEMORY FUNCTION. THEY WOULD LIKE PATIENT TO STAY IN TOWN IF ABLE TO. REACHED OUT TO [employer] TO SEE IF PATIENT HAS A GUARDIAN OR ANY FAMILY TO CONSULT IF NEEDED TO FOR DECISIONS- [facility] SENT AN EMAIL TO HAVE HER CALL ME Initialized on 04/23/22 11:57 - END OF NOTE Assessment/Plan (1) Altered mental status Current Visit: Yes Status: Acute Qualifiers: Altered mental status type: disorientation Qualified Code(s): R41.0 - Disorientation, unspecified Assessment & Plan: Somewhat improved today. Teleneuro thought may be related to schizophrenia. Advised restart keppra. Metabolic and infectious workup done. Code(s): R41.82 - ALTERED MENTAL STATUS, UNSPECIFIED (2) Rhonchi Current Visit: Yes Status: Acute Assessment & Plan: check CXR and KUB Code(s): R09.89 - OTH SYMPTOMS AND SIGNS INVOLVING THE CIRC AND RESP SYSTEMS (3) Seizure disorder Current Visit: Yes Status: Chronic Code(s): G40.909 - EPILEPSY, UNSP, NOT INTRACTABLE, WITHOUT STATUS EPILEPTICUS (4) Blepharospasm Current Visit: Yes Status: Acute Assessment & Plan: overall seems mildly improved today. Code(s): G24.5 - BLEPHAROSPASM (5) HTN (hypertension) Current Visit: No Status: Chronic Qualifiers: Hypertension type: primary hypertension Qualified Code(s): I10 - Essential (primary) hypertension Code(s): I10 - ESSENTIAL (PRIMARY) HYPERTENSION (6) Schizophrenia Current Visit: No Status: Chronic Qualifiers: Schizophrenia type: unspecified Qualified Code(s): F20.9 - Schizophrenia, unspecified Code(s): F20.9 - SCHIZOPHRENIA, UNSPECIFIED
[2022-04-23] MEDS: Protonix 40MG Tablet PO SCH (20:53)
[2022-04-24 06:11] LABS: Absolute Neutrophil Ct (ANC) 4.19 x10^3/uL (1.4-6.9); Basophil (Absolute #) 0.02 x10^3/uL (0-0.4); Eosinophil % 2.4 % (0.00-5.0); Eosinophil (Absolute #) 0.15 x10^3/uL (0-0.5); Hematocrit 35.6 % (42-50); Lymphocyte (Absolute #) 1.55 x10^3/uL (1.0-4.6); Lymphocytes % 24.4 % (24.0-44.0); Mean Cell Volume 83.2 fL (78-100); Mean Corpuscular Hemoglobin 25.7 pg (26-32); Mean Corpuscular Hgb Concent. 30.9 g/dL (32-36); Mean Platelet Volume 11.6 fL (7.5-11.0); Monocyte (Absolute #) 0.43 x10^3/uL (0.0-1.3); Monocytes % 6.8 % (0.0-12.0); Neutrophil % 65.9 % (36.0-66.0); Platelet Count 165 x10^3/uL (150-450); Red Blood Count 4.28 x10^6/uL (4.1-5.6); Red Cell Distribution Width 17.8 % (11.5-14.0); White Blood Count 6.4 x10^3/uL (4.0-10.5)
[2022-04-24 06:51] LABS: ALBUMIN 3.4 g/dL (3.5-5.0); ALKALINE PHOSPHATASE 50 U/L (38-126); ANION GAP 6.3 MEQ/L (5-15); BLOOD UREA NITROGEN 9 mg/dL (9-20); CHLORIDE 109 mmol/L (98-107); Calcium 8.6 mg/dL (8.4-10.2); Carbon Dioxide 25 mmol/L (22-30); Creatinine 1 0.69 mg/dL (0.66-1.25); EST GLOMERULAR FILTRATION RATE > 60.0 ML/MIN; Glucose 101 mg/dL (74-106); Potassium 3.9 mmol/L (3.5-5.1); SGOT/AST 21 U/L (17-59); SGPT/ALT 12 U/L (0-50); SODIUM 136 mmol/L (137-145)
[2022-04-24] MEDS: Sodium Chloride 0.9% 1000 ML 1,000 ML IV SCH ×4 (07:24→16:39)
[2022-04-24] MEDS: ZOCOR 20MG PO SCH (09:00)
[2022-04-24] MEDS: NICODERM CQ 14 MG TOP SCH (09:00)
[2022-04-24] MEDS: PLAVIX Tablet PO SCH (09:00)
[2022-04-24] MEDS: Ativan 0.5 MG PO SCH ×4 (09:00→21:26)
[2022-04-24] MEDS: ECOTRIN 81 MG PO SCH (09:00)
[2022-04-24] MEDS: Wellbutrin SR 150 MG PO SCH (09:00)
[2022-04-24] MEDS: KEPPRA PO SCH ×2 (09:00→21:26)
--- NOTE | 2022-04-24 15:34 | PCM.NOTE ---
Date and Time: 04/24/22 1529 Subjective Assessment: Pt was more oriented for me this morning, approx 0630. He knew he was in the hospital but did not know the date. He was able to answer questions (his belly hurts but not like it did yesterday). He wants to go home. - Review of Systems Constitutional: No Fever All Other Systems: Unable due to condition Objective Exam General Appearance: no apparent distress, alert Neurologic Exam: cooperative, disoriented Skin Exam: normal color, warm, dry, No rash Eye Exam: eyes nml inspection, other (blepharospasm after lights turn on; mild) Ears, Nose, Throat Exam: moist mucous membranes Neck Exam: normal inspection Respiratory Exam: normal breath sounds, lungs clear, No crackles/rales, No rhonchi, No wheezing Cardiovascular Exam: regular rate/rhythm, normal heart sounds, No murmur Gastrointestinal/Abdomen Exam: soft, normal bowel sounds Extremity Exam: normal inspection, No pedal edema, No swelling OBJECTIVE DATA Vital Signs: Vital Signs - 24 hr Temp Pulse Resp BP Pulse Ox 04/24/22 11:44 97.7 F 69 16 111/63 94 L 04/24/22 07:28 98.2 F 54 L 16 133/75 94 L 04/24/22 03:15 98.2 F 63 18 114/63 94 L 04/24/22 00:00 98.5 F 56 L 16 117/68 96 04/23/22 20:00 98.2 F 62 18 126/67 96 04/23/22 15:41 97.6 F 64 16 108/66 97 Pain Assessment - Last Documented Pain Intensity 0 Intake and Output: Intake & Output 04/22/22 04/23/22 04/24/22 04/25/22 11:59 11:59 11:59 11:59 Intake Total 1715 3906 3427 360 Output Total 400 1575 1250 Balance 1315 2331 2177 360 Weight 67.6 kg Lab Results: Lab Results-Last 24 Hours 04/24/22 04/24/22 Range/Units 05:30 05:30 WBC 6.4 (4.0-10.5) x10^3/uL RBC 4.28 (4.1-5.6) x10^6/uL Hgb 11.0 L (12.5-18.0) g/dL Hct 35.6 L (42-50) % MCV 83.2 (78-100) fL MCH 25.7 L (26-32) pg MCHC 30.9 L (32-36) g/dL RDW 17.8 H (11.5-14.0) % Plt Count 165 (150-450) x10^3/uL MPV 11.6 H (7.5-11.0) fL Gran % 65.9 (36.0-66.0) % Immature Gran % (Auto) 0.2 (0.00-0.4) % Nucleat RBC Rel Count 0.0 (0.00-0.1) % Eos # (Auto) 0.15 (0-0.5) x10^3/uL Immature Gran # (Auto) 0.01 (0.00-0.03) x10^3u/L Absolute Lymphs (auto) 1.55 (1.0-4.6) x10^3/uL Absolute Monos (auto) 0.43 (0.0-1.3) x10^3/uL Absolute Nucleated RBC 0.00 (0.00-0.01) x10^3u/L Lymphocytes % 24.4 (24.0-44.0) % Monocytes % 6.8 (0.0-12.0) % Eosinophils % 2.4 (0.00-5.0) % Basophils % 0.3 (0.0-0.4) % Absolute Granulocytes 4.19 (1.4-6.9) x10^3/uL Basophils # 0.02 (0-0.4) x10^3/uL Sodium 136 L (137-145) mmol/L Potassium 3.9 (3.5-5.1) mmol/L Chloride 109 H (98-107) mmol/L Carbon Dioxide 25 (22-30) mmol/L Anion Gap 6.3 (5-15) MEQ/L BUN 9 (9-20) mg/dL Creatinine 0.69 (0.66-1.25) mg/dL Estimated GFR > 60.0 ML/MIN Glucose 101 (74-106) mg/dL Calcium 8.6 (8.4-10.2) mg/dL Total Bilirubin 0.30 (0.2-1.3) mg/dL AST 21 (17-59) U/L ALT 12 (0-50) U/L Alkaline Phosphatase 50 (38-126) U/L Serum Total Protein 6.0 L (6.3-8.2) g/dL Albumin 3.4 L (3.5-5.0) g/dL Radiology Exams: Radiology Procedures Category Date Time Status CHEST 1 VIEW (PORTABLE) Routine Exams 04/23/22 09:02 Completed KUB Routine Exams 04/23/22 09:02 Completed MRI BRAIN W & W/O CONTRAST [MRI] Routine Exams 04/23/22 12:08 Completed Multi-Disciplinary Progress Notes: Multi-Disciplinary Progress Notes 04/24/22 14:37 Case Management Note by Lazara Coker [facility] UNABLE TO TAKE PATIENT. THEY DO NOT FEEL THEY CAN SKILL PATIENT AND CANNOT TAKE ANYMORE MEDICAID PENDINGS. REFERRAL FAXED TO [facility] Initialized on 04/24/22 14:37 - END OF NOTE 04/24/22 13:38 Case Management Note by Lazara Coker PATIENT STILL CONFUSED TODAY. HE KNOW HE IS IN [facility] BUT CAN NOT TELL ME WHAT TYPE OF PLACE HE IS IT. HE IS NOT OREINTED TO TIME. HE STATED HE LIVES IN [facility]( WHICH IS WRONG). NO FAMILY LISTED ON CHART, ONLY A NEIGHBOR. NEIGHBOR HELENE SAYS PATIENT HAS A SISTER IN [place] BUT THAT SHE IS "BAD FOR HIM" AND STOLE FROM HIM. CALLED [facility] MANUFACTURING TECH DAHIANA MORENO ([phone])- SHE REPORTS SHE RECENTLY GOT PATIENT INTO THE [facility] BY THE [facility]ERNAL AND THAT UNTIL THANKSGI HE WAS FUNCTIONING WELL AT HOME BY HIMSELF. SINCE ADMISSION HERE SHE HAS SINCE SENT A THRIVE REFERRAL SHE COULD TELL HE WOULD NEED HELP AT HOME. HE HAS AN APT IN [place]. DAHIANA IS UNAWARE OF ANY FAMILY OR NEXT OF KIN FOR PATIENT. CALLED [facility]PS PATIENT HAS NO NEXT OF KIN REACHABLE AND IS CONFUSED, UNABLE TO MAKE DECISIONS- S/W KENDRA AND EXPLAINED CURRENT SITUATION. SHE WAS GIVEN LILLY'S PHONE NUMBER AND GARY'S PHONE NUMBER. SHE STATED SHE WOULD TRY TO LOCATE THE NEXT OF KIN. SHE STATED UNTIL THEN IF PATIENT WAS ABLE TO BE PLACED IN A SNF FACILITY FOR CARE TO GO AHEAD AND PROCEED WITH PLACEMENT. SHE WILL NEED UPDATED TO WHERE PATIENT IS DCD TO SO SHE CAN FOLLOW UP Initialized on 04/24/22 13:38 - END OF NOTE Assessment/Plan (1) Altered mental status Current Visit: Yes Status: Acute Qualifiers: Altered mental status type: disorientation Qualified Code(s): R41.0 - Disorientation, unspecified Assessment & Plan: He is improved, but not likely to be able to go home by himself at this point. Discharge planning contacted me and will talk with APS. I spoke with the teleneurologist yesterday regarding his MRI result. He felt that there is nothing acute right now, although MRI should be repeated in 1 month to ensure there is no primary brain tumor. Code(s): R41.82 - ALTERED MENTAL STATUS, UNSPECIFIED (2) Rhonchi Current Visit: Yes Status: Resolved Code(s): R09.89 - OTH SYMPTOMS AND SIGNS INVOLVING THE CIRC AND RESP SYSTEMS (3) Seizure disorder Current Visit: Yes Status: Chronic Code(s): G40.909 - EPILEPSY, UNSP, NOT INTRACTABLE, WITHOUT STATUS EPILEPTICUS (4) Blepharospasm Current Visit: Yes Status: Acute Assessment & Plan: improving. Code(s): G24.5 - BLEPHAROSPASM (5) HTN (hypertension) Current Visit: No Status: Chronic Qualifiers: Hypertension type: primary hypertension Qualified Code(s): I10 - Essential (primary) hypertension Code(s): I10 - ESSENTIAL (PRIMARY) HYPERTENSION (6) Schizophrenia Current Visit: No Status: Chronic Qualifiers: Schizophrenia type: unspecified Qualified Code(s): F20.9 - Schizophrenia, unspecified Code(s): F20.9 - SCHIZOPHRENIA, UNSPECIFIED
[2022-04-24] MEDS: Protonix 40MG Tablet PO SCH (21:26)
[2022-04-25] MEDS: Sodium Chloride 0.9% 1000 ML 1,000 ML IV SCH (01:04)
[2022-04-25 06:02] LABS: Absolute Neutrophil Ct (ANC) 3.34 x10^3/uL (1.4-6.9); Basophil (Absolute #) 0.03 x10^3/uL (0-0.4); Eosinophil % 4.4 % (0.00-5.0); Eosinophil (Absolute #) 0.23 x10^3/uL (0-0.5); Hematocrit 38.1 % (42-50); Hemoglobin 11.4 g/dL (12.5-18.0); Lymphocyte (Absolute #) 1.35 x10^3/uL (1.0-4.6); Lymphocytes % 25.6 % (24.0-44.0); Mean Cell Volume 85.2 fL (78-100); Mean Corpuscular Hemoglobin 25.5 pg (26-32); Mean Corpuscular Hgb Concent. 29.9 g/dL (32-36); Mean Platelet Volume 12.1 fL (7.5-11.0); Monocyte (Absolute #) 0.31 x10^3/uL (0.0-1.3); Monocytes % 5.9 % (0.0-12.0); Neutrophil % 63.3 % (36.0-66.0); Platelet Count 190 x10^3/uL (150-450); Red Blood Count 4.47 x10^6/uL (4.1-5.6); Red Cell Distribution Width 17.8 % (11.5-14.0); White Blood Count 5.3 x10^3/uL (4.0-10.5)
[2022-04-25 06:45] LABS: ALBUMIN 3.5 g/dL (3.5-5.0); ALKALINE PHOSPHATASE 48 U/L (38-126); ANION GAP 6.9 MEQ/L (5-15); BLOOD UREA NITROGEN 8 mg/dL (9-20); CHLORIDE 110 mmol/L (98-107); Calcium 8.9 mg/dL (8.4-10.2); Carbon Dioxide 24 mmol/L (22-30); Creatinine 1 0.66 mg/dL (0.66-1.25); EST GLOMERULAR FILTRATION RATE > 60.0 ML/MIN; Glucose 92 mg/dL (74-106); Potassium 4.1 mmol/L (3.5-5.1); SGOT/AST 19 U/L (17-59); SGPT/ALT 13 U/L (0-50); SODIUM 136 mmol/L (137-145); Total Protein 5.9 g/dL (6.3-8.2)
[2022-04-25] MEDS: Wellbutrin SR 150 MG PO SCH (08:28)
[2022-04-25] MEDS: Ativan 0.5 MG PO SCH ×4 (08:28→21:10)
[2022-04-25] MEDS: NICODERM CQ 14 MG TOP SCH (08:28)
[2022-04-25] MEDS: ECOTRIN 81 MG PO SCH (08:28)
[2022-04-25] MEDS: ZOCOR 20MG PO SCH (08:28)
[2022-04-25] MEDS: KEPPRA PO SCH ×2 (08:28→21:10)
[2022-04-25] MEDS: PLAVIX Tablet PO SCH (08:29)
[2022-04-25] MEDS: Protonix 40MG Tablet PO SCH (21:10)
[2022-04-26 06:26] LABS: Absolute Neutrophil Ct (ANC) 4.19 x10^3/uL (1.4-6.9); Basophil (Absolute #) 0.02 x10^3/uL (0-0.4); Eosinophil % 3.1 % (0.00-5.0); Hemoglobin 12.3 g/dL (12.5-18.0); Lymphocyte (Absolute #) 1.64 x10^3/uL (1.0-4.6); Lymphocytes % 25.2 % (24.0-44.0); Mean Corpuscular Hemoglobin 25.8 pg (26-32); Mean Corpuscular Hgb Concent. 30.8 g/dL (32-36); Mean Platelet Volume 12.5 fL (7.5-11.0); Monocyte (Absolute #) 0.45 x10^3/uL (0.0-1.3); Monocytes % 6.9 % (0.0-12.0); Neutrophil % 64.2 % (36.0-66.0); Platelet Count 225 x10^3/uL (150-450); Red Blood Count 4.76 x10^6/uL (4.1-5.6); Red Cell Distribution Width 18.1 % (11.5-14.0); White Blood Count 6.5 x10^3/uL (4.0-10.5)
[2022-04-26 07:05] LABS: ALKALINE PHOSPHATASE 56 U/L (38-126); ANION GAP 9.4 MEQ/L (5-15); BLOOD UREA NITROGEN 8 mg/dL (9-20); CHLORIDE 106 mmol/L (98-107); Calcium 9.1 mg/dL (8.4-10.2); Carbon Dioxide 26 mmol/L (22-30); Creatinine 1 0.73 mg/dL (0.66-1.25); EST GLOMERULAR FILTRATION RATE > 60.0 ML/MIN; Glucose 96 mg/dL (74-106); Potassium 3.8 mmol/L (3.5-5.1); SGOT/AST 23 U/L (17-59); SGPT/ALT 16 U/L (0-50); SODIUM 137 mmol/L (137-145)
[2022-04-26] MEDS: Wellbutrin SR 150 MG PO SCH (08:26)
[2022-04-26] MEDS: ZOCOR 20MG PO SCH (08:26)
[2022-04-26] MEDS: Ativan 0.5 MG PO SCH ×4 (08:26→21:34)
[2022-04-26] MEDS: NICODERM CQ 14 MG TOP SCH (08:26)
[2022-04-26] MEDS: PLAVIX Tablet PO SCH (08:26)
[2022-04-26] MEDS: KEPPRA PO SCH ×2 (08:26→21:34)
[2022-04-26] MEDS: ECOTRIN 81 MG PO SCH (08:26)
[2022-04-26] MEDS: Protonix 40MG Tablet PO SCH (21:34)
[2022-04-27 05:36] LABS: Absolute Neutrophil Ct (ANC) 3.13 x10^3/uL (1.4-6.9); Basophil (Absolute #) 0.04 x10^3/uL (0-0.4); Eosinophil % 3.9 % (0.00-5.0); Eosinophil (Absolute #) 0.22 x10^3/uL (0-0.5); Hematocrit 36.4 % (42-50); Hemoglobin 11.5 g/dL (12.5-18.0); Lymphocyte (Absolute #) 1.76 x10^3/uL (1.0-4.6); Lymphocytes % 31.1 % (24.0-44.0); Mean Cell Volume 82.5 fL (78-100); Mean Corpuscular Hemoglobin 26.1 pg (26-32); Mean Corpuscular Hgb Concent. 31.6 g/dL (32-36); Mean Platelet Volume 12.3 fL (7.5-11.0); Monocyte (Absolute #) 0.49 x10^3/uL (0.0-1.3); Monocytes % 8.7 % (0.0-12.0); Neutrophil % 55.2 % (36.0-66.0); Platelet Count 211 x10^3/uL (150-450); Red Blood Count 4.41 x10^6/uL (4.1-5.6); Red Cell Distribution Width 18.4 % (11.5-14.0); White Blood Count 5.7 x10^3/uL (4.0-10.5)
[2022-04-27 06:11] LABS: ALBUMIN 3.6 g/dL (3.5-5.0); ALKALINE PHOSPHATASE 54 U/L (38-126); ANION GAP 6.9 MEQ/L (5-15); BLOOD UREA NITROGEN 12 mg/dL (9-20); CHLORIDE 106 mmol/L (98-107); Carbon Dioxide 28 mmol/L (22-30); Creatinine 1 0.82 mg/dL (0.66-1.25); EST GLOMERULAR FILTRATION RATE > 60.0 ML/MIN; Glucose 94 mg/dL (74-106); Potassium 4.3 mmol/L (3.5-5.1); SGOT/AST 23 U/L (17-59); SGPT/ALT 17 U/L (0-50); SODIUM 136 mmol/L (137-145); Total Protein 5.9 g/dL (6.3-8.2)
[2022-04-27] MEDS: Wellbutrin SR 150 MG PO SCH (09:30)
[2022-04-27] MEDS: ZOCOR 20MG PO SCH (09:31)
[2022-04-27] MEDS: Ativan 0.5 MG PO SCH ×3 (09:31→20:42)
[2022-04-27] MEDS: KEPPRA PO SCH ×2 (09:31→20:42)
[2022-04-27] MEDS: ECOTRIN 81 MG PO SCH (09:31)
[2022-04-27] MEDS: NICODERM CQ 14 MG TOP SCH (09:31)
[2022-04-27] MEDS: PLAVIX Tablet PO SCH (09:31)
--- NOTE | 2022-04-27 13:11 | PCM.NOTE ---
Date and Time: 04/27/22 1306 Subjective Assessment: Pt continues to be disoriented. This morning does not know where he is or the date, "I just don't know who I am." Hay po - eating biscuits and gravy this morning. - Review of Systems All Other Systems: Unable due to condition Objective Exam General Appearance: no apparent distress, alert Neurologic Exam: cooperative, disoriented, other (blepharospasm is mild, and is R>L) Skin Exam: normal color, warm, dry, No rash Ears, Nose, Throat Exam: moist mucous membranes Neck Exam: normal inspection Respiratory Exam: normal breath sounds, lungs clear, No crackles/rales, No rhonchi, No wheezing Cardiovascular Exam: regular rate/rhythm, normal heart sounds, No murmur Gastrointestinal/Abdomen Exam: soft, normal bowel sounds, No tenderness, No distention Extremity Exam: normal inspection, No pedal edema, No swelling Back Exam: normal inspection, No rash OBJECTIVE DATA Vital Signs: Vital Signs - 24 hr Temp Pulse Resp BP Pulse Ox 04/27/22 11:43 97.9 F 73 18 128/62 97 04/27/22 07:34 97.7 F 69 16 127/69 97 04/27/22 04:00 98.2 F 62 16 121/64 97 04/26/22 23:54 97.7 F 62 16 118/65 95 04/26/22 20:00 98.5 F 83 18 119/61 93 L 04/26/22 15:20 98.6 F 84 18 130/64 96 Pain Assessment - Last Documented Pain Intensity 0 Intake and Output: Intake & Output 04/25/22 04/26/22 04/27/22 04/28/22 11:59 11:59 11:59 11:59 Intake Total 4315 1940 2420 Output Total 1700 Balance 2615 1940 2420 Lab Results: Lab Results-Last 24 Hours 04/27/22 04/27/22 Range/Units 04:30 04:30 WBC 5.7 (4.0-10.5) x10^3/uL RBC 4.41 (4.1-5.6) x10^6/uL Hgb 11.5 L (12.5-18.0) g/dL Hct 36.4 L (42-50) % MCV 82.5 (78-100) fL MCH 26.1 (26-32) pg MCHC 31.6 L (32-36) g/dL RDW 18.4 H (11.5-14.0) % Plt Count 211 (150-450) x10^3/uL MPV 12.3 H (7.5-11.0) fL Gran % 55.2 (36.0-66.0) % Immature Gran % (Auto) 0.4 (0.00-0.4) % Nucleat RBC Rel Count 0.0 (0.00-0.1) % Eos # (Auto) 0.22 (0-0.5) x10^3/uL Immature Gran # (Auto) 0.02 (0.00-0.03) x10^3u/L Absolute Lymphs (auto) 1.76 (1.0-4.6) x10^3/uL Absolute Monos (auto) 0.49 (0.0-1.3) x10^3/uL Absolute Nucleated RBC 0.00 (0.00-0.01) x10^3u/L Lymphocytes % 31.1 (24.0-44.0) % Monocytes % 8.7 (0.0-12.0) % Eosinophils % 3.9 (0.00-5.0) % Basophils % 0.7 (0.0-0.4) % Absolute Granulocytes 3.13 (1.4-6.9) x10^3/uL Basophils # 0.04 (0-0.4) x10^3/uL Sodium 136 L (137-145) mmol/L Potassium 4.3 (3.5-5.1) mmol/L Chloride 106 (98-107) mmol/L Carbon Dioxide 28 (22-30) mmol/L Anion Gap 6.9 (5-15) MEQ/L BUN 12 (9-20) mg/dL Creatinine 0.82 (0.66-1.25) mg/dL Estimated GFR > 60.0 ML/MIN Glucose 94 (74-106) mg/dL Calcium 9.0 (8.4-10.2) mg/dL Total Bilirubin 0.50 (0.2-1.3) mg/dL AST 23 (17-59) U/L ALT 17 (0-50) U/L Alkaline Phosphatase 54 (38-126) U/L Serum Total Protein 5.9 L (6.3-8.2) g/dL Albumin 3.6 (3.5-5.0) g/dL Assessment/Plan (1) Altered mental status Current Visit: Yes Status: Acute Qualifiers: Altered mental status type: disorientation Qualified Code(s): R41.0 - Disorientation, unspecified Assessment & Plan: Persistent. Perhaps related to schizophrenia. Pt lives alone, so is waiting for placement. Code(s): R41.82 - ALTERED MENTAL STATUS, UNSPECIFIED (2) Seizure disorder Current Visit: Yes Status: Chronic Code(s): G40.909 - EPILEPSY, UNSP, NOT INTRACTABLE, WITHOUT STATUS EPILEPTICUS (3) Blepharospasm Current Visit: Yes Status: Acute Code(s): G24.5 - BLEPHAROSPASM (4) HTN (hypertension) Current Visit: No Status: Chronic Qualifiers: Hypertension type: primary hypertension Qualified Code(s): I10 - Essential (primary) hypertension Code(s): I10 - ESSENTIAL (PRIMARY) HYPERTENSION (5) Schizophrenia Current Visit: No Status: Chronic Qualifiers: Schizophrenia type: unspecified Qualified Code(s): F20.9 - Schizophrenia, unspecified Code(s): F20.9 - SCHIZOPHRENIA, UNSPECIFIED
[2022-04-27 15:20] LABS: Folate (Folic Acid) 4.57 ng/mL (2.76 - >20); TSH, 3RD Generation 3.07 mIU/L (0.47-4.68)
--- NOTE | 2022-04-27 17:03 | PCM.DS ---
Discharge Summary Date of Admission: 04/23/22 13:18 Admitting Physician: WILLY BRASWELL Consults: Consults on Case 04/22/22 12:05 Consult Tele-Health [Tele-Health Consult] ROUTINE 04/23/22 13:34 Tele-Health Consult ROUTINE Primary Care Provider: HERNANDEZ HEBERT Allergies Allergies quetiapine [From Seroquel] Allergy (Severe, Verified 03/07/22 13:24) seizures carisoprodol [From Soma] Allergy (Verified 03/07/22 13:24) Hives diphenhydramine [From Benadryl] Allergy (Verified 03/07/22 13:24) [facility] Summary - Hospital Course Hospital Course: is a 56 year old male pt of Dr. Hebert with PMHX migraine, sz, TIA, HLD, HTN, asthma, bipolar, depression, schizophrenia, insomnia, hx binge dri nking, hx cutting, and hx prior ODs who was admitted through ER with AMS and blepherospasm. He had MRI brain done which was felt by neurology to be nonacute (lesion L temporal lobe, new), although it will need rechecked in 1 mo to ensure there is no primary tumor. Pt's mental status has waxed and waned a bit but he has never been fully oriented. This appears to be a somewhat chronic state because he will be going home with his neighbors, who already take care of his checking account. Pt to go home with HHC, PT, OT, and his [facility] caseworke. - Vitals & Intake/Output Vital Signs: Vital Signs Temperature 97.9 F 04/27/22 11:43 Pulse Rate 73 04/27/22 11:43 Respiratory Rate 18 04/27/22 11:43 Blood Pressure 128/62 04/27/22 11:43 O2 Sat by Pulse Oximetry 97 04/27/22 11:43 Intake & Output: Intake & Output 04/25/22 04/26/22 04/27/22 04/28/22 11:59 11:59 11:59 11:59 Intake Total 4315 1940 2420 600 Output Total 1700 Balance 2615 1940 2420 600 Weight 67.6 kg - Lab Result Diagrams: 04/27/22 04:30 04/27/22 04:30 Lab Results-Last 24 Hrs: Lab Results-Last 24 Hours 04/27/22 04/27/22 04/27/22 Range/Units 04:30 04:30 04:30 WBC 5.7 (4.0-10.5) x10^3/uL RBC 4.41 (4.1-5.6) x10^6/uL Hgb 11.5 L (12.5-18.0) g/dL Hct 36.4 L (42-50) % MCV 82.5 (78-100) fL MCH 26.1 (26-32) pg MCHC 31.6 L (32-36) g/dL RDW 18.4 H (11.5-14.0) % Plt Count 211 (150-450) x10^3/uL MPV 12.3 H (7.5-11.0) fL Gran % 55.2 (36.0-66.0) % Immature Gran % (Auto) 0.4 (0.00-0.4) % Nucleat RBC Rel Count 0.0 (0.00-0.1) % Eos # (Auto) 0.22 (0-0.5) x10^3/uL Immature Gran # (Auto) 0.02 (0.00-0.03) x10^3u/L Absolute Lymphs (auto) 1.76 (1.0-4.6) x10^3/uL Absolute Monos (auto) 0.49 (0.0-1.3) x10^3/uL Absolute Nucleated RBC 0.00 (0.00-0.01) x10^3u/L Lymphocytes % 31.1 (24.0-44.0) % Monocytes % 8.7 (0.0-12.0) % Eosinophils % 3.9 (0.00-5.0) % Basophils % 0.7 (0.0-0.4) % Absolute Granulocytes 3.13 (1.4-6.9) x10^3/uL Basophils # 0.04 (0-0.4) x10^3/uL Sodium 136 L (137-145) mmol/L Potassium 4.3 (3.5-5.1) mmol/L Chloride 106 (98-107) mmol/L Carbon Dioxide 28 (22-30) mmol/L Anion Gap 6.9 (5-15) MEQ/L BUN 12 (9-20) mg/dL Creatinine 0.82 (0.66-1.25) mg/dL Estimated GFR > 60.0 ML/MIN Glucose 94 (74-106) mg/dL Calcium 9.0 (8.4-10.2) mg/dL Total Bilirubin 0.50 (0.2-1.3) mg/dL AST 23 (17-59) U/L ALT 17 (0-50) U/L Alkaline Phosphatase 54 (38-126) U/L Serum Total Protein 5.9 L (6.3-8.2) g/dL Albumin 3.6 (3.5-5.0) g/dL Vitamin B12 359 (239-931) pg/mL Folic Acid 4.57 (2.76 - >20) ng/mL TSH 3rd Generation 3.070 (0.47-4.68) mIU/L Micro Results-Entire Visit: Microbiology 04/22/22 18:20 Blood Culture Gram Stain - Final Blood Not Reportable Blood Culture - Final NO GROWTH 04/22/22 18:25 Blood Culture Gram Stain - Final Blood Not Reportable Blood Culture - Final NO GROWTH - Procedures and Test Procedures and Tests throughout Hospitalization: Therapy Orders & Screens 04/23/22 08:00 EEG 41-60 Minutes (Normal) ONCE Comment: Reason For Exam: Diagnosis: confusion Discharge Exam General Appearance: no apparent distress, alert Neurologic Exam: cooperative, disoriented Eye Exam: other (mild blepharospasm bilat) Ears, Nose, Throat Exam: moist mucous membranes Neck Exam: normal inspection Respiratory Exam: normal breath sounds, lungs clear, No crackles/rales, No rhonchi, No wheezing Cardiovascular Exam: regular rate/rhythm, normal heart sounds, No murmur Gastrointestinal/Abdomen Exam: soft, normal bowel sounds, No tenderness, No distention, No mass, No guarding, No rebound Back Exam: normal inspection, No rash Extremity Exam: normal inspection, No pedal edema, No swelling Skin Exam: normal color, warm, dry, No rash Final Diagnosis/Problem List - Final Discharge Diagnosis/Problem (1) Altered mental status Current Visit: Yes Status: Acute Assessment & Plan: persistent, likely related to schizophrenia and seizure disorder. APS had been contacted. Code(s): R41.82 - ALTERED MENTAL STATUS, UNSPECIFIED (2) Seizure disorder Current Visit: Yes Status: Chronic Code(s): G40.909 - EPILEPSY, UNSP, NOT INTRACTABLE, WITHOUT STATUS EPILEPTICUS (3) Blepharospasm Current Visit: Yes Status: Acute Assessment & Plan: improved since admission. Was not felt by teleneurol to be related to keppra, so he has been continued on that. Code(s): G24.5 - BLEPHAROSPASM (4) HTN (hypertension) Current Visit: No Status: Chronic Code(s): I10 - ESSENTIAL (PRIMARY) HYPERTENSION (5) Schizophrenia Current Visit: No Status: Chronic Code(s): F20.9 - SCHIZOPHRENIA, UNSPECIFIED - Discharge Disposition: Home, Self-Care Condition: Stable Prescriptions: New Nicotine 14 mg [Nicoderm Cq 14 mg] 14 mg TOP Q24H10 #30 patch Continue Simvastatin 20Mg [Zocor 20Mg] 20 mg PO DAILY PANTOPRAZOLE 40 mg Tablet [Protonix 40MG Tablet] 40 mg PO HS Clopidogrel Bisulfate [Clopidogrel] 75 mg PO DAILY Aspirin [Low Dose Aspirin EC] 81 mg PO DAILY Bupropion HCl 150 mg Sr [Wellbutrin SR 150 MG] 150 mg PO DAILY Temazepam 30 mg PO HS Aripiprazole Lauroxil [Aristada] 662 mg IJ UD Trazodone HCl 100 mg PO HS Levetiracetam [Keppra] 500 mg PO BID 30 Days #60 tablet Additional Instructions: [facility] PHONE NUMBER [phone]- [employer]PER[employer] -KENDRA DONNELLY [facility] HAS BEEN SET UP. THEY WILL CONTACT HELENE OR [facility] TO ARRANGE A VISIT. THEIR PHONE NUMBER IS [phone] Follow up with: HERNANDEZ HEBERT MD [Primary Care Provider] -
[2022-04-27 19:42] VITALS: BP 118/61; PULSE 61; O2SAT 97
[2022-04-27] MEDS: Protonix 40MG Tablet PO SCH (20:42)
[2022-04-28 12:44] LABS: RPR Non Reactive (Non Reactive)
== END 2022-04-27 21:00 | disposition home or self-care (01) | DRG 948 ==
LOC: ED 11:01 → MED SURG 17:00 → OBSVTOIN 04-23 13:18
PROVIDERS: ADMIT Family Medicine; ATTEND Family Medicine
DX: R41.82 Altered mental status, unspecified (principal); G40.909 Epilepsy, unspecified, not intractable, without status epilepticus; G24.5 Blepharospasm; I10 Essential (primary) hypertension; E78.5 Hyperlipidemia, unspecified; F20.9 Schizophrenia, unspecified; R09.89 Other specified symptoms and signs involving the circulatory and respiratory systems; Z79.899 Other long term (current) drug therapy; Z20.828 Contact with and (suspected) exposure to other viral communicable diseases; Z72.0 Tobacco use; Z86.73 Personal history of transient ischemic attack (TIA), and cerebral infarction without residual deficits
CPT/HCPCS: 0241U; 36415; 70450; 70553; 71045; 74018; 80048; 80053; 80307; 81015; 82140; 82607; 82746; 83605; 83735; 84100; 84134; 84443; 85025; 85027; 85610; 85730; 86592; 87040; 93005; 95812; 96360; 96361; 96374; 99285; G0378; Q3014; A9270-GY

== ENCOUNTER 2022-05-28 18:30 | Inpatient (IN) | payer MEDICARE ==
--- NOTE | 2022-05-28 19:13 | ERPHSYRPT ---
- History of Present Illness Time Seen by Provider: 05/28/22 19:12 Source: patient, EMS, old records Exam Limitations: clinical condition Patient Subjective Stated Complaint: Pt was listed as missing from family and was found from officers out walking around, pt is unable to answer questions and he states "I don't knwo what you're talking about" to a lot of simple questions Triage Nursing Assessment: Pt was brought to the ER by law enforcement, tachycardic, denies pain, being cooperative, knows that his brain doesn't work well and he doesn't know why, pt can answer some simple questions but unable to answer others, pt is unable to care for self and states that the people take his money, pt is dirty and smells and has small bites all over him which may be from bed bugs, pt can tell me where he is at but can not tell me what year it is, or what day, or how old he is, or what year he was born, or who the president is, or how to spell his last name, pt doesn't appear to be in any distress and is resting comfortably Physician History: 56yo M here for AMS after missing persons report called on the patient this afternoon. He was found wandering the streets. He was very confused and having difficulty understanding spoken words. He was seen earlier in the month for new onset seizures and was found to have a medial L temporal lobe enhancement on MRI. Hx is difficult to obtain to his condition. He is pleasantly confused, but most notably has issues w/ language comprehension. Timing/Duration: today Severity: severe Character of Deficits: other (speech comprehension) Baseline/Normal Cognition: alert oriented x 3 Current Cognition: alert but confused, alert/disoriented to time Associated Symptoms: denies symptoms Allergies/Adverse Reactions: quetiapine [From Seroquel] Allergy (Severe, Verified 05/28/22 18:59) seizures carisoprodol [From Soma] Allergy (Verified 05/28/22 18:59) Hives diphenhydramine [From Benadryl] Allergy (Verified 05/28/22 18:59) Hives Home Medications: Aspirin [Low Dose Aspirin EC] 81 mg PO DAILY 06/26/21 [History] Clopidogrel Bisulfate [Clopidogrel] 75 mg PO DAILY 06/26/21 [History] PANTOPRAZOLE 40 mg Tablet [Protonix 40MG Tablet] 40 mg PO HS 06/26/21 [History] Simvastatin 20Mg [Zocor 20Mg] 20 mg PO DAILY 06/26/21 [History] Bupropion HCl 150 mg Sr [Wellbutrin SR 150 MG] 150 mg PO DAILY 12/08/21 [History] Temazepam 30 mg PO HS 12/08/21 [History] Aripiprazole Lauroxil [Aristada] 662 mg IJ UD 03/07/22 [History] Trazodone HCl 100 mg PO HS 03/07/22 [History] Hx Tetanus, Diphtheria Vaccination/Date Given: No (unsure) Hx Influenza Vaccination/Date Given: Yes Hx Pneumococcal Vaccination/Date Given: No Travel Risk - International Travel Have you traveled outside of the country in past 3 weeks: No - Coronavirus Screening Are you exhibiting any of the following symptoms?: No Close contact with a COVID-19 positive Pt in past 14-21 Days: No - Vaccine Status Have you recieved a Covid-19 vaccination: Yes Plate Grainer: Unknown - Vaccination Dates Dates if Unknown: 2020 - Review of Systems All Other Systems: Unable due to condition - Past Medical History Pertinent Past Medical History: Yes Neurological History: Migraines, Seizures, TIA ENT History: Other Cardiac History: High Cholesterol, Hypertension Respiratory History: Asthma Endocrine Medical History: No Pertinent History Musculoskeletal History: Arthritis, Other GI Medical History: Other History: Other Psycho-Social History: Anxiety, Bipolar, Depression Male Reproductive Disorders: Other Other Medical History: prior suicide attempts by over dose. Cutting, anxiety, schizophrenia. Insomnia. Binge drinking. - Past Surgical History Past Surgical History: No Neuro Surgical History: No Pertinent History Cardiac: No Pertinent History Respiratory: No Pertinent History Gastrointestinal: No Pertinent History Genitourinary: No Pertinent History Musculoskeletal: No Pertinent History Male Surgical History: No Pertinent History - Social History Smoking Status: Current every day smoker How long have you smoked: 30 yrs Exposure to second hand smoke: Yes Drug Use: marijuana Patient Lives Alone: No Significant Family History: no pertinent family hx - Nursing Vital Signs Nursing Vital Signs: Initial Vital Signs Temperature 97.5 F 05/28/22 18:40 Pulse Rate 103 H 05/28/22 18:40 Blood Pressure 106/72 05/28/22 18:40 O2 Sat by Pulse Oximetry 96 05/28/22 18:40 Pain Scale Pain Intensity 0 - Sharan Coma Scale Best Eye Response (Gerber): (4) open spontaneously Best Verbal Response (Gerber): (4) confused conversation Best Motor Response (Sharan): (6) obeys commands Gerber Total: 14 - Physical Exam General Appearance: no apparent distress Eye Exam: right eye: abnormal pupil (non reactive, constricted, old injury), left eye: normal inspection, PERRL, EOMI Neck Exam: normal inspection, non-tender, supple, full range of motion, No Brudzinski, No Kernig's Respiratory: normal breath sounds, lungs clear, airway intact, No respiratory distress Cardiovascular: regular rate/rhythm, normal heart sounds Gastrointestinal: soft, normal bowel sounds, No tenderness 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, cooperative, disoriented to person, disoriented to place, 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 Exam: abnormal pupil position (non reactive R pupil, fixed constricted 2/2 accident in the past), abnormal speech, tongue midline, No facial droop, No facial weakness, No gaze palsy Coordination/Gait: normal finger to nose, No normal cerebellar function (Difficulty w/ heel to duque and dysdiadochokinesia) Motor/Sensory: no motor deficit, no sensory deficit, no pronator drift, negative Babinski's sign Skin Exam: normal color, warm, dry, No rash SpO2 Interpretation: normal SpO2: 96 O2 Delivery: Room Air - Course Nursing assessment & vital signs reviewed: Yes EKG Interpreted by Me: RATE (81), Sinus Rhythm, NORMAL AXIS, NORMAL INTERVALS, NORMAL QRS, NORMAL ST-T - CT Exams Head CT Interpretation: Negative, Other (See MRI from 04/23/22) Ordered Tests: Active Orders 24 hr Category Date Time Status Curtain Supervisor STAT Care 05/28/22 19:37 Active EKG-ER Only STAT Care 05/28/22 19:35 Active NPO (ED) STAT Care 05/28/22 19:35 Active Pulse Oximetry (ED) STAT Care 05/28/22 19:35 Active HEAD WITHOUT CONTRAST [CT] Stat Exams 05/28/22 19:48 Taken Alcohol [ETHYL ALCOHOL] Stat Lab 05/28/22 20:10 Completed CBC W DIFF Stat Lab 05/28/22 20:10 Completed CMP Stat Lab 05/28/22 20:10 Completed Lactic Acid Stat Lab 05/28/22 20:15 Completed UA W/RFX UR CULTURE Stat Lab 05/28/22 22:26 Completed Urine Triage Profile Stat Lab 05/28/22 22:23 Completed Transfer Order Routine Transfer 05/28/22 Ordered Medication Summary Generic Name Dose Route Start Last Admin Trade Name Maxx PRN Reason Stop Dose Admin Magnesium Sulfate/Dextrose 100 mls @ 100 mls/hr 05/28/22 20:00 05/28/22 21:05 Magnesium 1 Gm / 100 Ml D5w IV 05/28/22 21:59 100 mls/hr Q1H ZENON Administration Thiamine HCl 500 mg 05/28/22 20:00 05/28/22 20:29 Thiamine Hcl 200 Mg/2 Ml Vial IV 05/31/22 19:59 500 mg Q8H ZENON Administration Lab/Rad Data: Laboratory Result Diagrams 05/28/22 20:10 05/28/22 20:10 Laboratory Results 05/28/22 05/28/22 05/28/22 Range/Units 22:26 22:23 20:15 WBC (4.0-10.5) x10^3/uL RBC (4.1-5.6) x10^6/uL Hgb (12.5-18.0) g/dL Hct (42-50) % MCV (78-100) fL MCH (26-32) pg MCHC (32-36) g/dL RDW (11.5-14.0) % Plt Count (150-450) x10^3/uL MPV (7.5-11.0) fL Gran % (36.0-66.0) % Immature Gran % (Auto) (0.00-0.4) % Nucleat RBC Rel Count (0.00-0.1) % Eos # (Auto) (0-0.5) x10^3/uL Immature Gran # (Auto) (0.00-0.03) x10^3u/L Absolute Lymphs (auto) (1.0-4.6) x10^3/uL Absolute Monos (auto) (0.0-1.3) x10^3/uL Absolute Nucleated RBC (0.00-0.01) x10^3u/L Lymphocytes % (24.0-44.0) % Monocytes % (0.0-12.0) % Eosinophils % (0.00-5.0) % Basophils % (0.0-0.4) % Absolute Granulocytes (1.4-6.9) x10^3/uL Basophils # (0-0.4) x10^3/uL Sodium (137-145) mmol/L Potassium (3.5-5.1) mmol/L Chloride (98-107) mmol/L Carbon Dioxide (22-30) mmol/L Anion Gap (5-15) MEQ/L BUN (9-20) mg/dL Creatinine (0.66-1.25) mg/dL Estimated GFR ML/MIN Glucose (74-106) mg/dL Lactic Acid 1.3 (0.4-2.0) Calcium (8.4-10.2) mg/dL Total Bilirubin (0.2-1.3) mg/dL AST (17-59) U/L ALT (0-50) U/L Alkaline Phosphatase (38-126) U/L Serum Total Protein (6.3-8.2) g/dL Albumin (3.5-5.0) g/dL Urine Color Yellow (Yellow) Urine Appearance Clear (Clear) Urine pH 8.0 (4.6-8.0) Ur Specific [place] 1.015 (1.005-1.030) Urine Protein Negative (Negative) Urine Glucose (UA) Negative (Negative) mg/dL Urine Ketones Negative (Negative) Urine Blood Negative (Negative) Urine Nitrite Negative (Negative) Urine Bilirubin Negative (Negative) Urine Urobilinogen 1.0 A (0.2) mg/dL Ur Leukocyte Esterase Negative (Negative) U Hyaline Cast (Auto) NONE SEEN (0-2) /LPF Urine Microscopic RBC 3-5 (0-5) /HPF Urine Microscopic WBC 0-2 (0-5) /HPF Ur Epithelial Cells None Seen (None Seen) /HPF Urine Bacteria None Seen (None Seen) /HPF Urine Culture Reflexed NO (NO) Urine Opiates Level NEGATIVE (NEGATIVE) Ur Methadone NEGATIVE (NEGATIVE) Urine Barbiturates NEGATIVE (NEGATIVE) Ur Phencyclidine (PCP) NEGATIVE (NEGATIVE) Urine Amphetamine NEGATIVE (NEGATIVE) U Benzodiazepine Level NEGATIVE (NEGATIVE) Urine Cocaine NEGATIVE (NEGATIVE) Urine Marijuana (THC) NEGATIVE (NEGATIVE) Ethyl Alcohol (0-10) mg/dL Influenza Type A Ag (NEGATIVE) Influenza Type B Ag (NEGATIVE) RSV (PCR) (Negative) SARS-CoV-2 (PCR) (NEGATIVE) 05/28/22 05/28/22 05/28/22 Range/Units 20:10 20:10 20:10 WBC 12.0 H (4.0-10.5) x10^3/uL RBC 4.67 (4.1-5.6) x10^6/uL Hgb 12.3 L (12.5-18.0) g/dL Hct 39.2 L (42-50) % MCV 83.9 (78-100) fL MCH 26.3 (26-32) pg MCHC 31.4 L (32-36) g/dL RDW 19.5 H (11.5-14.0) % Plt Count 202 (150-450) x10^3/uL MPV 11.3 H (7.5-11.0) fL Gran % 79.4 H (36.0-66.0) % Immature Gran % (Auto) 0.2 (0.00-0.4) % Nucleat RBC Rel Count 0.0 (0.00-0.1) % Eos # (Auto) 0.15 (0-0.5) x10^3/uL Immature Gran # (Auto) 0.03 (0.00-0.03) x10^3u/L Absolute Lymphs (auto) 1.67 (1.0-4.6) x10^3/uL Absolute Monos (auto) 0.61 (0.0-1.3) x10^3/uL Absolute Nucleated RBC 0.00 (0.00-0.01) x10^3u/L Lymphocytes % 13.9 L (24.0-44.0) % Monocytes % 5.1 (0.0-12.0) % Eosinophils % 1.2 (0.00-5.0) % Basophils % 0.2 (0.0-0.4) % Absolute Granulocytes 9.52 H (1.4-6.9) x10^3/uL Basophils # 0.03 (0-0.4) x10^3/uL Sodium 138 (137-145) mmol/L Potassium 3.9 (3.5-5.1) mmol/L Chloride 107 (98-107) mmol/L Carbon Dioxide 26 (22-30) mmol/L Anion Gap 9.0 (5-15) MEQ/L BUN 10 (9-20) mg/dL Creatinine 0.93 (0.66-1.25) mg/dL Estimated GFR > 60.0 ML/MIN Glucose 96 (74-106) mg/dL Lactic Acid (0.4-2.0) Calcium 9.0 (8.4-10.2) mg/dL Total Bilirubin 0.50 (0.2-1.3) mg/dL AST 29 (17-59) U/L ALT 18 (0-50) U/L Alkaline Phosphatase 73 (38-126) U/L Serum Total Protein 6.9 (6.3-8.2) g/dL Albumin 4.3 (3.5-5.0) g/dL Urine Color (Yellow) Urine Appearance (Clear) Urine pH (4.6-8.0) Ur Specific [place] (1.005-1.030) Urine Protein (Negative) Urine Glucose (UA) (Negative) mg/dL Urine Ketones (Negative) Urine Blood (Negative) Urine Nitrite (Negative) Urine Bilirubin (Negative) Urine Urobilinogen (0.2) mg/dL Ur Leukocyte Esterase (Negative) U Hyaline Cast (Auto) (0-2) /LPF Urine Microscopic RBC (0-5) /HPF Urine Microscopic WBC (0-5) /HPF Ur Epithelial Cells (None Seen) /HPF Urine Bacteria (None Seen) /HPF Urine Culture Reflexed (NO) Urine Opiates Level (NEGATIVE) Ur Methadone (NEGATIVE) Urine Barbiturates (NEGATIVE) Ur Phencyclidine (PCP) (NEGATIVE) Urine Amphetamine (NEGATIVE) U Benzodiazepine Level (NEGATIVE) Urine Cocaine (NEGATIVE) Urine Marijuana (THC) (NEGATIVE) Ethyl Alcohol < 10 (0-10) mg/dL Influenza Type A Ag (NEGATIVE) Influenza Type B Ag (NEGATIVE) RSV (PCR) (Negative) SARS-CoV-2 (PCR) (NEGATIVE) 05/28/22 Range/Units 19:15 WBC (4.0-10.5) x10^3/uL RBC (4.1-5.6) x10^6/uL Hgb (12.5-18.0) g/dL Hct (42-50) % MCV (78-100) fL MCH (26-32) pg MCHC (32-36) g/dL RDW (11.5-14.0) % Plt Count (150-450) x10^3/uL MPV (7.5-11.0) fL Gran % (36.0-66.0) % Immature Gran % (Auto) (0.00-0.4) % Nucleat RBC Rel Count (0.00-0.1) % Eos # (Auto) (0-0.5) x10^3/uL Immature Gran # (Auto) (0.00-0.03) x10^3u/L Absolute Lymphs (auto) (1.0-4.6) x10^3/uL Absolute Monos (auto) (0.0-1.3) x10^3/uL Absolute Nucleated RBC (0.00-0.01) x10^3u/L Lymphocytes % (24.0-44.0) % Monocytes % (0.0-12.0) % Eosinophils % (0.00-5.0) % Basophils % (0.0-0.4) % Absolute Granulocytes (1.4-6.9) x10^3/uL Basophils # (0-0.4) x10^3/uL Sodium (137-145) mmol/L Potassium (3.5-5.1) mmol/L Chloride (98-107) mmol/L Carbon Dioxide (22-30) mmol/L Anion Gap (5-15) MEQ/L BUN (9-20) mg/dL Creatinine (0.66-1.25) mg/dL Estimated GFR ML/MIN Glucose (74-106) mg/dL Lactic Acid (0.4-2.0) Calcium (8.4-10.2) mg/dL Total Bilirubin (0.2-1.3) mg/dL AST (17-59) U/L ALT (0-50) U/L Alkaline Phosphatase (38-126) U/L Serum Total Protein (6.3-8.2) g/dL Albumin (3.5-5.0) g/dL Urine Color (Yellow) Urine Appearance (Clear) Urine pH (4.6-8.0) Ur Specific [place] (1.005-1.030) Urine Protein (Negative) Urine Glucose (UA) (Negative) mg/dL Urine Ketones (Negative) Urine Blood (Negative) Urine Nitrite (Negative) Urine Bilirubin (Negative) Urine Urobilinogen (0.2) mg/dL Ur Leukocyte Esterase (Negative) U Hyaline Cast (Auto) (0-2) /LPF Urine Microscopic RBC (0-5) /HPF Urine Microscopic WBC (0-5) /HPF Ur Epithelial Cells (None Seen) /HPF Urine Bacteria (None Seen) /HPF Urine Culture Reflexed (NO) Urine Opiates Level (NEGATIVE) Ur Methadone (NEGATIVE) Urine Barbiturates (NEGATIVE) Ur Phencyclidine (PCP) (NEGATIVE) Urine Amphetamine (NEGATIVE) U Benzodiazepine Level (NEGATIVE) Urine Cocaine (NEGATIVE) Urine Marijuana (THC) (NEGATIVE) Ethyl Alcohol (0-10) mg/dL Influenza Type A Ag NEGATIVE (NEGATIVE) Influenza Type B Ag NEGATIVE (NEGATIVE) RSV (PCR) NEGATIVE (Negative) SARS-CoV-2 (PCR) NEGATIVE (NEGATIVE) - Progress Progress: unchanged Progress Note: Given Thiamine 500mg IV Q8H, MgSO4 2g given. Patient remains pleasantly confused, difficulty understanding commands and speech is becoming for difficulty to understand. UDS, EtOH neg, WBC 12, Hb 12.3, CMP wnl, lactate neg, albumin wnl and CT head no acute change. Discussed case w/ Dr. Tomas who agrees to admit patient to the floor. Orders were placed by me. Will continue Thiamine and repeat MRI brain. Due to patients inability to give a reliable hx will also place patient on EtOH withdrawal protocol. 05/28/22 23:36 Discussed with : Raúl Will see patient in: hospital (observation) Counseled pt/family regarding: lab results, diagnosis, need for follow-up, rad results - Departure Departure Disposition: Observation Clinical Impression: AMS (altered mental status), Brain lesion, Difficulty comprehending speech, Confabulation Condition: Stable Critical Care Time: No Referrals: HERNANDEZ HEBERT MD [Primary Care Provider] - Follow up/PCP as directed Instructions: Delirium (Confusion) (DC)
[2022-05-28 19:51] LABS: INFLUENZA A NEGATIVE (NEGATIVE); INFLUENZA B NEGATIVE (NEGATIVE); RESPIRATORY SYNCTIAL VIRUS NEGATIVE (Negative); SARS-CoV-2 Xpert Express NEGATIVE (NEGATIVE)
[2022-05-28 20:16] LABS: Absolute Neutrophil Ct (ANC) 9.52 x10^3/uL (1.4-6.9); BASOPHIL % 0.2 % (0.0-0.4); Basophil (Absolute #) 0.03 x10^3/uL (0-0.4); Eosinophil % 1.2 % (0.00-5.0); Eosinophil (Absolute #) 0.15 x10^3/uL (0-0.5); Hematocrit 39.2 % (42-50); Hemoglobin 12.3 g/dL (12.5-18.0); IMMATURE GRAN # 0.03 x10^3u/L (0.00-0.03); IMMATURE GRAN % 0.2 % (0.00-0.4); Lymphocyte (Absolute #) 1.67 x10^3/uL (1.0-4.6); Lymphocytes % 13.9 % (24.0-44.0); Mean Cell Volume 83.9 fL (78-100); Mean Corpuscular Hemoglobin 26.3 pg (26-32); Mean Corpuscular Hgb Concent. 31.4 g/dL (32-36); Mean Platelet Volume 11.3 fL (7.5-11.0); Monocyte (Absolute #) 0.61 x10^3/uL (0.0-1.3); Monocytes % 5.1 % (0.0-12.0); Neutrophil % 79.4 % (36.0-66.0); Platelet Count 202 x10^3/uL (150-450); Red Blood Count 4.67 x10^6/uL (4.1-5.6); Red Cell Distribution Width 19.5 % (11.5-14.0)
[2022-05-28] MEDS ORDERED: Magnesium 1 Gm / 100 Ml D5W*** 200 ML IV ONE (20:24)
[2022-05-28 20:29] LABS: ALBUMIN 4.3 g/dL (3.5-5.0); ALKALINE PHOSPHATASE 73 U/L (38-126); BLOOD UREA NITROGEN 10 mg/dL (9-20); CHLORIDE 107 mmol/L (98-107); Carbon Dioxide 26 mmol/L (22-30); Creatinine 1 0.93 mg/dL (0.66-1.25); EST GLOMERULAR FILTRATION RATE > 60.0 ML/MIN; Glucose 96 mg/dL (74-106); Potassium 3.9 mmol/L (3.5-5.1); SGOT/AST 29 U/L (17-59); SGPT/ALT 18 U/L (0-50); SODIUM 138 mmol/L (137-145); Total Protein 6.9 g/dL (6.3-8.2)
[2022-05-28] MEDS: THIAMINE 200 MG/2 ML IV SCH (20:29)
[2022-05-28] MEDS: Magnesium 1 Gm / 100 Ml D5W*** 100 ML IV SCH ×2 (20:30→21:05)
[2022-05-28 22:34] LABS: Appearance Clear (Clear); Bacteria None Seen /HPF (None Seen); Bilirubin Negative (Negative); Blood Negative (Negative); Epithelial Cells None Seen /HPF (None Seen); Glucose, Urine Negative (Negative); Hyaline Casts NONE SEEN /LPF (0-2); Ketones Negative (Negative); Leukocyte Esterase Negative (Negative); Nitrite Negative (Negative); Protein,Urine Dip Negative (Negative); Specific Gravity 1.015 (1.005-1.030); WBC 0-2 /HPF (0-5)
[2022-05-28 22:47] LABS: Amphetamine,Urine NEGATIVE (NEGATIVE); Barbiturate,Urine NEGATIVE (NEGATIVE); Benzodiazepine,Urine NEGATIVE (NEGATIVE); Cocaine,Urine NEGATIVE (NEGATIVE); Methadone,Urine NEGATIVE (NEGATIVE); Opiate,Urine NEGATIVE (NEGATIVE); PCP,Urine NEGATIVE (NEGATIVE); THC,Urine NEGATIVE (NEGATIVE)
[2022-05-28 22:50] LABS: ADD URINE CULTURE? NO (NO)
[2022-05-29] MEDS ORDERED: Ativan 2 MG/1 ML VIAL IV PRN (01:07)
[2022-05-29] MEDS ORDERED: Zofran 4 MG/2 ML VIAL IV PRN (01:07)
[2022-05-29] MEDS: Restoril 15 MG PO SCH ×2 (01:45→21:39)
[2022-05-29] MEDS: THIAMINE 200 MG/2 ML IV SCH (04:06)
[2022-05-29 05:23] LABS: Absolute Neutrophil Ct (ANC) 4.52 x10^3/uL (1.4-6.9); BASOPHIL % 0.4 % (0.0-0.4); Basophil (Absolute #) 0.03 x10^3/uL (0-0.4); Eosinophil % 3.4 % (0.00-5.0); Eosinophil (Absolute #) 0.27 x10^3/uL (0-0.5); Hematocrit 38.2 % (42-50); Hemoglobin 12.3 g/dL (12.5-18.0); IMMATURE GRAN # 0.02 x10^3u/L (0.00-0.03); IMMATURE GRAN % 0.3 % (0.00-0.4); Lymphocyte (Absolute #) 2.48 x10^3/uL (1.0-4.6); Lymphocytes % 31.2 % (24.0-44.0); Mean Corpuscular Hemoglobin 26.7 pg (26-32); Mean Corpuscular Hgb Concent. 32.2 g/dL (32-36); Mean Platelet Volume 11.2 fL (7.5-11.0); Monocyte (Absolute #) 0.63 x10^3/uL (0.0-1.3); Monocytes % 7.9 % (0.0-12.0); Neutrophil % 56.8 % (36.0-66.0); Platelet Count 198 x10^3/uL (150-450); Red Cell Distribution Width 19.7 % (11.5-14.0)
[2022-05-29 05:37] LABS: ANION GAP 9.2 MEQ/L (5-15); BLOOD UREA NITROGEN 8 mg/dL (9-20); CHLORIDE 105 mmol/L (98-107); Calcium 9.2 mg/dL (8.4-10.2); Carbon Dioxide 26 mmol/L (22-30); Creatinine 1 0.82 mg/dL (0.66-1.25); EST GLOMERULAR FILTRATION RATE > 60.0 ML/MIN; Glucose 93 mg/dL (74-106); SODIUM 137 mmol/L (137-145)
--- NOTE | 2022-05-29 08:37 | XRAY ---
Indication: Acute mental status change. Confusion. Stroke. History seizures and dementia. Multiple contiguous axial images obtained through the head without contrast. Comparison: April 21, 2022 Grossly stable age-appropriate global atrophy. No acute intracranial hemorrhage, abnormal extra-axial fluid collection, or mass effect. Fourth ventricle is midline without hydrocephalus. Bony calvarium intact. Visualized paranasal sinuses and mastoid air cells are clear. Impression: Continued negative CT head without contrast exam.
--- NOTE | 2022-05-29 08:45 | PCM.HP ---
History of Present Illness - Chief Complaint Chief Complaint: AMS History of Present Illness: is a 56 year old male with a longstanding history of schizophrenia, he has apparently been missing and was found wandering on the street and was disheveled and unkempt. he takes a monthly injection of aristada, he is pleasant this morning and oriented to place and self, he recognized me but couldn't give my name and I have been his PCP and see him regularly. patient was in the hospital recently and MRI showed a new temporal lobe area concerning for mesial temporal sclerosis vs status epilipticus, I saw him in followup in the last week and increased his keppra from 500gm bid to 1000mg bid, he was scheduled to see his neurologist Dr Mccullough in followup. - Review of Systems All Other Systems: Unable due to condition Medications & Allergies Home Medications: Home Medication List Aspirin [Low Dose Aspirin EC] 81 mg PO DAILY 06/26/21 [History Confirmed 04/21/22] Clopidogrel Bisulfate [Clopidogrel] 75 mg PO DAILY 06/26/21 [History Confirmed 05/29/22] PANTOPRAZOLE 40 mg Tablet [Protonix 40MG Tablet] 40 mg PO HS 06/26/21 [History Confirmed 05/29/22] Simvastatin 20Mg [Zocor 20Mg] 20 mg PO DAILY 06/26/21 [History Confirmed 05/29/22] Bupropion HCl 150 mg Sr [Wellbutrin SR 150 MG] 150 mg PO DAILY 12/08/21 [History Confirmed 05/29/22] Temazepam 30 mg PO HS 12/08/21 [History Confirmed 05/29/22] Aripiprazole Lauroxil [Aristada] 662 mg IJ UD 03/07/22 [History Confirmed 05/29/22] Trazodone HCl 100 mg PO HS 03/07/22 [History Confirmed 05/29/22] Levetiracetam [Keppra] 500 mg PO BID 30 Days #60 tablet 03/09/22 [Rx Confirmed 05/29/22] Nicotine 14 mg [Nicoderm Cq 14 mg] 14 mg TOP Q24H10 #30 patch 04/27/22 [Rx] Allergies/Adverse Reactions: Allergies Allergy/AdvReac Type Severity Reaction Status Date / Time quetiapine [From Seroquel] Allergy Severe Verified 05/28/22 18:59 carisoprodol [From Soma] Allergy Hives Verified 05/28/22 18:59 diphenhydramine Allergy Hives Verified 05/28/22 18:59 [From Benadryl] - Past Medical History Past Medical History: Yes Neurological History: Migraines, Seizures, TIA ENT History: Other Cardiac History: High Cholesterol, Hypertension Respiratory History: Asthma Endocrine Medical History: No Pertinent History Musculoskelatal History: Arthritis, Other GI Medical History: Other History: Other Pyscho-Social History: Anxiety, Bipolar, Depression Male Reproductive Disorders: Other Comment: prior suicide attempts by over dose. Cutting, anxiety, schizophrenia. Insomnia. Binge drinking. completed from prior hx, as pt is unable to comprehend questions at this time. - Past Surgical History Past Surgical History: No Neuro Surgical History: No Pertinent History Cardiac History: No Pertinent History Respiratory Surgery: No Pertinent History GI Surgical History: No Pertinent History Genitourinary Surgical Hx: No Pertinent History Musculskeletal Surgical Hx: No Pertinent History Male Surgical History: No Pertinent History Other Surgical History: completed from prior hx, as pt is unable to comprehend questions at this time. - Social History Smoking Status: Current every day smoker How long have you smoked: 30 yrs Exposure to second hand smoke: Yes Alcohol: Daily Drug Use: marijuana Significant Family History: no pertinent family hx - Physical Exam Vital Signs: Vital Signs - 24 hr Temp Pulse Resp BP Pulse Ox 05/29/22 06:54 98.4 F 67 17 122/68 95 05/29/22 04:00 97.9 F 65 16 118/68 95 05/29/22 01:36 98.4 F 73 18 126/70 95 05/29/22 00:00 68 12 129/83 97 05/28/22 23:43 96 05/28/22 23:16 67 18 130/80 98 05/28/22 22:00 74 18 118/78 05/28/22 21:21 78 119/75 96 05/28/22 18:40 97.5 F 103 H 106/72 96 General Appearance: no apparent distress Neurologic Exam: alert, cooperative, patternmaker II-XII nml as tested, No oriented x 3, No motor weakness, No facial droop, No slurred speech Eye Exam: PERRL/EOMI Respiratory Exam: normal breath sounds, lungs clear, No respiratory distress Cardiovascular Exam: regular rate/rhythm, normal heart sounds, normal peripheral pulses Gastrointestinal/Abdomen Exam: soft, normal bowel sounds, No tenderness, No mass Skin Exam: normal color, warm, dry, No rash Results - Labs Lab/Micro Results: Lab Results-Last 24 Hours 05/28/22 05/28/22 05/28/22 Range/Units 19:15 20:10 20:10 WBC 12.0 H (4.0-10.5) x10^3/uL RBC 4.67 (4.1-5.6) x10^6/uL Hgb 12.3 L (12.5-18.0) g/dL Hct 39.2 L (42-50) % MCV 83.9 (78-100) fL MCH 26.3 (26-32) pg MCHC 31.4 L (32-36) g/dL RDW 19.5 H (11.5-14.0) % Plt Count 202 (150-450) x10^3/uL MPV 11.3 H (7.5-11.0) fL Gran % 79.4 H (36.0-66.0) % Immature Gran % (Auto) 0.2 (0.00-0.4) % Nucleat RBC Rel Count 0.0 (0.00-0.1) % Eos # (Auto) 0.15 (0-0.5) x10^3/uL Immature Gran # (Auto) 0.03 (0.00-0.03) x10^3u/L Absolute Lymphs (auto) 1.67 (1.0-4.6) x10^3/uL Absolute Monos (auto) 0.61 (0.0-1.3) x10^3/uL Absolute Nucleated RBC 0.00 (0.00-0.01) x10^3u/L Lymphocytes % 13.9 L (24.0-44.0) % Monocytes % 5.1 (0.0-12.0) % Eosinophils % 1.2 (0.00-5.0) % Basophils % 0.2 (0.0-0.4) % Absolute Granulocytes 9.52 H (1.4-6.9) x10^3/uL Basophils # 0.03 (0-0.4) x10^3/uL Sodium 138 (137-145) mmol/L Potassium 3.9 (3.5-5.1) mmol/L Chloride 107 (98-107) mmol/L Carbon Dioxide 26 (22-30) mmol/L Anion Gap 9.0 (5-15) MEQ/L BUN 10 (9-20) mg/dL Creatinine 0.93 (0.66-1.25) mg/dL Estimated GFR > 60.0 ML/MIN Glucose 96 (74-106) mg/dL Lactic Acid (0.4-2.0) Calcium 9.0 (8.4-10.2) mg/dL Total Bilirubin 0.50 (0.2-1.3) mg/dL AST 29 (17-59) U/L ALT 18 (0-50) U/L Alkaline Phosphatase 73 (38-126) U/L Serum Total Protein 6.9 (6.3-8.2) g/dL Albumin 4.3 (3.5-5.0) g/dL Urine Color (Yellow) Urine Appearance (Clear) Urine pH (4.6-8.0) Ur Specific [place] (1.005-1.030) Urine Protein (Negative) Urine Glucose (UA) (Negative) mg/dL Urine Ketones (Negative) Urine Blood (Negative) Urine Nitrite (Negative) Urine Bilirubin (Negative) Urine Urobilinogen (0.2) mg/dL Ur Leukocyte Esterase (Negative) U Hyaline Cast (Auto) (0-2) /LPF Urine Microscopic RBC (0-5) /HPF Urine Microscopic WBC (0-5) /HPF Ur Epithelial Cells (None Seen) /HPF Urine Bacteria (None Seen) /HPF Urine Culture Reflexed (NO) Urine Opiates Level (NEGATIVE) Ur Methadone (NEGATIVE) Urine Barbiturates (NEGATIVE) Ur Phencyclidine (PCP) (NEGATIVE) Urine Amphetamine (NEGATIVE) U Benzodiazepine Level (NEGATIVE) Urine Cocaine (NEGATIVE) Urine Marijuana (THC) (NEGATIVE) Ethyl Alcohol (0-10) mg/dL Influenza Type A Ag NEGATIVE (NEGATIVE) Influenza Type B Ag NEGATIVE (NEGATIVE) RSV (PCR) NEGATIVE (Negative) SARS-CoV-2 (PCR) NEGATIVE (NEGATIVE) 05/28/22 05/28/22 05/28/22 Range/Units 20:10 20:15 22:23 WBC (4.0-10.5) x10^3/uL RBC (4.1-5.6) x10^6/uL Hgb (12.5-18.0) g/dL Hct (42-50) % MCV (78-100) fL MCH (26-32) pg MCHC (32-36) g/dL RDW (11.5-14.0) % Plt Count (150-450) x10^3/uL MPV (7.5-11.0) fL Gran % (36.0-66.0) % Immature Gran % (Auto) (0.00-0.4) % Nucleat RBC Rel Count (0.00-0.1) % Eos # (Auto) (0-0.5) x10^3/uL Immature Gran # (Auto) (0.00-0.03) x10^3u/L Absolute Lymphs (auto) (1.0-4.6) x10^3/uL Absolute Monos (auto) (0.0-1.3) x10^3/uL Absolute Nucleated RBC (0.00-0.01) x10^3u/L Lymphocytes % (24.0-44.0) % Monocytes % (0.0-12.0) % Eosinophils % (0.00-5.0) % Basophils % (0.0-0.4) % Absolute Granulocytes (1.4-6.9) x10^3/uL Basophils # (0-0.4) x10^3/uL Sodium (137-145) mmol/L Potassium (3.5-5.1) mmol/L Chloride (98-107) mmol/L Carbon Dioxide (22-30) mmol/L Anion Gap (5-15) MEQ/L BUN (9-20) mg/dL Creatinine (0.66-1.25) mg/dL Estimated GFR ML/MIN Glucose (74-106) mg/dL Lactic Acid 1.3 (0.4-2.0) Calcium (8.4-10.2) mg/dL Total Bilirubin (0.2-1.3) mg/dL AST (17-59) U/L ALT (0-50) U/L Alkaline Phosphatase (38-126) U/L Serum Total Protein (6.3-8.2) g/dL Albumin (3.5-5.0) g/dL Urine Color (Yellow) Urine Appearance (Clear) Urine pH (4.6-8.0) Ur Specific [place] (1.005-1.030) Urine Protein (Negative) Urine Glucose (UA) (Negative) mg/dL Urine Ketones (Negative) Urine Blood (Negative) Urine Nitrite (Negative) Urine Bilirubin (Negative) Urine Urobilinogen (0.2) mg/dL Ur Leukocyte Esterase (Negative) U Hyaline Cast (Auto) (0-2) /LPF Urine Microscopic RBC (0-5) /HPF Urine Microscopic WBC (0-5) /HPF Ur Epithelial Cells (None Seen) /HPF Urine Bacteria (None Seen) /HPF Urine Culture Reflexed (NO) Urine Opiates Level NEGATIVE (NEGATIVE) Ur Methadone NEGATIVE (NEGATIVE) Urine Barbiturates NEGATIVE (NEGATIVE) Ur Phencyclidine (PCP) NEGATIVE (NEGATIVE) Urine Amphetamine NEGATIVE (NEGATIVE) U Benzodiazepine Level NEGATIVE (NEGATIVE) Urine Cocaine NEGATIVE (NEGATIVE) Urine Marijuana (THC) NEGATIVE (NEGATIVE) Ethyl Alcohol < 10 (0-10) mg/dL Influenza Type A Ag (NEGATIVE) Influenza Type B Ag (NEGATIVE) RSV (PCR) (Negative) SARS-CoV-2 (PCR) (NEGATIVE) 05/28/22 05/29/22 05/29/22 Range/Units 22:26 04:47 04:47 WBC 8.0 (4.0-10.5) x10^3/uL RBC 4.60 (4.1-5.6) x10^6/uL Hgb 12.3 L (12.5-18.0) g/dL Hct 38.2 L (42-50) % MCV 83.0 (78-100) fL MCH 26.7 (26-32) pg MCHC 32.2 (32-36) g/dL RDW 19.7 H (11.5-14.0) % Plt Count 198 (150-450) x10^3/uL MPV 11.2 H (7.5-11.0) fL Gran % 56.8 (36.0-66.0) % Immature Gran % (Auto) 0.3 (0.00-0.4) % Nucleat RBC Rel Count 0.0 (0.00-0.1) % Eos # (Auto) 0.27 (0-0.5) x10^3/uL Immature Gran # (Auto) 0.02 (0.00-0.03) x10^3u/L Absolute Lymphs (auto) 2.48 (1.0-4.6) x10^3/uL Absolute Monos (auto) 0.63 (0.0-1.3) x10^3/uL Absolute Nucleated RBC 0.00 (0.00-0.01) x10^3u/L Lymphocytes % 31.2 (24.0-44.0) % Monocytes % 7.9 (0.0-12.0) % Eosinophils % 3.4 (0.00-5.0) % Basophils % 0.4 (0.0-0.4) % Absolute Granulocytes 4.52 (1.4-6.9) x10^3/uL Basophils # 0.03 (0-0.4) x10^3/uL Sodium 137 (137-145) mmol/L Potassium 4.0 (3.5-5.1) mmol/L Chloride 105 (98-107) mmol/L Carbon Dioxide 26 (22-30) mmol/L Anion Gap 9.2 (5-15) MEQ/L BUN 8 L (9-20) mg/dL Creatinine 0.82 (0.66-1.25) mg/dL Estimated GFR > 60.0 ML/MIN Glucose 93 (74-106) mg/dL Lactic Acid (0.4-2.0) Calcium 9.2 (8.4-10.2) mg/dL Total Bilirubin (0.2-1.3) mg/dL AST (17-59) U/L ALT (0-50) U/L Alkaline Phosphatase (38-126) U/L Serum Total Protein (6.3-8.2) g/dL Albumin (3.5-5.0) g/dL Urine Color Yellow (Yellow) Urine Appearance Clear (Clear) Urine pH 8.0 (4.6-8.0) Ur Specific [place] 1.015 (1.005-1.030) Urine Protein Negative (Negative) Urine Glucose (UA) Negative (Negative) mg/dL Urine Ketones Negative (Negative) Urine Blood Negative (Negative) Urine Nitrite Negative (Negative) Urine Bilirubin Negative (Negative) Urine Urobilinogen 1.0 A (0.2) mg/dL Ur Leukocyte Esterase Negative (Negative) U Hyaline Cast (Auto) NONE SEEN (0-2) /LPF Urine Microscopic RBC 3-5 (0-5) /HPF Urine Microscopic WBC 0-2 (0-5) /HPF Ur Epithelial Cells None Seen (None Seen) /HPF Urine Bacteria None Seen (None Seen) /HPF Urine Culture Reflexed NO (NO) Urine Opiates Level (NEGATIVE) Ur Methadone (NEGATIVE) Urine Barbiturates (NEGATIVE) Ur Phencyclidine (PCP) (NEGATIVE) Urine Amphetamine (NEGATIVE) U Benzodiazepine Level (NEGATIVE) Urine Cocaine (NEGATIVE) Urine Marijuana (THC) (NEGATIVE) Ethyl Alcohol (0-10) mg/dL Influenza Type A Ag (NEGATIVE) Influenza Type B Ag (NEGATIVE) RSV (PCR) (Negative) SARS-CoV-2 (PCR) (NEGATIVE) - Radiology Impressions Radiology Exams & Impressions: Radiology Procedures Category Date Time Status HEAD WITHOUT CONTRAST [CT] Stat Exams 05/28/22 19:48 Completed MRA BRAIN WITHOUT CONTRAST [MRI] Routine Exams 05/29/22 01:07 Ordered Assessment/Plan (1) Altered mental status Current Visit: Yes Status: Acute Qualifiers: Assessment & Plan: ?seizure vs schizophrenia related, will consult teleneurology and repeat an EEG at this time and MRI/MRA pending. in the meantime will continue [facility] Code(s): R41.82 - ALTERED MENTAL STATUS, UNSPECIFIED (2) Seizure disorder Current Visit: No Status: Chronic Code(s): G40.909 - EPILEPSY, UNSP, NOT INTRACTABLE, WITHOUT STATUS EPILEPTICUS (3) Brain lesion Current Visit: Yes Status: Acute Code(s): G93.9 - DISORDER OF BRAIN, UNSPECIFIED (4) Schizophrenia Current Visit: No Status: Chronic Qualifiers: Code(s): F20.9 - SCHIZOPHRENIA, UNSPECIFIED
[2022-05-29] MEDS ORDERED: KEPPRA PO SCH (10:00)
[2022-05-29] MEDS ORDERED: Protonix 40MG Tablet PO SCH (10:00)
[2022-05-29] MEDS: KEPPRA PO SCH ×2 (10:12→21:39)
[2022-05-29] MEDS: Wellbutrin XL 150 MG PO SCH (10:13)
[2022-05-29] MEDS: PLAVIX Tablet PO SCH (10:16)
[2022-05-29] MEDS: ECOTRIN 81 MG PO SCH ×2 (10:16→10:23)
[2022-05-29] MEDS: ZOCOR 20MG PO SCH (10:16)
--- NOTE | 2022-05-29 11:06 | XRAY ---
Indication: Increased confusion. Multi-slab 3-D [id number] MRA [place] performed. Comparison: None. Distal internal carotid arteries are bilaterally symmetric without critical stenosis, obstruction, or AV malformation. Normal carotid terminus with normal branching A1 and M1 segments bilaterally. Visualized anterior cerebral and middle cerebral arteries are normal in MRA appearance bilaterally. Posterior circulation demonstrates normal MRA appearance to the basilar, left/right posterior cerebral, and left/right superior cerebellar arteries. Impression: Normal MRA [place].
[2022-05-29] MEDS: SODIUM CHLORIDE 0.9% IV SCH ×2 (14:21→21:38)
[2022-05-29] MEDS: THIAMINE IV SCH ×2 (14:21→21:38)
[2022-05-29] MEDS: Protonix 40MG Tablet PO SCH (21:39)
[2022-05-30] MEDS: SODIUM CHLORIDE 0.9% IV SCH ×3 (06:36→22:01)
[2022-05-30] MEDS: THIAMINE IV SCH ×3 (06:36→22:01)
--- NOTE | 2022-05-30 09:34 | PCM.NOTE ---
Date and Time: 05/30/22930 Subjective Assessment: still confused - Review of Systems Constitutional: Lethargy, No Fever, No Chills Eyes: No Symptoms Ears, Nose, & Throat: No Symptoms Respiratory: No Cough, No Short Of Breath Cardiac: No Chest Pain, No Edema, No Syncope Abdominal/Gastrointestinal: No Abdominal Pain, No Nausea, No Vomiting, No Diarrhea Genitourinary Symptoms: No Dysuria Musculoskeletal: No Back Pain, No Neck Pain Skin: No Rash Neurological: Irritability, Lethargy, No Dizziness, No Focal Weakness, No Seizure, No Sensory Changes Psychological: No Symptoms Endocrine: No Symptoms Hematologic/Lymphatic: No Symptoms Immunological/Allergic: No Symptoms Objective Exam General Appearance: no apparent distress, alert Neurologic Exam: alert, oriented x 3, cooperative, normal mood/affect, nml cerebellar function, sensation nml, No motor deficits Skin Exam: normal color, warm, dry Eye Exam: PERRL, EOMI, eyes nml inspection Ears, Nose, Throat Exam: normal ENT inspection, pharynx normal, moist mucous membranes Neck Exam: normal inspection, non-tender, supple, full range of motion Respiratory Exam: normal breath sounds, lungs clear, No respiratory distress Cardiovascular Exam: regular rate/rhythm, normal heart sounds Gastrointestinal/Abdomen Exam: soft, No tenderness, No mass Extremity Exam: normal inspection, normal range of motion Back Exam: normal inspection, normal range of motion, No CVA tenderness, No vertebral tenderness Male Genitalia Exam: deferred Rectal Exam: deferred OBJECTIVE DATA Vital Signs: Vital Signs - 24 hr Temp Pulse Resp BP BP Pulse Ox 05/30/22 07:11 97.8 F 67 16 110/65 93 L 05/30/22 04:00 98.4 F 61 18 116/66 96 05/29/22 23:05 96.1 F 81 18 114/65 92 L 05/29/22 19:04 97.5 F 86 16 117/61 94 L 05/29/22 16:00 97.5 F 88 17 108/59 94 L 05/29/22 11:40 97.3 F 61 18 118/73 94 L 05/29/22 10:13 70 18 120/60 Pain Assessment - Last Documented Pain Intensity 0 Intake and Output: Intake & Output 05/27/22 05/28/22 05/29/22 05/30/22 11:59 11:59 11:59 11:59 Intake Total 480 1700 Output Total 850 Balance -370 1700 Weight 69.6 kg Radiology Exams: Radiology Procedures Category Date Time Status HEAD WITHOUT CONTRAST [CT] Stat Exams 05/28/22 19:48 Completed MRA BRAIN WITHOUT CONTRAST [MRI] Routine Exams 05/29/22 01:07 Completed Multi-Disciplinary Progress Notes: Multi-Disciplinary Progress Notes 05/29/22 14:24 Case Management Note by Lazara Coker CALLED TO CHECK ON REFERRALS [place] [facility] [place] [facility]- BOTH REPORT THEIR ADMISSIONS PEOPLE ARE GONE FOR THE WEEKEND AND WE COULD REACH BACK OUT ON WEDNESDAY REFERRALS SENT TO [facility], [facility], [facility] AT THIS TIME Initialized on 05/29/22 14:24 - END OF NOTE 05/29/22 13:40 Case Management Note by Lazara Coker S/W PATIENT- REPORTS HE DOES NOT WANT TO GO TO [email or web address] HOU[facility] BECAUSE THEY TAKE HIS MONEY AND HE HAS TO SLEEP ON THE FLOOR OR IN A CHAIR. PATIENT'S SPEECH AND ABILITY TO MAKE SENTENCES IS MUCH IMPROVED FROM LAST STAY. PATIENT CAN TELL ME WHERE HE IS AND WHAT TOWN HE IS IN BUT CANNOT TELL ME WHAT SEASON IT IS OUTSIDE, WHAT YEAR IT IS OR HOW OLD HE IS. PATIENT VOICED "SOMETHING HAPPENED IN MY BRAIN AND I KNOW I CAN'T TAKE CARE OF MYSELF ANYMORE". S/W PATIENT ABOUT PLACEMENT- HE IS AGREEABLE TO GO TO FACILITY FOR CARE. S/W DR. HEBERT- HE AGREES PATIENT WILL NEED FACILITY PLACEMENT AND WORK TO ESTABLISH A GUARDIAN Initialized on 05/29/22 13:40 - END OF NOTE 05/29/22 11:40 Case Management Note by Lazara Coker- DOES NOT HAVE A MEDICAID BED FOR PATIENT FARIBA- DECLINED [facility]GER[facility]- WILL NOT TAKE WITHOUT AN ESTABLISHED GUARDIAN GR[facility] MORIN- DOES NOT HAVE AN APPROPRIATE BED FOR PATIENT Initialized on 05/29/22 11:40 - END OF NOTE 05/29/22 10:07 Case Management Note by Lazara Coker REFERRALS FAXED TO [facility], GR[facility]ORIN, [facility] FITZGERALD, [facility], AND [facility] Initialized on 05/29/22 10:07 - END OF NOTE 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 Current Visit: Yes Status: Acute Assessment & Plan: Chief Complaint Diagnosis AMS Allergies Allergy/AdvReac Type Severity Reaction Status Date / Time quetiapine [From Seroquel] Allergy Severe Verified 05/28/22 18:59 carisoprodol [From Soma] Allergy Hives Verified 05/28/22 18:59 diphenhydramine Allergy Hives Verified 05/28/22 18:59 [From Benadryl] Vital Signs (Last 24 hours) Temp Pulse Resp BP BP Pulse Ox 05/30/22 07:11 97.8 F 67 16 110/65 93 L 05/30/22 04:00 98.4 F 61 18 116/66 96 05/29/22 23:05 96.1 F 81 18 114/65 92 L 05/29/22 19:04 97.5 F 86 16 117/61 94 L 05/29/22 16:00 97.5 F 88 17 108/59 94 L 05/29/22 11:40 97.3 F 61 18 118/73 94 L 05/29/22 10:13 70 18 120/60 Current Medications Generic Name Dose Route Start Last Admin Trade Name Freq PRN Reason Stop Dose Admin Aspirin 81 mg 05/29/22 10:00 05/29/22 10:23 Aspirin 81 Mg Tablet.Ec PO 06/28/22 09:59 81 mg DAILY ZENON Administration Bupropion HCl 150 mg 05/29/22 10:00 05/29/22 10:13 Bupropion Hcl 150 Mg Tablet Xl PO 06/28/22 09:59 150 mg DAILY ZENON Administration Clopidogrel Bisulfate 75 mg 05/29/22 10:00 05/29/22 10:16 Clopidogrel Bisulfate 75 Mg Tablet PO 06/28/22 09:59 75 mg DAILY ZENON Administration Thiamine HCl 500 mg/ Sodium 105 mls @ 210 mls/hr 05/29/22 14:00 05/30/22 06:36 Chloride IV 05/31/22 21:59 210 mls/hr Q8HT ZENON Administration Levetiracetam 1,000 mg 05/29/22 10:00 05/29/22 21:39 Levetiracetam 500 Mg Tablet PO 06/28/22 09:59 1,000 mg BID ZENON Administration Lorazepam 1 mg 05/29/22 01:07 05/29/22 10:13 Lorazepam 2 Mg/1 Ml 2 Mg Vial IV 06/28/22 01:06 1 mg PRN PRN Administration CIWA SCORE Ondansetron HCl 4 mg 05/29/22 01:07 Ondansetron Hcl 4 Mg/2 Ml Vial IV 06/28/22 01:06 Q6H PRN PRN NAUSEA/VOMITING Pantoprazole Sodium 40 mg 05/29/22 22:00 05/29/22 21:39 Protonix (Pantoprazole) 40 Mg Tablet PO 06/28/22 09:59 40 mg HS ZENON Administration Simvastatin 20 mg 05/29/22 10:00 05/29/22 10:16 Simvastatin 20 Mg Tablet PO 06/28/22 09:59 20 mg DAILY ZENON Administration Temazepam 30 mg 05/29/22 01:07 05/29/22 21:39 Temazepam 15 Mg Capsule PO 06/28/22 01:06 30 mg HS ZENON Administration Discontinued Medications Generic Name Dose Route Start Last Admin Trade Name Freq PRN Reason Stop Dose Admin Magnesium Sulfate/Dextrose 100 mls @ 100 mls/hr 05/28/22 20:00 05/28/22 21:05 Magnesium 1 Gm / 100 Ml D5w IV 05/28/22 21:59 100 mls/hr Q1H ZENON Administration Magnesium Sulfate/Dextrose Confirm 05/28/22 20:24 Magnesium 1 Gm / 100 Ml D5w Administered 05/28/22 20:25 Dose 200 mls @ ud IV .STK-MED ONE Levetiracetam 500 mg 05/29/22 10:00 Levetiracetam 500 Mg Tablet PO 06/28/22 09:59 BID ZENON Pantoprazole Sodium 40 mg 05/29/22 10:00 Protonix (Pantoprazole) 40 Mg Tablet PO 06/28/22 09:59 DAILY ZENON Thiamine HCl 500 mg 05/28/22 20:00 05/29/22 04:06 Thiamine Hcl 200 Mg/2 Ml Vial IV 05/31/22 19:59 500 mg Q8H ZENON Administration Intake & Output (Last 24 hours) 05/27/22 05/28/22 05/29/22 05/30/22 11:59 11:59 11:59 11:59 Intake Total 480 1700 Output Total 850 Balance -370 1700 Weight 69.6 kg Orders (Last 24 hours) Category Date Time Status Aspirin EC 81 mg [Ecotrin 81 mg] Med 05/29/22 10:00 Active 81 mg PO DAILY Bupropion HCl Xl 150 mg [Wellbutrin XL 150 MG] Med 05/29/22 10:00 Active 150 mg PO DAILY Clopidogrel Bisulfate [PLAVIX Tablet] Med 05/29/22 10:00 Active 75 mg PO DAILY Levetiracetam [Keppra] Med 05/29/22 10:00 Active 1,000 mg PO BID Levetiracetam [Keppra] Med 05/29/22 10:00 Discontinued 500 mg PO BID PANTOPRAZOLE 40 mg Tablet [Protonix 40MG Tablet] Med 05/29/22 10:00 Discontinued 40 mg PO DAILY PANTOPRAZOLE 40 mg Tablet [Protonix 40MG Tablet] Med 05/29/22 22:00 Active 40 mg PO HS Simvastatin 20Mg [Zocor 20Mg] Med 05/29/22 10:00 Active 20 mg PO DAILY Thiamine HCl 200 mg/2 ml [Thiamine 200 mg/2 ml] Med 05/29/22 14:00 Active 500 mg NaCl 0.9% [Sodium Chloride 0.9%] 100 ml IV Q8HT EEG 41-60 Minutes (Normal) ONCE RT 05/29/22 11:31 Completed Patient Care Notes (Last 24 hours) 05/29/22 16:00 (created 05/29/22 19:07) Nursing Note by PAOLA ROSADO TELE-NEURO, [employer] CALLED AND INFORMED US THAT THEIR EQUIPMENT IS NOT WORKING AND WHEN IT GETS WORKING AGAIN, THEY WILL CALL AND NOTIFY US SO CONSULT CAN BE DONE. Initialized on 05/29/22 19:07 - END OF NOTE 05/29/22 14:24 Case Management Note by Lazara Coker CALLED TO CHECK ON REFERRALS [place] [facility] [place] [facility]- BOTH REPORT THEIR ADMISSIONS PEOPLE ARE GONE FOR THE WEEKEND AND WE COULD REACH BACK OUT ON WEDNESDAY REFERRALS SENT TO [facility], [facility] AT THIS TIME Initialized on 05/29/22 14:24 - END OF NOTE 05/29/22 13:40 Case Management Note by Lazara Coker S/W PATIENT- REPORTS HE DOES NOT WANT TO GO TO [facility] BECAUSE THEY TAKE HIS MONEY AND HE HAS TO SLEEP ON THE FLOOR OR IN A CHAIR. PATIENT'S SPEECH AND ABILITY TO MAKE SENTENCES IS MUCH IMPROVED FROM LAST STAY. PATIENT CAN TELL ME WHERE HE IS AND WHAT TOWN HE IS IN BUT CANNOT TELL ME WHAT SEASON IT IS OUTSIDE, WHAT YEAR IT IS OR HOW OLD HE IS. PATIENT VOICED "SOMETHING HAPPENED IN MY BRAIN AND I KNOW I CAN'T TAKE CARE OF MYSELF ANYMORE". S/W PATIENT ABOUT PLACEMENT- HE IS AGREEABLE TO GO TO FACILITY FOR CARE. S/W DR. HEBERT- HE AGREES PATIENT WILL NEED FACILITY PLACEMENT AND WORK TO ESTABLISH A GUARDIAN Initialized on 05/29/22 13:40 - END OF NOTE 05/29/22 12:06 Nursing Note by Erinn Vidal I faxed Tele-Neurology consult to [facility] with [phone] and called Access center at [phone]. I called to have images from radiology sent to [facility] [employer] Initialized on 05/29/22 12:06 - END OF NOTE 05/29/22 11:40 Case Management Note by Lazara Coker- DOES NOT HAVE A MEDICAID BED FOR PATIENT F[place]- DECLINED ISABEL FITZGERALD- WILL NOT TAKE WITHOUT AN ESTABLISHED GUARDIAN GRISELDA MORIN- DOES NOT HAVE AN APPROPRIATE BED FOR PATIENT Initialized on 05/29/22 11:40 - END OF NOTE 05/29/22 10:07 Case Management Note by Lazara Coker REFERRALS FAXED TO [facility] [place], ISABEL FITZGERALD, [facility] AND [facility] [place]ized on 05/29/22 10:07 - END OF NOTE Code(s): G40.109 - LOCAL-REL SYMPTC EPI W SIMP PRT SEIZ,NOT NTRCT, W/O STAT EPI; G93.81 - TEMPORAL SCLEROSIS
[2022-05-30] MEDS: ZOCOR 20MG PO SCH (10:30)
[2022-05-30] MEDS: PLAVIX Tablet PO SCH (10:30)
[2022-05-30] MEDS: ECOTRIN 81 MG PO SCH (10:30)
[2022-05-30] MEDS: KEPPRA PO SCH ×2 (10:31→22:02)
[2022-05-30] MEDS: Wellbutrin XL 150 MG PO SCH (10:32)
[2022-05-30] MEDS: Restoril 15 MG PO SCH (22:01)
[2022-05-30] MEDS: Protonix 40MG Tablet PO SCH (22:02)
[2022-05-31] MEDS: THIAMINE IV SCH ×2 (06:16→15:33)
[2022-05-31] MEDS: SODIUM CHLORIDE 0.9% IV SCH ×2 (06:16→15:33)
[2022-05-31 06:26] LABS: Hematocrit 38.6 % (42-50); Mean Cell Volume 84.3 fL (78-100); Mean Corpuscular Hemoglobin 26.2 pg (26-32); Mean Corpuscular Hgb Concent. 31.1 g/dL (32-36); Mean Platelet Volume 11.3 fL (7.5-11.0); Platelet Count 204 x10^3/uL (150-450); Red Blood Count 4.58 x10^6/uL (4.1-5.6); Red Cell Distribution Width 19.3 % (11.5-14.0); White Blood Count 6.4 x10^3/uL (4.0-10.5)
--- NOTE | 2022-05-31 08:01 | PCM.NOTE ---
Date and Time: 05/31/22 0757 Subjective Assessment: doing ok, awaiting NH placement - Review of Systems Constitutional: No Fever, No Chills Eyes: No Symptoms Ears, Nose, & Throat: No Symptoms Respiratory: No Cough, No Short Of Breath Cardiac: No Chest Pain, No Edema, No Syncope Abdominal/Gastrointestinal: No Abdominal Pain, No Nausea, No Vomiting, No Diarrhea Genitourinary Symptoms: No Dysuria Musculoskeletal: No Back Pain, No Neck Pain Skin: No Rash Neurological: Irritability, Speech Changes, No Dizziness, No Focal Weakness, No Seizure, No Sensory Changes Psychological: No Symptoms Endocrine: No Symptoms Hematologic/Lymphatic: No Symptoms Immunological/Allergic: No Symptoms Objective Exam General Appearance: no apparent distress, alert Neurologic Exam: alert, oriented x 3, cooperative, normal mood/affect, nml cerebellar function, sensation nml, No motor deficits Skin Exam: normal color, warm, dry Eye Exam: PERRL, EOMI, eyes nml inspection Ears, Nose, Throat Exam: normal ENT inspection, pharynx normal, moist mucous membranes Neck Exam: normal inspection, non-tender, supple, full range of motion Respiratory Exam: normal breath sounds, lungs clear, No respiratory distress Cardiovascular Exam: regular rate/rhythm, normal heart sounds Gastrointestinal/Abdomen Exam: soft, No tenderness, No mass Extremity Exam: normal inspection, normal range of motion Back Exam: normal inspection, normal range of motion, No CVA tenderness, No vertebral tenderness Male Genitalia Exam: deferred Rectal Exam: deferred OBJECTIVE DATA Vital Signs: Vital Signs - 24 hr Temp Pulse Resp BP Pulse Ox 05/31/22 07:27 97.7 F 57 L 16 133/71 96 05/31/22 04:00 99.3 F 64 17 122/69 95 05/30/22 23:46 97.9 F 73 18 112/62 97 05/30/22 18:53 97.7 F 76 21 109/58 96 05/30/22 15:51 98.5 F 66 18 135/73 98 05/30/22 11:40 98.0 F 77 16 104/64 95 Pain Assessment - Last Documented Pain Intensity 0 Intake and Output: Intake & Output 05/28/22 05/29/22 05/30/22 05/31/22 11:59 11:59 11:59 11:59 Intake Total 480 1700 1240 Output Total 850 Balance -370 1700 1240 Weight 69.6 kg Lab Results: Lab Results-Last 24 Hours 05/28/22 05/31/22 05/31/22 Range/Units 20:10 06:02 06:02 WBC 6.4 (4.0-10.5) x10^3/uL RBC 4.58 (4.1-5.6) x10^6/uL Hgb 12.0 L (12.5-18.0) g/dL Hct 38.6 L (42-50) % MCV 84.3 (78-100) fL MCH 26.2 (26-32) pg MCHC 31.1 L (32-36) g/dL RDW 19.3 H (11.5-14.0) % Plt Count 204 (150-450) x10^3/uL MPV 11.3 H (7.5-11.0) fL Ammonia (9-30) umol/L Troponin I < 0.012 (0.000-0.034) ng/mL Prolactin 3.9 L (4.0-15.2) ng/mL 05/31/22 Range/Units 06:02 WBC (4.0-10.5) x10^3/uL RBC (4.1-5.6) x10^6/uL Hgb (12.5-18.0) g/dL Hct (42-50) % MCV (78-100) fL MCH (26-32) pg MCHC (32-36) g/dL RDW (11.5-14.0) % Plt Count (150-450) x10^3/uL MPV (7.5-11.0) fL Ammonia < 9 L (9-30) umol/L Troponin I (0.000-0.034) ng/mL Prolactin (4.0-15.2) ng/mL Radiology Exams: Radiology Procedures Category Date Time Status CHEST 2 VIEWS (PA AND LAT) Routine Exams 05/31/22 08:00 Ordered Exam Date: 04/23/22 Status: ADM IN Radiology #: Procedures: [id number] MRI/MRI BRAIN W & W/O CONTRAST Indication: Acute mental status change. Facial twitching. History seizures. Sagittal, coronal, and axial MRI brain performed using pre and post T1, T2, FLAIR, diffusion, and ADC sequences. 10 cc Dotarem contrast used. Comparison: March 09, 2022 Again age-appropriate global atrophy. Medial left temporal lobe demonstrates new moderate size focus of cortical/subcortical T2 signal spanning at least 5 x 3 cm in greatest axial dimension. No mass effect or abnormal enhancement.. In this patient with history of seizures, primary consideration is offered for status epilepticus versus mesial temporal sclerosis. Elsewhere no acute intracranial hemorrhage, abnormal extra-axial fluid collection, or mass effect. Diffusion images are negative for restricted signal. Following gadolinium, there is no abnormal enhancing intra-or extra-axial mass. Fourth ventricle is midline without hydrocephalus. 7/8 cranial nerve complex bilaterally symmetric. Normal flow void signal within the major intracerebral circulation. Normal appearing craniocervical junction and sella turcica. Visualized paranasal sinuses are clear. Impression: 1. New cortical/subcortical T2 signal in medial left temporal lobe as detailed. Given history of seizures, primary consideration is offered for status epilepticus versus mesial temporal sclerosis. 2. Remaining MRI brain with contrast exam is negative. 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 Current Visit: Yes Status: Acute Assessment & Plan: Chief Complaint Diagnosis AMS Allergies Allergy/AdvReac Type Severity Reaction Status Date / Time quetiapine [From Seroquel] Allergy Severe Verified 05/28/22 18:59 carisoprodol [From Soma] Allergy Hives Verified 05/28/22 18:59 diphenhydramine Allergy Hives Verified 05/28/22 18:59 [From Benadryl] Vital Signs (Last 24 hours) Temp Pulse Resp BP Pulse Ox 05/31/22 07:27 97.7 F 57 L 16 133/71 96 05/31/22 04:00 99.3 F 64 17 122/69 95 05/30/22 23:46 97.9 F 73 18 112/62 97 05/30/22 18:53 97.7 F 76 21 109/58 96 05/30/22 15:51 98.5 F 66 18 135/73 98 05/30/22 11:40 98.0 F 77 16 104/64 95 Current Medications Generic Name Dose Route Start Last Admin Trade Name Freq PRN Reason Stop Dose Admin Aspirin 81 mg 05/29/22 10:00 05/30/22 10:30 Aspirin 81 Mg Tablet.Ec PO 06/28/22 09:59 81 mg DAILY ZENON Administration Bupropion HCl 150 mg 05/29/22 10:00 05/30/22 10:32 Bupropion Hcl 150 Mg Tablet Xl PO 06/28/22 09:59 150 mg DAILY ZENON Administration Clopidogrel Bisulfate 75 mg 05/29/22 10:00 05/30/22 10:30 Clopidogrel Bisulfate 75 Mg Tablet PO 06/28/22 09:59 75 mg DAILY ZENON Administration Thiamine HCl 500 mg/ Sodium 105 mls @ 210 mls/hr 05/29/22 14:00 05/31/22 06:16 Chloride IV 05/31/22 21:59 210 mls/hr Q8HT ZENON Administration Levetiracetam 1,000 mg 05/29/22 10:00 05/30/22 22:02 Levetiracetam 500 Mg Tablet PO 06/28/22 09:59 1,000 mg BID ZENON Administration Lorazepam 1 mg 05/29/22 01:07 05/29/22 10:13 Lorazepam 2 Mg/1 Ml 2 Mg Vial IV 06/28/22 01:06 1 mg PRN PRN Administration CIWA SCORE Ondansetron HCl 4 mg 05/29/22 01:07 Ondansetron Hcl 4 Mg/2 Ml Vial IV 06/28/22 01:06 Q6H PRN PRN NAUSEA/VOMITING Pantoprazole Sodium 40 mg 05/29/22 22:00 05/30/22 22:02 Protonix (Pantoprazole) 40 Mg Tablet PO 06/28/22 09:59 40 mg HS ZENON Administration Simvastatin 20 mg 05/29/22 10:00 05/30/22 10:30 Simvastatin 20 Mg Tablet PO 06/28/22 09:59 20 mg DAILY ZENON Administration Temazepam 30 mg 05/29/22 01:07 05/30/22 22:01 Temazepam 15 Mg Capsule PO 06/28/22 01:06 30 mg HS ZENON Administration Discontinued Medications Generic Name Dose Route Start Last Admin Trade Name Freq PRN Reason Stop Dose Admin Magnesium Sulfate/Dextrose 100 mls @ 100 mls/hr 05/28/22 20:00 05/28/22 21:05 Magnesium 1 Gm / 100 Ml D5w IV 05/28/22 21:59 100 mls/hr Q1H ZENON Administration Magnesium Sulfate/Dextrose Confirm 05/28/22 20:24 Magnesium 1 Gm / 100 Ml D5w Administered 05/28/22 20:25 Dose 200 mls @ ud IV .STK-MED ONE Levetiracetam 500 mg 05/29/22 10:00 Levetiracetam 500 Mg Tablet PO 06/28/22 09:59 BID ZENON Pantoprazole Sodium 40 mg 05/29/22 10:00 Protonix (Pantoprazole) 40 Mg Tablet PO 06/28/22 09:59 DAILY ZENON Thiamine HCl 500 mg 05/28/22 20:00 05/29/22 04:06 Thiamine Hcl 200 Mg/2 Ml Vial IV 05/31/22 19:59 500 mg Q8H ZENON Administration Intake & Output (Last 24 hours) 05/28/22 05/29/22 05/30/22 05/31/22 11:59 11:59 11:59 11:59 Intake Total 480 1700 1240 Output Total 850 Balance -370 1700 1240 Weight 69.6 kg Microbiology Results (Last 24 hours) 05/31/22 06:02 Blood Blood Culture Gram Stain - Pending 05/31/22 06:02 Blood Blood Culture - Pending Laboratory Results (Last 24 hours) 05/31/22 05/31/22 05/31/22 06:02 06:02 06:02 WBC 6.4 RBC 4.58 Hgb 12.0 L Hct 38.6 L MCV 84.3 MCH 26.2 MCHC 31.1 L RDW 19.3 H Plt Count 204 MPV 11.3 H Ammonia < 9 L Troponin I < 0.012 Prolactin 05/28/22 20:10 WBC RBC Hgb Hct MCV MCH MCHC RDW Plt Count MPV Ammonia Troponin I Prolactin 3.9 L Orders (Last 24 hours) Category Date Time Status CHEST 2 VIEWS (PA AND LAT) Routine Exams 05/31/22 08:00 Ordered AMMONIA Routine Lab 05/31/22 06:02 Completed BLOOD CULTURE Urgent Lab 05/31/22 06:02 Received CBC AM.LAB Lab 05/31/22 06:02 Completed Folate (Folic Acid) Routine Lab 05/31/22 06:02 Received LIPID PROFILE Routine Lab 05/31/22 06:02 Received MAG [MAGNESIUM] AM.LAB Lab 05/31/22 06:02 Received TROPONIN AM.LAB Lab 05/31/22 06:02 Completed TSH [TSH, 3RD Generation] Routine Lab 05/31/22 06:02 Received Vit. B1, Whole Blood Routine Lab 05/31/22 06:02 Received Vitamin B12 Routine Lab 05/31/22 06:02 Received OT Eval and Treat (MD Order) ONCE OT 06/01/22 08:00 Active PT Eval & Treat (MD Order) ONCE PT 06/01/22 08:[address] Eval & Treat (MD Order) .as ordered ST 06/01/22 08:00 Active Patient Care Notes (Last 24 hours) 05/30/22 15:38 Nursing Note by Yazmin Bland REVIEWED TELE NEUROLOGY RECOMMENDATIONS WITH DR. BARNES. REC. THE FOLLOWING ORDER FOR TOMORROW 05/31/22: LABS; CBC, MAGNESIUM, AMMONIA, TROPONIN, VITAMIN B12, TSH, BLOOD CULTURES, VITAMIN B1, FOLATE, LIPID PROFILE, 2 VIEW CHEST XRAY AND PT/OT/ST EVAL AND TREAT ORDERS FOR WEDNESDAY. Initialized on 05/30/22 15:38 - END OF NOTE Exam Date: 04/23/22 Status: ADM IN Radiology #: Procedures: [id number] MRI/MRI BRAIN W & W/O CONTRAST Indication: Acute mental status change. Facial twitching. History seizures. Sagittal, coronal, and axial MRI brain performed using pre and post T1, T2, FLAIR, diffusion, and ADC sequences. 10 cc Dotarem contrast used. Comparison: March 09, 2022 Again age-appropriate global atrophy. Medial left temporal lobe demonstrates new moderate size focus of cortical/subcortical T2 signal spanning at least 5 x 3 cm in greatest axial dimension. No mass effect or abnormal enhancement.. In this patient with history of seizures, primary consideration is offered for status epilepticus versus mesial temporal sclerosis. Elsewhere no acute intracranial hemorrhage, abnormal extra-axial fluid collection, or mass effect. Diffusion images are negative for restricted signal. Following gadolinium, there is no abnormal enhancing intra-or extra-axial mass. Fourth ventricle is midline without hydrocephalus. 7/8 cranial nerve complex bilaterally symmetric. Normal flow void signal within the major intracerebral circulation. Normal appearing craniocervical junction and sella turcica. Visualized paranasal sinuses are clear. Impression: 1. New cortical/subcortical T2 signal in medial left temporal lobe as detailed. Given history of seizures, primary consideration is offered for status epilepticus versus mesial temporal sclerosis. 2. Remaining MRI brain with contrast exam is negative. Code(s): G40.109 - LOCAL-REL SYMPTC EPI W SIMP PRT SEIZ,NOT NTRCT, W/O STAT EPI; G93.81 - TEMPORAL SCLEROSIS
[2022-05-31] MEDS: ECOTRIN 81 MG PO SCH (10:53)
[2022-05-31] MEDS: ZOCOR 20MG PO SCH (10:53)
[2022-05-31] MEDS: KEPPRA PO SCH ×2 (10:53→21:29)
[2022-05-31] MEDS: PLAVIX Tablet PO SCH (10:54)
[2022-05-31] MEDS: Wellbutrin XL 150 MG PO SCH (10:58)
[2022-05-31 15:42] LABS: Folate (Folic Acid) 4.53 ng/mL (2.76 - >20); MAGNESIUM 1.9 mg/dL (1.6-2.3); Risk Ratio 2.6; TSH, 3RD Generation 2.14 mIU/L (0.47-4.68)
--- NOTE | 2022-05-31 18:46 | XRAY ---
Indication: Abnormal lung sounds. Comparison: April 23, 2022 Portable chest remains hyperinflated and clear. Heart not enlarged. Bony thorax intact with mild degenerative changes. No new/acute findings. Comment: Preliminary interpretation made by [facility]. No critical discrepancy.
[2022-05-31] MEDS: Restoril 15 MG PO SCH (21:29)
[2022-05-31] MEDS: Protonix 40MG Tablet PO SCH (21:29)
[2022-06-01 05:20] LABS: Hematocrit 38.1 % (42-50); Hemoglobin 12.2 g/dL (12.5-18.0); Mean Cell Volume 82.8 fL (78-100); Mean Corpuscular Hemoglobin 26.5 pg (26-32); Mean Platelet Volume 10.5 fL (7.5-11.0); Platelet Count 207 x10^3/uL (150-450); Red Cell Distribution Width 19.6 % (11.5-14.0); White Blood Count 6.8 x10^3/uL (4.0-10.5)
[2022-06-01 05:45] LABS: ALBUMIN 4.1 g/dL (3.5-5.0); ALKALINE PHOSPHATASE 64 U/L (38-126); ANION GAP 7.4 MEQ/L (5-15); BLOOD UREA NITROGEN 10 mg/dL (9-20); CHLORIDE 108 mmol/L (98-107); Calcium 9.1 mg/dL (8.4-10.2); Carbon Dioxide 28 mmol/L (22-30); Creatinine 1 0.74 mg/dL (0.66-1.25); EST GLOMERULAR FILTRATION RATE > 60.0 ML/MIN; Glucose 101 mg/dL (74-106); Potassium 4.3 mmol/L (3.5-5.1); SGOT/AST 21 U/L (17-59); SGPT/ALT 16 U/L (0-50); SODIUM 140 mmol/L (137-145)
--- NOTE | 2022-06-01 08:18 | PCM.NOTE ---
Date and Time: 06/01/22811 Subjective Assessment: patient has been stable since admission, he is pleasant and oriented to self and place. reviewed discharge planning notes, patient is awaiting placement due to social situation and mental health/seizure disorder Objective Exam General Appearance: no apparent distress Neurologic Exam: alert, cooperative Respiratory Exam: normal breath sounds, lungs clear, No respiratory distress Cardiovascular Exam: regular rate/rhythm, normal heart sounds Gastrointestinal/Abdomen Exam: soft, No tenderness, No mass OBJECTIVE DATA Vital Signs: Vital Signs - 24 hr Temp Pulse Resp BP Pulse Ox 06/01/22 07:22 98.5 F 63 16 155/75 96 06/01/22 04:00 97.8 F 68 20 144/80 98 05/31/22 23:56 97.9 F 79 18 115/65 95 05/31/22 19:21 98.1 F 86 18 135/62 97 05/31/22 16:00 98.7 F 74 16 124/63 96 05/31/22 12:00 97.7 F 69 16 136/71 97 Pain Assessment - Last Documented Pain Intensity 0 Intake and Output: Intake & Output 05/29/22 05/30/22 05/31/22 06/01/22 11:59 11:59 11:59 11:59 Intake Total 480 1700 1820 1140 Output Total 850 Balance -370 1700 1820 1140 Weight 69.6 kg Lab Results: Lab Results-Last 24 Hours 05/31/22 06/01/22 06/01/22 Range/Units 06:02 05:05 05:05 WBC 6.8 (4.0-10.5) x10^3/uL RBC 4.60 (4.1-5.6) x10^6/uL Hgb 12.2 L (12.5-18.0) g/dL Hct 38.1 L (42-50) % MCV 82.8 (78-100) fL MCH 26.5 (26-32) pg MCHC 32.0 (32-36) g/dL RDW 19.6 H (11.5-14.0) % Plt Count 207 (150-450) x10^3/uL MPV 10.5 (7.5-11.0) fL Sodium 140 (137-145) mmol/L Potassium 4.3 (3.5-5.1) mmol/L Chloride 108 H (98-107) mmol/L Carbon Dioxide 28 (22-30) mmol/L Anion Gap 7.4 (5-15) MEQ/L BUN 10 (9-20) mg/dL Creatinine 0.74 (0.66-1.25) mg/dL Estimated GFR > 60.0 ML/MIN Glucose 101 (74-106) mg/dL Calcium 9.1 (8.4-10.2) mg/dL Magnesium 1.9 (1.6-2.3) mg/dL Total Bilirubin 0.50 (0.2-1.3) mg/dL AST 21 (17-59) U/L ALT 16 (0-50) U/L Alkaline Phosphatase 64 (38-126) U/L Serum Total Protein 7.0 (6.3-8.2) g/dL Albumin 4.1 (3.5-5.0) g/dL Triglycerides 116 (30-150) mg/dL Cholesterol 153 (50-200) mg/dL LDL Cholesterol 73 (30-100) mg/dL HDL Cholesterol 58 (40-60) mg/dL Heart Disease Risk Ratio 2.6 Vitamin B12 377 (239-931) pg/mL Folic Acid 4.53 (2.76 - >20) ng/mL TSH 3rd Generation 2.140 (0.47-4.68) mIU/L Radiology Exams: Radiology Procedures Category Date Time Status CHEST 1 VIEW (PORTABLE) Routine Exams 05/31/22 08:43 Completed Assessment/Plan (1) Altered mental status Current Visit: Yes Status: Acute Qualifiers: Assessment & Plan: factors of mental health disorder with schizophrenia and seizure disorder compounded by poor living/social situation. awaiting placement/guardianship process at this time. patient agrees to placement. neurology was consulted on 05/30 and note was reviewed, labs show no obvious metabolic cause of his speech difficulty. patient has a baseline near his current function in my opinion. Code(s): R41.82 - ALTERED MENTAL STATUS, UNSPECIFIED (2) Seizure disorder Current Visit: No Status: Chronic Code(s): G40.909 - EPILEPSY, UNSP, NOT INTRACTABLE, WITHOUT STATUS EPILEPTICUS (3) Schizophrenia Current Visit: No Status: Chronic Qualifiers: Code(s): F20.9 - SCHIZOPHRENIA, UNSPECIFIED (4) Brain lesion Current Visit: Yes Status: Acute Code(s): G93.9 - DISORDER OF BRAIN, UNSPECIFIED
[2022-06-01] MEDS: PLAVIX Tablet PO SCH (10:07)
[2022-06-01] MEDS: ZOCOR 20MG PO SCH (10:07)
[2022-06-01] MEDS: ECOTRIN 81 MG PO SCH (10:07)
[2022-06-01] MEDS: Wellbutrin XL 150 MG PO SCH (10:07)
[2022-06-01] MEDS: KEPPRA PO SCH ×2 (10:07→21:11)
[2022-06-01] MEDS: Protonix 40MG Tablet PO SCH (21:11)
[2022-06-01] MEDS: Restoril 15 MG PO SCH (21:11)
--- NOTE | 2022-06-02 08:20 | PCM.NOTE ---
Date and Time: 06/02/22818 Subjective Assessment: patient is doing well, denies any complaints or problems today. awaiting placement Objective Exam General Appearance: no apparent distress Neurologic Exam: alert, cooperative Respiratory Exam: normal breath sounds, lungs clear, No respiratory distress Cardiovascular Exam: regular rate/rhythm, normal heart sounds Gastrointestinal/Abdomen Exam: soft, No tenderness, No mass OBJECTIVE DATA Vital Signs: Vital Signs - 24 hr Temp Pulse Resp BP Pulse Ox 06/02/22 06:46 98.0 F 85 18 120/67 94 L 06/02/22 04:00 98.2 F 71 16 134/75 96 06/01/22 23:18 97.7 F 89 16 125/77 94 L 06/01/22 19:03 99.1 F 93 H 16 138/72 96 06/01/22 16:00 97.9 F 113 H 16 161/98 94 L 06/01/22 11:53 98.5 F 88 16 132/72 96 Pain Assessment - Last Documented Pain Intensity 0 Intake and Output: Intake & Output 05/30/22 05/31/22 06/01/22 06/02/22 11:59 11:59 11:59 11:59 Intake Total 1700 1820 1620 1680 Balance 1700 1820 1620 1680 Radiology Exams: Radiology Procedures Category Date Time Status CHEST 1 VIEW (PORTABLE) Routine Exams 05/31/22 08:43 Completed Multi-Disciplinary Progress Notes: Multi-Disciplinary Progress Notes 06/02/22 08:18 Case Management Note by Lazara Coker REACHED OUT TO [facility] AND [facility] TO CHECK ON REFERRALS- STILL REVIEWING Initialized on 06/02/22 08:18 - END OF NOTE 06/01/22 15:17 Case Management Note by Lazara Coker FAXED UPDATED CLINICAL WITH FULL MEDICAID INFO TO [facility] AND [facility] Initialized on 06/01/22 15:17 - END OF NOTE 06/01/22 15:05 Case Management Note by Lazara Coker [facility]- NO BED FOR PATIENT [place]-DECLINED PATIENT Initialized on 06/01/22 15:05 - END OF NOTE 06/01/22 14:34 ST Plan of Care Note by Yashira#[id number],[facility] Speech Therapy Plan of Care ST Plan of Care Start: 06/01/22 13:51 Freq: Status: Active Protocol: Document 06/01/22 14:27 BM (Rec: 02/13/23 14:33 BM [id number]) E-Sign 06/01/22 14:27 Speech Therapy Plan of Care Problem List R47.01 APHASIA R41.841 COGNITIVE COMMUNICATION DEFICIT Treatments Speech/Language Treatment Interventions SPEECH THERAPY TO INCLUDE MODEL DRILL REPETITION WORD RETRIEVAL TASKS ROTE MEMORY TASKS Receptive Language Moderate Expressive Language Severe Cognitive Communication Severe Functional Goals of Treatment PATIENT WILL DEMONSTRATE FUNCTIONAL EXPRESSIVE/ RECEPTIVE LANGUAGE SKILLS FOR INDEPENDENCE WITHIN LIVING ENVIRONMENT. Goal #1 PATIENT WILL COMPLETE BASIC COGNITIVE COMMUNICATION TASK WITH 75% ACCY INDEPENDENTLY. Status Initial Goal #2 PATIENT WILL COMPLETE WORD RETRIEVAL TASKS WITH 50% ACCY INDEPENDENTLY. Status Initial Goal #3 PATIENT WILL COMPLETE ROTE MEMORY TASKS WITH 50% ACCY. Status Initial Goal #4 UPDATE GOALS NEEDED. Status Initial Frequency of Treatment: 5x/week Duration of Treatment: Hospital Stay Goals & POC discussed with patient/ No family Patient is aware of diagnosis and Yes prognosis Patient is receptive to plan of care Yes Rehabilitation Potential Good Patient Discharge Plan Description Snf Facility Patient Discharge Plan Comment DISCHARGE PATIENT TO LONG-TERM CARE FACILITY WHEN MEDICALLY STABLE/ABLE. 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 PATIENT FREQUENTLY ROAMING/WONDERING STREETS, DIRTY, AND BUG BITS. PATIENT DOES NOT WANT TO RETURN TO THE FAMILY, PREFERS FACILITY. Comment UNABLE TO DETERMINE DUE TO POOR SHORT TERM MEMORY AND DEDUCTIVE REASONING. Date 06/01/22 Feeding Impaired Comment MIN ASSIST (VERBAL CUES FOR TASK COMPLETION) Grooming Impaired Comment STAND BY ASSIST WITH VERBAL CUES FOR TASK COMPLETION Bathing Impaired Comment STAND BY ASSIST AND VERBAL CUES FOR TASK COMPLETION Dressing WFL Comment MOD INDEP (ABLE TO DON/DOFF CLOTHING) Comment NOT COMPLETED THROUGHOUT SESSION IADLS (If indicated) Homemaking,etc Impaired Bed Mobility WFL Toilet Transfers WFL Functional Transfers WFL Functional Endurance TOLERATES APPROXIMATELY 20 MINUTES OF FUNCTIONAL TRANSFERS AND ADLS. Cognition ALERT AND ORIENTED TO NAME ONLY WITH VERBAL CUES. PATIENT REQUIRES 1 STEP COMMANDS FOR ALL TASKS THIS DATE; VERY LIMITED DEDUCTIVE REASONING OR MEMORY. Other Objective Data NO REPORTED/OBSERVED PAIN. IN REGARDS TO STRENGTH, PATIENT PRESENTS WITH UNILATERAL WEAKNESS ON RIGHT SIDE COMPARED TO LEFT SIDE. RIGHT UE MMT: 4/5 MMT LEFT UE MMT: 4+/5 MMT DIGIT OPPOSITION: WFL FINGER TO NOSE PROPRIOCEPTION: WFL UE JOVANY: WFL Adaptive Equipment/Durable Medical OT RECOMMENDS 24/7 CARE AND Equipment needed/recommended SUPERVISION WITH EXTENDED CARE FACILITY DUE TO SOCIAL SITUATION AND PATIENT SAFETY. Functional Problem List PATIENT PRESENTS AT BASELINE IN REGARDS TO COGNITIVE STATUS ; DESPITE LIMITATIONS AND REQUIRES VERBAL CUES FOR ALL TASKS. Pain Limitations 0/10 Therapuetic Interventions NO SKILLED OT INDICATED, PATIENT AT BASELINE OT Inpatient Plan of Care Date of Evaluation 06/01/22 Treatment Diagnosis AMS Patient assessed for Rehab Services Yes Was notification received of nursing No assessment trigger Chart screen completed Yes Is an intervention justified at this No time Reason Rehab Services Not Assessed Treatment Not Indicated Comment PATIENT PRESENTS AT BASELINE WITH COGNITIVE IMPAIREMENTS, RECOMMENDATION FOR 24/7 CARE AT EXTENDED CARE FACILITY DUE TO POOR SOCIAL SITUATION/ SERVICES. Initialized on 06/01/22 11:47 - END OF NOTE 06/01/22 11:00 Case Management Note by Lazara Coker UPDATED HELENE LICONA ON CURRENT PLAN TO FIND PLACEMENT. HE WAS NOTIFIED THAT FACILITIES MAY CALL HIM TO GET INFORMATION ON PATIENT'S FINANCIAL STATUS TO SEE IF HE QUALIFIES FOR MEDICAID Initialized on 06/01/22 11:00 - END OF NOTE 06/01/22 10:33 Case Management Note by Lazara Coker [facility]- NO MALE BEDS AVAILABLE [facility]- NO BEDS AVAILABLE THIS WEEK Initialized on 06/01/22 10:33 - END OF NOTE 06/01/22 10:08 Case Management Note by Lazara Coker OF [place] -DECLINED PATIENT Initialized on 06/01/22 10:08 - END OF NOTE Assessment/Plan (1) Altered mental status Current Visit: Yes Status: Acute Qualifiers: Assessment & Plan: much improved since admission, appears to be at his baseline. I suspect me dication compliance for seizure disorder and poor control was a possible culprit and could explain MRI findings of temporal lobe sclerosis. awaiting placement Code(s): R41.82 - ALTERED MENTAL STATUS, UNSPECIFIED (2) Seizure disorder Current Visit: No Status: Chronic Code(s): G40.909 - EPILEPSY, UNSP, NOT INTRACTABLE, WITHOUT STATUS EPILEPTICUS (3) Schizophrenia Current Visit: No Status: Chronic Qualifiers: Code(s): F20.9 - SCHIZOPHRENIA, UNSPECIFIED (4) Brain lesion Current Visit: Yes Status: Acute Code(s): G93.9 - DISORDER OF BRAIN, UNSPECIFIED
[2022-06-02] MEDS: NICODERM CQ 14 MG TOP SCH (09:36)
[2022-06-02] MEDS: Wellbutrin XL 150 MG PO SCH (09:36)
[2022-06-02] MEDS: KEPPRA PO SCH ×2 (09:37→21:30)
[2022-06-02] MEDS: PLAVIX Tablet PO SCH (09:37)
[2022-06-02] MEDS: ZOCOR 20MG PO SCH (09:37)
[2022-06-02] MEDS: ECOTRIN 81 MG PO SCH (09:37)
[2022-06-02] MEDS: Protonix 40MG Tablet PO SCH (21:30)
[2022-06-02] MEDS: Restoril 15 MG PO SCH (21:30)
[2022-06-03 03:56] VITALS: O2SAT 97
[2022-06-03 07:48] VITALS: BP 131/64; PULSE 62
[2022-06-03] MEDS: ECOTRIN 81 MG PO SCH (09:20)
[2022-06-03] MEDS: Wellbutrin XL 150 MG PO SCH (09:20)
[2022-06-03] MEDS: ZOCOR 20MG PO SCH (09:20)
[2022-06-03] MEDS: PLAVIX Tablet PO SCH (09:20)
[2022-06-03] MEDS: KEPPRA PO SCH (09:20)
--- NOTE | 2022-06-03 10:09 | PCM.DS ---
Discharge Summary Date of Admission: 05/30/22 09:31 Admitting Physician: LUIS REYES Consults: Consults on Case 05/29/22 01:07 Tele-Health Consult ROUTINE Primary Care Provider: HERNANDEZ HEBERT Allergies Allergies quetiapine [From Seroquel] Allergy (Severe, Verified 05/28/22 18:59) seizures carisoprodol [From Soma] Allergy (Verified 05/28/22 18:59) Hives diphenhydramine [From Benadryl] Allergy (Verified 05/28/22 18:59) [facility] Summary - Hospital Course Hospital Course: patient admitted with altered mental status and found wondering on the street, hx of seizure disorder. recently seen for seizure activity and keppra was increased. his living situation is poor and he expressed not wanting to return to his current living situation. he has had no seizure activity since admission and his mental status has cleared and is currently at his baseline. he has no complaints - Vitals & Intake/Output Vital Signs: Vital Signs Temperature 97.3 F 06/03/22 07:47 Pulse Rate 62 06/03/22 07:47 Respiratory Rate 16 06/03/22 07:47 Blood Pressure 131/64 06/03/22 07:47 O2 Sat by Pulse Oximetry 97 06/03/22 07:47 Intake & Output: Intake & Output 05/31/22 06/01/22 06/02/22 06/03/22 11:59 11:59 11:59 11:59 Intake Total 1820 1620 1920 1380 Balance 1820 1620 1920 1380 Weight 69.6 kg - Lab Result Diagrams: 06/01/22 05:05 06/01/22 05:05 Micro Results-Entire Visit: Microbiology 05/31/22 06:02 Blood Culture - Preliminary Blood NO GROWTH TO DATE - Procedures and Test Procedures and Tests throughout Hospitalization: Therapy Orders & Screens 05/29/22 02:45 Smoking Cessation Education ONCE Comment: Diagnosis: AMS Smoking Status: Current every day smoker How long have you smoked: 30 yrs Have you smoked in the past 12 months: Yes Approximately how many cigarettes per day: 35 Do you dip or chew tobacco: No 05/29/22 11:31 EEG 41-60 Minutes (Normal) ONCE Comment: Reason For Exam: Diagnosis: AMS 06/01/22 08:00 OT Eval and Treat (MD Order) ONCE Comment: Consulting Provider: Physician Instructions: Reason For Exam: tele neurology recommendation Diagnosis: AMS PT Eval & Treat ( Order) ONCE Reason for Eval:: tele neurology recommendation Diagnosis: AMS ST Eval & Treat (MD Order) .as ordered Comment: Physician Instructions: Reason For Exam: Evaluate: Yes Treat: Yes Reason for Eval: tele neurology recommendation Diagnosis: AMS Discharge Exam General Appearance: no apparent distress Neurologic Exam: alert, cooperative Respiratory Exam: normal breath sounds, lungs clear, No respiratory distress Cardiovascular Exam: regular rate/rhythm, normal heart sounds Gastrointestinal/Abdomen Exam: soft, No tenderness, No mass Extremity Exam: normal inspection, normal range of motion Skin Exam: normal color, warm, dry Final Diagnosis/Problem List - Final Discharge Diagnosis/Problem (1) Altered mental status Current Visit: Yes Status: Acute Assessment & Plan: at baseline currently Code(s): R41.82 - ALTERED MENTAL STATUS, UNSPECIFIED (2) Seizure disorder Current Visit: No Status: Chronic Assessment & Plan: keppra increased from 500mg bid to 1000mg bid, has abnoramlity on MRI. has f/u appt scheduled with his neurologist Dr Mccullough as outpatient. needs to keep this f/u Code(s): G40.909 - EPILEPSY, UNSP, NOT INTRACTABLE, WITHOUT STATUS EPILEPTICUS (3) Schizophrenia Current Visit: No Status: Chronic Code(s): F20.9 - SCHIZOPHRENIA, UNSPECIFIED (4) Brain lesion Current Visit: Yes Status: Acute Assessment & Plan: continue current keppra dose, no seizures since admission Code(s): G93.9 - DISORDER OF BRAIN, UNSPECIFIED - Discharge Disposition: Home, Self-Care Condition: Stable Prescriptions: New Levetiracetam [Keppra] 1,000 mg PO BID 30 Days #120 tablet Continue Simvastatin 20Mg [Zocor 20Mg] 20 mg PO DAILY PANTOPRAZOLE 40 mg Tablet [Protonix 40MG Tablet] 40 mg PO HS Clopidogrel Bisulfate [Clopidogrel] 75 mg PO DAILY Aspirin [Low Dose Aspirin EC] 81 mg PO DAILY Bupropion HCl 150 mg Sr [Wellbutrin SR 150 MG] 150 mg PO DAILY Temazepam 30 mg PO HS Aripiprazole Lauroxil [Aristada] 662 mg IJ UD Trazodone HCl 100 mg PO HS Levetiracetam [Keppra] 500 mg PO BID 30 Days #60 tablet Nicotine 14 mg [Nicoderm Cq 14 mg] 14 mg TOP Q24H10 #30 patch Additional Instructions: SENIOR LIVING ORDERS: ADMIT TO [facility] REGULAR DIET ST EVAL AND TREAT SEE ATTACHED MED LIST Follow up with: BEULAH MCCULLOUGH [NON-STAFF PHY W/O PRIVILEGES] - (keep scheduled f/u appointment) Forms: Transfer Record [employer]
[2022-06-03] MEDS: NICODERM CQ 14 MG TOP SCH (10:13)
== END 2022-06-03 10:53 | disposition home or self-care (01) | DRG 948 ==
LOC: ED 18:30 → MED SURG 05-29 01:02 → OBSVTOIN 05-30 09:31
PROVIDERS: ADMIT Family Medicine; ATTEND Family Medicine
DX: R41.82 Altered mental status, unspecified (principal); G40.909 Epilepsy, unspecified, not intractable, without status epilepticus; F20.9 Schizophrenia, unspecified; G93.9 Disorder of brain, unspecified; G93.81 Temporal sclerosis; I10 Essential (primary) hypertension; E78.5 Hyperlipidemia, unspecified; Z79.899 Other long term (current) drug therapy; Z20.828 Contact with and (suspected) exposure to other viral communicable diseases; Z72.0 Tobacco use
CPT/HCPCS: 0241U; 36415; 70450; 70544; 71045; 80048; 80053; 80061; 80307; 81001; 82140; 82607; 82746; 83605; 83721; 83735; 84146; 84425; 84443; 84484; 85025; 85027; 87040; 93005; 93041; 94760; 95812; 96105; 96374; 97161; 97165; 99285; G0378; G0480; J2060; J3475; A9270-GY